=== PATIENT | male | born 1935 | race Caucasian/White ===

== ENCOUNTER 2020-12-05 19:19 | Observation (INO) | payer MEDICARE, SELFPAY ==
[2020-12-05] VITALS (7 sets, daily range): BP systolic 138–208; BP diastolic 83–103; PULSE 65–88; RESP 16–20; TEMP 36.4–36.7; O2SAT 99–100; BMI 27.6; BMI 30.2
--- NOTE | ~2020-12-05 | XR_ITS ---
EXAMINATION: XR chest 2V DATE: 12/05/2020 19:57 INDICATION: Left-sided chest TECHNIQUE: AP and lateral views of the chest are obtained. COMPARISON: 09/03/2018 FINDINGS: There are minimal opacities of the lower lung zones. No pleural effusion or pneumothorax is identified. The cardiomediastinal silhouette is normal. There is moderate thoracic spondylosis. IMPRESSION: 1. Minimal opacities of the lower lung zones, consistent with atelectasis versus pneumonia versus pul monary edema. Reviewed, dictated and finalized at location A. GRADER IMPRESSION: 1. Minimal opacities of the lower lung zones, consistent with atelectasis versu s pneumonia versus pulmonary edema.
--- NOTE | 2020-12-05 19:26 | ECG_ITS ---
Measurements Intervals [place] Rate: 71 P: 7 [place]: 231 QRS: -18 QRSD: 105 T: 78 QT: 395 QTc: 430 Interpretive Statements SINUS RHYTHM WITH FIRST DEGREE AV BLOCK INFERIOR INFARCT, AGE INDETERMINATE BORDERLINE ST-T WAVE ABNORMALITY- HIGH LATERAL LEADS ABNORMAL ECG Electronically Signed On 12-05-2020 21:45:02 PRODUCT BUILDER by Izaiah Bonilla D.O.
[2020-12-05 19:58] LABS: Basophils Percent Auto 0.4 % (0.2-1.2); Eosinophils Absolute Auto 0.1 K/mm3 (0-0.3); Eosinophils Percent Auto 1.6 % (0-4.4); Hematocrit 46.5 % (42.0-52.0); Hemoglobin 15.9 g/dL (14.0-18.0); Immature Granulocyte Absolute 0.03 K/mm3 (0.00-0.031); Immature Granulocyte Percent A 0.4 % (0-0.5); Lymphocytes Absolute Auto 2.23 K/mm3 (0.9-3.2); Lymphocytes Percent Auto 29.2 % (18.3-44.2); Mean Corpuscular HGB Conc 34.2 g/dl (32-36); Mean Corpuscular Hemoglobin 30.6 pg (26-34); Mean Corpuscular Volume 89.6 fl (80-100); Mean Platelet Volume 10.5 fl (7.4-10.4); Monocytes Absolute Auto 0.9 K/mm3 (0.1-0.6); Neutrophils Absolute Auto 4.3 K/mm3 (1.3-6.7); Neutrophils Percent Auto 56.4 % (45.5-73.1); Platelet Count Result 174 k/mm3 (150-375); Red Blood Count 5.19 M/mm3 (4.6-6.20); Red Cell Distribution Width 12.4 % (11.5-14.5); White Blood Count 7.7 K/mm3 (4.5-10.0)
[2020-12-05 20:08] LABS: INR 0.9; Partial Thromboplastin Time 25.8 SECONDS (22.3-36.8); Prothrombin Time 12.8 Seconds (11.1-14.7)
[2020-12-05 20:11] LABS: Anion Gap 7 mmol/L (8-16); Blood Urea Nitrogen 19 mg/dL (9-20); Calcium 8.7 mg/dL (8.4-10.2); Carbon Dioxide 31 mmol/L (22-30); Chloride 97 mmol/L (98-107); Estimated Glomerular Filt Rate > 60; Glucose 140 mg/dL (75-110); Potassium 4.3 mmol/L (3.4-5.0); Sodium 135 mmol/L (137-145)
[2020-12-05 20:21] LABS: Troponin I 0.017 ng/mL (0.000-0.034)
[2020-12-05 20:45] LABS: D Dimer 0.38 ug/mL (<0.48)
[2020-12-05 20:50] LABS: Alanine Aminotransferase 27 U/L (4-50); Albumin Level 4.3 g/dL (3.5-5.1); Alkaline Phosphatase 82 U/L (38-126); Aspartate Amino Transferase 27 U/L (17-59); Bilirubin,Total 1.1 mg/dL (0.2-1.3)
[2020-12-05 20:59] LABS: NT Pro B Type Natriuretic Pept 519 PG/ML (5-100)
--- NOTE | 2020-12-05 21:07 | ED.CHESTPAIN ---
HPI - Chest Pain General Chief Complaint: Chest Pain Stated Complaint: Intermittant chest pain x 1hour Time Seen by Provider: 12/05/20 20:03 Source: patient and family Mode of arrival: ambulatory Limitations: no limitations History of Present Illness HPI narrative: 85 years old white male presents with intermittent left chest pain with elevated blood pressure started while sitting on the computer. Patient reported that the pain is intermittent usually lasts for 1 to 2 seconds then go away. Patient denies any aggravating or relieving factors. Patient denies any fever, chills, nausea, vomiting, shortness of breath, sore throat, headache, back pain, exposure to anybody known having COVID-19. Currently patient is asymptomatic, DNR, history of coronary stents times 12/2000. Patient is telling me that he was scheduled for cardiac bypass which canceled for unknown reason. Currently patient on aspirin and Plavix Related Data Home Medications Medication Instructions Recorded Confirmed aspirin 81 mg tablet,delayed 81 mg PO DAILY 07/13/20 release clopidogrel 75 mg tablet 75 mg PO DAILY 07/13/20 Allergies Allergy/AdvReac Type Severity Reaction Status Date / Time No Known Allergies Allergy Verified 12/05/20 19:21 Review of Systems Review of Systems: Narrative: CONSTITUTIONAL: Denies fever, chills, or sweats. EYES: Denies visual changes, redness, or discharge. ENT: Denies rhinorrhea, congestion, sore throat, or otalgia. CARDIOVASCULAR: Denies chest pain, palpitations, or edema. RESPIRATORY: Denies cough or dyspnea. GASTROINTESTINAL: Denies abdominal pain, nausea, vomiting, or diarrhea. GENITOURINARY: Denies dysuria or hematuria. SKIN: Denies rash or itching. MUSCULOSKELETAL: Denies back pain, joint pain, or myalgia. NEUROLOGIC: Denies headache, numbness, or weakness. PSYCHIATRIC: Denies anxiety or depression. [facility] Past Medical History Medical History (Updated 12/05/20 @ 21:14 by Jayleen Rice MD) Coronary stent occlusion Hypertension Social History Social History Smoking status: Never smoker Alcohol intake: never Substance use: never Gender identity (if verbalized by the patient): Male Exam Narrative: Exam Narrative: General appearance: Well-developed, well-nourished Skin: Normal color Head: Normocephalic, nontraumatic Eyes: Clear conjunctiva ENT: Oropharynx normal, ears normal, nose normal Neck: Supple, nontender Chest and respiratory: Airway patent, no respiratory distress, no accessory muscle use Heart: Regular rate/rhythm Abdomen: Soft, nontender, no organomegaly, quiet bowel sounds Vascular: Normal peripheral pulses, normal capillary refill. 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 Labs, EKG, chest x-ray, aspirin, Lopressor ordered. Further plan to follow Differential Diagnosis Differential diagnosis: Likely pneumothorax, stable angina, atypical chest pain and chest pain Lab Data Result diagrams:
[2020-12-05] MEDS: METOPROLOL TARTRATE INJ 5 MG/5 ML VIAL IV PUSH (22:21)
[2020-12-05] MEDS: NITROGLYCERIN OINTMENT 1 INCH DOSE TRANSDERM ×2 (22:21→23:40)
--- NOTE | 2020-12-05 22:53 | ECG_ITS ---
Measurements Intervals [place] Rate: 64 P: -2 [place]: 225 QRS: -1 QRSD: 100 T: 85 QT: 403 QTc: 416 Interpretive Statements SINUS RHYTHM WITH FIRST DEGREE AV BLOCK BORDERLINE R WAVE PROGRESSION, ANTERIOR LEADS INFERIOR INFARCT, AGE INDETERMINATE BORDERLINE ST-T WAVE ABNORMALITY- HIGH LATERAL LEADS BASELINE ARTIFACT- I, II, AVR ABNORMAL ECG Electronically Signed On 12-06-2020 7:15:09 EMPLOYEE BENEFITS ATTORNEY by Izaiah Bonilla D.O.
--- NOTE | 2020-12-05 22:55 | PM.IMHP ---
H&P: HPI History of Present Illness Date/Time: 12/05/20 22:55 Chief Complaint: chest pain Narrative: This is an 85 year old male with known CAD+ s/p #5 stents placed who [facility] with a complaint of intermittent left sided chest pain while sitting at his computer. The patient states that his chest pain would last a few seconds and then go away. He believes that he had about [facility]. He denies any associated nausea, vomiting, shortness of breath, headache, fever, chills, cough, abdominal pain, dysuria, hematuria, diarrhea, LE swelling, or rectal bleeding. The patient's last cardiac angiogram was about 5 years ago when he had angioplasty done. He states that he has been told in the past that he had a complete occlusion of his LAD. First two troponins have been negative. ER provider has consulted Cardiology. On my encounter with the patient he has no complaints or symptoms. No other complaints. Review of Systems Review of Systems: All systems reviewed & are unremarkable except as noted in HPI and below PMFSH Past Medical History Medical History (Updated 12/06/20 @ 05:03 by Abdirahman Marrufo MD) Coronary stent occlusion Hypertension Surgical History Surgical History (Updated 12/05/20 @ 23:02 by Abdirahman Marrufo MD) History of coronary artery stent placement Family History Family History Father Acute myocardial infarction father of [place] in his early 50s Social History Social History Smoking status: Never smoker Alcohol intake: never Substance use: never Gender identity (if verbalized by the patient): Male Spiritual care concerns: No Meds Home Medications and Allergies Home Medications Medication Instructions Recorded Confirmed Type aspirin 81 mg tablet,delayed 81 mg PO DAILY 07/13/20 12/05/20 History release clopidogrel 75 mg tablet 75 mg PO DAILY 07/13/20 12/05/20 History levetiracetam 500 mg PO BID 12/05/20 12/05/20 History lisinopril 40 mg PO DAILY 12/05/20 12/05/20 History metoprolol succinate 50 mg PO DAILY 12/05/20 12/05/20 History simvastatin 20 mg PO DAILY 12/05/20 12/05/20 History Allergies Allergy/AdvReac Type Severity Reaction Status Date / Time No Known Allergies Allergy Verified 12/05/20 19:21 Vital Signs Vital Signs - 24 hr 12/05/20 19:33 12/05/20 19:42 12/05/20 21:15 Temperature 36.7 C Pulse Rate 73 88 Respiratory Rate 20 Blood Pressure 208/103 H 160/84 H Pulse Oximetry 99 12/05/20 22:21 12/05/20 22:41 Temperature Pulse Rate 65 65 Respiratory Rate 16 Blood Pressure 138/86 Pulse Oximetry 99 Exam Const: General: healthy appearing, no acute distress, alert and awake Nutritional Appearance: well nourished Orientation/consciousness: patient oriented x3 HENMT: Head: normal to inspection General nose exam: Normal external nose present Face and sinus: normal facial exam Mouth: Yes Normal oral and palatal mucosa present and Yes oropharynx normal Eyes: Pupils: Equal, round and reactive pupils present EOM: EOMs intact bilaterally Neck: Neck: supple and no JVD Thyroid: thyroid normal Lymphatic: lymphadenopathy not noted Resp: Effort & Inspection: normal respiratory effort Auscultation: clear to auscultation bilaterally Cardio: Rate: regular rate Rhythm: regular rhythm Heart sounds: no murmurs GI: Inspection: normal to inspection Auscultation: normal bowel sounds Skin: General skin exam: normal color and no rashes or lesions noted Neuro: General: patient oriented x3 Cranial nerves: Yes CN's II-XII intact bilaterally and Yes Equal, round and reactive pupils present Speech: normal speech Motor exam (neuro): 5/5 motor strength present throughout Sensory Exam: normal sensation Extrem: General: normal to inspection and no edema Psych: Mental Status: mental sta
--- NOTE | 2020-12-05 22:55 | PC.NURSE ---
This patient, Johnnie Mack, was admitted to IMU Room 202-. Patient/family oriented to hospital policies and general routines including ID bracelet, bed and alarms, visiting hours, pain management, procedures, bathroom and other care routines, personal items, smoking policy, room service/diet, and visiting hours. Information on how to activate the Rapid Response Team has been discussed. Patient/Family are encouraged to report perceived risks to care and to ask questions if they do not understand what they are told or what they should do.
[2020-12-05 22:57] LABS: Troponin I < 0.012 ng/mL (0.000-0.034)
[2020-12-05] MEDS: ENOXAPARIN 80 MG/0.8 ML SYRINGE SUB-Q (23:39)
[2020-12-06] VITALS (10 sets, daily range): BP systolic 128–143; BP diastolic 74–80; PULSE 61–74; RESP 19–20; TEMP 36.3–36.6; O2SAT 96–99
--- NOTE | 2020-12-06 | ECHO_ITS ---
Patient Info Name: Johnnie Mack Age: 85 years : 1935 Gender: Male Ht: 65 in Wt: 182 lbs BSA: 1.97 m2 HR: 64 bpm BP: 128 / 74 mmHg Heart Rhythm: Sinus Rhythm Technical Quality: Fair Exam Date: 12/06/2020 8:14 AM Exam Location: [facility] Patient Status: Inpatient Admit Date: 12/05/2020 Staff Ordering Physician: Jeremiah Morton MD Neon Pumper: Ne Alvarez RDCS Attending Provider: Abdirahman Marrufo MD Exam Type: CA echo doppler color flow Study Info Indications R07.89 - Other chest pain Complete two-dimensional, color flow and Doppler transthoracic echocardiogram is performed. Summary 1. Complete two-dimensional, color flow and Doppler transthoracic echocardiogram is performed. 2. Suboptimal image quality. Mild LV enlargement, sigmoid hypertrophy; borderline LV systolic function, EF calculated at 50%. Grade 1 diastolic dysfunction. Mild left atrial enlargement. Mitral valve not well visualized, no significant MR. Left coronary cusp of aortic valve mildly calcified, no significant stenosis by Doppler. Trace TR, normal RVSP. Left Ventricle Left ventricular systolic function is mildly reduced, estimated at 45-50%. The left ventricular diastolic function is grade I diastolic dysfunction. Right Ventricle Right ventricular chamber dimension is normal. Right ventricular systolic function is normal. Left Atria Left atrial chamber dimension is mildly enlarged. Right Atria Right atrial chamber dimension is normal. Aortic Valve There is no aortic valve stenosis. There is trace aortic valve regurgitation. There is mild aortic valve calcification. Pulmonic Valve The pulmonic valve is not well visualized. There is mild pulmonic regurgitation. Mitral Valve The mitral valve has normal leaflets. There is no mitral valve regurgitation. Tricuspid Valve The tricuspid valve leaflets are normal. There is trace tricuspid valve regurgitation. Pericardium/Pleural The pericardium appears epicardial fat pad. Aorta The aortic root size at the sinus of Valsalva is normal. Left Ventricular Outflow Tract Name Value Normal LVOT 2D LVOT Diameter 2.0 cm LVOT Doppler LVOT Peak Gradient 3 mmHg LVOT Mean Gradient 2 mmHg LVOT VTI 17 cm LVOT VTI/AV VTI Ratio 0.9 LVOT Stroke Volume 56 ml LVOT CO 3.6 l/min LVOT CI 1.8 l/min/m2 Pulmonic Valve Name Value Normal RVOT Doppler RVOT Peak Gradient 2 mmHg PV Doppler PV Peak Gradient 3 mmHg Mitral Valve
[2020-12-06 01:03] LABS: Basophils Percent Auto 0.4 % (0.2-1.2); Eosinophils Absolute Auto 0.1 K/mm3 (0-0.3); Eosinophils Percent Auto 1.1 % (0-4.4); Hematocrit 44.1 % (42.0-52.0); Hemoglobin 15.2 g/dL (14.0-18.0); Immature Granulocyte Absolute 0.03 K/mm3 (0.00-0.031); Immature Granulocyte Percent A 0.4 % (0-0.5); Lymphocytes Percent Auto 26.5 % (18.3-44.2); Mean Corpuscular HGB Conc 34.5 g/dl (32-36); Mean Corpuscular Hemoglobin 30.7 pg (26-34); Mean Corpuscular Volume 89.1 fl (80-100); Monocytes Absolute Auto 0.7 K/mm3 (0.1-0.6); Monocytes Percent Auto 9.2 % (2.6-8.5); Neutrophils Absolute Auto 4.7 K/mm3 (1.3-6.7); Neutrophils Percent Auto 62.4 % (45.5-73.1); Platelet Count Result 168 k/mm3 (150-375); Red Blood Count 4.95 M/mm3 (4.6-6.20); Red Cell Distribution Width 12.4 % (11.5-14.5); White Blood Count 7.5 K/mm3 (4.5-10.0)
[2020-12-06 01:15] LABS: Anion Gap 3 mmol/L (8-16); Blood Urea Nitrogen 16 mg/dL (9-20); Calcium 8.3 mg/dL (8.4-10.2); Carbon Dioxide 30 mmol/L (22-30); Chloride 101 mmol/L (98-107); Estimated CRCL calculation 60 ml/min; Estimated Glomerular Filt Rate > 60; Glucose 156 mg/dL (75-110); Magnesium 1.9 mg/dL (1.6-2.3); Potassium 4.7 mmol/L (3.4-5.0); Sodium 134 mmol/L (137-145)
[2020-12-06 01:27] LABS: Troponin I 0.028 ng/mL (0.000-0.034)
[2020-12-06] MEDS: NITROGLYCERIN OINTMENT 1 INCH DOSE TRANSDERM (05:28)
[2020-12-06 05:35] LABS: Cholesterol 113 mg/dL (0-200); HDL Direct 42 mg/dL; Triglycerides 126 mg/dL (<150)
[2020-12-06 05:38] LABS: Hemoglobin A1C 7.6 % (<5.7)
[2020-12-06 05:45] LABS: LDL Cholesterol Direct 55 mg/dL
--- NOTE | 2020-12-06 08:45 | PM.CNCAR ---
Assessment and Plan Assessment and plan (1) Atypical chest pain: Code(s): R07.89 - Other chest pain Status: Acute Assessment and Plan: 85-year-old male with CAD, history of multiple PCI/stenting placements; ischemic cardiomyopathy (EF 40-45% from previous catheterization), hypertension. Patient admitted to the hospital with chest pain with features atypical for ischemia. EKG shows old infarct. Serial troponins are negative. Blood pressure was severely elevated at presentation which has improved now. -continue dual antiplatelet therapy with aspirin and clopidogrel. -resume other home medications including metoprolol, lisinopril, simvastatin. -echocardiogram with Doppler is pending. If no significant changes, then patient may be discharged home with outpatient cardiology follow-up. (2) CAD (coronary artery disease): Code(s): I25.10 - Atherosclerotic heart disease of [place] coronary artery without angina pectoris Status: Acute Assessment and Plan: Continue current medical treatment for CAD. Patient has been ruled out for GA. (3) Severe hypertension: Code(s): I10 - Essential (primary) hypertension Status: Acute Assessment and Plan: Blood pressure was severely elevated at high presentation, which has normalized now. Continue current antihypertensives. History of Present Illness History of Present Illness Consult date/time: 12/06/20 08:45 Date of Service: 12/06/2020 Reason for consult: Chest pain Requesting physician: Chief complaint: Chest pain HPI: 85-year-old male with CAD, history of multiple PCI/stenting placements; ischemic cardiomyopathy (EF 40-45% from previous catheterization), hypertension. Patient admitted to [facility] on 12/05/2020 with complaints of chest pain. He describes the chest pain as pinprick like sensation on the left side of the chest, that last for 1-2 seconds, and and had about 8-10 episodes in 1 hour. He denied any associated symptoms of shortness of breath, palpitation, dizziness or syncope. At baseline, he denies any exertional chest discomfort. He has not had any recurrent chest discomfort since hospitalization. On presentation, patient's blood pressure was severely elevated at 208/103 mmHg. His blood pressure has significantly improved. At the time of evaluation, patient was eating breakfast. EKG which I personally evaluated showed sinus rhythm, first-degree AV block, inferior infarct, age undetermined, probably old; nonspecific ST-T abnormalities in the lateral leads. Serial troponins are negative. Chest x-ray shows minimal opacities in the lower lung zones. NTproBNP elevated at 519. Review of patient's previous medical records indicate that he had coronary angiogram done on 08/23/[address] Wheeler the setting of ST-elevation [place]. Coronary angiogram showed patent left main; chronic total occlusion LAD at its origin with 100% ISR proximal LAD; patent proximal LCX stent with minor irregularities; 100% thrombotic occlusion RCA at its origin within previously placed stent. LVEF was reportedly 40-45%. Patient underwent balloon angioplasty of the right coronary artery with congregation of flow. Reason For Visit: chest pain, uncontrolled htn Review of Systems Review of Systems: Narrative: General: Negative for fever, chills, fatigue Psychological: Negative for anxiety, depression Ophthalmic: negative for loss of vision ENT: Negative for epistaxis, headaches Allergy and immunology: Negative for hives, nasal congestion Hematologic and lymphatic: Negative for overt bleeding problems Endocrine: Negative for hot flashes, palpitations Respiratory: Negative for cough, hemoptysis Cardiovascular: Positive for transient chest pain which has resolved now; shortness of breath, leg swelling, palpitations, dizziness, syncope Gastrointestinal: Negative for abdominal pain, nausea, vomiting, hematochezia Musculoskeletal: Negative for myalgi
[2020-12-06] MEDS: CLOPIDOGREL BISULFATE 75 MG TABLET PO (09:05)
[2020-12-06] MEDS: SIMVASTATIN 20 MG TABLET PO (09:05)
[2020-12-06] MEDS: lisinopriL 20 MG TABLET 40 MG PO (09:06)
[2020-12-06] MEDS: METOPROLOL SUCCINATE EXT REL 50 MG TABCR PO (09:06)
[2020-12-06] MEDS: levETIRAcetam 500 MG TABLET PO (09:06)
[2020-12-06] MEDS: ASPIRIN 81 MG CHEWABLE TABLET PO (09:10)
--- NOTE | 2020-12-06 11:34 | PM.DS ---
DS: Admitting Diagnosis Admitting Diagnosis Admitting Diagnosis: Chief Complaint: chest pain DS: Discharge Diagnosis Discharge Diagnosis (1) Chest pain: Qualifiers: Chest pain type: unspecified Qualified Code(s): R07.9 - Chest pain, unspecified Code(s): R07.9 - Chest pain, unspecified Status: Acute Assessment and Plan: The patient has been admitted for observation, Trend troponin, telemetry, monitor for chest pain, nitroglycerin SL PRN for chest pain. Check lipid panel in am. Aspirin PO daily. Continue Plavix. The patient has been anticoagulated by ER provider. Cardiology, Dr. Dailey has been consulted and will evaluate the patient in the morning. (2) Hypertension: Qualifiers: Hypertension type: unspecified Qualified Code(s): I10 - Essential (primary) hypertension Code(s): I10 - Essential (primary) hypertension Status: Inactive Assessment and Plan: Monitor blood pressure. Continue beta tyler. (3) Abnormal glucose: Code(s): R73.09 - Other abnormal glucose Status: Acute Assessment and Plan: r/o undiagnosed diabetes mellitus. Check HgbA1c. DS: Summary Hospital Course Reason for hospitalization: Chief Complaint: chest pain Narrative: This is an 85 year old male with known CAD+ s/p #5 stents placed who presented to the hospital [facility] with a complaint of intermittent left sided chest pain while sitting at his computer. The patient states that his chest pain would last a few seconds and then go away. He believes that he had about 6 episodes all together [facility]. He denies any associated nausea, vomiting, shortness of breath, headache, fever, chills, cough, abdominal pain, dysuria, hematuria, diarrhea, LE swelling, or rectal bleeding. The patient's last cardiac angiogram was about 5 years ago when he had angioplasty done. He states that he has been told in the past that he had a complete occlusion of his LAD. First two troponins have been negative. ER provider has consulted Cardiology. On my encounter with the patient he has no complaints or symptoms. No other complaints. Hospital Course: Patient 85-year-old male a significant past medical history with multiple stents, ischemic cardiomyopathy with ejection fraction of 40-45%, patient is clinically stable, patient is a cardiac enzymes are negative, EKG there are no acute changes, supervisor special education recommended if cardiac echo without significant change he can be discharged, patient cardiac echo showed ejection fraction of 40-50% will going discharge the patient home today. Status at Discharge Functional status at discharge: uses cane/walker Overall status at discharge: patient is back to baseline Time Spent with Patient Time attestation: Total time spent providing and/or coordinating discharge services: Patient was seen and examined at the time of the discharge Condition at discharge is stable Code status: Full code. Time spent preparing discharge summary, discharge medications, discussing discharge planning with case specialist and patient is 35 minutes. Time spent: Greater than 30 minutes Exam Narrative: Exam Narrative: Patient is comfortable, NAD HEENT: eyes are clear and none icteric LUNGS:CTA HEART: RR S1S2 ABD: BS+, Soft and nontender Lower extremities: no edema SKIN: nonjaundiced Neuro: grossly intact. DS: Data Data Completed and Pending Labs on day of discharge: Labs from last 24 hours 12/06/20 12/06/20 12/06/20 00:57 00:57 00:57 WBC RBC Hgb Hct MCV MCH MCHC RDW Plt Count MPV Immature Gran % (Auto) Neut % (Auto) Lymph % (Auto) [place] % (Auto) Eos % (Auto) Baso % (Auto) Lymph # (Auto) [place] # (Auto) Eos # (Auto) Baso # (Auto) Abs Immat Gran (auto) Absolute Neuts (auto) Absolute Nucleated RBC Nucleated RBC % PT INR APTT D-Dimer Sodium Potassium Chloride Carbon Di
--- NOTE | 2020-12-06 13:12 | PC.NURSE ---
Patient had discharge orders before 1200 assessment. Flu shot given in Left Deltoid at discharge.
== END 2020-12-06 13:14 | disposition home or self-care (01) ==
LOC: ANHED 20:03 → ANHIMU 12-06 00:05
PROVIDERS: Admitting Provider Family Medicine; Emergency Provider Emergency Medicine; PCP Internal Medicine; Visit Provider Family Medicine
DX: R07.89 Other chest pain (principal); I25.5 Ischemic cardiomyopathy; I10 Essential (primary) hypertension; R73.09 Other abnormal glucose; I25.10 Atherosclerotic heart disease of native coronary artery without angina pectoris; Z95.5 Presence of coronary angioplasty implant and graft; Z66 Do not resuscitate; Z79.82 Long term (current) use of aspirin; Z79.02 Long term (current) use of antithrombotics/antiplatelets; Z23 Encounter for immunization
CPT/HCPCS: 36415; 71046; 80048; 80061; 80076; 83036; 83735; 83880; 84484; 85025; 85380; 85610; 85730; 90471; 90653; 93005; 93306; 96372; 96374; 99285; A9270; G0008; G0378; J1650

== ENCOUNTER → 2021-07-18 09:07 | Outpatient (CLI) | payer MEDICARE, SELFPAY ==
--- NOTE | ~2021-07-18 | XR_ITS ---
EXAMINATION: XR abdomen/kub 1V INDICATION: Flank pain TECHNIQUE: Supine views of the abdomen were obtained on 2 radiographs. COMPARISON: None FINDINGS: No urolithiasis is identified. Calcified atherosclerosis is noted. The visualized lung base s are clear. The bowel gas pattern is normal. There is mild osteoarthritis of the hips. IMPRESSION: 1. No urolithiasis identified. Reviewed, dictated and finalized at location A.
--- NOTE | ~2021-07-18 | CT_ITS ---
EXAMINATION: CT abdomen pelvis wo con DATE: 07/18/2021 09:33 INDICATION: Bilateral flank pain TECHNIQUE: Computed tomography (CT) of the abdomen and pelvis was performed without intravenous contr ast. The dose-length product (DLP) was 761.23 mGy-cm. Automated exposure control and iterative recons truction technique were employed. COMPARISON: 02/25/2019 FINDINGS: Minimal dependent atelectasis is present in the lung bases. The heart size is normal. The l iver is diffusely low in attenuation when compared with the spleen, consistent with hepatic steatosis . The spleen, pancreas, gallbladder, and adrenal glands are normal. There is a 2.9 cm cyst in the upp er pole of the left kidney. The right kidney is unremarkable. No stones are identified in the kidneys or ureters. There is a 2 mm stone in the right posterolateral bladder. A bladder stone was previousl y seen in this location. There is no hydronephrosis or hydroureter. There is calcified atherosclerosi s of the aorta and many of the other arteries. No pathologically enlarged abdominal or pelvic lymph n odes are identified. There is no free intraperitoneal gas or evidence of bowel obstruction. Colonic d iverticulosis is present without evidence of diverticulitis. The appendix is normal. There is severe lumbar spondylosis. IMPRESSION: 1. Bladder stone, versus chronic. 2. Diverticulosis. 3. Diffuse hepatic steatosis. Reviewed, dictated and finalized at location A.
== END ==
PROVIDERS: Visit Provider Nurse Practitioner Adult Health
DX: R10.9 Unspecified abdominal pain (principal); K76.0 Fatty (change of) liver, not elsewhere classified; K57.30 Diverticulosis of large intestine without perforation or abscess without bleeding; M47.816 Spondylosis without myelopathy or radiculopathy, lumbar region
CPT/HCPCS: 74018; 74176

== ENCOUNTER 2022-06-26 09:55 | Outpatient (CLI) | payer MEDICARE, SELFPAY ==
--- NOTE | ~2022-06-26 | XR_ITS ---
XR abdomen/kub 1V 06/26/2022 10:25 Indication: Flank pain. History of bladder stones. Procedure: KUB Comparison: 07/18/2021 Findings: There is a punctate left renal stone. There are pelvic vascular calcifications and phleboli ths. Moderate lumbar spondylosis. No definite stones identified in the expected course of ureters. Miriam ng bases unremarkable. Nonobstructive bowel gas pattern. Impression: 1: Left nephrolithiasis. Reviewed, dictated and finalized at location A. Impression: 1: Left nephrolithiasis.
== END 2022-06-26 09:56 | disposition home or self-care (01) ==
PROVIDERS: Visit Provider Urology
DX: R10.9 Unspecified abdominal pain (principal); N20.0 Calculus of kidney
CPT/HCPCS: 74018

== ENCOUNTER 2022-08-17 08:28 | Outpatient (CLI) | payer MEDICARE, SELFPAY ==
--- NOTE | ~2022-08-17 | XR_ITS ---
EXAMINATION: XR abdomen/kub 1V INDICATION: Gross hematuria TECHNIQUE: Supine views of the abdomen were obtained on 2 radiographs. COMPARISON: 06/26/[address] from today FINDINGS: A 1.5 cm calcification projecting over the right bladder is consistent with bladder stone s een on today's CT. No additional urolithiasis is identified. The bowel gas pattern is visualized lung bases are clear. IMPRESSION: 1. 1.5 cm bladder stone. Reviewed, dictated and finalized at location A. IMPRESSION: 1. 1.5 cm bladder stone.
--- NOTE | ~2022-08-17 | CT_ITS ---
EXAMINATION: CT abdomen pelvis wo/w con DATE: 08/17/2022 09:30 INDICATION: Gross hematuria TECHNIQUE: Computed tomography (CT) of the abdomen and pelvis was performed without and with 130 cc O mnipaque 350 intravenous contrast. The dose-length product was 986.37 mGy-cm. Automated exposure cont rol and iterative reconstruction technique were employed. COMPARISON: CT dated 07/18/2021. FINDINGS: Lung bases are unremarkable. Small pericardial effusion. Cardiomegaly. There is atheroscler osis of the coronary arteries and aorta. No evidence for aneurysm. There is ectasia of the iliac octavio sandra. There is a bladder stone measuring 1.5 cm. Fatty infiltration of the bladder. No renal stones. Colonic diverticulosis without evidence for diver ticulitis. No free air or free fluid. Prostate gland is enlarged. Moderate-severe lumbar spondylosis. No focal hepatic masses. The spleen, pancreas, adrenal glands and right kidney are unremarkable. Ther e is a 2.5 cm left renal cyst. Ureters are normal in course and caliber. IMPRESSION: 1. Bladder stone measuring 1.5 cm. Reviewed, dictated and finalized at location B.
[2022-08-17 09:12] LABS: Estimated Glomerular Filt Rate > 60
== END 2022-08-17 08:29 | disposition home or self-care (01) ==
PROVIDERS: PCP Internal Medicine; Visit Provider Nurse Practitioner Adult Health
DX: R31.0 Gross hematuria (principal); N21.0 Calculus in bladder
CPT/HCPCS: 74018; 74178; Q9967

== ENCOUNTER 2022-08-23 09:14 | Outpatient (CLI) | payer MEDICARE, SELFPAY ==
--- NOTE | 2022-08-23 09:27 | ECG_ITS ---
Measurements Intervals [place] Rate: 72 P: 63 LA: 228 QRS: 16 QRSD: 122 T: 80 QT: 385 QTc: 424 Interpretive Statements SINUS RHYTHM WITH FIRST DEGREE AV BLOCK WITH FREQUENT VENTRICULAR PREMATURE COMPLEXES INFERIOR MYOCARDIAL INFARCTION [40+ ms Q WAVE AND/OR ST/T ABNORMALITY IN II/aVF], OF INDETERMINATE AGE COMPARED TO ECG 12/05/2020 23:32:50 NO SIGNIFICANT CHANGES Electronically Signed On 08-23-2022 17:24:22 CDT by Shanta Anderson M.D.
== END 2022-08-23 09:15 | disposition home or self-care (01) ==
PROVIDERS: PCP Internal Medicine; Visit Provider Urology
DX: I10 Essential (primary) hypertension (principal); Z01.818 Encounter for other preprocedural examination; R94.31 Abnormal electrocardiogram [ECG] [EKG]
CPT/HCPCS: 93005

== ENCOUNTER 2022-08-24 01:08 | Day surgery (SDC) | payer MEDICARE, SELFPAY ==
--- NOTE | 2022-08-22 13:58 | PC.NURSE ---
Addendum entered by Petra Jain RN 08/22/22 15:03: 08/22/22 1445 PT AWARE DO NOT TAKE ANYMORE PLAVIX OR ASPIRIN UNTIL AFTER SURGERY PER DR MCNAIR Original Note: Report to the Outpatient Waiting Room, entrance under the green pavilion located off [facility], at time 0930 on date08/24/22 . OR Time: 1130 . Time changes happen often and if your time is changed the preop area will call you the afternoon before. - You and your visitor will be asked to self-screen and do not enter if you have any COVID symptoms. - Only one visitor and NO children visitors are allowed at this time. - The patient visitor is requested to leave or wait in car when not with patient due to restrictions. - A mask is required within the hospital. Patients may have clear liquids (water, carbonated beverages, clear teas, apple juice) until 3 hours prior to surgery with a maximum of 20 ounces. - No food from midnight until time of surgery - Infants may have breast milk until 4 hours before surgery, formula 6 hours prior to surgery. - Children will be allowed to drink immediately following surgery. If applicable, please bring a bottle or sippy cup to assist with drinking. Juice, water, soda, and popsicles are readily available. For infants on formula, please bring formula the day of surgery. Pacifiers are allowed. Take the following medications with a SIP of water the morning of surgery: ____LEVETIRACETAM,METOPROLOL Medications to discontinue per physician ____ASPIRIN AND PLAVIX PER DR MCNAIR Date to take last dose Please no make-up, nail japanese, hairspray, perfume, deodorant, or body powder the day of surgery. No jewelry (including any body piercings) or valuables the day of surgery, leave them at home. Please take a shower or bath the night before, or the morning of, surgery with an antibacterial soap. Wear comfortable, loose fitting clothing. Children are encouraged to wear pajamas. - Jewelry must be removed prior to entering the operating room. Rings and piercings that are not removed may be cut off. - The hospital will not accept responsibility for valuables. - Please leave all valuables, including medications, at home the day of surgery. If you are going home after surgery, a licensed driver lifter of sanitation truck must drive you home. - NO public transportation without another adult. - We recommend that an adult stay with you for 24 hours following discharge. - We also recommend that you do not drive, make important decision, drink alcoholic beverages, or take any drugs that were not prescribed by your health care provider for at least 24 hours after your discharge time. For Pediatric surgeries, we recommend two adults accompany the child home (only one inside the building at this time). Follow any additional instructions given to you from your surgeon. If you or anyone in your household have experienced Covid symptoms in the past week, please notify your surgeon or the nurse liaison at the phone number below for possible testing. Telephone instructions given to __PATIENT and asked if any additional questions and then verbalized understanding. Patient advised to call surgeon office or pre surgery nurse liaison [phone] if any additional questions.
[2022-08-22 14:57] VITALS: BMI 29.9
[2022-08-24] VITALS (12 sets, daily range): BP systolic 151–206; BP diastolic 91–114; PULSE 70–88; RESP 12–24; TEMP 36–36.2; O2SAT 95–100
--- NOTE | 2022-08-24 06:57 | WPDHPUPDATE1 ---
History and Physical Update Update Date/Time: 08/24/22 06:57 History and Physical has been reviewed, including an updated exam of the patient. There are NO changes in the patient's condition. Risks, benefits, and alternatives have been discussed and questions answered. Patient agrees to proceed with procedure.
[2022-08-24] MEDS: LACTATED RINGERS 1,000 ML 30 ML IV CONT (10:30)
--- NOTE | 2022-08-24 11:04 | WPDANESEPPF ---
Anes - Initial Pre Proc Eval Procedure: Operation Date: 08/24/22 11:30 Proposed Procedures p Cystoscopy with Cystolitholapaxy - Braxton Olivo MD Date/Time: 08/24/22 11:04 Surgeon: Braxton Olivo MD Pre Op Diagnosis: Bladder Stone Patient Data Age: 86 Gender: M Height: 1.65 m Weight: 81.5 kg Last Vital Signs Temp 36.0 C L 08/24/22 10:15 Pulse 80 08/24/22 10:15 Resp 16 08/24/22 10:15 BP 206/104 H 08/24/22 10:15 Pulse Ox 99 08/24/22 10:15 O2 Del Method Room Air 08/24/22 10:15 Allergies Allergy/AdvReac Type Severity Reaction Status Date / Time No Known Allergies Allergy Verified 08/24/22 10:55 Home Medications Medication Instructions Recorded Confirmed Type aspirin 81 mg tablet,delayed 81 mg PO DAILY 07/13/20 08/24/22 History release (Adult Low Dose Aspirin) clopidogrel 75 mg tablet (Plavix) 75 mg PO DAILY 07/13/20 08/24/22 History levetiracetam 500 mg tablet 500 mg PO BID 12/05/20 08/24/22 History lisinopril 40 mg tablet 40 mg PO DAILY 12/05/20 08/24/22 History metoprolol succinate 50 mg 50 mg PO DAILY 12/05/20 08/24/22 History tablet,extended release 24 hr simvastatin 20 mg tablet 20 mg PO DAILY 12/05/20 08/24/22 History Patient hx anesthesia problems: none Family hx anesthesia problems: none Results Review: All pre-operative results and documents have been reviewed as part of the pre-operative evaluation. [facility] Past Medical History Medical History CAD (coronary artery disease) Coronary stent occlusion Hyperlipidemia Hypertension Severe hypertension Surgical History Surgical History History of coronary artery stent placement Family History Family History Father Acute myocardial infarction father of [place] in his early 50s Social History Social History Smoking status: Never smoker Alcohol intake: never Substance use: never Living arrangements: with family Gender identity (if verbalized by the patient): Male Spiritual care concerns: No Anes - Eval Final PreProcedure Day of Procedure 08/24/22 11:04 Patient weight: overweight Heart: regular rate and rhythm Lungs: clear to auscultation Airway: Mallampati scale class II Neurological: alert and oriented Last oral intake: >/= 8 hours ASA classification: III Emergent: no Anesthetic plan: proceed Anesthesia type and monitoring: general LMA and standard monitoring Results Review: All pre-operative results and documents have been reviewed as part of the pre-operative evaluation. Informed Consent: The patient's anesthetic plan and its attendant risks and benefits were discussed with the patient/family/POA. Questions were solicited and answers provided to the satisfaction of the patient/family/POA.
[2022-08-24] MEDS: LABETALOL HCL INJ 100 MG/20 ML VIAL IV PUSH ×2 (11:10→14:04)
[2022-08-24] MEDS: LIDOCAINE HCL 2% GEL UROJET 10 ML PKG MUCOUS MEM (12:09)
[2022-08-24] MEDS: ceFAZolin 2 GM/D5W 50 ML 2 GM/50 ML BAG IVPB (12:10)
--- NOTE | 2022-08-24 12:42 | W.PM.PROC2 ---
Procedure Note - Detailed Date of Procedure 08/24/22 Pre-op Diagnosis Bladder Stone Post-op Diagnosis Same Procedure Performed Cystoscopy with laser lithotripsy and extraction of a bladder calculus Surgeon Braxton Olivo MD Description of Procedure The patient is brought to the operative suite where he was prepped and draped in a routine sterile fashion while in the dorsal lithotomy position after the uneventful induction of a general anesthetic. A 19F rigid cystoscope was placed in his bladder. He has no urethral strictures but moderate prostatic hyperplasia. He has a small median lobe enlargement with an estimated prostatic urethral length of approximately 2.5cm. He has single 1.5cm bladder . Using a 1000 micron holmium laser fiber laser these stones are fractured into smaller particles. The particles are evacuated through a 19F rigid cystoscope Mireille evacuator. There is minimal hematuria I opted against placing a long-term urethral catheter.. The patient was taken to the recovery room having tolerated the procedure well. Drains No Pathology Yes Complications No immediate complications Condition Stable
--- NOTE | 2022-08-24 15:30 | SUR.PHASEII ---
1500 - pt instrcted to take his BP medication when he gets home.
== END 2022-08-24 15:20 | disposition home or self-care (01) ==
PROVIDERS: PCP Internal Medicine; Visit Provider Urology
PROC: 0TCB8ZZ Extirpation of Matter from Bladder, Via Natural or Artificial Opening Endoscopic (ICD-10-PCS; CPT 52352; principal; 2022-08-24 11:30)
DX: N21.0 Calculus in bladder (principal); I10 Essential (primary) hypertension; E78.00 Pure hypercholesterolemia, unspecified
CPT/HCPCS: 52317; 82365; 88300; 93005; A9270; J0690; J2405; J2704; J3010; J7120

== ENCOUNTER 2022-10-01 07:16 | Observation (INO) | payer MEDICARE, SELFPAY ==
[2022-10-01] VITALS (20 sets, daily range): BP systolic 165–203; BP diastolic 67–114; PULSE 69–83; RESP 16–20; TEMP 36–37.1; O2SAT 96–99; BMI 26.4; BMI 29.1
--- NOTE | ~2022-10-01 | XR_ITS ---
EXAMINATION: XR chest 1V portable DATE: 10/01/2022 07:47 INDICATION: Chest pain. TECHNIQUE: A single frontal view of the chest was obtained. COMPARISON: Chest 2 views 12/05/2020, CT abdomen and pelvis 09/16/2022 FINDINGS: There is mild atelectasis in the lower lung zones. No pleural effusion or pneumothorax. Car diomegaly is noted. IMPRESSION: 1. Mild atelectasis in the lower lung zones. 2. Cardiomegaly. Reviewed, dictated and finalized at location [facility]. [facility]
--- NOTE | 2022-10-01 07:19 | ECG_ITS ---
Measurements Intervals [place] Rate: 77 P: 6 VT: 214 QRS: -25 QRSD: 97 T: 76 QT: 371 QTc: 422 Interpretive Statements SINUS RHYTHM WITH FIRST DEGREE AV BLOCK BORDERLINE R WAVE PROGRESSION, ANTERIOR LEADS INFERIOR INFARCT, AGE INDETERMINATE BORDERLINE ST-T WAVE ABNORMALITY- HIGH LATERAL LEADS BASELINE WANDER- V6 ABNORMAL ECG COMPARED TO ECG 08/23/2022 09:36:25 NO SIGNIFICANT CHANGES Electronically Signed On 10-01-2022 7:50:13 [employer]ESSOR [employer] by Izaiah Bonilla D.O.
--- NOTE | 2022-10-01 07:27 | ED.CHESTPAIN ---
HPI - Chest Pain General Chief Complaint: Chest Pain Stated Complaint: CP throughout the night Time Seen by Provider: 10/01/22 07:20 Source: RN notes reviewed History of Present Illness HPI narrative: Patient presents emergency room from home for chest pain. Patient states pain began approximately 4:30 AM. States he was sleeping and the pain woke him from sleep with a sharp stabbing pain over his left side of his chest radiated up into his left armpit. He states the pain lasted for approximately 3 to 4 seconds then resolved stated that he had an aching pain that would go from one side of his chest to the other depend on which side he was lying states the pain is now resolved and that aching the last approximately an hour he denies any fevers or chills he denies any shortness of breath abdominal pain nausea vomiting or any other symptoms states he does have a history of coronary artery disease patient states he is followed by Dr. Gann has a history of stents Related Data Home Medications Medication Instructions Recorded Confirmed aspirin 81 mg tablet,delayed 81 mg PO DAILY 07/13/20 08/24/22 release (Adult Low Dose Aspirin) clopidogrel 75 mg tablet (Plavix) 75 mg PO DAILY 07/13/20 08/24/22 levetiracetam 500 mg tablet 500 mg PO BID 12/05/20 08/24/22 lisinopril 40 mg tablet 40 mg PO DAILY 12/05/20 08/24/22 metoprolol succinate 50 mg 50 mg PO DAILY 12/05/20 08/24/22 tablet,extended release 24 hr simvastatin 20 mg tablet 20 mg PO DAILY 12/05/20 08/24/22 Allergies Allergy/AdvReac Type Severity Reaction Status Date / Time No Known Allergies Allergy Verified 10/01/22 07:34 Review of Systems Review of Systems: Gen.: Denies fevers or chills Eyes: Denies eye pain or visual wells ENT: Denies congestion Respiratory: Denies shortness of breath or cough CV: HPI GI: Denies abdominal pain nausea, emesis or diarrhea denies burning, urgency, frequency or hematuria Musculoskeletal: Denies back pain or muscle pain Neuro: Denies numbness, tingling, weakness or focal weakness Skin: Denies rash Except as documented, all other systems reviewed and negative PMFSH Past Medical History Medical History CAD (coronary artery disease) Coronary stent occlusion Hyperlipidemia Hypertension Severe hypertension Surgical History Surgical History History of coronary artery stent placement Family History Family History Father Acute myocardial infarction father of [place] in his early 50s Social History Social History Smoking status: Never smoker Alcohol intake: never Substance use: never Gender identity (if verbalized by the patient): Male Spiritual care concerns: No Exam Narrative: APPEARANCE: No acute distress, nontoxic, resting in bed EYES: EOMI HEENT: Normocephalic, atraumatic, OMM RESPIRATORY: No respiratory distress Clear to auscultation bilaterally with no rhonchi wheezing or rales. CARDIOVASCULAR: Regular rate and rhythm without murmurs rubs or gallops. ABDOMINAL: Soft, nontender, nondistended, no rebound or guarding MUSCULOSKELETAl: Moves all extremities. No clubbing, cyanosis or edema. NEURO: Awake and alert. Following commands, speech normal, no focal deficits SKIN:: Warm, dry. No rashes lesions or abrasions PSYCHIATRIC: Normal affect/mood, Course Course Emergency Course: Discussed with WORKSHOP MANAGER Mile Mike for Dr. Gann presentation and work-up agrees with consult Discussed Dr Ponce agrees with admission Discussed with patient and family results of workup and diagnosis. Discussed need for admission. Patient and family understand and agree to current treatment plan Patient states did not take his a.m. blood pressure medication will give lisinopril at this time Vital Signs V
[2022-10-01 07:48] LABS: Basophils Percent Auto 0.3 % (0.2-1.2); Eosinophils Absolute Auto 0.1 K/mm3 (0-0.3); Eosinophils Percent Auto 0.8 % (0-4.4); Hematocrit 45.5 % (42.0-52.0); Immature Granulocyte Absolute 0.03 K/mm3 (0.00-0.031); Immature Granulocyte Percent A 0.4 % (0-0.5); Lymphocytes Absolute Auto 1.31 K/mm3 (0.9-3.2); Lymphocytes Percent Auto 17.1 % (18.3-44.2); Mean Corpuscular HGB Conc 35.2 g/dl (32-36); Mean Corpuscular Hemoglobin 31.3 pg (26-34); Mean Corpuscular Volume 88.9 fl (80-100); Mean Platelet Volume 10.3 fl (7.4-10.4); Monocytes Absolute Auto 0.6 K/mm3 (0.1-0.6); Monocytes Percent Auto 7.3 % (2.6-8.5); Neutrophils Absolute Auto 5.7 K/mm3 (1.3-6.7); Neutrophils Percent Auto 74.1 % (45.5-73.1); Platelet Count Result 164 k/mm3 (150-375); Red Blood Count 5.12 M/mm3 (4.6-6.20); Red Cell Distribution Width 12.5 % (11.5-14.5); White Blood Count 7.7 K/mm3 (4.5-10.0)
[2022-10-01] MEDS: ASPIRIN 81 MG CHEWABLE TABLET 324 MG PO (08:00)
[2022-10-01 08:01] LABS: Alanine Aminotransferase 24 U/L (6-50); Albumin Level 4.3 g/dL (3.5-5.1); Alkaline Phosphatase 82 U/L (38-126); Anion Gap 13 mmol/L (8-16); Aspartate Amino Transferase 24 U/L (17-59); Bilirubin,Total 1.7 mg/dL (0.2-1.3); Blood Urea Nitrogen 14 mg/dL (9-20); Calcium 8.5 mg/dL (8.4-10.2); Carbon Dioxide 23 mmol/L (22-30); Chloride 97 mmol/L (98-107); Estimated CRCL calculation 61 ml/min; Estimated Glomerular Filt Rate > 60; Glucose 207 mg/dL (65-110); Lipase 85 U/L (23-300); Sodium 133 mmol/L (137-145)
[2022-10-01 08:13] LABS: Troponin I 0.032 ng/mL (0.000-0.034)
[2022-10-01 08:44] LABS: Prothrombin Time 13.2 Seconds (11.1-14.7)
[2022-10-01 08:45] LABS: Partial Thromboplastin Time 27.2 SECONDS (22.3-36.8)
[2022-10-01] MEDS: lisinopriL 20 MG TABLET 40 MG PO (09:18)
[2022-10-01 09:54] LABS: Influenza A QL RT-PCR Negative (Negative); Influenza B QL RT-PCR Negative (Negative); RSV RNA, RT-PCR Negative (Negative); SARS-CoV-2 RNA PCR Negative
[2022-10-01 10:59] LABS: Troponin I 0.026 ng/mL (0.000-0.034)
--- NOTE | 2022-10-01 14:15 | PM.IMHP ---
H&P: HPI History of Present Illness Date/Time: 10/01/22 14:15 Chief Complaint: Chest pain. Narrative: This is a very pleasant 86-year-old male with coronary artery disease and history of multiple stents over the years, ischemic cardiomyopathy, hypertension, and hyperlipidemia presented to the emergency department from home for evaluation of chest pain. He was wakened from sleep at about 04:30 with a sharp and shooting pain in his left side of his chest extending to the axilla down to the lower ribcage. The sharp pain lasted only few seconds and seemed to resolve with position change. He went on to develop a throbbing, aching discomfort in the same area thereafter and this ache was intermittent off and on for the next couple of hours before resolving. There was no associated lightheadedness, dizziness, sweats, shortness of breath, pleuritic pain, nausea, or vomiting. Given his cardiac history he decided it would be best to come in to the ER for evaluation. His initial troponin was detectable but well within normal limits and his EKG showed no acute changes when compared to previous tracings. He is being admitted in this setting for close monitoring and Cardiology consultation. Review of Systems Review of Systems: Twelve systems were reviewed and are negative except for as per HPI. [facility] Past Medical History Medical History (Updated 10/01/22 @ 20:41 by Selin Martinez PA-C) Benign brain tumor Status post resection in 2010. He is on prophylactic anti seizure medications. Coronary artery disease Coronary stent occlusion Hyperlipidemia Hypertension Ischemic cardiomyopathy Surgical History Surgical History (Updated 10/01/22 @ 20:36 by Selin Martinez PA-C) History of coronary artery stent placement History of craniotomy (2010) Benign tumor. Family History Family History Father Acute myocardial infarction father of [place] in his early 50s Social History Social History (Updated 10/01/22 @ 20:37 by Selin Martinez PA-C) Social History: Surrogate medical decision maker: Yenifer Mack, spouse. Code status: Full code Smoking packs per day: 1 Smoking cigarettes per day: 20.0 Years smoked: 60 Smoking pack-years: 60.00 Smoking status: Current every day smoker Alcohol intake: never Substance use: never Lack of Transportation: No Lack of Food: Never True Current Housing: I Have Housing Concerned About Future Housing: No Difficulty Paying Gas/Electric Bills: No Difficulty Paying for Meds: No Currently Unemployed: No Education: High School Diploma/GED Difficulty w/ Childcare or Family Care: No Spiritual care concerns: No Meds Home Medications and Allergies Home Medications Medication Instructions Recorded Confirmed Type metoprolol succinate 50 mg 50 mg PO DAILY 12/05/20 10/01/22 History tablet,extended release 24 hr aspirin 325 mg tablet 325 mg PO DAILY 10/01/22 10/01/22 History clopidogrel 75 mg tablet 75 mg PO DAILY 10/01/22 10/01/22 History finasteride 5 mg tablet 5 mg PO DAILY 10/01/22 10/01/22 History levetiracetam 500 mg 1,000 mg PO BID 10/01/22 10/01/22 History tablet,extended release 24 hr (Keppra XR) lisinopril 40 mg tablet 40 mg PO DAILY 10/01/22 10/01/22 History oxybutynin chloride 5 mg tablet 5 mg PO HS 10/01/22 10/01/22 History simvastatin 20 mg tablet 20 mg PO HS 10/01/22 10/01/22 History Allergies Allergy/AdvReac Type Severity Reaction Status Date / Time No Known Allergies Allergy Verified 10/01/22 17:23 Vital Signs Vital Signs - 24 hr 10/01/22 07:23 10/01/22 07:32 10/01/22 07:33 Temperature 98.8 F Pulse Rate 80 74 Respiratory Rate 20 Blood Pressure 187/109 H Pulse Oximetry 97 97 Oxygen Delivery Room Air Room Air 10/01/22 07:33 10/01/22 09:53 10/01/22 07:24 Temperature Pulse Rate 73 77 Respiratory Rate 18 17 Blood Pressure 172/98 H 203/
--- NOTE | 2022-10-01 14:44 | PM.CNCAR ---
Assessment and Plan Assessment and plan (1) Chest pain: Code(s): R07.9 - Chest pain, unspecified Status: Acute Assessment and Plan: Atypical, recurrent waking him from sleep, sharp in nature given extensive history of CAD with unremarkable troponins thus far. Chest pain likely musculoskeletal by description. Trend troponin severely. If significant elevation will discuss invasive angiography, however, keep NPO after midnight in anticipation for Lexiscan nuclear stress test in a.m.. We discussed options and given his extensive history in new otherwise unexplained chest pain will assess for myocardial ischemia this hospitalization. Discussed discharge from home or observation with further evaluation. He agrees to stay for further assessment. Continue telemetry. DVT prophylaxis. Patient is not decompensated heart failure. 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 No clinical exam findings consistent with aortic dissection given significant BP elevation admission. Check BP in both arms. I expect his stress test to be abnormal given his prior study, however, we need to assess for larger territory and/or higher risk reversible ischemia with management recommendation to follow. Anticipate optimization medical management unless further decline in EF and large area of higher risk reversible ischemia. All questions answered to his satisfaction. (2) CAD (coronary artery disease): Code(s): I25.10 - Atherosclerotic heart disease of [place] coronary artery without angina pectoris Status: Acute Assessment and Plan: As above. NPO after midnight for Lexiscan nuclear perfusion stress test to assess for myocardial ischemia. Recommendations to follow. Continue aggressive medical therapy aspirin, clopidogrel, lisinopril, simvastatin and Toprol XL 50 mg daily. Patient had previously been doing very well remain active walking without new limitations or concerns at his last visit 09/24/2022. Postop August 2016 patient developed inferior and anterior ST elevations for which he underwent POBA to proximal RCA. 08/23/2016 left heart catheterization: Left main patent, lad 100% occluded at its origin proximal stent LAD noted. Circumflex, moderate caliber vessel stent proximally mild InStent luminal irregularities no high-grade stenosis. RCA 100% occluded at its origin visible stent ostial portion down to the 3rd portion no antegrade flow with evidence of fresh thrombotic occlusion proximal RCA. After POBA 80-90% stenosis after a visible stent noted but unable to advance stent material with resulting reflex bradycardia requiring atropine. Patient was subsequently seen by Dr. Landers at [facility] we did not recommend CABG in for which stress test was obtained as documented above with recommendation for ongoing medical management. (3) Hypertension: Qualifiers: Hypertension type: unspecified Qualified Code(s): I10 - Essential (primary) hypertension Code(s): I10 - Essential (primary) hypertension Status: Acute Assessment and Plan: Uncontrolled presentation possibly contributing to chest pain. If BP remains elevated at additional a antihypertensive such as amlodipine. Would avoid hydrochlorothiazide at present given hyponatremia. Continue to monitor closely. (4) Ischemic cardiomyopathy: Code(s): I25.5 - Ischemic cardiomyopathy Status: Acute Assessment and Plan: Well-compensated, EF 50% by echo November 2020. Previous EF 44% by nuclear stress test 2016. Continue Toprol XL, lisinopril. (5) Hyperlipidemia: Code(s): E78.5 - Hyperlipidemia, unspecified Status: Acute Assessment and Plan: Continue simvastatin 20 mg at bedtime. Goal LDL less than 70. LDL 38 03/21/2022. History of Present Illness History of Present Illness Consult date/time: Date of service: 10/01/22 14:44 Requesting physician: Selin Martinez, [facility] Consult reason: margarita
--- NOTE | 2022-10-01 14:55 | ADMGEN ---
This patient, Johnnie Mack, was admitted to IMU Room 200-01 at 1450. Patient/family oriented to hospital policies and general routines including ID bracelet, bed and alarms, visiting hours, pain management, procedures, bathroom and other care routines, personal items, smoking policy, room service/diet, and visiting hours. Information on how to activate the Rapid Response Team has been discussed. Patient/Family are encouraged to report perceived risks to care and to ask questions if they do not understand what they are told or what they should do.
[2022-10-01 17:08] LABS: Troponin I 0.035 ng/mL (0.000-0.034)
--- NOTE | 2022-10-01 17:22 | ADMGEN ---
This patient, Johnnie Mack, was admitted to IMU Room 200-01 at 1722. Patient/family oriented to hospital policies and general routines including ID bracelet, bed and alarms, visiting hours, pain management, procedures, bathroom and other care routines, personal items, smoking policy, room service/diet, and visiting hours. Information on how to activate the Rapid Response Team has been discussed. Patient/Family are encouraged to report perceived risks to care and to ask questions if they do not understand what they are told or what they should do.
[2022-10-01] MEDS: METOPROLOL TARTRATE 50 MG TAB PO (21:55)
[2022-10-01] MEDS: OXYBUTYNIN CHLORIDE 5 MG TABLET PO (21:55)
[2022-10-01] MEDS: SIMVASTATIN 20 MG TABLET PO (21:55)
[2022-10-02] VITALS (9 sets, daily range): BP systolic 160–185; BP diastolic 88–95; PULSE 64–77; RESP 12–18; TEMP 36.2–36.7; O2SAT 94–97
[2022-10-02 04:42] LABS: Hematocrit 43.9 % (42.0-52.0); Hemoglobin 15.3 g/dL (14.0-18.0); Mean Corpuscular HGB Conc 34.9 g/dl (32-36); Mean Corpuscular Hemoglobin 31.2 pg (26-34); Mean Corpuscular Volume 89.6 fl (80-100); Mean Platelet Volume 10.2 fl (7.4-10.4); Platelet Count Result 164 k/mm3 (150-375); Red Cell Distribution Width 12.6 % (11.5-14.5)
[2022-10-02 04:53] LABS: Anion Gap 11 mmol/L (8-16); Blood Urea Nitrogen 14 mg/dL (9-20); Calcium 8.3 mg/dL (8.4-10.2); Carbon Dioxide 25 mmol/L (22-30); Chloride 98 mmol/L (98-107); Estimated CRCL calculation 52 ml/min; Estimated Glomerular Filt Rate > 60; Glucose 176 mg/dL (65-110); Magnesium 1.9 mg/dL (1.6-2.3); Potassium 4.1 mmol/L (3.4-5.0); Sodium 134 mmol/L (137-145)
[2022-10-02] MEDS: ASPIRIN 325 MG TABLET PO (09:02)
[2022-10-02] MEDS: METOPROLOL SUCCINATE EXT REL 50 MG TABCR PO (09:02)
[2022-10-02] MEDS: lisinopriL 20 MG TABLET 40 MG PO (09:02)
[2022-10-02] MEDS: FINASTERIDE 5 MG TABLET PO (09:03)
[2022-10-02] MEDS: CLOPIDOGREL BISULFATE 75 MG TABLET PO (09:03)
--- NOTE | 2022-10-02 10:16 | PM.PNCARD ---
Progress Note: A&P Assessment and Plan (1) Chest pain: Code(s): R07.9 - Chest pain, unspecified Status: Acute Assessment and Plan: Atypical, recurrent waking him from sleep, sharp in nature given extensive history of CAD with unremarkable troponins thus far. Chest pain likely musculoskeletal by description. Troponin trend 0.032, 0.026, 0.035. No recurrence of chest pain. Plan for lexiscan stress test this morning but patient refused stating I've had 10 of them done and they've all been fine. Patient requesting to be discharged. Will arrange for short interval follow up in our office. (2) CAD (coronary artery disease): Code(s): I25.10 - Atherosclerotic heart disease of [place] coronary artery without angina pectoris Status: Acute Assessment and Plan: Continue aggressive medical therapy aspirin, clopidogrel, lisinopril, simvastatin and Toprol XL 50 mg daily. Patient had previously been doing very well remain active walking without new limitations or concerns at his last visit 09/24/2022. (3) Hypertension: Qualifiers: Hypertension type: unspecified Qualified Code(s): I10 - Essential (primary) hypertension Code(s): I10 - Essential (primary) hypertension Status: Acute Assessment and Plan: Remains elevated. Will add amlodipine (4) Ischemic cardiomyopathy: Code(s): I25.5 - Ischemic cardiomyopathy Status: Acute Assessment and Plan: Well-compensated, EF 50% by echo November 2020. Previous EF 44% by nuclear stress test 2017. Continue Toprol XL, lisinopril. (5) Hyperlipidemia: Code(s): E78.5 - Hyperlipidemia, unspecified Status: Acute Assessment and Plan: Continue simvastatin 20 mg at bedtime. Goal LDL less than 70. LDL 38 03/21/2022. Subjective Date/time seen: 10/02/22 10:16 Cardiology follow up for chest pain Feeling well today. States he has not had any further chest pain since admission. Refused lexiscan this morning and is asking to be discharged. Review of Systems Review of Systems: All systems reviewed & are unremarkable except as noted in HPI and below Constitutional: Constitutional: Reports as per HPI and Reports no additional constitutional complaints Eyes: Eyes: Reports as per HPI and Reports no additional eye complaints ENT: Reports system reviewed and no additional complaints, except as documented and Reports as per HPI Cardiovascular: Cardiovascular: Reports as per HPI and Reports no additional cardiovascular complaints Respiratory: Respiratory: Reports as per HPI and Reports no additional respiratory complaints Gastrointestinal: Gastrointestinal: Reports as per HPI and Reports no additional gastrointestinal complaints Genitourinary: Genitourinary: Reports no additional male genitourinary complaints and Reports as per HPI Musculoskeletal: Musculoskeletal: Reports no additional musculoskeletal complaints and Reports as per HPI Integumentary/Breasts: Skin/Breast: Reports system reviewed and no additional complaints, except as docu and Reports as per HPI Neurologic: Reports system reviewed and no additional complaints, except as documented and Reports as per HPI Psychiatric: Psychiatric: Reports no additional psychiatric complaints and Reports as per HPI Endocrine: Endocrine: Reports no additional endocrine complaints and Reports as per HPI Hematologic/Lymphatic: Hematologic/Lymphatic: Reports no additional hematologic/lymphatic complaints and Reports as per HPI Allergic/Immunologic: Allergic/Immunologic: Reports no additional allergic/immunologic complaints and Reports as per HPI Exam Narrative: General: Very pleasant elderly male no apparent distress sitting upright in bed Well developed, alert and oriented x3. No apparent distress, comfortable and cooperative. Head: atraumatic, normocephalic Eyes: EOM intact, sclerae anicteric, conjunctivae unremarkable Ears/Nose: ext
--- NOTE | 2022-10-02 12:21 | PM.DS ---
DS: Admitting Diagnosis Discharge Date 10/02/22 Admitting Diagnosis Chest pain DS: Discharge Diagnosis Discharge Diagnosis (1) Atypical chest pain: Code(s): R07.89 - Other chest pain Status: Acute (2) Coronary artery disease: Code(s): I25.10 - Atherosclerotic heart disease of [place] coronary artery without angina pectoris Status: Acute (3) Ischemic cardiomyopathy: Code(s): I25.5 - Ischemic cardiomyopathy Status: Acute (4) Hypertension: Qualifiers: Hypertension type: unspecified Qualified Code(s): I10 - Essential (primary) hypertension Code(s): I10 - Essential (primary) hypertension Status: Acute (5) Hyperlipidemia: Code(s): E78.5 - Hyperlipidemia, unspecified Status: Acute DS: Summary Hospital Course Reason for hospitalization: 86yo male with CAD here for chest pain. Please see H&P for details Hospital Course: The patient presented to the emergency department for evaluation of left-sided chest discomfort that started about 04:30 at rest. Initially it was sharp and shooting and resolved with position change however not long thereafter he developed a throbbing and aching discomfort in the left side of his chest.? That lasted for couple of hours and resolved without intervention. Troponins negative initially but last one climbed to 0.035. EKG did not demonstrate any acute ST segment changes and no change from prior. We continued aspirin, clopidogrel, metoprolol, lisinopril, and simvastatin. BP elevated so Norvasc added. Seen by Cardiology and Lexiscan stress test ordered but patient refused. Long discussion with patient and family and explained that we can not exclude ischemia as the etiology of his chest pain. Patient and family voiced understanding of the risks of not having further evaluation including [place] and sudden cardiac . He is ready for discharge and will follow up with Cardiology after discharge. He was advised to return to the ED if he has recurrent chest pain. Status at Discharge Cognitive/behavioral status at discharge: Stable Time Spent with Patient Time attestation: Total time spent providing and/or coordinating discharge services: 35 minutes Time spent: Greater than 30 minutes Specific discharge activities: patient education. Exam Narrative: AF 97.2 168/88 74 12 96% ra Gen - NARD Chest - CTA bilaterally, nml RR CV - RRR S1/S2 Abd - Soft, NT/ND, Positive BS Ext - No pedal edema Psych - Nml mood and affect Skin - Warm and dry DS: Data Data Completed and Pending Labs on day of discharge: Labs from last 24 hours 10/02/22 10/02/22 10/01/22 04:36 04:36 16:16 WBC 7.0 RBC 4.90 Hgb 15.3 Hct 43.9 MCV 89.6 MCH 31.2 MCHC 34.9 RDW 12.6 Plt Count 164 MPV 10.2 Sodium 134 L Potassium 4.1 Chloride 98 Carbon Dioxide 25 Anion Gap 11 BUN 14 Creatinine 0.80 Estim Creat Clear Calc 52 Estimated GFR > 60 Glucose 176 H Calcium 8.3 L Magnesium 1.9 Troponin I 0.035 H D Discharge Plan Discharge Attending physician on discharge: Shayan Ponce Consulting providers: Rui Gann Discharging Clinician: Shayan Ponce Anticipated Discharge Date/Time: 10/02/22 12:32 Patient Disposition: Home, Self-Care Activity: no straining Diet: heart healthy Discharge Instructions: Check blood pressure 1 to 2 times a day. Record and bring into your doctor for review. Call your doctor if your blood pressure is greater than 180/110. Take precautions to avoid falls. Rise slowly from a lying or sitting position. Pause before standing or walking. Check daily morning weights after voiding. Call your doctor if you gain more than 3 lb in 2 days or 5 lb in 1 week. Contact your doctor or call 911 and come to the Emergency Room if you have any chest pain or other worrisome symptoms. Avoid NSAIDs (ibuprofen, naproxen, Aleve).
[2022-10-02] MEDS: amLODIPine BESYLATE 5 MG TABLET PO (12:25)
== END 2022-10-02 13:15 | disposition home or self-care (01) ==
LOC: ANHED 08:58 → ANHIMU 11:53
PROVIDERS: Physician Assistant; Admitting Provider Internal Medicine; Emergency Provider Emergency Medicine; PCP Internal Medicine; Visit Provider Internal Medicine
DX: R07.89 Other chest pain (principal); I25.10 Atherosclerotic heart disease of native coronary artery without angina pectoris; Z95.5 Presence of coronary angioplasty implant and graft; I11.9 Hypertensive heart disease without heart failure; E78.5 Hyperlipidemia, unspecified; J98.11 Atelectasis; I25.2 Old myocardial infarction; I77.810 Thoracic aortic ectasia; R94.31 Abnormal electrocardiogram [ECG] [EKG]; Z79.82 Long term (current) use of aspirin; Z79.02 Long term (current) use of antithrombotics/antiplatelets; Z79.899 Other long term (current) drug therapy; Z82.49 Family history of ischemic heart disease and other diseases of the circulatory system; Z20.822 Contact with and (suspected) exposure to COVID-19
CPT/HCPCS: 36415; 71045; 80048; 80053; 83690; 83735; 84484; 85025; 85027; 85610; 85730; 87637; 93005; 99285; A9270; G0378

== ENCOUNTER 2023-02-27 02:19 | Observation (INO) | payer MEDICARE, SELFPAY ==
[2023-02-27] VITALS (42 sets, daily range): BP systolic 133–203; BP diastolic 76–128; PULSE 73–93; RESP 14–24; TEMP 36.2–36.6; O2SAT 92–98; BMI 29.5
--- NOTE | ~2023-02-27 | XR_ITS ---
XR elbow LT min 3V 02/27/2023 15:17 INDICATION: Left arm numbness PROCEDURE: 4 views left elbow COMPARISON: No prior studies for comparison. FINDINGS: Fracture, dislocation or subluxation is not identified. 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 No significant joint effusion. No fracture or traumatic malalignment. The soft tissues appear within normal limits. No foreign bodies are identified. IMPRESSION: 1: NO ACUTE BONE OR JOINT ABNORMALITY IDENTIFIED. Reviewed, dictated and finalized at location B.
--- NOTE | ~2023-02-27 | CT_ITS ---
Clinical Indication: Shortness of breath CT Scan of the Chest with Contrast: Technique: Contiguous sections were acquired throughout the chest after intravenous administration of 100 cc of Omnipaque 350. Dose reduction technique was used on this scan by utilizing automated expos ure control and iterative reconstruction technique. The dose-length product (DLP) was 644.55 mGy-cm. Findings: There is no evidence of any significant mediastinal, hilar or axillary lymphadenopathy. There is no f illing defect in the pulmonary arterial tree to suggest pulmonary embolus. There is no evidence of ao rtic aneurysm. There are atherosclerotic calcifications of the aorta. Coronary artery calcifications and possible stents present. No pericardial effusion. Small bilateral pleural effusions are present. There is mild patchy groundglass opacity and interstitial thickening in the aerated lungs. Images through the upper abdomen reveal no abnormalities. Impression: No evidence of pulmonary embolus or aortic aneurysm. Small bilateral pleural effusions with mild pulmonary edema pattern. Reviewed, dictated and finalized at [facility]. Impression: No evidence of pulmonary embolus or aortic aneurysm. Small bilateral pleural effusions with mild pulmonary edema pattern.
--- NOTE | ~2023-02-27 | CT_ITS ---
EXAMINATION: CTA brain carotid DATE: 02/28/2023 13:01 INDICATION: Acute infarct of the bilateral parietal lobes. TECHNIQUE: Computed tomographic angiography (CTA) of the head was performed without and with 100 mL O mnipaque-350 intravenous contrast. CTA of the neck was performed with intravenous contrast. Automated exposure control and iterative reconstruction technique were employed. The dose-length product was 1 734.42 mGy-cm. Maximum intensity projection and volume rendered 3D-reconstructions were created by mega kidd technologist on a separate workstation. COMPARISON: Head CT 02/27/2023, 06/14/11, brain MRI 02/27/2023 FINDINGS: HEAD CTA: There is an acute infarct in right parietal lobe. There is chronic encephalomalacia involvi ng the left frontal and parietal lobes and left insula. There is an acute infarct in left parietal lo be. There is no intracranial hemorrhage. There is focal dural thickening overlying left frontotempora l region. There is a left-sided craniotomy. There is mild mucosal thickening in the paranasal sinuses . The mastoid air cells are normal. The vertebral arteries are codominant. There is no significant st enosis of basilar artery or the posterior cerebral arteries. There is no significant stenosis of intr acranial internal carotid arteries or anterior or middle cerebral arteries. Anterior communicating ar donny is normal. Left posterior communicating artery is normal. Right posterior communicator is not id entified. There is no aneurysm. NECK CTA: There is mild scarring at the lung apices. Calcified right hilar and mediastinal lymph node s are consistent with old granulomatous disease. There are no pathologically enlarged lymph nodes. Th ere is no significant stenosis of the vertebral arteries. There is plaque in the proximal internal ca rotid arteries. There is 29% stenosis of the proximal right internal carotid artery relative to steff l distal artery lumen diameter (NASCET criteria). There is 36% stenosis of the proximal left internal carotid artery relative to normal distal artery lumen diameter. There is severe cervical spondylosis . IMPRESSION: 1. Acute infarcts in the bilateral parietal lobes. 2. Chronic encephalomalacia involving the left frontal and parietal lobes and left insula. 3. No aneurysm or significant intracranial arterial stenosis. 4. 29% stenosis of the proximal right internal carotid artery relative to normal distal artery lumen diameter (NASCET criteria). 5. 36% stenosis of the proximal left internal carotid artery relative to normal distal artery lumen d iameter. Reviewed, dictated and finalized at location A. IMPRESSION: 1. Acute infarcts in the bilateral parietal lobes. 2. Chronic encephalomalacia involving the left frontal and parietal lobes and l eft insula. 3. No aneurysm or significant intracranial arterial stenosis. 4. 29% stenosis of the proximal right internal carotid artery relative to steff l distal artery lumen diameter (NASCET criteria). 5. 36% stenosis of the proximal left internal carotid artery relative to normal distal artery lumen diameter.
--- NOTE | ~2023-02-27 | XR_ITS ---
Portable chest x-ray Comparison: 10/01/2022 Clinical History: Chest pain Findings: There is hazy bibasilar airspace disease and mild interstitial prominence. No pleural effu florentin or pneumothorax. Cardiomediastinal silhouette is stable. Bones and soft tissues are unremarkabl e. Impression: Probable mild bibasilar pulmonary edema. Reviewed, dictated and finalized at location . Impression: Probable mild bibasilar pulmonary edema.
--- NOTE | ~2023-02-27 | MR_ITS ---
EXAMINATION: MR brain/brain stem wo/w con DATE: 02/27/2023 18:35 INDICATION: numbness in left hand TECHNIQUE: Magnetic resonance imaging (MRI) of the brain and brainstem was performed without intraven ous contrast. Sequences included sagittal and axial T1-weighted SE, axial diffusion-weighted FS EPI A SSET, axial T2*-weighted GRE, axial T2-weighted FLAIR Propeller, and axial T2-weighted Propeller. Pos tcontrast axial and coronal T1-weighted SE was obtained. Apparent diffusion coefficient (ADC) maps we re created. COMPARISON: CT brain, same date FINDINGS: Focal areas of gyral diffusion restriction in the left parietal occipital and right parietal lobes. L eft frontotemporal and parietal encephalomalacia. Laminar necrosis versus focal areas of microhemorrh age in the left parietal lobe. Prior left craniotomy. No MRI evidence of hemorrhage or extra-axial co llection. No suspicious foci of susceptibility to suggest prior intraparenchymal hemorrhage. Moderate patchy white matter hyperintensity, likely representing moderate small vessel ischemic disease. Mild generalized parenchymal volume loss. The basilar cisterns are patent. Flow voids are preserved. Para nasal sinuses are within normal limits. Bilateral lens replacements. 9 x 14 mm dural based homogenous ly enhancing hemispherical mass in the left temporal region. IMPRESSION: Focal areas of acute infarct involving the right superior parietal and left posterior parietal lobes. 14 mm dural based left temporal mass, concerning for recurrent meningioma. Results reported telephonically to Sigrid, the patient's nurse by Dr. Stephens at 6:52 PM on 02/27/2023. Reviewed, dictated and finalized at location K. IMPRESSION: Focal areas of acute infarct involving the right superior parietal and left pos terior parietal lobes. 14 mm dural based left temporal mass, concerning for rec urrent meningioma. Results reported telephonically to Sigrid, the patient's nurse by Dr. Stephens at 6:52 PM on 02/27/2023.
--- NOTE | ~2023-02-27 | CT_ITS ---
EXAMINATION: CT brain wo con DATE: 02/27/2023 15:02 INDICATION: numbness in left hand . TECHNIQUE: Computed tomography (CT) of the head was performed without intravenous contrast. The mA wa s adjusted according to patient size. Iterative reconstruction technique was employed. The dose-lengt h product was 983.67 mGy-cm. COMPARISON: 06/06/2011. FINDINGS: No acute intracranial hemorrhage or extra-axial fluid collection. No hydrocephalus, mass, or herniation. No acute ischemic infarct. Unremarkable dural venous sinus attenuation. No acute osseous abnormality. The aerated spaces are clear. Left frontotemporal parietal craniotomy. Encephalomalacia in the left frontal and temporal lobes. Lef t parietal encephalomalacia. Moderate atrophy and chronic white matter change. Atherosclerotic intrac ranial calcification. Bilateral lens replacements. IMPRESSION: No acute intracranial process. Reviewed, dictated and finalized at location K.
--- NOTE | 2023-02-27 02:25 | ECG_ITS ---
Measurements Intervals Twining Rate: 89 P: 34 VA: 207 QRS: 31 QRSD: 108 T: 57 QT: 388 QTc: 473 Interpretive Statements SINUS RHYTHM WITH FREQUENT VENTRICULAR PREMATURE COMPLEXES WITH OCCASIONAL SUPRAVENTRICULAR PREMATURE COMPLEXES MODERATE INTRAVENTRICULAR CONDUCTION DELAY [105+ ms QRS DURATION, 80+ ms Q/S IN V1/V2, NO Q AND 60+ ms R IN I/aVL/V5/V6] MINIMAL ST DEPRESSION [0.025+ mV ST DEPRESSION] COMPARED TO ECG 10/01/2022 07:24:53 PVCS/PACS NOW PRESENT Electronically Signed On 02-27-2023 18:02:27 CDT by Shanta Anderson M.D.
--- NOTE | 2023-02-27 02:31 | ED.GENADULT ---
HPI - General Adult General Chief complaint: Shortness of Breath/Dyspnea Stated complaint: sob Time Seen by Provider: 02/27/23 02:23 History of Present Illness HPI narrative: Patient 87-year-old gentleman who presents the emergency department with chief complaint of shortness of breath. Patient reports that he was feeling fine today went to sleep and woke up feeling as though he could not get a good deep breath. The patient reports he got diaphoretic and reports that he walked outside and his breathing started to slowly improve. The patient reports he had no discomfort at this time and reports that it was all just a feeling as though he could not get a good deep breath. The patient states he had no fevers no chills no cough patient reports that he does have prior history of stents placed in his heart and had a balloon angioplasty. The patient states that at this time he is completely asymptomatic and back to his baseline. Related Data Home Medications Medication Instructions Recorded Confirmed metoprolol succinate 50 mg 50 mg PO DAILY 12/05/20 10/01/22 tablet,extended release 24 hr aspirin 325 mg tablet 325 mg PO DAILY 10/01/22 10/01/22 clopidogrel 75 mg tablet 75 mg PO DAILY 10/01/22 10/01/22 finasteride 5 mg tablet 5 mg PO DAILY 10/01/22 10/01/22 lisinopril 40 mg tablet 40 mg PO DAILY 10/01/22 10/01/22 oxybutynin chloride 5 mg tablet 5 mg PO HS 10/01/22 10/01/22 simvastatin 20 mg tablet 20 mg PO HS 10/01/22 10/01/22 levetiracetam 500 mg tablet 500 mg PO BID 10/02/22 10/02/22 Allergies Allergy/AdvReac Type Severity Reaction Status Date / Time No Known Allergies Allergy Verified 02/27/23 02:36 Review of Systems Review of Systems: A 10 system review of systems was completed on the patient and is negative except for what is stated in the HPI. Nursing and ancillary documentation was reviewed. [facility] Past Medical History Medical History Benign brain tumor Status post resection in 2010. He is on prophylactic anti seizure medications. Coronary artery disease Coronary stent occlusion Hyperlipidemia Hypertension Ischemic cardiomyopathy Surgical History Surgical History History of coronary artery stent placement History of craniotomy (2010) Benign tumor. Family History Family History Father Acute myocardial infarction father of [place] in his early 50s Social History Social History Social History: Surrogate medical decision maker: Yenifer Mack, spouse. Code status: Full code Smoking packs per day: 1 Smoking cigarettes per day: 20.0 Years smoked: 60 Smoking pack-years: 60.00 Smoking status: Current every day smoker Alcohol intake: never Substance use: never Lack of Transportation: No Lack of Food: Never True Current Housing: I Have Housing Concerned About Future Housing: No Difficulty Paying Gas/Electric Bills: No Difficulty Paying for Meds: No Currently Unemployed: No Education: High School Diploma/GED Difficulty w/ Childcare or Family Care: No Living arrangements: with family Spiritual care concerns: No Exam Narrative: GENERAL: Well-appearing, well-nourished, and in no acute distress. HEAD: Normocephalic, atraumatic. EYES: PERRLA and EOMI. ENT: Nares clear, no rhinorrhea or epistaxis. Mucous membranes moist. NECK: Supple. CHEST: Clear to auscultation. No respiratory distress. HEART: Regular rate and rhythm. No murmur heard. Normal peripheral pulses. ABDOMEN: Soft, nontender, nondistended, normal active bowel sounds. EXTREMITIES: Normal range of motion. No edema. SKIN: Warm, dry, no rash. NEURO: No focal deficits. Alert and oriented x3. PSYCH: Normal mood and affect. Course Vital Signs Vital signs:
[2023-02-27] MEDS: ASPIRIN 81 MG CHEWABLE TABLET 324 MG PO (02:45)
[2023-02-27 03:18] LABS: Basophils Percent Auto 0.4 % (0.2-1.2); Eosinophils Absolute Auto 0.1 K/mm3 (0-0.3); Eosinophils Percent Auto 0.9 % (0-4.4); Hematocrit 47.2 % (42.0-52.0); Hemoglobin 15.9 g/dL (14.0-18.0); Immature Granulocyte Absolute 0.06 K/mm3 (0.00-0.031); Immature Granulocyte Percent A 0.6 % (0-0.5); Lymphocytes Absolute Auto 1.68 K/mm3 (0.9-3.2); Lymphocytes Percent Auto 16.5 % (18.3-44.2); Mean Corpuscular HGB Conc 33.7 g/dl (32-36); Mean Corpuscular Hemoglobin 30.8 pg (26-34); Mean Corpuscular Volume 91.5 fl (80-100); Mean Platelet Volume 10.9 fl (7.4-10.4); Monocytes Absolute Auto 0.7 K/mm3 (0.1-0.6); Monocytes Percent Auto 6.8 % (2.6-8.5); Neutrophils Absolute Auto 7.6 K/mm3 (1.3-6.7); Neutrophils Percent Auto 74.8 % (45.5-73.1); Platelet Count Result 187 k/mm3 (150-375); Red Blood Count 5.16 M/mm3 (4.6-6.20); Red Cell Distribution Width 12.6 % (11.5-14.5); White Blood Count 10.2 K/mm3 (4.5-10.0)
[2023-02-27 03:32] LABS: Partial Thromboplastin Time 25.7 SECONDS (22.3-36.8)
[2023-02-27 03:34] LABS: Alanine Aminotransferase 28 U/L (6-50); Alkaline Phosphatase 96 U/L (38-126); Anion Gap 8 mmol/L (8-16); Aspartate Amino Transferase 25 U/L (17-59); Bilirubin,Total 1.4 mg/dL (0.2-1.3); Blood Urea Nitrogen 19 mg/dL (9-20); Calcium 9.2 mg/dL (8.4-10.2); Carbon Dioxide 30 mmol/L (22-30); Chloride 97 mmol/L (98-107); Estimated CRCL calculation 52 ml/min; Estimated Glomerular Filt Rate > 60; Glucose 213 mg/dL (65-110); Lipase 92 U/L (23-300); Sodium 135 mmol/L (137-145)
[2023-02-27 03:51] LABS: NT Pro B Type Natriuretic Pept 1350 pg/mL (19.9-100); Troponin I 0.037 ng/mL (0.000-0.034)
--- NOTE | 2023-02-27 05:28 | ECHO_ITS ---
Patient Info Name: Johnnie Mack Age: 87 years : 1935 Gender: Male Ht: 65 in Wt: 178 lbs BSA: 1.95 m2 HR: 78 bpm BP: 170 / 110 mmHg Heart Rhythm: Sinus Rhythm Technical Quality: Poor Exam Date: 02/27/2023 10:36 AM Exam Location: [facility] Exam Room: 201 Patient Status: Inpatient Admit Date: 02/27/2023 Staff Ordering Physician: Samira Butler M.A., MD Bookbinder Apprentice: Brigitte Mtz RDCS Attending Provider: Samira Butler M.A., MD Referring Physician: Trell DEE; Exam Type: CA echo doppler color flow Study Info Indications - elevated troponins Complete two-dimensional, color flow and Doppler transthoracic echocardiogram is performed with contrast to opacify the left ventricle and to improve the deliniation of the left ventricle endocardial borders. Contrast/Agitated Saline Contrast/Ag. Saline: Definity Amount: 2.00 ml Administered By: Brigitte Mtz [facility] Existing IV Access: Yes IV Access Condition: patent with no signs of infiltration Reason for Poor Study: patient body habitus Summary 1. Technically difficult study. Definity echo contrast enhancement administered.\E\. 2. Left ventricular chamber dimension is normal. 3. Left ventricular systolic function is moderately reduced, estimated at 35-40% with hypokinesis of the mid inferolateral wall, apical inferior and mid inferoseptal nobles. 4. There is mildly increased left ventricular wall thickness. 5. The left ventricular diastolic function is grade I diastolic dysfunction. 6. There is no aortic valve stenosis. 7. There is trace mitral valve regurgitation. 8. There is mild tricuspid valve regurgitation. 9. Moderate pulmonary hypertension, estimated pulmonary arterial systolic pressure is 46 mmHg. Left Ventricle Left ventricular chamber dimension is normal. Left ventricular systolic function is moderately reduced, estimated at 35-40% with hypokinesis of the mid inferolateral wall, apical inferior and mid inferoseptal nobles. There is mildly increased left ventricular wall thickness. The left ventricular diastolic function is grade I diastolic dysfunction. Technically difficult study. Definity echo contrast enhancement administered.\E\. Right Ventricle Right ventricular chamber dimension is normal. Right ventricular systolic function is normal. Left Atria Left atrial chamber dimension is normal. Right Atria Right atrial chamber dimension is mildly enlarged. Aortic Valve The aortic valve is not well visualized. There is no aortic valve stenosis. There is trace aortic valve regurgitation. Pulmonic Valve The pulmonic valve is not well visualized. There is trace pulmonic regurgitation. Mitral Valve The mitral valve has thickened leaflets. There is trace mitral valve regurgitation. The mitral valve annulus is mildly calcified. Tricuspid Valve The tricuspid valve leaflets are normal. There is mild tricuspid valve regurgitation. Moderate pulmonary hypertension, estimated pulmonary arterial systolic pressure is 46 mmHg. Pericardium/Pleural The pericardium appears normal. There is small pericardial effusion. Aorta The aortic root size at the sinus of Valsalva is normal. There is mild aortic atherosclerosis. Left Ventricular Outflow Tract Name Value Normal
--- NOTE | 2023-02-27 05:33 | PM.IMHP ---
H&P: HPI History of Present Illness Date/Time: 02/27/23 05:33 Chief Complaint: 87 years old male with past medical history of coronary artery disease on aspirin Plavix hyperlipidemia on statin hypertension on metoprolol lisinopril presented to the hospital with sudden onset episode of shortness of breath worsening with activity denies fever chills abdominal pain denies chest pain patient was admitted to the hospital last October for chest pain the patient declined inpatient stress test patient had a stress test as outpatient a week later and according to the patient no significant finding. At the field patient has blood pressure systolic in 200 in the ER blood pressure was 170/110 CT scan of the chest was done to rule out PE pending report showed bilateral pleural effusion according to the ER physician PE was ruled out pending final report, BNP was significantly elevated patient had mildly elevated troponin patient was admitted to the hospital for evaluation and treatment of shortness of breath probable CHF exacerbation secondary to hypertensive urgency. Review of Systems Review of Systems: 12 system review was negative except above PMFSH Past Medical History Medical History Benign brain tumor Status post resection in 2010. He is on prophylactic anti seizure medications. Coronary artery disease Coronary stent occlusion Hyperlipidemia Hypertension Ischemic cardiomyopathy Surgical History Surgical History History of coronary artery stent placement History of craniotomy (2010) Benign tumor. Family History Family History Father Acute myocardial infarction father of [place] in his early 50s Social History Social History Social History: Surrogate medical decision maker: Yenifer Mack, spouse. Code status: Full code Smoking packs per day: 1 Smoking cigarettes per day: 20.0 Years smoked: 60 Smoking pack-years: 60.00 Smoking status: Current every day smoker Alcohol intake: never Substance use: never Lack of Transportation: No Lack of Food: Never True Current Housing: I Have Housing Concerned About Future Housing: No Difficulty Paying Gas/Electric Bills: No Difficulty Paying for Meds: No Currently Unemployed: No Education: High School Diploma/GED Difficulty w/ Childcare or Family Care: No Living arrangements: with family Spiritual care concerns: No Meds Home Medications and Allergies Home Medications Medication Instructions Recorded Confirmed Type metoprolol succinate 50 mg 50 mg PO DAILY 12/05/20 10/01/22 History tablet,extended release 24 hr aspirin 325 mg tablet 325 mg PO DAILY 10/01/22 10/01/22 History clopidogrel 75 mg tablet 75 mg PO DAILY 10/01/22 10/01/22 History finasteride 5 mg tablet 5 mg PO DAILY 10/01/22 10/01/22 History lisinopril 40 mg tablet 40 mg PO DAILY 10/01/22 10/01/22 History oxybutynin chloride 5 mg tablet 5 mg PO HS 10/01/22 10/01/22 History simvastatin 20 mg tablet 20 mg PO HS 10/01/22 10/01/22 History amlodipine 5 mg tablet (Norvasc) 5 mg PO QAM #30 tabs 10/02/22 Rx levetiracetam 500 mg tablet 500 mg PO BID 10/02/22 10/02/22 History Allergies Allergy/AdvReac Type Severity Reaction Status Date / Time No Known Allergies Allergy Verified 02/27/23 02:36 Vital Signs Vital Signs - 24 hr 02/27/23 02:28 02/27/23 02:28 02/27/23 02:36 Pulse Rate 81 85 83 Respiratory Rate 16 18 Blood Pressure 184/86 H Pulse Oximetry 95 96 Oxygen Delivery 02/27/23 03:14 02/27/23 02:35 02/27/23 02:34 Pulse Rate 82 Respiratory Rate 18 Blood Pressure Pulse Oximetry 95 Oxygen Delivery Room Air Room Air 02/27/23 02:43 02/27/23 02:45 02/27/23 02:47 Pulse Rate 81 80 85 Respiratory Rate
[2023-02-27] MEDS: METOPROLOL SUCCINATE EXT REL 50 MG TABCR PO (05:43)
--- NOTE | 2023-02-27 06:27 | ADMGEN ---
This patient, Johnnie Mack, was admitted to IMU Room 201-01. Patient/family oriented to hospital policies and general routines including ID bracelet, bed and alarms, visiting hours, pain management, procedures, bathroom and other care routines, personal items, smoking policy, room service/diet, and visiting hours. Information on how to activate the Rapid Response Team has been discussed. Patient/Family are encouraged to report perceived risks to care and to ask questions if they do not understand what they are told or what they should do.
[2023-02-27 06:51] LABS: Troponin I 0.054 ng/mL (0.000-0.034)
[2023-02-27] MEDS: PANTOPRAZOLE SODIUM IV 40 MG VIAL IV PUSH ×2 (08:02→16:28)
[2023-02-27] MEDS: FUROSEMIDE INJ 40 MG/4 ML VIAL 20 MG IV PUSH ×2 (08:03→16:28)
[2023-02-27 08:31] LABS: Basophils Percent Auto 0.2 % (0.2-1.2); Eosinophils Percent Auto 0.1 % (0-4.4); Hematocrit 46.6 % (42.0-52.0); Hemoglobin 15.7 g/dL (14.0-18.0); Immature Granulocyte Absolute 0.06 K/mm3 (0.00-0.031); Immature Granulocyte Percent A 0.6 % (0-0.5); Lymphocytes Absolute Auto 1.26 K/mm3 (0.9-3.2); Lymphocytes Percent Auto 12.9 % (18.3-44.2); Mean Corpuscular HGB Conc 33.7 g/dl (32-36); Mean Corpuscular Hemoglobin 30.8 pg (26-34); Mean Corpuscular Volume 91.4 fl (80-100); Mean Platelet Volume 10.5 fl (7.4-10.4); Monocytes Absolute Auto 0.5 K/mm3 (0.1-0.6); Monocytes Percent Auto 5.4 % (2.6-8.5); Neutrophils Absolute Auto 7.9 K/mm3 (1.3-6.7); Neutrophils Percent Auto 80.8 % (45.5-73.1); Platelet Count Result 189 k/mm3 (150-375); Red Cell Distribution Width 12.5 % (11.5-14.5); White Blood Count 9.8 K/mm3 (4.5-10.0)
[2023-02-27 08:56] LABS: Alanine Aminotransferase 27 U/L (6-50); Albumin Level 4.6 g/dL (3.5-5.1); Alkaline Phosphatase 97 U/L (38-126); Anion Gap 9 mmol/L (8-16); Aspartate Amino Transferase 22 U/L (17-59); Bilirubin,Total 1.9 mg/dL (0.2-1.3); Blood Urea Nitrogen 15 mg/dL (9-20); Calcium 8.7 mg/dL (8.4-10.2); Carbon Dioxide 28 mmol/L (22-30); Chloride 96 mmol/L (98-107); Estimated CRCL calculation 57 ml/min; Estimated Glomerular Filt Rate > 60; Glucose 215 mg/dL (65-110); Potassium 4.3 mmol/L (3.4-5.0); Sodium 133 mmol/L (137-145)
[2023-02-27 09:10] LABS: Troponin I 0.058 ng/mL (0.000-0.034)
[2023-02-27] MEDS: PERFLUTREN LIPID MICROSPHERES 1.5 ML VIAL DILUTED TO 10 ML TOTAL VOLUME IV PUSH (11:00)
[2023-02-27] MEDS: lisinopriL 20 MG TABLET 40 MG PO (11:15)
[2023-02-27] MEDS: ENOXAPARIN 40 MG/0.4 ML SYRINGE SUB-Q (11:16)
--- NOTE | 2023-02-27 14:33 | PM.IMPN ---
Progress Note: A&P Assessment and Plan (1) Acute dyspnea: Code(s): R06.00 - Dyspnea, unspecified Status: Acute Assessment and Plan: Multifactorial most likely related to acute and of chronic diastolic CHF exacerbation secondary to hypertensive urgency P.r.n. IV hydralazine Resume metoprolol Pending home medication reconciliation at home patient on amlodipine lisinopril and metoprolol 02/27/2023 interval history: 87-year-old male presented with complaint of shortness of breath CTA of the chest is negative for pulmonary emboli concerning pulmonary edema and patient is being diuresed and symptoms are improving, patient also had a significantly elevated blood pressure upon arrival his home medications are is and patient is being diuresed his blood pressure is trending down, states feeling much better compared to when he arrived, also patient has elevated tropes patient be seen by Cardiology and further recommendation to follow cardiac echo is pending. (2) Elevated troponin: Code(s): R77.8 - Other specified abnormalities of plasma proteins Status: Acute Assessment and Plan: Most likely NSTEMI type 2 secondary to demand ischemia Serial troponin Echo Cardiology eval Continue aspirin resume home medication of aspirin Plavix statin beta-tyler once home medication reconciled (3) Coronary artery disease: Code(s): I25.10 - Atherosclerotic heart disease of [place] coronary artery without angina pectoris Status: Acute Assessment and Plan: Occurred for the patient had stress test after last admission 5 months ago and according to the patient no significant finding Resume aspirin Plavix beta-tyler statin once home medication confirmed (4) Hyperlipidemia: Code(s): E78.5 - Hyperlipidemia, unspecified Status: Acute Assessment and Plan: Resume home statin once home medication confirm (5) Hypertension: Qualifiers: Hypertension type: unspecified Qualified Code(s): I10 - Essential (primary) hypertension Code(s): I10 - Essential (primary) hypertension Status: Acute Assessment and Plan: Patient was found to have hypertensive urgency IV hydralazine as needed Resume home medication once confirmed (6) CHF exacerbation: Code(s): I50.9 - Heart failure, unspecified Status: Acute Assessment and Plan: Acute and of chronic most likely mild diastolic CHF exacerbation CT scan of the chest shows bilateral pleural effusion follow final report Will give 2 doses of IV Lasix monitor renal function Follow echo results (7) Hyperglycemia: Code(s): R73.9 - Hyperglycemia, unspecified Status: Acute Assessment and Plan: Check hemoglobin A1c Subjective Date/time seen: 02/27/23 14:33 Chief Complaint: Shortness of breath dyspnea HPI-87 years old male with past medical history of coronary artery disease on aspirin Plavix hyperlipidemia on statin hypertension on metoprolol lisinopril presented to the hospital with sudden onset episode of shortness of breath worsening with activity denies fever chills abdominal pain denies chest pain patient was admitted to the hospital last October for chest pain the patient declined inpatient stress test patient had a stress test as outpatient a week later and according to the patient no significant finding.? At the field patient has blood pressure systolic in 200 in the ER blood pressure was 170/110 CT scan of the chest was done to rule out PE pending report showed bilateral pleural effusion according to the ER physician PE was ruled out pending final report, BNP was significantly elevated patient had mildly elevated troponin patient was admitted to the hospital for evaluation and treatment of shortness of breath probable CHF exacerbation secondary to hypertensive urgency. 02/27/2023 interval history: 87-year-old male presented with complaint of shortness of breath CTA of the chest is negative fo
[2023-02-27 16:14] LABS: Folic Acid 15.8 ng/mL (2.76->20)
[2023-02-27] MEDS: ACETAMINOPHEN 325 MG TABLET 650 MG PO (16:32)
--- NOTE | 2023-02-27 16:35 | PM.CNCAR ---
Assessment and Plan Assessment and plan (1) Hypertensive urgency: Code(s): I16.0 - Hypertensive urgency Status: Acute Assessment and Plan: Patient presents with mild flash pulmonary edema in setting of hypertensive urgency with systolic blood pressure greater than 200 mm Hg currently improved. Minimally elevated proBNP, very mild fairly flat troponin elevation without chest pain or exertional anginal symptoms. Patient is now clinically euvolemic and otherwise asymptomatic. Continue lisinopril 40 mg daily. Add amlodipine 2.5 mg daily. Monitor BP closely avoid symptomatic hypotension. Continue Toprol XL 50 mg daily. Monitor BP closely. Clinically, patient presentation appears to be secondary to hypertensive urgency. While I cannot entirely exclude acute coronary event given his known coronary anatomy I feel this is less likely particularly as he had had no other issues leading up and did not present with chest pain as he reports. (2) CHF exacerbation: Code(s): I50.9 - Heart failure, unspecified Status: Acute Assessment and Plan: currently euvolemic after receiving IV Lasix. Evidence of CHF by chest x-ray / patient presentation with shortness of breath in setting of hypertensive urgency. patient has a history of mild to moderate LV systolic dysfunction EF 40-45% and on echocardiogram this hospitalization EF 35-40% with wall motion abnormalities. Patient has not required diuretic therapy as an outpatient and is feeling well at this time. CHF counseling. Continue to monitor input and output, daily weight. (3) Elevated troponin: Code(s): R77.8 - Other specified abnormalities of plasma proteins Status: Acute Assessment and Plan: Very mild elevation, fairly flat curve most likely type 2 infarction secondary to hypertensive urgency as opposed to acute coronary syndrome and/or plaque rupture as above. Continue aspirin and clopidogrel. DVT prophylaxis advised. Echocardiogram reviewed. Discussed at length with the patient with regards to plan of care. 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 He has stent in the LAD, circumflex and RCA distributions. His last angiogram was in 2016 and his abnormal stress test could simply be a reflection of collateral filling and is formally known anatomy. We discussed risk versus benefit of repeating coronary angiography to ensure that there have been no further changes, however, would like to observe him overnight and any recurrent symptom or concern will proceed with coronary angiography. Will keep in NPO in the off chance we may proceed with angiography however if BP controlled he is feeling well may continue with medical management given his age and follow-up as an outpatient. (4) Ischemic cardiomyopathy: Code(s): I25.5 - Ischemic cardiomyopathy Status: Acute Assessment and Plan: EF 35-40% as noted above by echocardiogram this hospitalization. Continue Toprol XL 50 mg daily, lisinopril 40 mg daily. well-compensated NYHA class II sxs at present. (5) Coronary artery disease: Code(s): I25.10 - Atherosclerotic heart disease of [place] coronary artery without angina pectoris Status: Acute Assessment and Plan: as above. Aggressive medical management. Continue medical therapy as above. Recommendation to follow. History of Present Illness History of Present Illness Consult date/time: Date of service: 02/27/23 16:35 Requesting physician: Samira Butler M.A., MD Consult reason: shortness of breath and Other (elevated troponin) Reason For Visit: Dyspnea,Elevated Troponin Narrative: Patient is a very pleasant 87-year-old male with a past medical history significant for Ischemic cardiomyopathy, hype
[2023-02-27 17:46] LABS: Troponin I 0.053 ng/mL (0.000-0.034)
--- NOTE | 2023-02-27 19:41 | PC.NURSE ---
When patient was assessed at 1200, patient stated that he had numbness and tingling from mid-bicep to his pinky and ring finger on his left hand. Thought maybe he had slept wrong. I came back to reassess around 1400 and he said that his whole hand was now numb. Dr. Morton was called and notified. Stat head CT ordered. Results came back negative. At 1645, during assessment, patient said his hand was still numb and that he was having trouble buttoning his pants. I called Dr. Morton again and notified him that he was still complaining of the numbness. He ordered a head MRI. MRI was called and agreed to fit the patient in before leaving today. Patient left for MRI around 1800. 1852, Radiologist called and notified me of results. Selene was called, and he requested that Doctor Goran be consulted and called right away. Dr. Zimmer was called and the case was reviewed over the phone. States she will come see the patient. Patient was assessed with Akil (nightshift nurse). Patient's only symptom is still numbness from mid-bicept to hand.
[2023-02-28] VITALS (9 sets, daily range): BP systolic 151–177; BP diastolic 51–105; PULSE 74–87; RESP 16–18; TEMP 36.5–36.6; O2SAT 94–98
--- NOTE | 2023-02-28 | ECHO_ITS ---
Patient Info Name: Johnnie Mack Age: 87 years : 1935 Gender: Male Ht: 65 in Wt: 177 lbs BSA: 1.94 m2 HR: 79 bpm BP: 177 / 105 mmHg Exam Date: 02/28/2023 2:44 PM Exam Location: [facility] Pulmonary Patient Status: Outpatient Admit Date: 02/27/2023 Staff Ordering Physician: Jeremiah Morton MD Radio Interference Supervisor: Tyrone Enrique RDCS, RT Attending Provider: Samira Butler M.A., MD Exam Type: CA echo limited w bubble study Study Info Indications - CVA Complete two-dimensional, color flow and Doppler transthoracic echocardiogram is performed with agitated saline. Summary 1. This was a limited study for bubble study. 2. Small amount of bubbles seen in the left heart after >5 cardiac beats concerning for possible intrapulmonary shunt. Atrial Septum Small amount of bubbles seen in the left heart after >5 cardiac beats concerning for possible intrapulmonary shunt. Report Signatures
[2023-02-28 05:07] LABS: Basophils Percent Auto 0.5 % (0.2-1.2); Eosinophils Absolute Auto 0.1 K/mm3 (0-0.3); Eosinophils Percent Auto 0.8 % (0-4.4); Hemoglobin 15.5 g/dL (14.0-18.0); Immature Granulocyte Absolute 0.02 K/mm3 (0.00-0.031); Immature Granulocyte Percent A 0.3 % (0-0.5); Lymphocytes Percent Auto 22.8 % (18.3-44.2); Mean Corpuscular HGB Conc 34.4 g/dl (32-36); Mean Corpuscular Hemoglobin 30.8 pg (26-34); Mean Corpuscular Volume 89.5 fl (80-100); Mean Platelet Volume 10.7 fl (7.4-10.4); Monocytes Absolute Auto 0.7 K/mm3 (0.1-0.6); Neutrophils Absolute Auto 5.3 K/mm3 (1.3-6.7); Neutrophils Percent Auto 66.6 % (45.5-73.1); Platelet Count Result 181 k/mm3 (150-375); Red Blood Count 5.03 M/mm3 (4.6-6.20); Red Cell Distribution Width 12.5 % (11.5-14.5); White Blood Count 7.9 K/mm3 (4.5-10.0)
[2023-02-28 05:19] LABS: Alanine Aminotransferase 24 U/L (6-50); Albumin Level 4.3 g/dL (3.5-5.1); Alkaline Phosphatase 84 U/L (38-126); Anion Gap 6 mmol/L (8-16); Aspartate Amino Transferase 22 U/L (17-59); Bilirubin,Total 2.2 mg/dL (0.2-1.3); Blood Urea Nitrogen 15 mg/dL (9-20); Calcium 8.8 mg/dL (8.4-10.2); Carbon Dioxide 31 mmol/L (22-30); Chloride 97 mmol/L (98-107); Estimated CRCL calculation 47 ml/min; Estimated Glomerular Filt Rate > 60; Glucose 180 mg/dL (65-110); Potassium 3.9 mmol/L (3.4-5.0); Sodium 134 mmol/L (137-145)
[2023-02-28] MEDS: GABAPENTIN 100 MG CAPSULE PO ×2 (06:47→12:40)
--- NOTE | 2023-02-28 08:00 | ECG_ITS ---
Measurements Intervals [place] Rate: 78 P: 55 PA: 212 QRS: -5 QRSD: 116 T: 85 QT: 417 QTc: 475 Interpretive Statements SINUS RHYTHM WITH FIRST DEGREE AV BLOCK INFERIOR MYOCARDIAL INFARCTION , OF INDETERMINATE AGE ABNORMAL ECG COMPARED TO ECG 02/27/2023 02:26:54 PVCS NO LONGER APPRECIATED Electronically Signed On 03-01-2023 16:19:10 CDT by Rui Gann M.D.
[2023-02-28] MEDS: ASPIRIN 81 MG CHEWABLE TABLET PO (08:09)
[2023-02-28] MEDS: ENOXAPARIN 40 MG/0.4 ML SYRINGE SUB-Q (08:09)
[2023-02-28] MEDS: METOPROLOL SUCCINATE EXT REL 50 MG TABCR PO (08:09)
[2023-02-28] MEDS: lisinopriL 20 MG TABLET 40 MG PO (08:09)
[2023-02-28] MEDS: PANTOPRAZOLE SODIUM IV 40 MG VIAL IV PUSH (08:09)
[2023-02-28 10:00] LABS: Cholesterol 132 mg/dL (0-200); HDL Direct 40 mg/dL; Triglycerides 147 mg/dL (<150)
[2023-02-28 10:11] LABS: LDL Cholesterol Direct 62 mg/dL
--- NOTE | 2023-02-28 10:13 | WPDNEURCNPN ---
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: Code(s): I63.9 - Cerebral infarction, unspecified Status: Acute (2) Hypertensive urgency: Code(s): I16.0 - Hypertensive urgency Status: Acute (3) CHF exacerbation: Code(s): I50.9 - Heart failure, unspecified Status: Acute (4) Ischemic cardiomyopathy: Code(s): I25.5 - Ischemic cardiomyopathy Status: Acute (5) Coronary artery disease: Code(s): I25.10 - Atherosclerotic heart disease of [place] coronary artery without angina pectoris Status: Acute (6) Hyperlipidemia: Code(s): E78.5 - Hyperlipidemia, unspecified Status: Acute (7) Hypertension: Qualifiers: Hypertension type: unspecified Qualified Code(s): I10 - Essential (primary) hypertension Code(s): I10 - Essential (primary) hypertension Status: Acute Plan Johnnie Mack is a 87 year old male with a history of ischemic cardiomyopathy, hypertension, hyperlipidemia, coronary artery disease s/p stenting. Patient presented initially to [place] due to shortness of breath. Found to be in acute CHF exacerbation secondary to hypertensive urgency. MRI brain obtained which showed biparietal infarcts. Patient does have significant cardiac history, but no significant valvular disease, atrial fibrillation/flutter, thrombus, or LVEF <30%. LDL has been within appropriate range. Vessel imaging has not been done. Given distribution of stroke, suspect embolic stroke or undetermined source. Could very well still be cardioembolic. - Continue Aspirin and Plavix - Continue Simvastatin 20mg daily - CTA brain/carotid - If no significant intracranial/extracranial stenosis is seen, consider TRENT + loop as outpatient Consult date: 02/28/23 Reason for consult: Acute stroke HPI: Johnnie Mack is a 87 year old male with a history of ischemic cardiomyopathy, hypertension, hyperlipidemia, coronary artery disease s/p stenting. Patient presented initially to [place] due to shortness of breath. On presentation his blood pressure was elevated to 203/110. EKG showed sinus rhythm with frequent PVCs, Labs were significant for elevated BNP and mild elevation in troponin. Patient was treated for acute CHF exacerbation and hypertensive urgency. Elevated troponin attributed to demand ischemia. His echocardiogram showed EF 35-40%. Due to complaints of left hand numbness, an MRI brain was obtained which revealed biparietal infarcts. He is already on Aspirin and Plavix, as well as Simvastatin 20mg daily. Blood pressure during admission has been running in the 150-170s systolic. LDL from this admission is 62. Patient continues to complain of left hand numbness, but no other focal deficits. Review of Systems Constitutional: Constitutional: Reports no additional constitutional complaints Eyes: Eyes: Reports no additional eye complaints ENT: Reports system reviewed and no additional complaints, except as documented Cardiovascular: Cardiovascular: Reports no additional cardiovascular complaints Respiratory: Respiratory: Reports no additional respiratory complaints Gastrointestinal: Gastrointestinal: Reports no additional gastrointestinal complaints Genitourinary: Genitourinary: Reports no additional male genitourinary complaints Musculoskeletal: Musculoskeletal: Reports no additional musculoskeletal complaints Integumentary/Breasts: Skin/Breast: Reports system reviewed and no additional complaints, except as docu Neurologic: Reports as per HPI Psychiatric: Psychiatric: Reports no additional psychiatric complaints [facility] Past Medical History Medical History Benign brain tumor Status post resection in 2010. He is on prophylactic anti seizure medications. Coronary artery disease Coronary stent occlusion Hyperlipidemia Hypertension Ischemic cardiomyopathy Surgical History Surgical History (
[2023-02-28] MEDS: amLODIPine BESYLATE 2.5 MG TABLET PO (12:40)
--- NOTE | 2023-02-28 12:57 | PCPTNOTE ---
Attempted PT evaluation this date however per RN pt is at CT scan. Will continue to attempt.
--- NOTE | 2023-02-28 13:12 | PCCCNOTE ---
On 02/28/23, the student, [Mónica Judge], provided care and completed [facility] documentation on this patient. I have reviewed the student's documentation and agree with the findings.
--- NOTE | 2023-02-28 14:06 | PM.PNCARD ---
Progress Note: A&P Assessment and Plan (1) Hypertensive urgency: Code(s): I16.0 - Hypertensive urgency Status: Acute Assessment and Plan: Patient presented with mild flash pulmonary edema in setting of hypertensive urgency with systolic blood pressure greater than 200 mm Hg currently improved.? Minimally elevated proBNP, very mild fairly flat troponin elevation without chest pain or exertional anginal symptoms.? Patient is now clinically euvolemic and otherwise asymptomatic. ? Continue lisinopril 40 mg daily.? Added amlodipine 2.5 mg daily.? Monitor BP closely avoid symptomatic hypotension.? Continue Toprol XL 50 mg daily.? Monitor BP closely. Clinically, patient presentation appears to be secondary to hypertensive urgency.? ? While I cannot entirely exclude acute coronary event given his known coronary anatomy I feel this is less likely particularly as he had had no other issues leading up and did not present with chest pain and has remained chest pain free. (2) Ischemic cardiomyopathy: Code(s): I25.5 - Ischemic cardiomyopathy Status: Acute Assessment and Plan: EF 35-40% as noted by echocardiogram this hospitalization.? Continue Toprol XL 50 mg daily, lisinopril 40 mg daily.?Well-compensated NYHA class II sxs at present. (3) Elevated troponin: Code(s): R77.8 - Other specified abnormalities of plasma proteins Status: Acute Assessment and Plan: Aggressive medical management.? Continue medical therapy as above. (4) Acute CVA (cerebrovascular accident): Code(s): I63.9 - Cerebral infarction, unspecified Status: Acute Assessment and Plan: Neurology has been consulted. If TRENT is recommended, then can consider obtaining TRENT as outpatient if patient has no other needs to remain in the hospital as we would not be able to do TRENT tomorrow 03/01 as schedule is already booked out, and would not want to keep patient unnecessarily over the weekend. Subjective Date/time seen: 02/28/23 14:06 Interval history: HPI: Patient is a very pleasant 87-year-old male with a past medical history significant for? Ischemic cardiomyopathy,? 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 patient states he was in his usual state of health walking 130 laps at his zoroastrianism without angina or limiting dyspnea, hunting without problem and otherwise feeling quite well but he states he woke in the middle of the night feeling short of breath, and sweating so he got up and went outside to get fresh air.? He states after 10 minutes he felt much better, he came back inside his insisted he called EMS who arrived.? Patient states he was told all was checking out well except as blood pressure is elevated to the presented him to the ER.? He was severely hypertensive with systolic blood pressures greater than 200 mm Hg.? He denies chest pain at any time.? Pulmonary embolism was ruled out by CT PE protocol, bilateral pleural effusions are noted, BNP was mildly elevated at? 1350.? Initial troponin was mildly elevated peaking at 0.058.? he was given IV Lasix in the ER with improvement in his symptoms.? His blood pressure eventually improved but remained elevated overnight.? He denies recent illnesses, dietary changes or noncompliance with medications.? He states his blood pressure at home generally is around 140s or less but had recently been noted 160s at his PCPs office improved after rest.? He denied exertional dyspnea, chest pain, near-syncope, syncope or palpitations at any time.? he denies bleeding falls lower extremity edema, orthopnea or PND.? He states he feels quite well now and has no other complaints.? ECG revealed frequent PVCs with underlying sinus rhythm no acute i
--- NOTE | 2023-02-28 14:18 | PM.IMPN ---
Subjective Date/time seen: 02/28/23 14:18 Objective Data Vital Signs Vital Signs: Vital Signs - 24 hr 02/27/23 14:31 02/27/23 16:00 02/27/23 16:00 Temperature 97.1 F L Pulse Rate 76 81 Respiratory Rate 16 Blood Pressure 166/84 H 133/87 Pulse Oximetry 98 Oxygen Delivery 02/27/23 16:00 02/27/23 20:00 02/27/23 20:00 Temperature 97.6 F Pulse Rate 74 Respiratory Rate 18 Blood Pressure 138/81 Pulse Oximetry 95 Oxygen Delivery Room Air Room Air 02/27/23 20:00 02/27/23 22:50 02/27/23 22:00 Temperature 97.7 F Pulse Rate 75 73 75 Respiratory Rate 18 Blood Pressure 150/76 H Pulse Oximetry 96 Oxygen Delivery 02/28/23 00:00 02/28/23 00:00 02/28/23 02:00 Temperature Pulse Rate 78 81 Respiratory Rate Blood Pressure Pulse Oximetry Oxygen Delivery Room Air 02/28/23 04:00 02/28/23 04:00 02/28/23 04:00 Temperature 97.7 F Pulse Rate 78 75 Respiratory Rate 18 Blood Pressure 151/51 H Pulse Oximetry 94 98 Oxygen Delivery Room Air 02/28/23 06:00 02/28/23 08:09 02/28/23 08:00 Temperature 97.7 F Pulse Rate 87 81 80 Respiratory Rate 16 Blood Pressure 177/105 H Pulse Oximetry 97 Oxygen Delivery 02/28/23 08:00 02/28/23 08:00 02/28/23 10:00 Temperature Pulse Rate 80 80 Respiratory Rate Blood Pressure Pulse Oximetry Oxygen Delivery Room Air 02/28/23 10:12 02/28/23 12:00 02/28/23 12:00 Temperature 97.8 F Pulse Rate 77 74 Respiratory Rate 16 Blood Pressure 153/90 H Pulse Oximetry 96 Oxygen Delivery Room Air 02/28/23 12:00 02/28/23 13:57 Temperature Pulse Rate 79 Respiratory Rate Blood Pressure Pulse Oximetry Oxygen Delivery Room Air Intake/Output Intake/Output: Intake & Output 02/25/23 02/26/23 02/27/23 02/28/23 23:59 23:59 23:59 23:59 Intake Total 990 1000 Balance 990 1000 Meds/Results Medications: Active Medications Generic Name Dose Route Start Last Admin Trade Name Freq PRN Reason Stop Dose Admin Acetaminophen 650 mg 02/27/23 05:28 02/27/23 16:32 Acetaminophen 325 Mg Tablet PO 650 mg Q6H PRN Administration Mild Pain (1-3) Hydrocodone Bitart/Acetaminophen 1 tab 02/27/23 05:28 Hydrocodone/Acetaminophen (*Crx) 5-325 Mg Tablet PO Q6H PRN Pain Rated 4-6 Amlodipine Besylate 2.5 mg 02/28/23 09:00 02/28/23 12:40 Amlodipine Besylate 2.5 Mg Tablet PO 2.5 mg QAM RUBI Administration Aspirin 81 mg 02/28/23 08:00 02/28/23 08:09 Aspirin 81 Mg Chewable Tablet PO 81 mg DAILY@0800 [facility] Administration Enoxaparin Sodium 40 mg 02/27/23 09:00 02/28/23 08:09 Enoxaparin 40 Mg/0.4 Ml Syringe SUB-Q 40 mg DAILY RUBI Administration Gabapentin 100 mg 02/27/23 17:40 02/28/23 12:40 Gabapentin 100 Mg Capsule PO 100 mg Q8HR RUBI Administration Hydralazine HCl 10 mg 02/27/23 05:28 Hydralazine Hcl 20 Mg/Ml Vial IV PUSH Q6H PRN Hypertension Lisinopril 40 mg 02/27/23 09:46 02/28/23 08:09 Lisinopril 20 Mg Tablet PO 40 mg QAM [facility] Administration Melatonin 3 mg 02/27/23 05:28 Melatonin 3 Mg Tablet PO HS PRN INSOMINA Metoprolol Succinate 50 mg 02/28/23 09:00 02/28/23 08:09 Metoprolol Succinate Ext Rel 50 Mg Tabcr PO 50 mg QAM [facility] Administration Morphine Sulfate 2 mg 02/27/23 05:28 Morphine Sulfate (*Crx) 2 Mg/Ml Inj IV PUSH Q4H PRN For pain 7-10 Nitroglycerin 0.4 mg 02/27/23 05:28 Nitroglycerin Sl 0.4 Mg Tablet SUBLINGUAL Q5MIN PRN Chest Pain Ondansetron HCl 4 mg 02/27/23 05:28 Ondansetron Inj 4 Mg/2 Ml Vial IV PUSH Q6H PRN Nausea And Vomiting Pantoprazole Sodium 40 mg 02/27/23 09:00 02/28/23 08:09 Pantoprazole Sodium Iv 40 Mg Vial IV PUSH 40 mg BID RUBI Administration Perflutren Lipid Microsphere 0 ml 02/28/23 10:43 Perflutren Lipid Microspheres 1.5 Ml Vial Diluted To 10 Ml Total Volume
--- NOTE | 2023-02-28 14:18 | PCPTNOTE ---
Attempted PT evaluation, pt refused stating he is independent in the room. Hospitalist made aware and agreed to DC of PT orders. RN aware
--- NOTE | 2023-02-28 14:35 | PM.DS ---
DS: Admitting Diagnosis Discharge Date 02/27/2023 Admitting Diagnosis Sudden onset of shortness of breath DS: Summary Hospital Course Reason for hospitalization: Chief Complaint: 87 years old male with past medical history of coronary artery disease on aspirin Plavix hyperlipidemia on statin hypertension on metoprolol lisinopril presented to the hospital with sudden onset episode of shortness of breath worsening with activity denies fever chills abdominal pain denies chest pain patient was admitted to the hospital last October for chest pain the patient declined inpatient stress test patient had a stress test as outpatient a week later and according to the patient no significant finding.? At the field patient has blood pressure systolic in 200 in the ER blood pressure was 170/110 CT scan of the chest was done to rule out PE pending report showed bilateral pleural effusion according to the ER physician PE was ruled out pending final report, BNP was significantly elevated patient had mildly elevated troponin patient was admitted to the hospital for evaluation and treatment of shortness of breath probable CHF exacerbation secondary to hypertensive urgency. Hospital Course: Multifactorial most likely related to acute and of chronic diastolic CHF exacerbation secondary to hypertensive urgency P.r.n. IV hydralazine Resume metoprolol Pending home medication reconciliation at home patient on amlodipine lisinopril and metoprolol 87-year-old male presented with complaint of shortness of breath CTA of the chest is negative for pulmonary emboli concerning pulmonary edema and patient is being diuresed and symptoms are improving, patient also had a significantly elevated blood pressure upon arrival his home medications are is and patient is being diuresed his blood pressure is trending down, states feeling much better compared to when he arrived, also patient has elevated tropes patient be seen by Cardiology and further recommendation to follow cardiac echo is pending. Patient clinically improving and stable will discharge patient today Time Spent with Patient Time attestation: Total time spent providing and/or coordinating discharge services: Exam Narrative: Patient is comfortable, NAD HEENT: eyes are clear and none icteric LUNGS:CTA HEART: RR S1S2 ABD: BS+, Soft and nontender Lower extremities: no edema SKIN: nonjaundiced Neuro: grossly intact. DS: Data Data Completed and Pending Labs on day of discharge: Labs from last 24 hours 02/28/23 02/28/23 02/28/23 04:31 04:31 04:31 WBC 7.9 RBC 5.03 Hgb 15.5 Hct 45.0 MCV 89.5 MCH 30.8 MCHC 34.4 RDW 12.5 Plt Count 181 MPV 10.7 H Immature Gran % (Auto) 0.3 Neut % (Auto) 66.6 Lymph % (Auto) 22.8 [place] % (Auto) 9.0 H Eos % (Auto) 0.8 Baso % (Auto) 0.5 Lymph # (Auto) 1.80 [place] # (Auto) 0.7 H Eos # (Auto) 0.1 Baso # (Auto) 0.0 Abs Immat Gran (auto) 0.02 Absolute Neuts (auto) 5.3 Absolute Nucleated RBC 0.0 Nucleated RBC % 0.0 Sodium 134 L Potassium 3.9 Chloride 97 L Carbon Dioxide 31 H Anion Gap 6 L BUN 15 Creatinine 1.00 Estim Creat Clear Calc 47 Estimated GFR > 60 Glucose 180 H Calcium 8.8 Magnesium 2.0 Total Bilirubin 2.2 H AST 22 ALT 24 Alkaline Phosphatase 84 Troponin I Total Protein 7.0 Albumin 4.3 Triglycerides 147 Cholesterol 132 LDL Cholesterol Direct 62 HDL Direct 40 Vitamin B12 Folate 02/28/23 02/27/23 02/27/23 04:13 17:11 14:41 WBC RBC Hgb Hct MCV MCH MCHC RDW Plt Count MPV Immature Gran % (Auto) Neut % (Auto) Lymph % (Auto) [place] % (Auto) Eos % (Auto) Baso % (Auto) Lymph # (Auto) [place] # (Auto) Eos # (Auto) Baso # (Auto) Abs Immat Gran (auto) Absolute Neuts (auto) Absolute Nucleated RBC Nucleated RBC % Sodium P
== END 2023-02-28 15:35 | disposition home or self-care (01) ==
LOC: ANHED 05:22 → ANHIMU 06:37
PROVIDERS: Internal Medicine Cardiovascular Disease; Admitting Provider Internal Medicine; Emergency Provider Emergency Medicine; PCP Internal Medicine; Visit Provider Family Medicine
DX: I63.9 Cerebral infarction, unspecified (principal); I16.0 Hypertensive urgency; I11.0 Hypertensive heart disease with heart failure; I50.20 Unspecified systolic (congestive) heart failure; R77.8 Other specified abnormalities of plasma proteins; I25.5 Ischemic cardiomyopathy; I25.10 Atherosclerotic heart disease of native coronary artery without angina pectoris; Z95.5 Presence of coronary angioplasty implant and graft; R61 Generalized hyperhidrosis; E78.5 Hyperlipidemia, unspecified; I25.2 Old myocardial infarction; R20.0 Anesthesia of skin; G93.89 Other specified disorders of brain; R94.31 Abnormal electrocardiogram [ECG] [EKG]; J90 Pleural effusion, not elsewhere classified; I27.20 Pulmonary hypertension, unspecified; R79.89 Other specified abnormal findings of blood chemistry; I49.3 Ventricular premature depolarization; M19.022 Primary osteoarthritis, left elbow; I45.4 Nonspecific intraventricular block; F17.210 Nicotine dependence, cigarettes, uncomplicated; Z79.82 Long term (current) use of aspirin; Z79.02 Long term (current) use of antithrombotics/antiplatelets; Z79.899 Other long term (current) drug therapy; Z82.49 Family history of ischemic heart disease and other diseases of the circulatory system
CPT/HCPCS: 36415; 70450; 70496; 70498; 70553; 71045; 71275; 73080; 80053; 80061; 82607; 82746; 83036; 83690; 83735; 83880; 84484; 85025; 85610; 85730; 93005; 93306; 93308; 96372; 96374; 96375; 96376; 97165; 99285; A9270; A9577; C8929; C9113; G0378; J1650; J1940; Q9957; Q9967

== ENCOUNTER 2023-04-17 02:29 | Inpatient (IN) | payer MEDICARE, SELFPAY ==
[2023-04-17] VITALS (22 sets, daily range): BP systolic 111–184; BP diastolic 80–122; PULSE 80–138; RESP 15–23; TEMP 36.2–36.8; O2SAT 96–98; BMI 29.3; BMI 28.9
--- NOTE | ~2023-04-17 | XR_ITS ---
EXAMINATION: XR chest 2V DATE: 04/17/2023 03:05 INDICATION: Tachycardia. TECHNIQUE: Frontal and lateral views of the chest were obtained. COMPARISON: Chest single view 02/27/2023 FINDINGS: Moisés B-lines are noted, consistent mild pulmonary edema. No pleural effusion or pneumotho rax. Cardiomegaly is noted. IMPRESSION: 1. Mild pulmonary edema. 2. Cardiomegaly. Reviewed, dictated and finalized at location A.
--- NOTE | 2023-04-17 02:38 | ECG_ITS ---
Measurements Intervals [place] Rate: 136 P: 132 ME: 186 QRS: 129 QRSD: 154 T: -44 QT: 338 QTc: 508 Interpretive Statements ATRIAL FLUTTER/TACHYCARDIA WITH RAPID VENTRICULAR RESPONSE RIGHT BUNDLE BRANCH BLOCK LEFT POSTERIOR FASCICULAR BLOCK ST-T WAVE ABNORMALITY IN INFERIOR LEADS- CONSIDER ISCHEMIA ABNORMAL ECG COMPARED TO ECG 02/28/2023 10:05:20 ATRIAL FLUTTER/TACHYCARDIA NOW PRESENT RIGHT BUNDLE-BRANCH BLOCK NOW PRESENT LEFT POSTERIOR FASCICULAR BLOCK NOW PRESENT Electronically Signed On 04-17-2023 8:15:31 CDT by Izaiah Bonilla D.O.
[2023-04-17] MEDS: METOPROLOL TARTRATE INJ 5 MG/5 ML VIAL IV PUSH (02:52)
[2023-04-17 02:59] LABS: Basophils Percent Auto 0.4 % (0.2-1.2); Eosinophils Absolute Auto 0.1 K/mm3 (0-0.3); Hematocrit 45.3 % (42.0-52.0); Hemoglobin 15.3 g/dL (14.0-18.0); Immature Granulocyte Absolute 0.06 K/mm3 (0.00-0.031); Immature Granulocyte Percent A 0.7 % (0-0.5); Lymphocytes Absolute Auto 1.99 K/mm3 (0.9-3.2); Lymphocytes Percent Auto 24.1 % (18.3-44.2); Mean Corpuscular HGB Conc 33.8 g/dl (32-36); Mean Corpuscular Volume 88.8 fl (80-100); Mean Platelet Volume 10.4 fl (7.4-10.4); Monocytes Absolute Auto 0.8 K/mm3 (0.1-0.6); Monocytes Percent Auto 9.3 % (2.6-8.5); Neutrophils Absolute Auto 5.3 K/mm3 (1.3-6.7); Neutrophils Percent Auto 64.5 % (45.5-73.1); Platelet Count Result 199 k/mm3 (150-375); Red Cell Distribution Width 12.6 % (11.5-14.5); White Blood Count 8.3 K/mm3 (4.5-10.0)
[2023-04-17 03:09] LABS: Alanine Aminotransferase 26 U/L (6-50); Albumin Level 4.2 g/dL (3.5-5.1); Alkaline Phosphatase 81 U/L (38-126); Anion Gap 8 mmol/L (8-16); Aspartate Amino Transferase 37 U/L (17-59); Bilirubin,Total 1.1 mg/dL (0.2-1.3); Blood Urea Nitrogen 22 mg/dL (9-20); Calcium 8.6 mg/dL (8.4-10.2); Carbon Dioxide 25 mmol/L (22-30); Chloride 101 mmol/L (98-107); Estimated CRCL calculation 46 ml/min; Estimated Glomerular Filt Rate > 60; Glucose 218 mg/dL (65-110); Sodium 134 mmol/L (137-145)
[2023-04-17 03:10] LABS: Prothrombin Time 13.3 Seconds (11.1-14.7)
[2023-04-17 03:11] LABS: Partial Thromboplastin Time 26.8 SECONDS (22.3-36.8)
[2023-04-17 03:24] LABS: NT Pro B Type Natriuretic Pept 2540 pg/mL (19.9-100)
--- NOTE | 2023-04-17 03:55 | ECG_ITS ---
Measurements Intervals [place] Rate: 97 P: 257 AK: 179 QRS: -1 QRSD: 104 T: 115 QT: 318 QTc: 405 Interpretive Statements ATRIAL FLUTTER/TACHYCARDIA INFERIOR INFARCT, AGE INDETERMINATE BORDERLINE ST-T WAVE ABNORMALITY- LAT/HIGH LAT LEADS BASELINE ARTIFACT- II, III, AVL, AVF, V4 ABNORMAL ECG COMPARED TO ECG 04/17/2023 02:35:09 HEART RATE HAS DECREASED Electronically Signed On 04-17-2023 8:24:55 CDT by Izaiah Bonilla D.O.
--- NOTE | 2023-04-17 04:05 | ED.GENADULT ---
HPI - General Adult General Chief complaint: Recheck/Abnormal Lab/Rx Stated complaint: HIGH B/P Time Seen by Provider: 04/17/23 02:34 History of Present Illness HPI narrative: Patient is an 87-year-old male who presents ER with elevated blood pressures. Reports he woke up tonight and felt warm and flushed. He took his blood pressure and found his systolic blood pressure was in the 190s. He reports he then contacted EMS. Patient recently hospitalized for malignant hypertension and found to have a CVA as well. Denies any focal weakness or numbness. No slurred speech. He denies any chest pain or chest pressure. No exertional chest discomfort. No heart palpitations. Heart rate in the 130s upon arrival here. Previous hospitalization patient's echocardiogram showed an EF of 35 to 40% related to ischemic cardiomyopathy. Patient sees Dr. Gann. Related Data Home Medications Medication Instructions Recorded Confirmed metoprolol succinate 50 mg 50 mg PO DAILY 12/05/20 02/27/23 tablet,extended release 24 hr clopidogrel 75 mg tablet 75 mg PO DAILY 10/01/22 02/27/23 finasteride 5 mg tablet 5 mg PO DAILY 10/01/22 02/27/23 lisinopril 40 mg tablet 40 mg PO DAILY 10/01/22 02/27/23 oxybutynin chloride 5 mg tablet 5 mg PO HS 10/01/22 02/27/23 simvastatin 20 mg tablet 20 mg PO HS 10/01/22 02/27/23 levetiracetam 500 mg tablet 1,000 mg PO BID 10/02/22 02/27/23 Allergies Allergy/AdvReac Type Severity Reaction Status Date / Time No Known Allergies Allergy Verified 04/17/23 02:38 Review of Systems Review of Systems: All systems reviewed & are unremarkable except as noted in HPI and below Constitutional: Constitutional: Denies chills, Denies fatigue and Denies fever(s) Comments: Feeling flushed ENT: Denies nasal congestion and Denies sore throat Cardiovascular: Cardiovascular: Denies chest pain, Denies rapid heart rate and Denies radiating jaw, neck or arm pain Respiratory: Respiratory: Denies cough and Denies dyspnea Gastrointestinal: Gastrointestinal: Denies abdominal pain, Denies nausea and Denies vomiting Musculoskeletal: Musculoskeletal: Denies back pain and Denies myalgias Neurologic: Denies syncope, Denies headache(s), Denies focal weakness and Denies numbness PMFSH Past Medical History Medical History Benign brain tumor Status post resection in 2010. He is on prophylactic anti seizure medications. Coronary artery disease Coronary stent occlusion Hyperlipidemia Hypertension Ischemic cardiomyopathy Surgical History Surgical History History of coronary artery stent placement History of craniotomy (2010) Benign tumor. Family History Family History Father Acute myocardial infarction father of OR in his early 50s Social History Social History Social History: Surrogate medical decision maker: Yenifer Mack, spouse. Code status: Full code Smoking packs per day: 1 Smoking cigarettes per day: 20.0 Years smoked: 60 Smoking pack-years: 60.00 Smoking status: Never smoker Second hand tobacco smoke exposure: No Alcohol intake: never Substance use: never Lack of Transportation: No Lack of Food: Never True Current Housing: I Have Housing Concerned About Future Housing: No Difficulty Paying Gas/Electric Bills: No Difficulty Paying for Meds: No Currently Unemployed: No Education: High School Diploma/GED Difficulty w/ Childcare or Family Care: No Living arrangements: with family Spiritual care concerns: No Exam Narrative: GENERAL: Well-appearing, well-nourished, and in no acute distress. HEAD: Normocephalic, atraumatic. EYES: PERRL and EOMI. ENT: Mucous membranes moist. CHEST: Clear to auscultation. No respiratory distress. HEART: Tachyca
[2023-04-17] MEDS: FUROSEMIDE INJ 40 MG/4 ML VIAL IV PUSH (04:11)
[2023-04-17] MEDS: HEPARIN SOD/D5W 100 UNITS/ML 25,000 UNITS/250 ML BAG 8 UNITS IV CONT (04:42)
[2023-04-17] MEDS: HEPARIN SODIUM 5,000 UNITS/ML VIAL 4000 UNITS IV PUSH ×2 (04:48→12:01)
[2023-04-17] MEDS: METOPROLOL SUCCINATE EXT REL 100 MG TABCR PO (04:51)
[2023-04-17] MEDS: dilTIAZem 100 MG/100 ML 100 MG/100 ML BAG IV CONT (05:11)
--- NOTE | 2023-04-17 05:58 | ADMGEN ---
This patient, Johnnie Mack, was admitted to IMU Room 209-01. Patient/family oriented to hospital policies and general routines including ID bracelet, bed and alarms, visiting hours, pain management, procedures, bathroom and other care routines, personal items, smoking policy, room service/diet, and visiting hours. Information on how to activate the Rapid Response Team has been discussed. Patient/Family are encouraged to report perceived risks to care and to ask questions if they do not understand what they are told or what they should do.
[2023-04-17 06:46] LABS: Magnesium 1.8 mg/dL (1.6-2.3)
--- NOTE | 2023-04-17 09:37 | PM.CNCAR ---
Assessment and Plan Assessment and plan (1) Atrial flutter with rapid ventricular response: Code(s): I48.92 - Unspecified atrial flutter Status: Acute Assessment and Plan: Currently in atrial flutter with RVR. Was started on Dilitazem drip. Given his reduced LVEF, cannot use Diltiazem. Stop Diltiazem drip. Will start Amiodarone drip. Continue Heparin drip, will eventually transition to NOAC prior to discharge (Patient on ASA and Plavix at home; to avoid bleeding risks with triple therapy, will have patient take Plavix + NOAC at the time of discharge. (2) Non-ST elevation [place] (NSTEMI): Code(s): I21.4 - Non-ST elevation (NSTEMI) myocardial infarction Status: Acute Assessment and Plan: Initial troponin of 1.6 with repeat at 1.72. His troponin levels are higher than his last admission in February, when he was admitted with hypertensive urgency and acute CVA. He has not had any chest pain at all. 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 Extensive discussion with the patient regarding elevated troponins. Discussed with the patient that the elevated troponins could be from acute plaque rupture, malignant hypertension, demand ischemia from atrial flutter with RVR in the setting of known CAD. As patient hasn't had any chest pain or other anginal symptoms at all, I think acute plaque rupture is less likely. However, given the degree of elevation of his troponins, recommended ischemic evaluation with cardiac catheterization once his atrial flutter with RVR has improved. Discussed the indications for cardiac cath, procedure details, risks vs benefits, alternative management options. As patient has not had any chest pain, he states he would prefer to defer inpatient cardiac cath for now and would like to follow up with Dr. Gann in clinic and pursue as an outpatient instead. Will continue to trend troponins until peak. Continue ASA and Plavix (3) Malignant hypertension: Code(s): I10 - Essential (primary) hypertension Status: Acute Assessment and Plan: SBP in the 190s at home, at 184/110mmHg upon presentation here. Improving. Currently at 136/92mmHg this morning. Continue home meds of Amlodipine, Lisinopril, Toprol. If additional blood pressure control is needed, can increase dose of Amlodipine. (4) Coronary artery disease: Code(s): I25.10 - Atherosclerotic heart disease of [place] coronary artery without angina pectoris Status: Acute Assessment and Plan: As noted above. Continue ASA, Plavix, statin. (5) Cardiomyopathy: Code(s): I42.9 - Cardiomyopathy, unspecified Status: Acute Assessment and Plan: LVEF 35-40% per TTE 02/27/2023. CXR on admission with mild pulmonary edema. Given IV Lasix x 1. Currently laying flat without any orthopnea. Pulmonary edema likely precipitated by atrial flutter with RVR. Hold on further Lasix doses as patient appears clinically euvolemic at this time. Continue Lisinopril, Toprol. History of Present Illness History of Present Illness Consult date/time: 04/17/23 09:37 Requesting physician: Jordan Meyer MD Consult reason: Other (Malignant hypertension, NSTEMI) Reason For Visit: NSTEMI,Malignant Hypertension Narrative: We are consulted for NSTEMI, malignant hypertension. This is an 87-year-old male who follows with Dr. Gann in the clinic. Patient has a history of ischemic cardiomyopathy, CAD with prior PCI, hypertension, and hyperlipidemia. Patient presented to [place] this morning. He woke up from sleep around 1AM feeling very hot. He took his blood pressure and it was in the 190s systolics. Given his elevated blood pressure, he called EMS. No chest pain whatsoever. Heart rate noted to be in the 130s on arrival to the ED. EKG showed atrial flutter with RVR. In the ER, patient was resting comfortably. He received 5mg of IV Lopressor with improvement in his heart rate, and then started going back up to the 130s.
[2023-04-17] MEDS: AMIODARONE 150 MG/D5W 100 ML 150 MG/100 ML BAG 600 MG IV CONT (10:36)
[2023-04-17] MEDS: AMIODARONE 360 MG/D5W 200 ML 360 MG/200 ML BAG 33.33 MG IV CONT (10:42)
[2023-04-17 11:35] LABS: Partial Thromboplastin Time 43.2 SECONDS (22.3-36.8)
--- NOTE | 2023-04-17 14:47 | PCCCNOTE ---
On 04/17/23, the student, [Michelle Reyes], provided care and [facility] on this patient. I have reviewed the student's documentation and agree with the findings.
--- NOTE | 2023-04-17 17:24 | PM.IMHP ---
H&P: HPI History of Present Illness Date/Time: 04/17/23 17:24 Chief Complaint: Elevated blood pressure Narrative: ED-HPI narrative: Patient is an 87-year-old male who presents ER with elevated blood pressures.? Reports he woke up tonight and felt warm and flushed.? He took his blood pressure and found his systolic blood pressure was in the 190s.? He reports he then contacted EMS.? Patient recently hospitalized for malignant hypertension and found to have a CVA as well.? Denies any focal weakness or numbness.? No slurred speech.? He denies any chest pain or chest pressure.? No exertional chest discomfort.? No heart palpitations.? Heart rate in the 130s upon arrival here.? Previous hospitalization patient's echocardiogram showed an EF of 35 to 40% related to ischemic cardiomyopathy.? Patient sees Dr. Gann. Patient 87-year-old male with history of ischemic cardiomyopathy with ejection fraction 35-40% presented with significantly elevated blood pressure upon arrival patient's systolic blood pressure was 190s, and he was and atrial flutter diltiazem drip was started however patient with a ischemic cardiomyopathy biometric screener switch him over amiodarone drip and his rate is trending down, still in flutter, patient's tropes also elevated and continue to rise patient started on heparin drip, and patient is being treated with heparin drip, patient was seen by Cardiology does not wish to have a cardiac catheterization while in the hospital, however his clinical symptoms are improved will continue to monitor patient be seen by biometric screener and further recommendation to follow. Patient is admitted as inpatient with atrial fibrillation with RVR, elevated tropes, in acute on chronic systolic congestive Heart failure patient will stay in the hospital for 2 midnights. Review of Systems Review of Systems: All systems reviewed & are unremarkable except as noted in HPI and below (HPI) PMFSH Past Medical History Medical History Benign brain tumor Status post resection in 2010. He is on prophylactic anti seizure medications. Coronary artery disease Coronary stent occlusion Hyperlipidemia Hypertension Ischemic cardiomyopathy Surgical History Surgical History History of coronary artery stent placement History of craniotomy (2010) Benign tumor. Family History Family History Father Acute myocardial infarction father of [place] in his early 50s Social History Social History Social History: Surrogate medical decision maker: Yenifer Mack, spouse. Code status: Full code Smoking packs per day: 1 Smoking cigarettes per day: 20.0 Years smoked: 60 Smoking pack-years: 60.00 Smoking status: Never smoker Second hand tobacco smoke exposure: No Alcohol intake: never Substance use: never Lack of Transportation: No Lack of Food: Never True Current Housing: I Have Housing Concerned About Future Housing: Decline to Answer Difficulty Paying Gas/Electric Bills: Decline to Answer Difficulty Paying for Meds: Decline to Answer Currently Unemployed: Decline to Answer Education: Decline to Answer Difficulty w/ Childcare or Family Care: Decline to Answer Living arrangements: with family Spiritual care concerns: Yes Meds Home Medications and Allergies Home Medications Medication Instructions Recorded Confirmed Type metoprolol succinate 50 mg 50 mg PO DAILY 12/05/20 04/17/23 History tablet,extended release 24 hr clopidogrel 75 mg tablet 75 mg PO DAILY 10/01/22 04/17/23 History finasteride 5 mg tablet 5 mg PO DAILY 10/01/22 04/17/23 History lisinopril 40 mg tablet 40 mg PO DAILY 10/01/22 04/17/23 History simvastatin 20 mg tablet 20 mg PO HS 10/01/22 04/17/23 History levetiracetam 500 mg tablet 1,000 mg PO BI
[2023-04-17] MEDS: AMIODARONE 360 MG/D5W 200 ML 360 MG/200 ML BAG 16.67 MG IV CONT (17:37)
[2023-04-17 19:09] LABS: Partial Thromboplastin Time 68.6 SECONDS (22.3-36.8)
[2023-04-17] MEDS: HEPARIN SODIUM 5,000 UNITS/ML VIAL 3000 UNITS IV PUSH (19:28)
[2023-04-18] VITALS (9 sets, daily range): BP systolic 131–151; BP diastolic 69–95; PULSE 77–131; RESP 16–20; TEMP 36.4–36.6; O2SAT 96–100
[2023-04-18 01:28] LABS: Partial Thromboplastin Time 148.6 SECONDS (22.3-36.8)
[2023-04-18] MEDS: HEPARIN SOD/D5W 100 UNITS/ML 25,000 UNITS/250 ML BAG 10 UNITS IV CONT (02:01)
[2023-04-18] MEDS: AMIODARONE 360 MG/D5W 200 ML 360 MG/200 ML BAG 16.67 MG IV CONT (04:53)
[2023-04-18 06:39] LABS: Basophils Percent Auto 0.4 % (0.2-1.2); Eosinophils Absolute Auto 0.1 K/mm3 (0-0.3); Eosinophils Percent Auto 0.8 % (0-4.4); Hematocrit 43.9 % (42.0-52.0); Hemoglobin 14.9 g/dL (14.0-18.0); Immature Granulocyte Absolute 0.03 K/mm3 (0.00-0.031); Immature Granulocyte Percent A 0.4 % (0-0.5); Lymphocytes Absolute Auto 1.52 K/mm3 (0.9-3.2); Lymphocytes Percent Auto 20.3 % (18.3-44.2); Mean Corpuscular HGB Conc 33.9 g/dl (32-36); Mean Corpuscular Hemoglobin 29.7 pg (26-34); Mean Corpuscular Volume 87.6 fl (80-100); Mean Platelet Volume 10.6 fl (7.4-10.4); Monocytes Absolute Auto 0.7 K/mm3 (0.1-0.6); Monocytes Percent Auto 8.9 % (2.6-8.5); Neutrophils Absolute Auto 5.2 K/mm3 (1.3-6.7); Neutrophils Percent Auto 69.2 % (45.5-73.1); Platelet Count Result 174 k/mm3 (150-375); Red Blood Count 5.01 M/mm3 (4.6-6.20); Red Cell Distribution Width 12.6 % (11.5-14.5); White Blood Count 7.5 K/mm3 (4.5-10.0)
[2023-04-18 06:49] LABS: Partial Thromboplastin Time 72.4 SECONDS (22.3-36.8)
[2023-04-18 06:57] LABS: Anion Gap 10 mmol/L (8-16); Blood Urea Nitrogen 19 mg/dL (9-20); Carbon Dioxide 26 mmol/L (22-30); Chloride 93 mmol/L (98-107); Estimated CRCL calculation 57 ml/min; Estimated Glomerular Filt Rate > 60; Glucose 336 mg/dL (65-110); Magnesium 1.8 mg/dL (1.6-2.3); Potassium 3.5 mmol/L (3.4-5.0); Sodium 129 mmol/L (137-145)
--- NOTE | 2023-04-18 09:27 | PM.PNCARD ---
Progress Note: A&P Assessment and Plan (1) Atrial flutter with rapid ventricular response: Code(s): I48.92 - Unspecified atrial flutter Status: Acute Assessment and Plan: 04/17: Currently in atrial flutter with RVR. Was started on Dilitazem drip. Given his reduced LVEF, cannot use Diltiazem. Stop Diltiazem drip. Will start Amiodarone drip. Continue Heparin drip, will eventually transition to NOAC prior to discharge (Patient on ASA and Plavix at home; to avoid bleeding risks with triple therapy, will have patient take Plavix + NOAC at the time of discharge. 04/18: Patient remains in atrial flutter but is rate controlled. Switch Heparin drip to Eliquis. Switch IV Amiodarone drip to PO Amiodarone. Will have patient take 400mg PO BID for 1 week and then 400mg daily. Patient to be on Plavix + Eliquis at discharge (stop ASA to avoid triple therapy). (2) Non-ST elevation [place] (NSTEMI): Code(s): I21.4 - Non-ST elevation (NSTEMI) myocardial infarction Status: Acute Assessment and Plan: Initial troponin of 1.6 with repeat at 1.72, peak of 2.8. His troponin levels are higher than his last admission in February, when he was admitted with hypertensive urgency and acute CVA. He has not had any chest pain at all. 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 Extensive discussion with the patient regarding elevated troponins. Discussed with the patient that the elevated troponins could be from acute plaque rupture, malignant hypertension, demand ischemia from atrial flutter with RVR in the setting of known CAD. As patient hasn't had any chest pain or other anginal symptoms at all, I think acute plaque rupture is less likely. However, given the degree of elevation of his troponins, recommended ischemic evaluation with cardiac catheterization once his atrial flutter with RVR has improved. Discussed the indications for cardiac cath, procedure details, risks vs benefits, alternative management options. As patient has not had any chest pain, he states he would prefer to defer inpatient cardiac cath for now and would like to follow up with Dr. Gann in clinic and pursue as an outpatient instead. (3) Malignant hypertension: Code(s): I10 - Essential (primary) hypertension Status: Acute Assessment and Plan: Improved. Continue home meds. (4) CAD (coronary artery disease): Code(s): I25.10 - Atherosclerotic heart disease of [place] coronary artery without angina pectoris Status: Acute Assessment and Plan: Patient to be on Plavix + Eliquis at discharge (stop ASA to avoid triple therapy). Continue statin. (5) Cardiomyopathy: Code(s): I42.9 - Cardiomyopathy, unspecified Status: Acute Assessment and Plan: LVEF 35-40% per TTE 02/27/2023. CXR on admission with mild pulmonary edema. Given IV Lasix x 1. Currently laying flat without any orthopnea. Pulmonary edema likely precipitated by atrial flutter with RVR. Hold on further Lasix doses as patient appears clinically euvolemic at this time. Continue Lisinopril, Toprol. Plan Recommendations/plan discussed with Hospitalist, Dr. Lopez. Will arrange close follow up with our office. Subjective Date/time seen: 04/18/23 09:27 Interval history: Reason for visit: Atrial flutter with RVR, elevated troponin, malignant hypertension HPI: We are consulted for NSTEMI, malignant hypertension. This is an 87-year-old male who follows with Dr. Gann in the clinic. Patient has a history of ischemic cardiomyopathy, CAD with prior PCI, hypertension, and hyperlipidemia. Patient presented to [place] ER this morning. He woke up from sleep around 1AM feeling very hot. He took his blood pressure and it was in the 190s systolics. Given his elevated blood pressure, he called EMS. No chest pain whatsoever. Heart rate noted to be in the 130s on arrival to the ED. EKG showed atrial flutter with RVR. In the ER, patient was resting comfortably. He received 5mg of IV Lopr
[2023-04-18] MEDS: AMIODARONE HCL 200 MG TABLET 400 MG PO (11:35)
[2023-04-18] MEDS: APIXABAN 5 MG TABLET PO (11:35)
--- NOTE | 2023-04-18 12:26 | PM.DS ---
DS: Admitting Diagnosis Discharge Date 04/18/2023 Admitting Diagnosis chest pain DS: Discharge Diagnosis Discharge Diagnosis (1) Atrial flutter with rapid ventricular response: Code(s): I48.92 - Unspecified atrial flutter Status: Acute (2) Cardiomyopathy: Code(s): I42.9 - Cardiomyopathy, unspecified Status: Acute (3) Hypertensive urgency: Code(s): I16.0 - Hypertensive urgency Status: Acute (4) CHF exacerbation: Code(s): I50.9 - Heart failure, unspecified Status: Acute DS: Summary Hospital Course Hospital Course: Patient is an 87-year-old male who presents ER with elevated blood pressures.? Reports he woke up tonight and felt warm and flushed.? He took his blood pressure and found his systolic blood pressure was in the 190s.? He reports he then contacted EMS.? Patient recently hospitalized for malignant hypertension and found to have a CVA as well.? Denies any focal weakness or numbness.? No slurred speech.? He denies any chest pain or chest pressure.? No exertional chest discomfort.? No heart palpitations.? Heart rate in the 130s upon arrival here.? Previous hospitalization patient's echocardiogram showed an EF of 35 to 40% related to ischemic cardiomyopathy.? Patient sees Dr. Gann. cardiology was consulted. Patient was started on diltiazem drip initially however due to ischemic cardiomyopathy this was switched over to amiodarone drip. His rate is better controlled but remains in AFib/ a flutter. Is also started on heparin drip. Fall on 04/18/2023 patient was switched to Eliquis and amiodarone drip switched over to oral amiodarone and was okay per Cardiology to be discharged. Patient did not wish to have cardiac catheterization while in the hospital the his troponin did elevate the hospital stay initial troponin 1.6 with peak at 2.8. scratch not chest pain and back flutter was arranged for elevated troponin along with magnet hypertension. this will be pursued after discussion as an outpatient basis. Time Spent with Patient Time attestation: Total time spent providing and/or coordinating discharge services: 35 minutes Exam Narrative: Patient is comfortable, NAD HEENT: eyes are clear and none icteric LUNGS: Normal respiratory effort ABD: Distended Lower extremities: no edema SKIN: nonjaundiced Neuro: grossly intact. DS: Data Data Completed and Pending Labs on day of discharge: Labs from last 24 hours 04/18/23 04/18/23 04/17/23 06:28 00:17 18:08 WBC 7.5 RBC 5.01 Hgb 14.9 Hct 43.9 MCV 87.6 MCH 29.7 MCHC 33.9 RDW 12.6 Plt Count 174 MPV 10.6 H Immature Gran % (Auto) 0.4 Neut % (Auto) 69.2 Lymph % (Auto) 20.3 [place] % (Auto) 8.9 H Eos % (Auto) 0.8 Baso % (Auto) 0.4 Lymph # (Auto) 1.52 [place] # (Auto) 0.7 H Eos # (Auto) 0.1 Baso # (Auto) 0.0 Abs Immat Gran (auto) 0.03 Absolute Neuts (auto) 5.2 Absolute Nucleated RBC 0.0 Nucleated RBC % 0.0 APTT 72.4 H 148.6 H 68.6 H Sodium 129 L Potassium 3.5 Chloride 93 L Carbon Dioxide 26 Anion Gap 10 BUN 19 Creatinine 0.90 Estim Creat Clear Calc 57 Estimated GFR > 60 Glucose 336 H Calcium 8.0 L Magnesium 1.8 Troponin I 04/17/23 14:39 WBC RBC Hgb Hct MCV MCH MCHC RDW Plt Count MPV Immature Gran % (Auto) Neut % (Auto) Lymph % (Auto) [place] % (Auto) Eos % (Auto) Baso % (Auto) Lymph # (Auto) [place] # (Auto) Eos # (Auto) Baso # (Auto) Abs Immat Gran (auto) Absolute Neuts (auto) Absolute Nucleated RBC Nucleated RBC % APTT Sodium Potassium Chloride Carbon Dioxide Anion Gap BUN Creatinine Estim Creat Clear Calc Estimated GFR Glucose Calcium Magnesium Troponin I 2.600 H* Imaging Radiologist's impression: ITS Impressions Chest X-Ray 04/17/23 07:48 IMPRESSION: 1. Mild pulmonary edema. 2. Cardiomegaly. Disc
== END 2023-04-18 14:00 | disposition home or self-care (01) | DRG 281 ==
LOC: ANHED 02:57 → ANHIMU 04:34
PROVIDERS: Family Medicine; Internal Medicine; Admitting Provider Internal Medicine; Emergency Provider Emergency Medicine; PCP Internal Medicine; Visit Provider Internal Medicine
DX: I21.4 Non-ST elevation (NSTEMI) myocardial infarction (principal); I48.92 Unspecified atrial flutter; I25.10 Atherosclerotic heart disease of native coronary artery without angina pectoris; I10 Essential (primary) hypertension; I25.5 Ischemic cardiomyopathy; E78.5 Hyperlipidemia, unspecified; Z86.011 Personal history of benign neoplasm of the brain; Z95.5 Presence of coronary angioplasty implant and graft; Z86.73 Personal history of transient ischemic attack (TIA), and cerebral infarction without residual deficits
CPT/HCPCS: 36415; 71046; 80048; 80053; 83735; 83880; 84443; 84484; 85025; 85610; 85730; 93005; 96365; 96375; 99285; A9270; J0282; J1644; J1940

== ENCOUNTER 2023-04-21 01:18 | Observation (INO) | payer MEDICARE, SELFPAY ==
[2023-04-21] VITALS (33 sets, daily range): BP systolic 108–170; BP diastolic 56–106; PULSE 62–97; RESP 16–24; TEMP 35.8–36.6; O2SAT 93–99; BMI 29.0
--- NOTE | ~2023-04-21 | XR_ITS ---
Portable chest x-ray Comparison: 04/21/2023 Clinical History: CHF Findings: Lungs are clear, without focal consolidation or pleural effusion. Cardiomediastinal silho uette is stable. Bones and soft tissues are unremarkable. Impression: Clear lungs. Reviewed, dictated and finalized at location . Impression: Clear lungs.
--- NOTE | ~2023-04-21 | XR_ITS ---
XR chest 2V DATE: 04/21/2023 02:16 INDICATION: Shortness of breath TECHNIQUE: PA and lateral views COMPARISON: 04/17/2023 chest FINDINGS: Borderline heart size. Aortic calcification and tortuosity. There is pulmonary vascular congestion and redistribution. Prominent bilateral Moisés B lines consist ent with pulmonary interstitial edema. Mild cysts bilateral central and lower lung infiltrates likely due to pulmonary alveolar edema. There are slight pleural effusions. IMPRESSION: Congestive heart failure and pulmonary edema, increased since 04/17/2023 Reviewed, dictated and finalized at location A. IMPRESSION: Congestive heart failure and pulmonary edema, increased since 2022
--- NOTE | 2023-04-21 01:38 | ECG_ITS ---
Measurements Intervals [place] Rate: 84 P: 42 NM: 251 QRS: 44 QRSD: 114 T: 32 QT: 384 QTc: 455 Interpretive Statements SINUS RHYTHM WITH FIRST DEGREE AV BLOCK WITH FREQUENT VENTRICULAR PREMATURE COMPLEXES SEPTAL MYOCARDIAL INFARCTION , PROBABLY OLD [40+ ms Q WAVE IN V1/V2] COMPARED TO ECG 04/17/2023 03:57:49 SINUS RHYTHM NOW PRESENT FIRST DEGREE AV BLOCK NOW PRESENT Electronically Signed On 04-21-2023 12:16:44 CDT by Shanta Anderson M.D.
--- NOTE | 2023-04-21 01:55 | PC.NURSE ---
patient o2 level 88% on room air, placed on 2L oxygen
[2023-04-21 02:07] LABS: Basophils Percent Auto 0.3 % (0.2-1.2); Eosinophils Absolute Auto 0.2 K/mm3 (0-0.3); Eosinophils Percent Auto 1.6 % (0-4.4); Hematocrit 45.5 % (42.0-52.0); Hemoglobin 15.3 g/dL (14.0-18.0); Immature Granulocyte Absolute 0.06 K/mm3 (0.00-0.031); Immature Granulocyte Percent A 0.6 % (0-0.5); Lymphocytes Absolute Auto 2.56 K/mm3 (0.9-3.2); Lymphocytes Percent Auto 26.9 % (18.3-44.2); Mean Corpuscular HGB Conc 33.6 g/dl (32-36); Mean Corpuscular Hemoglobin 30.6 pg (26-34); Mean Platelet Volume 10.5 fl (7.4-10.4); Monocytes Absolute Auto 0.7 K/mm3 (0.1-0.6); Monocytes Percent Auto 7.1 % (2.6-8.5); Neutrophils Percent Auto 63.5 % (45.5-73.1); Platelet Count Result 190 k/mm3 (150-375); Red Cell Distribution Width 12.8 % (11.5-14.5); White Blood Count 9.5 K/mm3 (4.5-10.0)
[2023-04-21 02:19] LABS: Alanine Aminotransferase 27 U/L (6-50); Albumin Level 4.2 g/dL (3.5-5.1); Alkaline Phosphatase 79 U/L (38-126); Anion Gap 8 mmol/L (8-16); Aspartate Amino Transferase 27 U/L (17-59); Bilirubin,Total 1.7 mg/dL (0.2-1.3); Blood Urea Nitrogen 27 mg/dL (9-20); Calcium 8.7 mg/dL (8.4-10.2); Carbon Dioxide 26 mmol/L (22-30); Chloride 100 mmol/L (98-107); Estimated CRCL calculation 38 ml/min; Estimated Glomerular Filt Rate > 60; Glucose 224 mg/dL (65-110); Potassium 4.1 mmol/L (3.4-5.0); Sodium 134 mmol/L (137-145)
[2023-04-21 03:44] LABS: NT Pro B Type Natriuretic Pept 757 pg/mL (19.9-100); Troponin I 0.392 ng/mL (0.000-0.034)
--- NOTE | 2023-04-21 05:09 | ED.GENADULT ---
HPI - General Adult General Chief complaint: Shortness of Breath/Dyspnea Stated complaint: SOB Time Seen by Provider: 04/21/23 02:51 History of Present Illness HPI narrative: Patient is a 87-year-old gentleman who presents emerged department with chief complaint of shortness of breath. Patient reports that he had sudden onset of shortness of breath yesterday around noon patient states that he has been having increasing work of breathing and noticed that his oxygen levels were running on the low side. Patient reports that has had no real chest pain with this and reports no significant peripheral edema. Related Data Home Medications Medication Instructions Recorded Confirmed metoprolol succinate 50 mg 50 mg PO DAILY 12/05/20 04/17/23 tablet,extended release 24 hr clopidogrel 75 mg tablet 75 mg PO DAILY 10/01/22 04/17/23 finasteride 5 mg tablet 5 mg PO DAILY 10/01/22 04/17/23 lisinopril 40 mg tablet 40 mg PO DAILY 10/01/22 04/17/23 simvastatin 20 mg tablet 20 mg PO HS 10/01/22 04/17/23 levetiracetam 500 mg tablet 1,000 mg PO BID 10/02/22 04/17/23 Allergies Allergy/AdvReac Type Severity Reaction Status Date / Time No Known Allergies Allergy Verified 04/17/23 02:38 Review of Systems Review of Systems: A 10 system review of systems was completed on the patient and is negative except for what is stated in the HPI. Nursing and ancillary documentation was reviewed. [facility] Past Medical History Medical History Benign brain tumor Status post resection in 2010. He is on prophylactic anti seizure medications. Coronary artery disease Coronary stent occlusion Hyperlipidemia Hypertension Ischemic cardiomyopathy Surgical History Surgical History History of coronary artery stent placement History of craniotomy (2010) Benign tumor. Family History Family History Father Acute myocardial infarction father of [place] in his early 50s Social History Social History Social History: Surrogate medical decision maker: Yenifer Mack, spouse. Code status: Full code Smoking packs per day: 1 Smoking cigarettes per day: 20.0 Years smoked: 60 Smoking pack-years: 60.00 Smoking status: Never smoker Second hand tobacco smoke exposure: No Alcohol intake: never Substance use: never Lack of Transportation: No Lack of Food: Never True Current Housing: I Have Housing Concerned About Future Housing: Decline to Answer Difficulty Paying Gas/Electric Bills: Decline to Answer Difficulty Paying for Meds: Decline to Answer Currently Unemployed: Decline to Answer Education: Decline to Answer Difficulty w/ Childcare or Family Care: Decline to Answer Living arrangements: with family Spiritual care concerns: Yes Exam Narrative: GENERAL: Well-appearing, well-nourished, and in no acute distress. HEAD: Normocephalic, atraumatic. EYES: PERRLA and EOMI. ENT: Nares clear, no rhinorrhea or epistaxis. Mucous membranes moist. NECK: Supple. CHEST: Clear to auscultation. No respiratory distress. HEART: Regular rate and rhythm. No murmur heard. Normal peripheral pulses. ABDOMEN: Soft, nontender, nondistended, normal active bowel sounds. EXTREMITIES: Normal range of motion. +1 edema. SKIN: Warm, dry, no rash. NEURO: No focal deficits. Alert and oriented x3. PSYCH: Normal mood and affect. Course Vital Signs Vital signs: Vital Signs Temperature 36.5 C 04/21/23 01:27 Pulse Rate 87 04/21/23 01:27 Respiratory Rate 24 H 04/21/23 01:27 Blood Pressure 160/106 H 04/21/23 01:27 Pulse Oximetry 93 04/21/23 01:27 Oxygen Delivery Room Air 04/21/23 01:27 Temperature 36.5 C 04/21/23 01:27 Pulse Rate 75 04/21/23 03:01 Respirator
[2023-04-21 05:52] LABS: Troponin I 0.409 ng/mL (0.000-0.034)
--- NOTE | 2023-04-21 06:18 | ADMGEN ---
This patient, Johnnie Mack, was admitted to IMU Room 205-01 on 04/21/23 at 0602. Patient/family oriented to hospital policies and general routines including ID bracelet, bed and alarms, visiting hours, pain management, procedures, bathroom and other care routines, personal items, smoking policy, room service/diet, and visiting hours. Information on how to activate the Rapid Response Team has been discussed. Patient/Family are encouraged to report perceived risks to care and to ask questions if they do not understand what they are told or what they should do.
--- NOTE | 2023-04-21 08:21 | PM.IMHP ---
H&P: HPI History of Present Illness Date/Time: 04/21/23 08:21 Chief Complaint: Shortness of breath Narrative: Patient is recently discharged with AFib with RVR and CHF. Was doing well next day however cut short of breath in the evening which started all of sudden without any chest pain and came to the ER for evaluation. Chest x-ray showed pulmonary edema he was in sinus rhythm this time. He is currently already feeling better. His troponin was mildly elevated and much improved from previous admission. BNP was also much improved down to 757. Denies any cough denies any leg swelling. Review of Systems Review of Systems: - CONSTITUTIONAL: Denies weight loss, fever and chills. - HEENT: Denies changes in vision and hearing - RESPIRATORY: reports SOB and denies cough. - CV: Denies palpitations and CP. - GI: Denies abdominal pain, nausea, vomiting and diarrhea. - : Denies dysuria and urinary frequency. - MSK: Denies myalgia and joint pain. - SKIN: Denies rash and pruritus. - NEUROLOGICAL: Denies headache and syncope. - PSYCHIATRIC: Denies recent changes in mood. Denies anxiety and depression. [facility] Past Medical History Medical History Benign brain tumor Status post resection in 2010. He is on prophylactic anti seizure medications. Coronary artery disease Coronary stent occlusion Hyperlipidemia Hypertension Ischemic cardiomyopathy Surgical History Surgical History History of coronary artery stent placement History of craniotomy (2010) Benign tumor. Family History Family History Father Acute myocardial infarction father of [place] in his early 50s Social History Social History Social History: Surrogate medical decision maker: Yenifer Mack, spouse. Code status: Full code Smoking packs per day: 1 Smoking cigarettes per day: 20.0 Years smoked: 60 Smoking pack-years: 60.00 Smoking status: Never smoker Second hand tobacco smoke exposure: No Alcohol intake: never Substance use: never Substance use type: does not use Lack of Transportation: No Lack of Food: Never True Current Housing: I Have Housing Concerned About Future Housing: No Difficulty Paying Gas/Electric Bills: No Difficulty Paying for Meds: No Currently Unemployed: No Education: High School Diploma/GED Difficulty w/ Childcare or Family Care: No Living arrangements: with family Spiritual care concerns: No Meds Home Medications and Allergies Home Medications Medication Instructions Recorded Confirmed Type metoprolol succinate 50 mg 50 mg PO DAILY 12/05/20 04/21/23 History tablet,extended release 24 hr clopidogrel 75 mg tablet 75 mg PO DAILY 10/01/22 04/21/23 History finasteride 5 mg tablet 5 mg PO HS 10/01/22 04/21/23 History lisinopril 40 mg tablet 40 mg PO DAILY 10/01/22 04/21/23 History simvastatin 20 mg tablet 20 mg PO HS 10/01/22 04/21/23 History levetiracetam 500 mg tablet 1,000 mg PO BID 10/02/22 04/21/23 History amlodipine 2.5 mg tablet 2.5 mg PO QAM #30 tabs 02/28/23 04/21/23 Rx melatonin 3 mg tablet 3 mg PO HS PRN INSOMINA #30 tabs 02/28/23 04/21/23 Rx nitroglycerin 0.4 mg sublingual 0.4 mg sublingual Q5MIN PRN Chest 02/28/23 04/21/23 Rx tablet (Nitrostat) Pain #25 tabs apixaban 5 mg tablet (Eliquis) 5 mg PO Q12HR #60 tabs 04/18/23 04/21/23 Rx amiodarone 200 mg tablet 400 mg PO BID 04/21/23 04/21/23 History Allergies Allergy/AdvReac Type Severity Reaction Status Date / Time No Known Allergies Allergy Verified 04/21/23 06:39 Vital Signs Vital Signs - 24 hr 04/21/23 01:27 04/21/23 01:54 04/21/23 01:52 Temperature 97.7 F Pulse Rate 87 81 Respiratory Rate 24 H Blood Pressure 160/106 H Pulse Oximetry 93 95 95 Oxygen Delivery Room Air N
[2023-04-21 08:44] LABS: Hemoglobin A1C 8.9 % (<5.7)
[2023-04-21] MEDS: AMIODARONE HCL 200 MG TABLET 400 MG PO ×2 (10:23→16:28)
[2023-04-21] MEDS: amLODIPine BESYLATE 2.5 MG TABLET PO (10:24)
[2023-04-21] MEDS: CLOPIDOGREL BISULFATE 75 MG TABLET PO (10:24)
[2023-04-21] MEDS: APIXABAN 5 MG TABLET PO ×2 (10:25→20:37)
[2023-04-21] MEDS: levETIRAcetam 500 MG TABLET 1000 MG PO ×2 (10:26→16:28)
[2023-04-21] MEDS: METOPROLOL SUCCINATE EXT REL 50 MG TABCR PO (10:27)
[2023-04-21] MEDS: lisinopriL 20 MG TABLET 40 MG PO (10:27)
[2023-04-21] MEDS: FUROSEMIDE INJ 40 MG/4 ML VIAL IV PUSH ×2 (10:30→16:27)
--- NOTE | 2023-04-21 10:46 | PM.CNCAR ---
Assessment and Plan Assessment and plan (1) Acute decompensated heart failure: Code(s): I50.9 - Heart failure, unspecified Status: Acute Assessment and Plan: LVEF 35-40% per TTE 02/27/2023. Will start IV Lasix 40mg IV BID. Please monitor strict I/Os. Repeat CXR tomorrow morning. Will need oral Lasix at time of discharge. (2) Atrial flutter: Code(s): I48.92 - Unspecified atrial flutter Status: Acute Assessment and Plan: Admitted last week for atrial flutter with RVR. Started on Amiodarone with good rate control. He is now in sinus rhythm. Continue with Amiodarone -- Patient currently finishing 7 day course of 400mg BID and then will be on 400mg daily. Continue Eliquis. [Patient is on Eliquis + Plavix; ASA was stopped last admission to avoid triple therapy] (3) Cardiomyopathy: Code(s): I42.9 - Cardiomyopathy, unspecified Status: Acute Assessment and Plan: LVEF 35-40% per TTE 02/27/2023. Continue Lisionpril, Toprol. IV diuresis as noted above. (4) Coronary artery disease: Code(s): I25.10 - Atherosclerotic heart disease of [place] coronary artery without angina pectoris Status: Acute Assessment and Plan: Last hospitalization: Initial troponin of 1.6 with repeat at 1.72, peak of 2.8. His troponin levels are higher than his last admission in February, when he was admitted with hypertensive urgency and acute CVA. He has not had any chest pain at all. 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 Extensive discussion with the patient regarding elevated troponins. Discussed with the patient that the elevated troponins could be from acute plaque rupture, malignant hypertension, demand ischemia from atrial flutter with RVR in the setting of known CAD. As patient hasn't had any chest pain or other anginal symptoms at all, I think acute plaque rupture is less likely. However, given the degree of elevation of his troponins, recommended ischemic evaluation with cardiac catheterization once his atrial flutter with RVR has improved. Discussed the indications for cardiac cath, procedure details, risks vs benefits, alternative management options. As patient has not had any chest pain, he states he would prefer to defer inpatient cardiac cath for now and would like to follow up with Dr. Gann in clinic and pursue as an outpatient instead. 04/21: Today, I discussed with the patient whether he would like to pursue cath as an inpatient since he is already here. Patient has been compliant with his Eliquis, therefore, would not be able to do inpatient cath until Saturday the earliest to allow washout of Eliquis. Patient states he does not want to stay in the hospital until then, and would like to go home tomorrow as he has to go home to take care of his sick . Patient states he would like it to be done as outpatient. Will arrange for it to be done as outpatient. Plan Recommendations/plan discussed with Hospitalist, Dr. Lopez. History of Present Illness History of Present Illness Consult date/time: 04/21/23 10:46 Requesting physician: Albert Lopez MD Consult reason: congestive heart failure Reason For Visit: Dyspnea/Elevated Troponin/CHF Narrative: We are consulted for congestive heart failure. This is an 87-year-old male who follows with Dr. Gann in the clinic. Patient has history of ischemic cardiomyopathy, CAD with prior PCI, hypertension, and hyperlipidemia. Patient was recently admitted to [facility] last week for atrial flutter with RVR. Patient states he was doing well after hospital discharge, however, this morning, he had sudden onset of shortness of breath. No chest pain, palpitations. ER workup shows EKG with sinus rhythm. Troponin of 0.392, 0.409 (lower than his levels from last week). BNP of 757. CXR shows congestive heart failure and pulmonary edema, increased since 04/17. Patient given dose of IV Lasix this morning. Feeling better. Review of Systems Review
[2023-04-21 11:03] LABS: Troponin I 0.276 ng/mL (0.000-0.034)
[2023-04-21] MEDS: SIMVASTATIN 20 MG TABLET PO (20:37)
[2023-04-21] MEDS: FINASTERIDE 5 MG TABLET PO (20:37)
[2023-04-21] MEDS: MELATONIN 3 MG TABLET PO (20:38)
[2023-04-22] VITALS (12 sets, daily range): BP systolic 110–155; BP diastolic 62–70; PULSE 57–66; RESP 16–20; TEMP 36.3–36.6; O2SAT 92–100; BMI 29.0
[2023-04-22 04:51] LABS: Basophils Percent Auto 0.5 % (0.2-1.2); Eosinophils Absolute Auto 0.1 K/mm3 (0-0.3); Hematocrit 42.4 % (42.0-52.0); Hemoglobin 14.4 g/dL (14.0-18.0); Immature Granulocyte Absolute 0.06 K/mm3 (0.00-0.031); Immature Granulocyte Percent A 0.8 % (0-0.5); Lymphocytes Absolute Auto 1.81 K/mm3 (0.9-3.2); Lymphocytes Percent Auto 22.7 % (18.3-44.2); Mean Corpuscular Hemoglobin 30.1 pg (26-34); Mean Corpuscular Volume 88.7 fl (80-100); Mean Platelet Volume 10.3 fl (7.4-10.4); Monocytes Absolute Auto 0.8 K/mm3 (0.1-0.6); Monocytes Percent Auto 10.4 % (2.6-8.5); Neutrophils Absolute Auto 5.2 K/mm3 (1.3-6.7); Neutrophils Percent Auto 64.6 % (45.5-73.1); Platelet Count Result 175 k/mm3 (150-375); Red Blood Count 4.78 M/mm3 (4.6-6.20); Red Cell Distribution Width 12.5 % (11.5-14.5)
[2023-04-22 05:06] LABS: Alanine Aminotransferase 22 U/L (6-50); Alkaline Phosphatase 78 U/L (38-126); Anion Gap 8 mmol/L (8-16); Aspartate Amino Transferase 20 U/L (17-59); Bilirubin,Total 2.5 mg/dL (0.2-1.3); Blood Urea Nitrogen 25 mg/dL (9-20); Calcium 8.5 mg/dL (8.4-10.2); Carbon Dioxide 33 mmol/L (22-30); Chloride 93 mmol/L (98-107); Estimated CRCL calculation 35 ml/min; Estimated Glomerular Filt Rate 58; Glucose 179 mg/dL (65-110); Magnesium 2.1 mg/dL (1.6-2.3); Sodium 134 mmol/L (137-145)
[2023-04-22] MEDS: AMIODARONE HCL 200 MG TABLET 400 MG PO (09:09)
[2023-04-22] MEDS: levETIRAcetam 500 MG TABLET 1000 MG PO (09:10)
[2023-04-22] MEDS: CLOPIDOGREL BISULFATE 75 MG TABLET PO (09:10)
[2023-04-22] MEDS: amLODIPine BESYLATE 2.5 MG TABLET PO (09:10)
[2023-04-22] MEDS: lisinopriL 20 MG TABLET 40 MG PO (09:10)
[2023-04-22] MEDS: APIXABAN 5 MG TABLET PO (09:10)
[2023-04-22] MEDS: FUROSEMIDE INJ 40 MG/4 ML VIAL IV PUSH (09:11)
[2023-04-22] MEDS: METOPROLOL SUCCINATE EXT REL 50 MG TABCR PO (09:11)
[2023-04-22] MEDS: EMPAGLIFLOZIN 10 MG TABLET PO (09:11)
--- NOTE | 2023-04-22 10:06 | PM.PNCARD ---
Progress Note: A&P Assessment and Plan (1) Acute decompensated heart failure: Code(s): I50.9 - Heart failure, unspecified Status: Acute Assessment and Plan: LVEF 35-40% per TTE 02/27/2023. Improved with IV furosemide. Will shift to p.o. furosemide today, looks euvolemic on exam and CXR this morning showed improvement of pulmonary edema. Will need oral Lasix at time of discharge. (2) Atrial flutter: Code(s): I48.92 - Unspecified atrial flutter Status: Acute Assessment and Plan: Admitted last week for atrial flutter with RVR. Started on Amiodarone with good rate control. He is now in sinus rhythm. Continue with Amiodarone -- Patient currently finishing 7 day course of 400mg BID and then will be on 400mg daily. Continue Eliquis. [Patient is on Eliquis + Plavix; ASA was stopped last admission to avoid triple therapy] (3) Cardiomyopathy: Code(s): I42.9 - Cardiomyopathy, unspecified Status: Acute Assessment and Plan: LVEF 35-40% per TTE 02/27/2023. Continue Lisinopril, Toprol. (4) Coronary artery disease: Code(s): I25.10 - Atherosclerotic heart disease of [place] coronary artery without angina pectoris Status: Acute Assessment and Plan: Last hospitalization: Initial troponin of 1.6 with repeat at 1.72, peak of 2.8. His troponin levels are higher than his last admission in February, when he was admitted with hypertensive urgency and acute CVA. He has not had any chest pain at all. 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 Extensive discussion with the patient regarding elevated troponins. Discussed with the patient that the elevated troponins could be from acute plaque rupture, malignant hypertension, demand ischemia from atrial flutter with RVR in the setting of known CAD. As patient hasn't had any chest pain or other anginal symptoms at all, I think acute plaque rupture is less likely. However, given the degree of elevation of his troponins, recommended ischemic evaluation with cardiac catheterization once his atrial flutter with RVR has improved. Discussed the indications for cardiac cath, procedure details, risks vs benefits, alternative management options. As patient has not had any chest pain, he states he would prefer to defer inpatient cardiac cath for now and would like to follow up with Dr. Gann in clinic and pursue as an outpatient instead. 04/21: Today, I discussed with the patient whether he would like to pursue cath as an inpatient since he is already here. Patient has been compliant with his Eliquis, therefore, would not be able to do inpatient cath until Saturday the earliest to allow washout of Eliquis. Patient states he does not want to stay in the hospital until then, and would like to go home tomorrow as he has to go home to take care of his sick . Patient states he would like it to be done as outpatient. Will arrange for it to be done as outpatient. 04/22: Reviewed plan of outpatient cath with the patient. He continues to be free from chest pain and would prefer for cath to be done as outpatient. Will follow up on arranging this. Subjective Date/time seen: 04/22/23 10:06 Cardiology follow up for CHF, atrial flutter, CMY, CAD Interval history: Feeling well this morning, no complaints. He denies chest pain, shortness of breath, palpitations. Remains in sinus rhythm. Wondering if he can go home today. Review of Systems Review of Systems: All systems reviewed & are unremarkable except as noted in HPI and below (HPI) Exam Const: General: comfortable and no acute distress HENMT: Mouth: Yes moist mucous membranes Eyes: General: appearance normal, both eyes and all related structures Sclera: sclerae normal Neck: Neck: supple Resp: Effort & Inspection: normal respiratory effort Auscultation: no rales and diminished lung sounds Cardio: Rate: regular rate Rhythm: regular rhythm Heart sounds: no murmurs Skin: General skin exam: norm
--- NOTE | 2023-04-22 14:31 | PM.DS ---
DS: Admitting Diagnosis Discharge Date 04/22/2023 Admitting Diagnosis Shortness of breath DS: Discharge Diagnosis Discharge Diagnosis (1) CHF (congestive heart failure): Code(s): I50.9 - Heart failure, unspecified Status: Acute (2) Cardiomyopathy: Code(s): I42.9 - Cardiomyopathy, unspecified Status: Acute (3) Hypoxia: Code(s): R09.02 - Hypoxemia Status: Acute (4) Elevated troponin: Code(s): R77.8 - Other specified abnormalities of plasma proteins Status: Acute (5) Malignant hypertension: Code(s): I10 - Essential (primary) hypertension Status: Acute (6) CAD (coronary artery disease): Code(s): I25.10 - Atherosclerotic heart disease of [place] coronary artery without angina pectoris Status: Acute (7) Hypertension: Qualifiers: Hypertension type: unspecified Qualified Code(s): I10 - Essential (primary) hypertension Code(s): I10 - Essential (primary) hypertension Status: Acute (8) Hyperlipidemia: Code(s): E78.5 - Hyperlipidemia, unspecified Status: Acute (9) Ischemic cardiomyopathy: Code(s): I25.5 - Ischemic cardiomyopathy Status: Acute (10) Hyperglycemia: Code(s): R73.9 - Hyperglycemia, unspecified Status: Acute DS: Summary Hospital Course Hospital Course: # Acute onset dyspnea # Acute on chronic systolic/ diastolic congestive heart failure treated with IV Lasix. Cardiology consulted. Chest x-ray was clear lungs. Will switch to Lasix oral daily with potassium supplement. BMP in 1 week. Okay per Cardiology to discharge. # accelerated hypertension blood pressure come diuresis # Atrial fibrillation with recent admission rapid ventricular rate.? Was started on amiodarone currently on sinus rhythm.? On chronic anticoagulation with Eliquis continue metoprolol and amiodarone as ordered # Elevated troponin improved from previous admission # Ischemic cardiomyopathy with ejection fraction of 35-40%. Ischemic evaluation with cardiac catheterization discussed with the patient by Cardiology and deferred to being done as an outpatient basis. # Hyperglycemia: a1c 8.9 so also has diabetes. Added Jardiance which will also help with his heart failure. Diabetes testing supplies ordered. He will follow up with PCP for continued evaluation and management. # DVT prophylaxis on Eliquis # Code status full code Time Spent with Patient Time attestation: Total time spent providing and/or coordinating discharge services: Exam Narrative: GENERAL: Well-appearing, well-nourished, and in no acute distress. HEAD: Normocephalic, atraumatic. EYES: PERRLA and EOMI. ENT: Nares clear, no rhinorrhea or epistaxis.? Mucous membranes moist. NECK: Supple. nontender CHEST: Coarse breath sounds.? no respiratory distress. HEART: Regular rate and rhythm.? No murmur heard.? Normal peripheral pulses. ABDOMEN: Soft, nontender, nondistended, normal active bowel sounds. EXTREMITIES: Normal range of motion.?no edema SKIN: Warm, dry, no rash. NEURO: No focal deficits.? Alert and oriented x3. PSYCH: Normal mood and affect. DS: Data Data Completed and Pending Labs on day of discharge: Labs from last 24 hours 04/22/23 04:29 WBC 8.0 RBC 4.78 Hgb 14.4 Hct 42.4 MCV 88.7 MCH 30.1 MCHC 34.0 RDW 12.5 Plt Count 175 MPV 10.3 Immature Gran % (Auto) 0.8 H Neut % (Auto) 64.6 Lymph % (Auto) 22.7 Bates % (Auto) 10.4 H Eos % (Auto) 1.0 Baso % (Auto) 0.5 Lymph # (Auto) 1.81 Bates # (Auto) 0.8 H Eos # (Auto) 0.1 Baso # (Auto) 0.0 Abs Immat Gran (auto) 0.06 H Absolute Neuts (auto) 5.2 Absolute Nucleated RBC 0.0 Nucleated RBC % 0.0 Sodium 134 L Potassium 4.0 Chloride 93 L Carbon Dioxide 33 H Anion Gap 8 BUN 25 H Creatinine 1.20 Estim Creat Clear Calc 35 Estimated GFR 58 L Glucose 179 H Calcium 8.5 Magnesium 2.1 Total Bilirubin 2.5 H AST 20 ALT 22 Alkaline Phosphatase 78
--- NOTE | 2023-04-22 15:24 | PC.NURSE ---
Contacted it business analyst to spend time with patient for new onset diabetes without insulin. will be managed with monitoring and Jardiance. Educator at bedside. Patient to discharge home with .
== END 2023-04-22 15:50 | disposition home or self-care (01) ==
LOC: ANHED 05:13 → ANHIMU 06:06
PROVIDERS: Admitting Provider Internal Medicine; Emergency Provider Emergency Medicine; PCP Internal Medicine; Visit Provider Internal Medicine
DX: I11.0 Hypertensive heart disease with heart failure (principal); I50.9 Heart failure, unspecified; I25.5 Ischemic cardiomyopathy; R09.02 Hypoxemia; R77.8 Other specified abnormalities of plasma proteins; I25.10 Atherosclerotic heart disease of native coronary artery without angina pectoris; Z95.5 Presence of coronary angioplasty implant and graft; I48.92 Unspecified atrial flutter; E78.5 Hyperlipidemia, unspecified; R73.9 Hyperglycemia, unspecified; J81.1 Chronic pulmonary edema; I44.0 Atrioventricular block, first degree; Z86.73 Personal history of transient ischemic attack (TIA), and cerebral infarction without residual deficits; Z79.02 Long term (current) use of antithrombotics/antiplatelets; Z79.01 Long term (current) use of anticoagulants; Z79.899 Other long term (current) drug therapy; Z82.49 Family history of ischemic heart disease and other diseases of the circulatory system
CPT/HCPCS: 36415; 71045; 71046; 80053; 83036; 83735; 83880; 84484; 85025; 93005; 96374; 96376; 99285; A9270; G0378; J1940

== ENCOUNTER 2023-05-13 09:06 | Outpatient (CLI) | payer MEDICARE, SELFPAY ==
[2023-05-13 09:49] LABS: Anion Gap 6 mmol/L (8-16); Blood Urea Nitrogen 23 mg/dL (9-20); Calcium 8.7 mg/dL (8.4-10.2); Carbon Dioxide 29 mmol/L (22-30); Chloride 98 mmol/L (98-107); Estimated Glomerular Filt Rate 52; Glucose 211 mg/dL (65-110); Potassium 4.3 mmol/L (3.4-5.0); Sodium 133 mmol/L (137-145)
== END 2023-05-13 09:07 | disposition home or self-care (01) ==
LOC: ANHLAB 09:09
PROVIDERS: PCP Internal Medicine; Visit Provider Internal Medicine
DX: I50.9 Heart failure, unspecified (principal)
CPT/HCPCS: 36415; 80048

== ENCOUNTER 2023-07-18 10:13 | Outpatient (CLI) | payer MEDICARE, SELFPAY ==
[2023-07-18 11:11] LABS: Hematocrit 41.6 % (42.0-52.0); Hemoglobin 13.3 g/dL (14.0-18.0); Mean Corpuscular Hemoglobin 29.7 pg (26-34); Mean Corpuscular Volume 92.9 fl (80-100); Mean Platelet Volume 10.3 fl (7.4-10.4); Platelet Count Result 232 k/mm3 (150-375); Red Blood Count 4.48 M/mm3 (4.6-6.20); Red Cell Distribution Width 14.4 % (11.5-14.5); White Blood Count 9.1 K/mm3 (4.5-10.0)
[2023-07-18 11:46] LABS: Anion Gap 6 mmol/L (8-16); Blood Urea Nitrogen 25 mg/dL (9-20); Calcium 8.7 mg/dL (8.4-10.2); Carbon Dioxide 30 mmol/L (22-30); Chloride 96 mmol/L (98-107); Estimated Glomerular Filt Rate > 60; Glucose 124 mg/dL (65-110); Potassium 4.6 mmol/L (3.4-5.0); Sodium 132 mmol/L (137-145)
== END 2023-07-18 10:14 | disposition home or self-care (01) ==
PROVIDERS: PCP Internal Medicine; Visit Provider Nurse Practitioner Adult Health
DX: N28.9 Disorder of kidney and ureter, unspecified (principal); D64.9 Anemia, unspecified
CPT/HCPCS: 36415; 80048; 85027

== ENCOUNTER 2023-09-03 08:55 | Outpatient (CLI) | payer MEDICARE, SELFPAY ==
[2023-09-03 10:32] LABS: Basophils Percent Auto 0.6 % (0.2-1.2); Eosinophils Absolute Auto 0.2 K/mm3 (0-0.3); Eosinophils Percent Auto 2.8 % (0-4.4); Hematocrit 45.5 % (42.0-52.0); Hemoglobin 14.4 g/dL (14.0-18.0); Immature Granulocyte Absolute 0.02 K/mm3 (0.00-0.031); Immature Granulocyte Percent A 0.3 % (0-0.5); Lymphocytes Absolute Auto 1.58 K/mm3 (0.9-3.2); Mean Corpuscular HGB Conc 31.6 g/dl (32-36); Mean Corpuscular Hemoglobin 28.6 pg (26-34); Mean Corpuscular Volume 90.3 fl (80-100); Mean Platelet Volume 11.2 fl (7.4-10.4); Monocytes Absolute Auto 0.5 K/mm3 (0.1-0.6); Neutrophils Absolute Auto 4.6 K/mm3 (1.3-6.7); Neutrophils Percent Auto 66.3 % (45.5-73.1); Platelet Count Result 185 k/mm3 (150-375); Red Blood Count 5.04 M/mm3 (4.6-6.20); Red Cell Distribution Width 14.3 % (11.5-14.5); White Blood Count 6.9 K/mm3 (4.5-10.0)
[2023-09-03 10:48] LABS: Potassium 4.3 mmol/L (3.4-5.0)
[2023-09-03 10:50] LABS: Anion Gap 5 mmol/L (8-16); Blood Urea Nitrogen 23 mg/dL (9-20); Calcium 8.6 mg/dL (8.4-10.2); Carbon Dioxide 30 mmol/L (22-30); Chloride 100 mmol/L (98-107); Estimated Glomerular Filt Rate > 60; Glucose 212 mg/dL (65-110); Sodium 135 mmol/L (137-145)
== END 2023-09-03 08:56 | disposition home or self-care (01) ==
PROVIDERS: PCP Internal Medicine; Visit Provider Nurse Practitioner Adult Health
DX: E11.59 Type 2 diabetes mellitus with other circulatory complications (principal); I15.2 Hypertension secondary to endocrine disorders; D64.9 Anemia, unspecified
CPT/HCPCS: 36415; 80048; 85025

== ENCOUNTER 2023-09-16 08:30 | Outpatient (RCR) | payer MEDICARE, SELFPAY | END 2023-09-16 10:28 | disposition home or self-care (01) | LOC: ANHCPREHAB 08:30 | PROVIDERS: PCP Internal Medicine; Visit Provider Internal Medicine Cardiovascular Disease | DX: Z95.1 Presence of aortocoronary bypass graft (principal) | CPT/HCPCS: 93798 ==

== ENCOUNTER 2024-05-08 11:12 | Emergency (ER) | payer MEDICARE, SELFPAY ==
[2024-05-08 11:28] VITALS: BP 142/70; PULSE 98; RESP 16; TEMP 36.5; O2SAT 98
--- NOTE | 2024-05-08 11:52 | ED.URI ---
HPI - URI/Sore Throat General Chief Complaint: Upper Respiratory Infection Stated Complaint: No Taste Time Seen by Provider: 05/08/24 12:06 Source: patient and RN notes reviewed Mode of arrival: ambulatory Limitations: no limitations History of Present Illness HPI Narrative: 88 year old male presents with concern for decreased taste and dry mouth. He reports for 2 weeks he has had dry mouth and decreased taste. He reports he can still taste food just not as much as usual. He denies any recent illness, fever, difficulty speaking, difficulty swallowing. He denies any sores in his mouth 3rd sore throat. He denies history of COVID. He reports a few weeks ago he did start taking an antihistamine every night MD elicited complaint: other (dry mouth) Related Data Home Medications Medication Instructions Recorded Confirmed metoprolol succinate 50 mg 50 mg PO DAILY 12/05/20 05/08/24 tablet,extended release 24 hr clopidogrel 75 mg tablet 75 mg PO DAILY 10/01/22 05/08/24 finasteride 5 mg tablet 5 mg PO HS 10/01/22 05/08/24 lisinopril 40 mg tablet 40 mg PO DAILY 10/01/22 05/08/24 simvastatin 20 mg tablet 20 mg PO HS 10/01/22 05/08/24 levetiracetam 500 mg tablet 1,000 mg PO BID 10/02/22 05/08/24 amiodarone 200 mg tablet 400 mg PO BID 04/21/23 05/08/24 Allergies Allergy/AdvReac Type Severity Reaction Status Date / Time No Known Allergies Allergy Verified 05/08/24 11:31 Review of Systems Review of Systems: CONSTITUTIONAL: Denies malaise, chills, sweats, or fever. EYES: Denies visual changes, redness, or discharge. ENT: Denies rhinorrhea, congestion, sinus pain, otalgia and sore throat. Reports dry mouth and decreased taste CARDIOVASCULAR: Denies chest pain, palpitations, or edema. RESPIRATORY: Denies cough. Denies dyspnea. GASTROINTESTINAL: Denies abdominal pain, nausea, vomiting, diarrhea SKIN: Denies rash or itching. MUSCULOSKELETAL: Denies myalgia. NEUROLOGIC: Denies headache. Denies difficulty speaking, difficulty swallowing, weakness in any extremity All systems reviewed & are unremarkable except as noted in HPI and below PMFSH Past Medical History Medical History Benign brain tumor Status post resection in 2010. He is on prophylactic anti seizure medications. Coronary artery disease Coronary stent occlusion Hyperlipidemia Hypertension Ischemic cardiomyopathy Surgical History Surgical History History of coronary artery stent placement History of craniotomy (2010) Benign tumor. Family History Family History Father Acute myocardial infarction father of [place] in his early 50s Social History Social History Social History: Surrogate medical decision maker: Yenifer Mack, spouse. Code status: Full code Smoking packs per day: 1 Smoking cigarettes per day: 20.0 Years smoked: 60 Smoking pack-years: 60.00 Smoking status: Never smoker Second hand tobacco smoke exposure: No Alcohol intake: never Substance use: never Substance use type: does not use Lack of Transportation: No Lack of Food: Never True Current Housing: I Have Housing Concerned About Future Housing: No Difficulty Paying Gas/Electric Bills: No Difficulty Paying for Meds: No Currently Unemployed: No Education: High School Diploma/GED Difficulty w/ Childcare or Family Care: No Living arrangements: with family Spiritual care concerns: No Comments At time of signature, agree with nursing past medical, surgical, social and family history. There is no relevant family history pertinent to the presenting complaint Exam Narrative: GENERAL: Well-appearing, well-nourished, and in no acute distress. HEAD: Normocephalic EYES: PERRLA, conjunctivae clear ENT: Nares clear. Mucous membranes moist. TM
== END 2024-05-08 12:20 | disposition home or self-care (01) ==
PROVIDERS: Emergency Provider Nurse Practitioner; PCP Registered Nurse
DX: R68.2 Dry mouth, unspecified (principal); I25.10 Atherosclerotic heart disease of native coronary artery without angina pectoris; E78.5 Hyperlipidemia, unspecified; I10 Essential (primary) hypertension; Z95.5 Presence of coronary angioplasty implant and graft; F17.210 Nicotine dependence, cigarettes, uncomplicated; Z86.011 Personal history of benign neoplasm of the brain
CPT/HCPCS: 99211; G0463

== ENCOUNTER 2024-07-29 22:26 | Observation (INO) | payer MEDICARE, SELFPAY ==
--- NOTE | ~2024-07-29 | XR_ITS ---
XR chest 2V Ordering provider: Shayan Rogel MD History: 88 years Male with . chest pain . Comparison: April 22, 2023 FINDINGS: MEDIASTINUM: The cardiac silhouette is slightly enlarged. Congestive megan. Postoperative changes in t he mediastinum. LUNGS: No effusions or pneumothorax. Opacification the left lung base. Bilateral interstitial changes which may indicate edema versus pneumonitis. OTHER: No free air under the diaphragm. IMPRESSION: Highly suggestive pulmonary edema versus pneumonitis. Left basilar pneumonia. Reviewed, dictated and finalized at location A.
[2024-07-29 22:29] VITALS: BP 184/110; PULSE 120; RESP 20; TEMP 36.1; O2SAT 99
--- NOTE | 2024-07-29 22:35 | ECG_ITS ---
Test Date: 2024-07-29 22:39:03 Measurements Intervals [place] Rate: 119 P: 0 DC: 0 QRS: 38 QRSD: 114 T: 90 QT: 320 QTc: 452 Interpretive Statements ATRIAL FLUTTER/TACHYCARDIA WITH RAPID VENTRICULAR RESPONSE FREQUENT VENTRICULAR PREMATURE COMPLEXES ANTERIOR MYOCARDIAL INFARCTION , OF INDETERMINATE AGE INFERIOR MYOCARDIAL INFARCTION , OF INDETERMINATE AGE BORDERLINE T WAVE ABNORMALITY- HIGH LATERAL LEADS ABNORMAL ECG No previous ECG available for comparison Electronically Signed On 07-30-2024 05:35:48 CDT by Izaiah Bonilla D.O.
[2024-07-29 22:54] LABS: Basophils Percent Auto 0.4 % (0.2-1.2); Eosinophils Absolute Auto 0.3 K/mm3 (0-0.3); Eosinophils Percent Auto 3.4 % (0-4.4); Hematocrit 40.6 % (42.0-52.0); Hemoglobin 13.5 g/dL (14.0-18.0); Immature Granulocyte Absolute 0.03 K/mm3 (0.00-0.031); Immature Granulocyte Percent A 0.4 % (0-0.5); Lymphocytes Absolute Auto 1.32 K/mm3 (0.9-3.2); Lymphocytes Percent Auto 17.7 % (18.3-44.2); Mean Corpuscular HGB Conc 33.3 g/dl (32-36); Mean Corpuscular Hemoglobin 29.2 pg (26-34); Mean Corpuscular Volume 87.7 fl (80-100); Mean Platelet Volume 10.9 fl (7.4-10.4); Monocytes Absolute Auto 0.6 K/mm3 (0.1-0.6); Monocytes Percent Auto 8.2 % (2.6-8.5); Neutrophils Absolute Auto 5.2 K/mm3 (1.3-6.7); Neutrophils Percent Auto 69.9 % (45.5-73.1); Platelet Count Result 182 k/mm3 (150-375); Red Blood Count 4.63 M/mm3 (4.6-6.20); Red Cell Distribution Width 14.7 % (11.5-14.5); White Blood Count 7.4 K/mm3 (4.5-10.0)
[2024-07-29 23:04] LABS: Alanine Aminotransferase 30 U/L (6-50); Alkaline Phosphatase 101 U/L (38-126); Anion Gap 12 mmol/L (4-12); Aspartate Amino Transferase 42 U/L (17-59); Bilirubin,Total 2.2 mg/dL (0.2-1.3); Blood Urea Nitrogen 19 mg/dL (9-20); Carbon Dioxide 19 mmol/L (22-30); Chloride 102 mmol/L (98-107); Estimated CRCL calculation 45 ml/min; Estimated Glomerular Filt Rate > 60; Glucose 214 mg/dL (65-110); Lipase 103 U/L (23-300); Potassium 3.9 mmol/L (3.4-5.0); Sodium 133 mmol/L (137-145)
[2024-07-29 23:05] LABS: INR 1.1
[2024-07-29 23:06] LABS: Partial Thromboplastin Time 31.6 Seconds (22.3-36.8)
[2024-07-29 23:16] LABS: Troponin I 0.022 ng/mL (0.000-0.034)
[2024-07-30] VITALS (11 sets, daily range): BP systolic 128–167; BP diastolic 84–110; PULSE 107–121; RESP 18–97; TEMP 36.1–36.4; O2SAT 22–98; BMI 27.8
--- NOTE | 2024-07-30 | ECHO_ITS ---
Patient Info Name: Johnnie Mack Age: 88 years : 1935 Gender: Male Ht: 65 in Wt: 167 lbs BSA: 1.88 m2 HR: 120 bpm Heart Rhythm: Atrial Flutter Technical Quality: Fair Exam Date: 07/30/2024 3:12 PM Exam Location: Echo Lab Patient Status: Outpatient Admit Date: 07/30/2024 Staff Ordering Physician: Shayan Ponce MD Ultrasound Supervisor: Fabiana Kidd RDCS Attending Provider: Akil Jacobson MD Exam Type: CA echo doppler color flow Study Info Indications - a flutter Complete two-dimensional, color flow and Doppler transthoracic echocardiogram is performed. Summary 1. Complete two-dimensional, color flow and Doppler transthoracic echocardiogram is performed. 2. Left ventricular enlargement with hypokinesia ejection fraction 30-35%. 3. Akinesia of the inferior segment. 4. Moderate biatrial dilation+. 5. Mild red valvular regurgitation. 6. Atrial flutter. Left Ventricle Left ventricular chamber dimension is moderately enlarged. Left ventricular systolic function is severely reduced, estimated at 30-35%. The left ventricular diastolic function is indeterminate. Right Ventricle Right ventricular chamber dimension is normal. Left Atria Left atrial chamber dimension is moderately enlarged. Right Atria Right atrial chamber dimension is moderately enlarged. Aortic Valve The aortic valve is trileaflet. There is mild aortic valve sclerosis. There is mild aortic valve regurgitation. Pulmonic Valve The pulmonic valve is normal. There is mild pulmonic regurgitation. Mitral Valve The mitral valve has normal leaflets. There is mild to moderate mitral valve regurgitation. Tricuspid Valve The tricuspid valve leaflets are normal. There is mild tricuspid valve regurgitation. Pericardium/Pleural The pericardium appears normal. Aorta The aortic root size at the sinus of Valsalva is normal. Left Ventricular Outflow Tract Name Value Normal LVOT 2D LVOT Diameter 2.0 cm LVOT Doppler LVOT Peak Velocity 68 cm/s LVOT Peak Gradient 2 mmHg LVOT Mean Gradient 1 mmHg LVOT VTI 8 cm LVOT VTI/AV VTI Ratio 0.7 LVOT Stroke Volume 25 ml LVOT CO 2.8 l/min LVOT CI 1.5 l/min/m2 Pulmonic Valve Name Value Normal PV Doppler PV Peak Velocity 66 cm/s PV Peak Gradient 2 mmHg PV Regurgitation Doppler VT Peak End Diastolic Velocity 181 cm/s Mitral Valve Name Value Normal MV Doppler
[2024-07-30 03:05] LABS: Troponin I 0.021 ng/mL (0.000-0.034)
[2024-07-30] MEDS: METOPROLOL TARTRATE INJ 5 MG/5 ML VIAL 2.5 MG IV PUSH (03:30)
[2024-07-30 04:16] LABS: Influenza A QL RT-PCR Negative (Negative); Influenza B QL RT-PCR Negative (Negative); RSV RNA, RT-PCR Negative (Negative); SARS-CoV-2 RNA PCR Negative (Negative)
--- NOTE | 2024-07-30 04:28 | ED.GENADULT ---
HPI - General Adult General Chief complaint: Unspecified Stated complaint: insomonia Time Seen by Provider: 07/30/24 02:48 History of Present Illness HPI narrative: Patient is a 88-year-old gentleman who presents emergency department with chief complaint of elevated heart rate and insomnia. The patient states that he takes metoprolol and reports that he has been diagnosed with atrial flutter and atrial fibrillation in the past the patient states that he does not feel very well high denies cough denies fever patient decided to come the emergency department tonight because he has not been able to sleep for several days. Related Data Home Medications Medication Instructions Recorded Confirmed finasteride 5 mg tablet 5 mg PO HS 10/01/22 05/14/24 aspirin 81 mg tablet,delayed 81 mg PO DAILY 05/14/24 05/14/24 release lisinopril 20 mg tablet 20 mg PO DAILY 05/14/24 05/14/24 metoprolol succinate 25 mg 25 mg PO DAILY 05/14/24 05/14/24 tablet,extended release 24 hr rivaroxaban 10 mg tablet (Xarelto) 10 mg PO DAILY 05/14/24 05/14/24 Allergies Allergy/AdvReac Type Severity Reaction Status Date / Time No Known Allergies Allergy Verified 07/29/24 22:29 Review of Systems Review of Systems: A 10 system review of systems was completed on the patient and is negative except for what is stated in the HPI. Nursing and ancillary documentation was reviewed. FOR[facility]LY [facility], [facility] Past Medical History Medical History Acute stroke due to ischemia Benign brain tumor Status post resection in 2010. He is on prophylactic anti seizure medications. Coronary artery disease Coronary stent occlusion Hyperlipidemia Hypertension Ischemic cardiomyopathy Non-ST elevation [place] (NSTEMI) Surgical History Surgical History History of coronary artery stent placement History of craniotomy (2010) Benign tumor. Family History Family History Father Acute myocardial infarction father of [place] in his early 50s Social History Social History Social History: Surrogate medical decision maker: Yenifer Mack, spouse. Code status: Full code Smoking status: Never smoker Second hand tobacco smoke exposure: No Alcohol intake: never Substance use: never Substance use type: does not use Do You Feel Safe in your Home?: Yes Lack of Transportation: No Lack of Food: Never True Current Housing: I Have Housing Concerned About Future Housing: No Difficulty Paying Gas/Electric Bills: No Difficulty Paying for Meds: No Currently Unemployed: No Education: High School Diploma/GED Difficulty w/ Childcare or Family Care: No Living arrangements: with family Occupation/Education: retired Gender identity (if verbalized by the patient): Male Sexual Orientation (if Verbalized by the Patient): Straight or Heterosexual Spiritual care concerns: No Exam Narrative: GENERAL: Well-appearing, well-nourished, and in no acute distress. HEAD: Normocephalic, atraumatic. EYES: PERRLA and EOMI. ENT: Nares clear, no rhinorrhea or epistaxis. Mucous membranes moist. NECK: Supple. CHEST: Clear to auscultation. No respiratory distress. HEART: Regular rate and rhythm. No murmur heard. Normal peripheral pulses. ABDOMEN: Soft, nontender, nondistended, normal active bowel sounds. EXTREMITIES: Normal range of motion. No edema. SKIN: Warm, dry, no rash. NEURO: No focal deficits. Alert and oriented x3. PSYCH: Normal mood and affect. Course Vital Signs Vital signs: Vital Signs Temperature 36.1 C L 07/29/24 22:29 Pulse Rate 120 H 07/29/24 22:29 Respiratory Rate 20 07/29/24 22:29 Blood Pressure 184/110 H 07/29/24 22:29 Pulse Oximetry 99 07/29/24 22:29 Oxygen Delivery Room Air
--- NOTE | 2024-07-30 04:49 | ECG_ITS ---
Test Date: 2024-07-30 04:22:21 Measurements Intervals [place] Rate: 105 P: -89 DE: 260 QRS: 57 QRSD: 101 T: 136 QT: 347 QTc: 459 Interpretive Statements ATRIAL FLUTTER/TACHYCARDIA WITH RAPID VENTRICULAR RESPONSE MINIMAL Q WAVES- INFERIOR LEADS CONSIDER ANTERIOR INFARCT, AGE INDETERMINATE BORDERLINE ST-T WAVE ABNORMALITY- HIGH LATERAL LEADS BASELINE ARTIFACT- I, II, III, AVF, V4-V6 ABNORMAL ECG Compared to ECG 07/29/2024 22:39:03 NO SIGNIFICANT CHANGE Electronically Signed On 07-30-2024 05:39:02 CDT by Izaiah Bonilla D.O.
--- NOTE | 2024-07-30 05:38 | ECG_ITS ---
Test Date: 2024-07-30 05:38:05 Measurements Intervals [place] Rate: 115 P: 99 LA: 162 QRS: 84 QRSD: 99 T: 240 QT: 325 QTc: 451 Interpretive Statements ATRIAL FLUTTER/TACHYCARDIA WITH RAPID VENTRICULAR RESPONSE WITH OCCASIONAL VENTRICULAR PREMATURE COMPLEXES CONSIDER ANTERIOR INFARCT, AGE INDETERMINATE BORDERLINE T WAVE ABNORMALITY- INF/LAT LEADS BASELINE ARTIFACT- I, II, III, AVF, V4-V6 ABNORMAL ECG Compared to ECG 07/30/2024 04:22:21 NO SIGNIFICANT CHANGE Electronically Signed On 07-30-2024 05:41:48 CDT by Izaiah Bonilla D.O.
--- NOTE | 2024-07-30 06:20 | ADMGEN ---
This patient, Johnnie Mack, was admitted to IMU Room 205-02. Patient/family oriented to hospital policies and general routines including ID bracelet, bed and alarms, visiting hours, pain management, procedures, bathroom and other care routines, personal items, smoking policy, room service/diet, and visiting hours. Information on how to activate the Rapid Response Team has been discussed. Patient/Family are encouraged to report perceived risks to care and to ask questions if they do not understand what they are told or what they should do.
[2024-07-30] MEDS: FUROSEMIDE INJ 40 MG/4 ML VIAL IV PUSH (07:00)
[2024-07-30] MEDS: METOPROLOL TARTRATE INJ 5 MG/5 ML VIAL IV PUSH (07:00)
--- NOTE | 2024-07-30 08:49 | PM.IMHP ---
H&P: HPI History of Present Illness Date/Time: 07/30/24 08:49 Chief Complaint: Elevated heart rate Narrative: 88yo male with hx of AFib, CAD, CVA, HTN and HLD here for elevated heart rate. Patietn is awake, alert and oriented but has trouble providing a coherent history. Patient has a hx of atrial fibrillation and was on Xarelto for about 2 months before taken off about 1 year ago. No bleeding problems. He remains on ASA 81mg daily. He initially denies palpitations, elevated heart rate rate or chest pain over the past few months but later states he has been having elevated heart rate for the past 2-3 weeks. He saw his primary care provider 2 days ago for shortness of breath and CXR and EKG were okay. His SOB has persisted but he denies fever, chills, CP, cough, n/v, diarrhea, constipation, abd pain, dysuria, hematuria, back pain. He denies orthopnea but has been feeling 'anxious' the last 2 nights when trying to sleep. He has nocturia 2-3x/night but no change. No pedal edeam, calf pain, pleuritic chest pain or hx of VTE. No hx of bleeding. No falls. Because he had elevated heart rate and difficulty sleeping, he presented to the ED in the site auditor hours of admission. In the ED, heart rate was 120 with BP of 184/110. EKG showing atrial flutter with RVR (119), PVCs and age indeterminate anterior and inferior MA with borderline T wave changes in the high lateral leads. CXR was highly suggestive of pulmonary edema vs pneumonitis and left basilar airspace disease, possibly PNA. BCx collected. WBC normal. Troponin negative x3. Influenza, RSV and COVID PCR were negative. Metoprolol 2.5mg IV once given in ED and Rocephin once. Since admission, his heart rate was still poorly controlled so Lasix 40mg IV and metoprolol 5mg IV were given once. Review of Systems Review of Systems: All systems reviewed & are unremarkable except as noted in HPI and below REPLACED BY [facility] Past Medical History Medical History (Updated 07/30/24 @ 10:00 by Shayan Ponce MD) Acute stroke due to ischemia Benign brain tumor Status post resection in 2010. He is on prophylactic anti seizure medications. Coronary artery disease Coronary stent occlusion Diabetes mellitus Hyperlipidemia Hypertension Ischemic cardiomyopathy Non-ST elevation [place] (NSTEMI) Surgical History Surgical History (Updated 07/30/24 @ 09:59 by Shayan Ponce MD) History of coronary artery stent placement History of craniotomy (2010) Benign tumor. S/P CABG x 5 2022 Family History Family History Father Acute myocardial infarction father of [place] in his early 50s Social History Social History (Updated 07/30/24 @ 10:00 by Shayan Ponce MD) Social History: . No tobacco, drug or alcohol use. Lives alone. Surrogate medical decision maker: Katharina Renteria dtr Code status: Full code Smoking status: Never smoker Second hand tobacco smoke exposure: No Alcohol intake: former Substance use: never Substance use type: does not use Do You Feel Safe in your Home?: Yes Lack of Transportation: No Lack of Food: Never True Current Housing: I Have Housing Concerned About Future Housing: No Difficulty Paying Gas/Electric Bills: No Difficulty Paying for Meds: No Currently Unemployed: No Education: High School Diploma/GED Difficulty w/ Childcare or Family Care: No Living arrangements: with family Occupation/Education: retired Gender identity (if verbalized by the patient): Male Sexual Orientation (if Verbalized by the Patient): Straight or Heterosexual Spiritual care concerns: No Meds Home Medications and Allergies Home Medications Medication Instructions Recorded Confirmed Type finasteride 5 mg tablet 5 mg PO HS 10/01/22 05/14/24 History blood sugar diagnostic (iodineTouch #1 pkg 04/22/23 05/08/24 Rx Verio test strips) blood-glucose meter (OneTouch #1 pkg 04/22/2304/19
[2024-07-30 11:04] LABS: Anion Gap 12 mmol/L (4-12); Blood Urea Nitrogen 18 mg/dL (9-20); Calcium 8.9 mg/dL (8.4-10.2); Carbon Dioxide 26 mmol/L (22-30); Chloride 98 mmol/L (98-107); Estimated CRCL calculation 50 ml/min; Estimated Glomerular Filt Rate > 60; Glucose 174 mg/dL (65-110); Magnesium 1.8 mg/dL (1.6-2.3); Potassium 3.9 mmol/L (3.4-5.0); Sodium 136 mmol/L (137-145)
[2024-07-30 11:06] LABS: Hemoglobin A1C 7.8 % (<5.7)
[2024-07-30 11:12] LABS: NT Pro B Type Natriuretic Pept 7460 pg/mL (19.9-100)
--- NOTE | 2024-07-30 11:17 | PM.CNCAR ---
Assessment and Plan Assessment and plan (1) Atrial flutter with rapid ventricular response: Code(s): I48.92 - Unspecified atrial flutter Status: Resolved Assessment and Plan: Found to be in atrial flutter with RVR on admission. Improved with IV Metoprolol. He is currently in rate controlled AFIB on tele. He was on Amiodarone in the past as he had post-operative AFIB post CABG, however, that was subsequently discontinued as he was maintaining sinus rhythm. Family at bedside who brought all his medications with him. Patient has been alternative between Xarelto and Eliquis whenever he gets samples of one. He currently has been taking Eliquis 5mg BID for the past week, but was taking Xarelto beforehand. However, the dose of Xarelto that he was taking was 10mg daily. His Toprol was recently increased to 50mg once daily, which he started taking right before admission. Will continue as is, and increase dose as needed for additional rate control. Discussed with patient and family that he should not be alternating between the two anticoagulants this frequently. He was not even on the correct dosage of Xarelto for his atrial fibrillation/atrial flutter. Will stick with Eliquis 5mg BID moving forward and stop Xarelto completely. Discussed with family that if cost is an issue, then our office can work on assistance. (2) Coronary artery disease: Code(s): I25.10 - Atherosclerotic heart disease of [place] coronary artery without angina pectoris Status: Acute Assessment and Plan: S/p 4V CABG with SLOAN to LAD, SVG to PDA, SVG sequential to OM1 and OM2 on 05/24/2023. Stable. Continue ASA and statin. (3) Ischemic cardiomyopathy: Code(s): I25.5 - Ischemic cardiomyopathy Status: Acute Assessment and Plan: Previously, LVEF was 35-40%, however, subsequently recovered to 50% 05/17/2023. Repeat echocardiogram pending. Continue Toprol and Lisinopril. Appears euvolemic. Okay to hold off on further doses of Lasix. Not on Lasix at home. (4) Hypertension: Qualifiers: Hypertension type: unspecified Qualified Code(s): I10 - Essential (primary) hypertension Code(s): I10 - Essential (primary) hypertension Status: Acute Assessment and Plan: Stable. Continue home Toprol, Lisinopril. (5) Hyperlipidemia: Code(s): E78.5 - Hyperlipidemia, unspecified Status: Acute Assessment and Plan: Continue statin. Plan Recommendations and plan discussed with Hospitalist. History of Present Illness History of Present Illness Consult date/time: 07/30/24 11:17 Requesting physician: Shayan Ponce MD Consult reason: atrial fibrillation Reason For Visit: Atrial firbillation, Pneumonia Narrative: This is an 88 year old male with CAD s/p PCI and CABG, ischemic cardiomyopathy, atrial fibrillation / atrial flutter, hypertension, hyperlipidemia who followed with Dr. Gann. He presented to [facility] with elevated heart rate, shortness of breath. It is difficult to obtain a coherent history from the patient. Had COVID at the end of June. Has been noticing an elevated heart rate and shortness of breath for the past few weeks. Found to be in atrial flutter with RVR on admission. Improved with IV Metoprolol. He is currently in rate controlled AFIB on tele. CXR on admission with some pulmonary edema, was given a dose of IV Lasix. Family at bedside who brought all his medications with him. Patient has been alternative between Xarelto and Eliquis whenever he gets samples of one. He currently has been taking Eliquis 5mg BID for the past week, but was taking Xarelto beforehand. However, the dose of Xarelto that he was taking was 10mg daily. Review of Systems Review of Systems: All systems reviewed & are unremarkable except as noted in HPI and below (HPI) [facility] Past Medical History Medical History (Updated 07/30/24 @ 10:00 by Shayan Ponce MD) Acute stroke due to i
[2024-07-30 12:06] LABS: Glucose Point of Care 169 mg/dl (65-105)
--- NOTE | 2024-07-30 12:25 | PC.NURSE ---
Upon administration of ordered medications Eliquis and Metoprolol, patient stated that he had already taken his home supply of his afternoon medications. Educated patient on importance of medication compliance while in the hospital and that for his safety we will use our supply of medications to keep record of administrations. Reinforced education that medications and their dosage/frequencies may change during hospitalization and that home prescription may not be applicable any longer. All home medications secured in med room with appropriate patient label and Home medication reminder label on patient chart.
[2024-07-30 13:33] LABS: Free T4 Free Thyroxine Reflex 1.68 ng/dL (0.78-2.19)
[2024-07-30 16:04] LABS: Glucose Point of Care 193 mg/dl (65-105)
[2024-07-30 16:11] LABS: Total Triiodothyronine (T3) 1.37 NG/ML (0.97-1.69)
[2024-07-30 19:52] LABS: Glucose Point of Care 160 mg/dl (65-105)
[2024-07-30] MEDS: APIXABAN 5 MG TABLET PO (20:15)
[2024-07-31] VITALS (17 sets, daily range): BP systolic 124–149; BP diastolic 53–99; PULSE 65–119; RESP 14–16; TEMP 36.2–37.2; O2SAT 97–98
[2024-07-31 05:40] LABS: Anion Gap 11 mmol/L (4-12); Blood Urea Nitrogen 19 mg/dL (9-20); Carbon Dioxide 28 mmol/L (22-30); Chloride 97 mmol/L (98-107); Estimated CRCL calculation 45 ml/min; Estimated Glomerular Filt Rate > 60; Glucose 154 mg/dL (65-110); Potassium 3.8 mmol/L (3.4-5.0); Sodium 136 mmol/L (137-145)
[2024-07-31] MEDS: AZITHROMYCIN 500 MG/NS 250 ML 500 MG/250 ML BAG 250 MG IVPB (06:29)
[2024-07-31 07:44] LABS: Glucose Point of Care 170 mg/dl (65-105)
[2024-07-31] MEDS: APIXABAN 5 MG TABLET PO ×2 (08:49→20:02)
[2024-07-31] MEDS: levETIRAcetam 500 MG TABLET PO ×2 (08:50→17:12)
[2024-07-31] MEDS: ASPIRIN 81 MG ENTERIC TABLET PO (08:50)
[2024-07-31] MEDS: lisinopriL 20 MG TABLET PO (08:50)
[2024-07-31] MEDS: METOPROLOL SUCCINATE EXT REL 50 MG TABCR PO (08:51)
[2024-07-31] MEDS: ATORVASTATIN 40 MG TABLET PO (08:51)
[2024-07-31] MEDS: ACARBOSE 25 MG TABLET PO ×3 (09:53→17:12)
--- NOTE | 2024-07-31 10:47 | PM.PNCARD ---
Progress Note: A&P Assessment and Plan (1) Atrial flutter with rapid ventricular response: Code(s): I48.92 - Unspecified atrial flutter Status: Resolved Assessment and Plan: Found to be in atrial flutter with RVR on admission. Improved with IV Metoprolol. He is currently in rate controlled AFIB on tele. He was on Amiodarone in the past as he had post-operative AFIB post CABG, however, that was subsequently discontinued as he was maintaining sinus rhythm. His Toprol was recently increased to 50mg once daily, which he started taking right before admission. His rate is generally controlled - he does have intermittent tachycardia but it is not sustained. Will continue as is, and increase dose as needed for additional rate control. Continue eliquis 5mg b.i.d. (2) Coronary artery disease: Code(s): I25.10 - Atherosclerotic heart disease of [place] coronary artery without angina pectoris Status: Acute Assessment and Plan: S/p 4V CABG with SLOAN to LAD, SVG to PDA, SVG sequential to OM1 and OM2 on 05/24/2023. Stable. Continue ASA and statin. (3) Ischemic cardiomyopathy: Code(s): I25.5 - Ischemic cardiomyopathy Status: Acute Assessment and Plan: Previously, LVEF was 35-40%, however, subsequently recovered to 50% 05/17/2023. Repeat echocardiogram once again shows reduced LV function with EF 30-35%. Continue Toprol and Lisinopril. Appears euvolemic. Okay to hold off on further doses of Lasix. Not on Lasix at home. (4) Hypertension: Qualifiers: Hypertension type: unspecified Qualified Code(s): I10 - Essential (primary) hypertension Code(s): I10 - Essential (primary) hypertension Status: Acute Assessment and Plan: Stable. Continue home Toprol, Lisinopril. If BP not well controlled would recommend adding spironolactone. (5) Hyperlipidemia: Code(s): E78.5 - Hyperlipidemia, unspecified Status: Acute Assessment and Plan: Continue statin. Subjective Date/time seen: 07/31/24 10:47 Interval history: Cardiology follow up for atrial fibrillation Date of service 07/31/2024: He is feeling well today and does not have any specific complaints. He denies any palpitations or shortness of breath. Review of Systems Review of Systems: All systems reviewed & are unremarkable except as noted in HPI and below (HPI) Exam Const: General: comfortable and no acute distress HENMT: Mouth: Yes moist mucous membranes Eyes: General: appearance normal, both eyes and all related structures Sclera: sclerae normal Resp: Effort & Inspection: normal respiratory effort Skin: General skin exam: normal color Psych: Mental Status: mental status grossly normal Affect: normal affect Objective Data Vital Signs Vital Signs: Vital Signs - 24 hr 07/30/24 12:24 07/30/24 12:00 07/30/24 16:00 Temperature 36.2 C L 36.3 C L Pulse Rate 114 H 121 H 110 H Respiratory Rate 22 H 20 Blood Pressure 138/101 H 137/92 H Pulse Oximetry 93 96 Oxygen Delivery 07/30/24 12:00 07/30/24 16:00 07/30/24 19:55 Temperature 36.3 C L Pulse Rate 107 H Respiratory Rate 18 Blood Pressure 128/84 Pulse Oximetry 96 Oxygen Delivery Room Air Room Air 07/30/24 20:00 07/31/24 00:00 07/31/24 00:00 Temperature 36.4 C Pulse Rate 114 H Respiratory Rate 16 Blood Pressure 134/73 Pulse Oximetry 98 Oxygen Delivery Room Air Room Air 07/31/24 04:00 07/31/24 04:00 07/31/24 00:00 Temperature 36.4 C Pulse Rate 107 H 97 Respiratory Rate 16 Blood Pressure 124/76 Pulse Oximetry 98 Oxygen Delivery Room Air 07/31/24 02:00 07/31/24 05:38 07/31/24 06:00 Temperature Pulse Rate 99 102 H 111 H Respiratory Rate Blood Pressure Pulse Oximetry Oxygen Delivery 07/31/24 07:41 07/31/24 08:51 Temperature 36.4 C L Pulse Rate 118 H 116 H Respiratory Rate 16 Blood Pressure 133/99 H Pulse Oximetry 98 Oxygen D
[2024-07-31 11:48] LABS: Glucose Point of Care 131 mg/dl (65-105)
--- NOTE | 2024-07-31 15:59 | PM.IMPN ---
Progress Note: A&P Assessment and Plan (1) Atrial flutter: Code(s): I48.92 - Unspecified atrial flutter Status: Acute Assessment and Plan: Patient presents with shortness of breath, tachycardia and insomnia. EKG shows atrial flutter. he was noted to have atrial flutter back in March 2023 and probably the time he was started on Xarelto and has been alternating between Eliquis and Xarelto. [id number]. Responded well to IV metoprolol. We resumed oral metoprolol. TSH normal. Eliquis started. Cardiology consulted and appreciate thier input. Changed to Toprol XL. Echo showing LV enlargement with hypokinesiss and EF 30-35%, akinesis of inferior segment and moderate biatrial enlargement. Will advance Metropolol XL and continue to monitor. (2) Pneumonia: Code(s): J18.9 - Pneumonia, unspecified organism Status: Acute Assessment and Plan: Patient with CXR findings of LLL airspace disease but no cough, fever or elevated WBC to suggest PNA. He was given lasix for possible pulmonary edema which is more likely related to the AFib/RVR. Stop abx. Follow up on BCx Follow clinically (3) CHF (congestive heart failure): Code(s): I50.9 - Heart failure, unspecified Status: Acute Assessment and Plan: CXR showing pulmonary edema and he did receive Lasix with good UOP consistent with acute on chronic systolic CHF. Clinically appears euvolemic. He did not appear to have symptoms of CHF at home except he was feeling 'anxious' at night which could be related to fluid overload. BNP 7460. Echo as above. Hold on repeating lasix. Continue Toprol XL and Lisinopril. Add Spironolactone (4) Type 2 diabetes mellitus: Code(s): E11.9 - Type 2 diabetes mellitus without complications Status: Acute Assessment and Plan: A1c 7.8. Patient is 'diet controlled' but only checks his glucose 1x/week. The patient's blood glucose was reviewed on 07/31 Glucose remains well controlled. Continue AccuCheks covering with sliding scale. Hypoglycemia protocol available as needed. Add metformin (5) Coronary artery disease: Code(s): I25.10 - Atherosclerotic heart disease of [place] coronary artery without angina pectoris Status: Acute Assessment and Plan: Patient with hx of coronary stenting and subsequent CABG x4 in 2022. Stable. No CP. Troponin negative x3. Continue medical management with ASA, metoprolol and statin (6) Hypertension: Qualifiers: Hypertension type: unspecified Qualified Code(s): I10 - Essential (primary) hypertension Code(s): I10 - Essential (primary) hypertension Status: Acute Assessment and Plan: BP elevated on admission. Suspect related to stress since normally well controlled. Elevated BP could be causing some of his symptoms as well. BP better controlled. Continue medications and advance to control BP Plan DVT prophylaxis - Eliquis Code status - full Subjective Date/time seen: 07/31/24 15:59 Interval history: 88yo male with hx of AFib, CAD, CVA, HTN and HLD here for elevated heart rate. Feels well. This AM noted increasing HR. Also with SOB. No CP. Up walking in the room Exam Narrative: AF 98.9 149/78 94 16 98% ra Gen - NARD Chest - CTA bilaterally, nml RR CV - irregularly irregular. Tele showing Afib with HR 90-120 range. Abd - Soft, NT/ND, Positive BS Ext - No pedal edema Psych - Nml mood and affect Skin - Warm and dry Objective Data Vital Signs Vital Signs: Vital Signs - 24 hr 07/30/24 16:00 07/30/24 16:00 07/30/24 19:55 Temperature 97.4 F L 97.4 F L Pulse Rate 110 H 107 H Respiratory Rate 20 18 Blood Pressure 137/92 H 128/84 Pulse Oximetry 96 96 Oxygen Delivery Room Air 07/30/24 20:00 07/31/24 00:00 07/31/24 00:00 Temperature 97.6 F Pulse Rate 114 H Respiratory Rate 16 Blood Pressure 134/73 Pulse Oximetry 98 Oxygen Delivery
[2024-07-31 16:48] LABS: Glucose Point of Care 180 mg/dl (65-105)
[2024-07-31] MEDS: METOPROLOL SUCCINATE EXT REL 25 MG TABCR PO (17:13)
[2024-07-31] MEDS: metFORMIN HCL 250 MG TABLET PO (17:14)
[2024-07-31 19:56] LABS: Glucose Point of Care 225 mg/dl (65-105)
[2024-07-31] MEDS: FINASTERIDE 5 MG TABLET PO (20:02)
[2024-08-01] VITALS (10 sets, daily range): BP systolic 131–142; BP diastolic 90–93; PULSE 103–117; RESP 16–20; TEMP 36.3–37.7; O2SAT 94–99
[2024-08-01 05:08] LABS: Anion Gap 13 mmol/L (4-12); Blood Urea Nitrogen 24 mg/dL (9-20); Carbon Dioxide 23 mmol/L (22-30); Chloride 99 mmol/L (98-107); Estimated CRCL calculation 50 ml/min; Estimated Glomerular Filt Rate > 60; Glucose 160 mg/dL (65-110); Potassium 3.9 mmol/L (3.4-5.0); Sodium 135 mmol/L (137-145)
[2024-08-01 07:48] LABS: Glucose Point of Care 147 mg/dl (65-105)
[2024-08-01] MEDS: ACARBOSE 25 MG TABLET PO ×2 (08:47→12:17)
[2024-08-01] MEDS: metFORMIN HCL 250 MG TABLET PO (08:47)
[2024-08-01] MEDS: SPIRONOLACTONE 12.5 MG TABLET PO (08:47)
[2024-08-01] MEDS: ASPIRIN 81 MG ENTERIC TABLET PO (08:48)
[2024-08-01] MEDS: ATORVASTATIN 40 MG TABLET PO (08:48)
[2024-08-01] MEDS: APIXABAN 5 MG TABLET PO (08:48)
[2024-08-01] MEDS: lisinopriL 20 MG TABLET PO (08:48)
[2024-08-01] MEDS: levETIRAcetam 500 MG TABLET PO (08:48)
[2024-08-01] MEDS: METOPROLOL SUCCINATE EXT REL 100 MG TABCR PO (08:51)
--- NOTE | 2024-08-01 10:56 | PM.PNCARD ---
Progress Note: A&P Assessment and Plan (1) Atrial flutter with rapid ventricular response: Code(s): I48.92 - Unspecified atrial flutter Status: Resolved Assessment and Plan: Found to be in atrial flutter with RVR on admission. Improved with IV Metoprolol. He was on Amiodarone in the past as he had post-operative AFIB post CABG, however, that was subsequently discontinued as he was maintaining sinus rhythm. Agree with increasing his Toprol to 100mg today. If he remains in RVR despite maximally tolerated beta tyler dose, then may consider starting Amiodarone. Avoid Diltiazem given reduced LVEF. Continue Eliquis 5mg BID. (2) Coronary artery disease: Code(s): I25.10 - Atherosclerotic heart disease of [place] coronary artery without angina pectoris Status: Acute Assessment and Plan: S/p 4V CABG with SLOAN to LAD, SVG to PDA, SVG sequential to OM1 and OM2 on 05/24/2023. Stable. Continue ASA and statin. (3) Ischemic cardiomyopathy: Code(s): I25.5 - Ischemic cardiomyopathy Status: Acute Assessment and Plan: Previously, LVEF was 35-40%, however, subsequently recovered to 50% 05/17/2023. Repeat echocardiogram once again shows reduced LV function with EF 30-35%. Continue Toprol and Lisinopril. Appears euvolemic. Okay to hold off on further doses of Lasix. Not on Lasix at home. Agree with starting Spironolactone 12.5mg once daily. I am also going to start Jardiance 10mg once daily. Increase heart failure GDMT as tolerated. (4) Hypertension: Qualifiers: Hypertension type: unspecified Qualified Code(s): I10 - Essential (primary) hypertension Code(s): I10 - Essential (primary) hypertension Status: Acute Assessment and Plan: Stable. Continue home Toprol, Lisinopril. Continue Spironolactone. (5) Hyperlipidemia: Code(s): E78.5 - Hyperlipidemia, unspecified Status: Acute Assessment and Plan: Continue statin. Plan Recommendations and plan discussed with Hospitalist. Subjective Date/time seen: 08/01/24 10:56 Interval history: Reason for visit: Atrial fibrillation with RVR HPI: This is an 88 year old male with CAD s/p PCI and CABG, ischemic cardiomyopathy, atrial fibrillation / atrial flutter, hypertension, hyperlipidemia who followed with Dr. Gann. He presented to [facility] with elevated heart rate, shortness of breath. It is difficult to obtain a coherent history from the patient. Had COVID at the end of June. Has been noticing an elevated heart rate and shortness of breath for the past few weeks. Found to be in atrial flutter with RVR on admission. Improved with IV Metoprolol. He is currently in rate controlled AFIB on tele. CXR on admission with some pulmonary edema, was given a dose of IV Lasix. Family at bedside who brought all his medications with him. Patient has been alternative between Xarelto and Eliquis whenever he gets samples of one. He currently has been taking Eliquis 5mg BID for the past week, but was taking Xarelto beforehand. However, the dose of Xarelto that he was taking was 10mg daily. Date of service 07/31: He is feeling well today and does not have any specific complaints. He denies any palpitations or shortness of breath. Date of service 08/01: Feeling well today. Heart rates are elevated. Review of Systems Review of Systems: All systems reviewed & are unremarkable except as noted in HPI and below (HPI) Exam Const: General: comfortable and no acute distress HENMT: Mouth: Yes moist mucous membranes Eyes: General: appearance normal, both eyes and all related structures Sclera: sclerae normal Resp: Effort & Inspection: normal respiratory effort Cardio: Rate: tachycardic Rhythm: abnormal rhythm irregularly irregular Skin: General skin exam: normal color Neuro: Speech: normal speech Psych: Mental Status: mental status grossly normal Affect: normal affect Objective Data Vital
[2024-08-01 11:52] LABS: Glucose Point of Care 199 mg/dl (65-105)
[2024-08-01] MEDS: EMPAGLIFLOZIN 10 MG TABLET PO (12:17)
--- NOTE | 2024-08-01 13:06 | PM.DS ---
DS: Admitting Diagnosis Discharge Date 08/01/24 Admitting Diagnosis Elevated heart rate DS: Discharge Diagnosis Discharge Diagnosis (1) Atrial flutter: Code(s): I48.92 - Unspecified atrial flutter Status: Acute (2) Pneumonia: Code(s): J18.9 - Pneumonia, unspecified organism Status: Acute (3) CHF (congestive heart failure): Code(s): I50.9 - Heart failure, unspecified Status: Acute (4) Type 2 diabetes mellitus: Code(s): E11.9 - Type 2 diabetes mellitus without complications Status: Acute (5) Coronary artery disease: Code(s): I25.10 - Atherosclerotic heart disease of [place] coronary artery without angina pectoris Status: Acute (6) Hypertension: Qualifiers: Hypertension type: unspecified Qualified Code(s): I10 - Essential (primary) hypertension Code(s): I10 - Essential (primary) hypertension Status: Acute DS: Summary Hospital Course Reason for hospitalization: 88yo male with hx of AFib, CAD, CVA, HTN and HLD here for elevated heart rate. Please see H&P for for details. Hospital Course: In the ED, heart rate was 120 with BP of 184/110. EKG showing atrial flutter with RVR (119), PVCs and age indeterminate anterior and inferior NH with borderline T wave changes in the high lateral leads. CXR was highly suggestive of pulmonary edema vs pneumonitis and left basilar airspace disease, possibly PNA. BCx collected. WBC normal. Troponin negative x3. Influenza, RSV and COVID PCR were negative. Metoprolol 2.5mg IV once given in ED and Rocephin once. Since admission, his heart rate was still poorly controlled so Lasix 40mg IV and metoprolol 5mg IV were given once. He was started on oral metoprolol and dose advanced. Echo showing LV enlargement with hypokinesis adn EF 30-35%, akinesia of inferior segment, moderate biatrial dilation and mild red-valvular regurgitation. Cardiology consulted. [id number]. He has been on anticoagulation but alternating between Eliquis and Xarelto at home (with samples for the doctor's offices). He was started on Eliquis here. Patient with CXR findings of LLL airspace disease but no cough, fever or elevated WBC to suggest PNA. He was given lasix for possible pulmonary edema which is more likely and related to the AFib/RVR. BCx remained negative. He remained on room air. No fevers. CXR showing pulmonary edema and he did receive Lasix with good UOP consistent with acute on chronic systolic CHF. Clinically appears euvolemic. He did not appear to have symptoms of CHF at home except he was feeling 'anxious' at night which could be related to fluid overload. BNP 7460. Spironolactone and Empagliflozin added. A1c 7.8. Patient is 'diet controlled' but only checks his glucose 1x/week. The patient's blood glucose was monitored with AccuCheks covering with sliding scale. Hypoglycemia protocol was available as needed. Added metformin and empagliflozin. Patient with hx of coronary stenting and subsequent CABG x4 in 2022. No CP. Troponin negative x3. Treated with medical management. BP elevated on admission. Suspect related to stress since normally well controlled. Medications advanced to control his symptoms. Discussed with Cardiology. He overall did well and was able to be discharged home on 08/01/24 Status at Discharge Cognitive/behavioral status at discharge: stable Time Spent with Patient Time attestation: Total time spent providing and/or coordinating discharge services: 34 minutes Time spent: Greater than 30 minutes Exam Narrative: AF 99.8 131/91 104 20 99% ra Gen - NARD Chest - CTA bilaterally, nml RR CV - irregularly irregular. Tele showing Afib with HR <110 range. Abd - Soft, NT/ND, Positive BS Ext - No pedal edema Psych - Nml mood and affect Skin - Warm and dry DS: Data Data Completed and Pending Labs on day of discharge: Labs from last 24 hours 08/01/24 08/01/24 08/01/24 11:48 07:45 04:17
== END 2024-08-01 14:25 | disposition home or self-care (01) ==
LOC: ANHED 07-30 04:49 → ANHIMU 07-30 09:43
PROVIDERS: Admitting Provider Internal Medicine; Emergency Provider Emergency Medicine; PCP Nurse Practitioner Family; Visit Provider Internal Medicine
DX: I48.92 Unspecified atrial flutter (principal); J18.9 Pneumonia, unspecified organism; I11.0 Hypertensive heart disease with heart failure; I50.9 Heart failure, unspecified; I25.10 Atherosclerotic heart disease of native coronary artery without angina pectoris; E78.5 Hyperlipidemia, unspecified; I25.5 Ischemic cardiomyopathy; I25.2 Old myocardial infarction; Z95.5 Presence of coronary angioplasty implant and graft; Z86.73 Personal history of transient ischemic attack (TIA), and cerebral infarction without residual deficits; Z95.1 Presence of aortocoronary bypass graft; Z79.82 Long term (current) use of aspirin; Z79.01 Long term (current) use of anticoagulants; Z20.822 Contact with and (suspected) exposure to COVID-19; Z79.899 Other long term (current) drug therapy
CPT/HCPCS: 36415; 71046; 80048; 80053; 82948; 83036; 83690; 83735; 83880; 84439; 84443; 84480; 84484; 85025; 85610; 85730; 87040; 87637; 93005; 93306; 96365; 96366; 96367; 96375; 96376; 99285; A9270; G0378; J0456; J0696; J1940

== ENCOUNTER 2025-01-13 12:06 | Outpatient (CLI) | payer MEDICARE, SELFPAY ==
--- NOTE | ~2025-01-13 | CT_ITS ---
EXAMINATION: CT diagnostic chest wo con DATE: 01/13/2025 12:36 INDICATION: Aortic root dilation TECHNIQUE: Computed tomography (CT) of the chest was performed without intravenous contrast. Addition al 3D reconstructions utilizing coronal maximum intensity projection (MIP) were performed. Automated exposure control and iterative reconstruction technique were employed. The dose-length product was 20 0.42 mGy-cm. COMPARISON: 02/27/2023 FINDINGS: There are some scattered groundglass opacity throughout both lungs along with some peripheral and low er lung predominant supply thickening consistent with likely combination of atelectasis and minimal p ulmonary edema. A few bilateral small scattered calcified pulmonary nodules along with calcified bila teral hilar and mediastinal lymph nodes consistent with old granulomatous disease. No pleural effusio n. Cardiomegaly with extensive scattered atherosclerotic coronary artery calcification is unchanged p rior medial sternotomy and coronary artery bypass grafting. There is also a left atrial appendage occ lusion clip. No pericardial effusion. Thoracic aorta is normal in caliber at the aortic root and asce nding thoracic aorta measuring up to maximal 3.5 cm in diameter. Enlargement of the central pulmonary arteries consistent with pulmonary arterial hypertension. No pathologically enlarged thoracic lympha denopathy. Small sliding-type hiatal hernia. High attenuation sludge versus gallstones in the depende nt aspect of the normal decompressed gallbladder. 2.5 cm cyst at the upper pole the left kidney. Mode rate thoracic spondylosis. IMPRESSION: 1. Normal caliber thoracic aorta with aortic root and ascending aorta measuring up to 3.5 cm maximal diameter. 2. Likely congestive heart failure with cardiomegaly and minimal pulmonary edema. 3. High attenuation sludge versus tiny gallstones within the decompressed gallbladder. 4. Small sliding-type hiatal hernia. Reviewed, dictated and finalized at location B. [facility] MERCHANDIS[facility] IMPRESSION: 1. Normal caliber thoracic aorta with aortic root and ascending aorta measuring up to 3.5 cm maximal diameter. 2. Likely congestive heart failure with cardiomegaly and minimal pulmonary rafa a. 3. High attenuation sludge versus tiny gallstones within the decompressed gallb ladder. 4. Small sliding-type hiatal hernia.
--- OUTSIDE RECORDS SUMMARY | 2025-01-13 13:46 | XMS_ITS | Clinical Summary ---
Author Organization [facility] [address] Address [address] [place] [address] Care Team Providers Care Airport Shuttle Driver Name Role Phone Mariangel Man MD Primary Care Provider [phone] Allergies No known active allergies Medications finasteride (PROSCAR) 5 mg tablet take 1 tablet (5MG) by oral route every day 0 03/05/20 12 Active levETIRAcetam (KEPPRA) 500 mg tablet TAKE 1 TABLET(500 MG) BY MOUTH TWICE DAILY 180 tablet 2 02/11/20 20 Active Additional Information Patient taking differently: 500 mg oral 2 times daily, Reported on 08/23/2023 OneTouch Verio test strips strip as directed 04/22/20 Active aspirin 81 mg enteric coated tablet Take 1 tablet (81 mg total) by mouth daily Active acarbose (PRECOSE) 25 mg tabletIndication s:type 2 diabetes mellitus Take 1 tablet (25 mg total) by mouth 3 (three) times a day with meals 90 tablet 11 06/02/20 23 Active apixaban (ELIQUIS) 5 mg tabletIndication s:atrial fibrillation Take 1 tablet (5 mg total) by mouth every 12 (twelve) hours 60 tablet 3 07/23/20 23 Active lisinopriL (PRINIVIL,ZESTRI L) 20 mg tabletIndication s:Hypertension associated with diabetes (HCC) Take 1 tablet (20 mg total) by mouth daily 90 tablet 3 08/23/20 23 Active metFORMIN (GLUCOPHAGE) 500 mg tablet Take 1 tablet (500 mg total) by mouth 2 (two) times a day with meals 08/01/20 24 Active spironolactone (ALDACTONE) 25 mg tablet Take 0.5 tablets (12.5 mg total) by mouth daily 08/01/20 24 Active amiodarone (PACERONE) 200 mg tabletIndication s:Paroxysmal atrial flutter (CMS/HCC) (HCC) Take 1 tablet (200 mg total) by mouth 2 (two) times a day for 7 days, THEN 1 tablet (200 mg total) daily. 44 tablet 3 08/07/20 24 Active atorvastatin (LIPITOR) 40 mg tabletIndication s:Coronary artery disease involving [place] coronary artery of [place] heart without angina pectoris Take 1 tablet (40 mg total) by mouth nightly 90 tablet 3 08/07/20 24 025 Active metoprolol XL (TOPROL-XL) 50 mg extended release tablet Take 1 tablet by mouth once daily 90 tablet 12/09/19 25 Active Jardiance 10 mg tablet Take 1 tablet (10 mg total) by mouth daily 30 tablet 11 12/31/19 25 Active Jardiance 10 mg tablet Take 1 tablet (10 mg total) by mouth daily 08/01/20 24 025 Discontin ued(Reord er) metoprolol XL (TOPROL-XL) 100 mg 24 hr tablet Take 1 tablet (100 mg total) by mouth every morning 08/01/20 24 Discontin ued(Thera py completed ) Active Problems Problem Noted Date Diagnosed Date Acute bronchitis 07/09/2024 Kidney stone 07/09/2024 Seizure 07/09/2024 Benign prostatic hyperplasia without lower urinary tract symptoms 04/02/2024 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) 04/02/2024 Familial hypercholesterolemia 04/02/2024 OAB (overactive bladder) 04/02/2024 Type 2 diabetes mellitus wit h stage 3b chronic kidney disease, without long-term current use of insulin 04/02/2024 Mixed diabetic hyperlipidemi a associated with type 2 diabetes mellitus 07/17/2023 Paroxysmal atrial fibrillation (CMS/HCC) 023 Postoperative anemia 05/31/2023 Acute heart failure with pre served ejection fraction (CMS/HCC) 05/31/2023 S/P CABG (coronary artery bypass graft) 05/31/20 23 Atrial flutter ([facility]) 04/25/2023 Chronic anticoagulation 04/25/2023 History of CVA (cerebrovascular accident) 2022 Hyperlipidemia 09/13/2021 Ischemic cardiomyopathy 01/04/2021 H/O ST elevation myocardial infarction 8 S/P coronary artery stent placement 04/22/2018 Pulmonary hypertension 10/01/2016 Overview (02/23/2017): Pulmonary HTN Coronary artery disease invo lving coronary bypass graft of [place] heart without angina pectoris 01/31/2016 Overview (02/23/2017): Coronary artery disease involving [place] coronary artery of [place] heart without angina pectoris Primary hypertension 01/31/2016 Overview (02/23/2017): HTN (hypertension), benign Aortic root dilatation ([facility]) 01/31/2016 Overview (02/23/2017): Aortic root dilatation Meningioma 08/22/2011 Resolved Problems Problem Noted Date Diagnosed Date Resolved Date HFrEF (heart failure with re duced ejection fraction) ([facility]) 04/25/2023 10/01/2024 Presence of stent in coronary artery 01/31/2016 03/21/2022 Overview (02/23/2017): S/P coronary artery stent placement Dyslipidemia 01/31/2016 09/13/2021 Overview (02/23/2017): Mixed dyslipidemia Encounters Date Type Department Care Team Description 11/25/2024 Telephone [facility] Cardiology [address] [place] [address] Shanta Anderson MD from Last 3 Months Surgical History Surgery Date Site/Laterality Comments OTHER SURGICAL HISTORY Coronary Artery Disease chronic LAD occlusion with: OTHER SURGICAL HISTORY dural based brain tumor s/p resection Medical History Medical History Date Comments Hx Other Medical 2006 Coronary Artery Disease chronic LAD occlusion with Hypertension Hypertension Hx Other Medical 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 Type 2 diabetes mellitus (HCC) Family History Medical History Relation Name Comments Esophageal cancer Brother 2 Esophageal Cancer; Cause of : Esophageal Cancer Heart failure Father Congestive Hea rt Failure; Cause of : Congestive Heart Failure Heart failure Mother Congestive Hea rt Failure; Cause of : Congestive Heart Failure Heart failure Sister 3 Congestive Hea rt Failure; Cause of : Congestive Heart Failure Car Accident Sister 4 MVA; Cause of D eath: MVA Relation Name Status Comments Brother 1 (Age 76) Brother 2 Father (Age 52) Mother (Age 75) Sister 1 (Age 74) Sister 2 (Age 55) Sister 3 Sister 4 Social History Tobacco Use Types Packs/Day Years Used Date Smoking Tobacco: Never Smokeless Tobacco: Never Tobacco Cessation:Counseling Given: Not Answered Alcohol Use Standard Drinks/Week Comments No 0 (1 standard drink = 0.6 oz pur e alcohol) OASIS D0700: Social Isolation Answer Da te Recorded Frequency of experiencing loneliness or isolatio n Never 06/28/2023 OASIS A1250: Transportation Answer Date Recorded Lack of Transportation (Medical) No 06/28/2023 Lack of Transportation (Non-Medical) No 06/28/2023 Patient Unable or Declines to Respond No 06/28/2023 OASIS B1300: Health Literacy Answer Jim e Recorded Frequency of needing help to read materials from doctor or pharmacy Never 06/28/2023 Social Connection and Isolat ion Panel [NHANES] Answer Date Recorded In a typical week, how many times do you talk on the phone with family, friends, or neighbors? More than three times a week 05/27/2023 How often do you get togethe r with friends or relatives? More than three times a week 05/27/2023 Attends Judaism Services Not on file 05/27 Active Member of Clubs or Organizations Not on f ile 05/27/2023 Attends Club or Organization Meetings Not on cande e 05/27/2023 Are you , , di vorced, , never , or living with a partner? 05/27/2023 AUDIT-C Answer Date Recorded Q1: How often do you have a drink containing alcohol? Never 05/24/2023 Q2: How many drinks containi ng alcohol do you have on a typical day when you are drinking? Patient does not drink Q3: How often do you have si x or more drinks on one occasion? Never 05/24/2023 Overall Financial Resource Strain (CARDIA) Answe r Date Recorded How hard is it for you to pa y for the very basics like food, housing, medical care, and heating? Not hard at all 05/27/2023 Hunger Vital Sign Answer Date Recorded Within the past 12 months, y ou worried that your food would run out before you got the money to buy more. Never true 05/27/20 23 Within the past 12 months, t he food you bought just didn't last and you didn't have money to get more. Never true 05/27/2023 PRAPARE - Transportation Answer Date Re corded In the past 12 months, has l ack of transportation kept you from medical appointments or from getting medications? No 05/18 In the past 12 months, has l ack of transportation kept you from meetings, work, or from getting things needed for daily living? No 05/27/2023 Housing Stability Vital Sign Answer Jim e Recorded In the last 12 months, was t here a time when you were not able to pay the mortgage or rent on time? No 05/27/2023 Number of Places Lived in the Last Year Not on f ile 05/27/2023 In the last 12 months, was t here a time when you did not have a steady place to sleep or slept in a fdc (including now)? No 05/27/2023 Personal Safety Answer Date Recorded Have you ever been in or are you currently in a harmful physical or emotional relationship or is someone making you feel afraid or unsafe? Denies 05/24/2023 Sex and Gender Information Value Date Recorded Sex Assigned at Not on file Legal Sex Male 1:58 AM CHEMISTRY PHYSICS TEACHER Gender Identity Not on file Sexual Orientation Not on file Obstetrics History Last Filed Vital Signs Vital Sign Reading Time Taken Comments Blood Pressure 120/64 10/01/2024 10:18 AM CHEMISTRY PHYSICS TEACHER Pulse 55 10/01/2024 10:18 AM CHEMISTRY PHYSICS TEACHER Temperature 36.8 C (98.2 F) 07/24/2024 2:28 PM CDT Respiratory Rate 17 07/24/2024 2:41 PM CDT Oxygen Saturation 97% 10/01/2024 10:18 AM CHEMISTRY PHYSICS TEACHER Inhaled Oxygen Concentration - - Weight 75.3 kg (166 lb) 10/01/2024 10:18 AM CHEMISTRY PHYSICS TEACHER Height 165.1 cm (5' 5 ) 10/01/2024 10:18 AM CHEMISTRY PHYSICS TEACHER Body Mass Index 27.62 10/01/2024 10:18 AM CHEMISTRY PHYSICS TEACHER Plan of Treatment Health Maintenance Due Date Last Done Comments Albumin Creatinine Ratio, Urine 1937 Depression Screening 1937 Dilated Eye Exam 1937 Foot Exam 1937 DTaP/Tdap/Td Vaccine (1 - Tdap) 1948 Hepatitis B Screening 1955 Pneumococcal vaccine 65+ (1 of 2 - PCV) 1956 Zoster Vaccine (1 of 2) 1987 Well Visit 65+ 2002 Hemoglobin A1C 11/28/2023 05/28/2023 Fall Risk Assessment 06/02/2024 06/02/2023 Covid-19 Vaccine (2 - 2023-2 5 season) 2024 08/04/2021 eGFR 09/03/2024 09/03/2023, 05/19, 06/02/2023, Additional history exists Lipid Panel 08/14/2025 08/14/2024, 01/17, 04/02/2023, Additional history exists Influenza Vaccine Completed 09/30/2024, , 09/27/2022, Additional history exists Medical Devices Implanted Type Area Manager Mail Device Identifier Shelf Expiration Date Model / Serial / Lot Atricure Device Closure Atriclip Nitinol Titanium Polyester 45 D L45mm L6cm Flexible Shaft Plunger [place] Library Director Left Atrial Appendage Exclusion System [id number] - [id number] Implanted:Qty: 1 on 05/24/2023 by Vaughn Li MD at [facility] Clip N/A: Heart Atricure 01/16/2026 [id number] / [id number] / [id number] [employer] Medical [facility] Device Vascular Closure Femoral Artery Bioabsorbable Dual Method Vascade 6-7fr Collagen [id number] - [id number] Implanted:Qty: 1 on 05/17/2023 by Martínez Larsen MD at [facility] Medical [facility] 01/16/2025 [id number] / / [id number] Procedures Procedure Name Priority Date/Time Associated Diagnosis Comments POCT LIPID PANEL Routine 02/14/2024 11:3 1 AM CDT Mixed diabetic hyperlipidemia associated with type 2 diabetes mellitus (HCC) BASIC METABOLIC PANEL Routine 09/03/2023 Hypertension associated with diabetes (HCC) HEMOGLOBIN A1C Routine 05/28/2023 3:31 AM CDT from Last 3 Months or Most Recently Relevant to Health Maintenance Results * POCT lipid panel (02/14/2024 11:31 AM CDT) Cholesterol, POC 103 mg/dL Comment:GLU = 174 HDL, POC 32 mg/dL Triglycerides, POC 89 mg/dL LDL Cholesterol POC 53 mg/dL Chol/HDL Ratio, POC 1.6 Non-HDL Cholesterol, POC 71 mg/dL Cholesterol Total, POC 103 mg/dL Capillary blood 02/14/2024 1 1:31 AM CDT Rui Gann MD POINT OF CARE TEST ORDER MIGUE Final Result * (ABNORMAL) Basic metabolic panel (09/03/2023) SCRIBED Sodium 135(A) 137 - 145 mmol/L EXTERNAL LAB SCRIBED Potassium 4.3 3.4 - 5.0 mmol/L EXTERNAL LAB SCRIBED Chloride 100 98 - 107 mmol/L EXTERNAL LAB SCRIBED Carbon Dioxide 30 22 - 30 mmol/L EXTERNAL LAB SCRIBED Anion Gap 5(A) 8 - 16 mmol/L EXTERNAL LAB SCRIBED Urea Nitrogen (BUN) 23(A) 9 - 20 mg/dl EXTERNAL LAB SCRIBED Creatinine 1.00 0.7 - 1.3 mg/dl EXTERNAL LAB SCRIBED Glucose 212(A) 65 - 110 mg/dl EXTERNAL LAB SCRIBED Calcium 8.6 8.4 - 10.2 mg/dl EXTERNAL LAB SCRIBED eGFR in N/A N/A EXTERNAL LAB SCRIBED eGFR in NonAfrican [place] >60 > or = 60 EXTERNAL LAB Blood 09/03/2023 Joann Uriarte SAMPLE TESTER LAB BLOOD ORDERABLES Alison l Result EXTERNAL LAB * (ABNORMAL) Hemoglobin A1c (05/28/2023 3:31 AM CDT) Hgb A1C 7.4(H) 4.0 - 5.6 % ANTONY GUILLORY Estimated Average Glucose 166 mg/dL ANTONY GUILLORY Comment: The ADA recommends reporting an estimated Average Glucose (eAG) with all Hemoglobin A1c results using the equation derived from a study of 507 normal and diabetic adults. Minority populations were underrepresented and children were not included. (Diabetes Care 31:4190-2661, 2008). The eAG is not equivalent to a fasting glucose. Blood 05/28/2023 3:31 AM CDT 05/28/2023 3:46 AM CDT Larissa Velazquez NP LAB BLOOD ORDERABL ES Final Result [facility] [address] Department of Laboratories [place], [place] [id number] from Last 3 Months or Most Recently Relevant to Health Maintenance Insurance MEDICARE SOLUTIONS [employer] MEDICARE GOLD MEDICARE SOLUTIONS MEDICARE SOLUTIONS Advance Directives For more information, please contact: [phone] * Full Code (Latest Code Status on File) Date Activated Date Inactivated Comments 05/24/2023 2:18 PM 06/02/2023 8:07 PM Care Teams Airport Shuttle Driver Relationship Specialty Start Date End Date Mariangel Man MD [address] [place] [id number] PCP - General 02/15/17
--- OUTSIDE RECORDS SUMMARY | 2025-01-13 13:46 | XMS_ITS | Referral Summary ---
Author Organization [facility] [address] Address [address] [place] [address] Care Team Providers Care Cardiology Manager Name Role Phone Mariangel Man MD Primary Care Provider [phone] Encounters Date Type Department Care Team Description 11/25/2024 Telephone [facility] Cardiology [address] [place] [address] Shanta Anderson MD from Last 3 Months Allergies No known active allergies Medications finasteride [...] Verio test strips strip as directed 04/22/20 23 Active aspirin 81 mg enteric coated tablet [...] 40 mg tabletIndication s:Coronary artery disease involving hoonah coronary artery of hoonah heart without angina pectoris Take 1 tablet [...] 2 diabetes mellitus 07/17/2023 Paroxysmal atrial fibrillation ([facility]) 023 Postoperative anemia 05/31/2023 Acute heart failure with pre served ejection fraction ([facility]) 05/31/2023 S/P CABG (coronary artery bypass graft) 05/31/20 23 Atrial flutter ([facility]) 04/25/2023 Chronic anticoagulation 04/25/2023 History of CVA (cerebrovascular accident) 2022 Hyperlipidemia 09/13/2021 Ischemic cardiomyopathy 01/04/2021 H/O ST elevation myocardial infarction 8 S/P coronary artery stent placement 04/22/2018 Pulmonary hypertension 10/01/2016 Overview (02/23/2017): Pulmonary HTN Coronary artery disease invo lving coronary bypass graft of hoonah heart without angina pectoris 01/31/2016 Overview (02/23/2017): Coronary artery disease involving hoonah coronary artery of hoon[place] heart without angina pectoris Primary hypertension 01/31/2016 Overview (02/23/2017): HTN (hypertension), benign Aortic root dilatation ([facility]) 01/31/2016 Overview (02/23/2017): Aortic root dilatation Meningioma 08/22/2011 Resolved Problems Problem Noted Date Diagnosed Date Resolved Date HFrEF (heart failure with re duced ejection fraction) ([facility]) 04/25/2023 10/01/2024 Presence of stent in coronary artery 01/31/2016 03/21/2022 Overview (02/23/2017): S/P coronary artery stent placement Dyslipidemia 01/31/2016 09/13/2021 Overview (02/23/2017): Mixed dyslipidemia Social History Tobacco Use Types Packs/Day Years [...] than three times a week 05/27/2023 Attends Scientology Services Not on file 05/27 Active Member [...] place to sleep or slept in a snf (including now)? No 05/27/2023 Personal Safety Answer Date Recorded Have you ever been in or are you currently in a harmful physical or emotional relationship or is someone making you feel afraid or unsafe? Denies 05/24/2023 Sex and Gender Information Value Date Recorded Sex Assigned at Not on file Legal Sex Male 1:58 AM LAW TUTOR Gender Identity Not on file Sexual Orientation Not on file Last Filed Vital Signs Vital Sign Reading Time Taken Comments Blood Pressure 120/64 10/01/2024 10:18 AM LAW TUTOR Pulse 55 10/01/2024 10:18 AM LAW TUTOR Temperature 36.8 C (98.2 F) 07/24/2024 2:28 PM CDT Respiratory Rate 17 07/24/2024 2:41 PM CDT Oxygen Saturation 97% 10/01/2024 10:18 AM LAW TUTOR Inhaled Oxygen Concentration - - Weight 75.3 kg (166 lb) 10/01/2024 10:18 AM LAW TUTOR Height 165.1 cm (5' 5 ) 10/01/2024 10:18 AM LAW TUTOR Body Mass Index 27.62 10/01/2024 10:18 AM LAW TUTOR Plan of Treatment Not on file Medical Devices Implanted Type Area Orthopedic Nurse Device Identifier Shelf Expiration Date Model / Serial / Lot Atricure Device Closure Atriclip Nitinol Titanium Polyester 45 D L45mm L6cm Flexible Shaft Plunger [employer] Grazier Left Atrial Appendage Exclusion System [id number] - [id number] - [id number] Implanted:Qty: 1 on 05/24/2023 by Vaughn Li MD at [facility] N/A: Heart Atricure 01/16/2026 [id number] / [id number] / [id number] [employer] Device Vascular Closure Femoral Artery Bioabsorbable Dual Method Vascade 6-7fr Collagen [id number] - [id number] Implanted:Qty: 1 on 05/17/2023 by Martínez Larsen MD at [facility] 01/16/2025 [id number] / / [id number] Procedures Procedure Name Priority Date/Time Associated [...] POCT lipid panel (02/14/2024 11:31 AM CDT) Pathologist [facility] Cholesterol, POC 103 mg/dL Comment:GLU = 174 [...] N/A EXTERNAL LAB SCRIBED eGFR in NonAfrican [place] >60 > or = 60 EXTERNAL LAB Blood 09/03/2023 Joann Uriarte SPOON MAKER LAB BLOOD ORDERABLES Alison l Result EXTERNAL [...] and children were not included. (Diabetes Care 31:5689-9454, 2008). The eAG is not equivalent to a fasting glucose. Blood 05/28/2023 3:31 AM CDT 05/28/2023 3:46 AM CDT Larissa Velazquez SPOON MAKER LAB BLOOD ORDERABL ES Final Result Performing Organization Address City/State/[facility] Co de Phone Number [facility] [address] Department [place] [address] from Last 3 Months or Most Recently Relevant to Health Maintenance Insurance [facility] MEDIC[facility] Address: [address] [address] [place] [address] [facility] MEDICARE [facility] MED[facility] Address: [address] [place] [address] [address] [facility] MEDICARE Address: [address] [address] [place] [address] [address] [facility] MED[facility] Address: [address] [address] [place] [address] Advance Directives For more information, please contact: [phone] * Full Code (Latest Code Status on File) Date Activated Date Inactivated Comments 05/24/2023 2:18 PM 06/02/2023 8:07 PM Care Teams Cardiology Manager Relationship Specialty Start Date End Date Mariangel Man MD [address] [address] PCP - General 02/15/17
--- OUTSIDE RECORDS SUMMARY | 2025-01-13 13:46 | XMS_ITS | Encounter Summary ---
Author Organization [facility] Address [address] [facility] [address] [place] [address] Care Team Providers Care Weather Forecaster Name Role Phone Mariangel Man MD Primary Care Provider [phone] Mariangel Man MD Primary Care Provider [phone] Encounter Details Date Type Department Care Team (Late st Contact Info) Description 01/15/2017 Orders Only [facility] ProviderNaya MD [address] [place] [address] Social History Tobacco Use Types Packs/Day Years Used Date Smoking Tobacco: Former Alcohol Use Standard Drinks/Week Comments No 0 (1 standard drink = 0.6 oz pur e alcohol) Sex and Gender Information Value Date Recorded Sex Assigned at Not on file Legal Sex Male 1:58 AM MILL TENDER SECOND OPERATOR Gender Identity Not on file Sexual Orientation Not on file documented as of this encounter Plan of Treatment Not on file documented as of this encounter Procedures Procedure Name Priority Date/Time Associated Diagnosis Comments CARDIOLOGY REPORT 01/15/2017 documented in this encounter Results * CARDIOLOGY REPORT (01/15/2017) Anatomical Region Laterality Modality Other Narrative 01/15/2017 Ordered by an unspecified provider. Historical Provider [facility] JOSE GROSS Final Result documented in this encounter Visit Diagnoses Not on filedocumented in this encounter Additional Health Concerns Infection Onset Date Last Indicated Resolved Time COVID: Suspected 07/09/2024 07/09/2024 07/09/2024 9:32 AM CDT COVID19 07/09/2024 07/09/2024 07/19/2024 3:07 AM CDT COVID: Recovered Comment:Added based on recent COVID infection. 07/19/2024 07/24/2024 10/17/2024 3:[address] documented as of this encounter Care Teams Weather Forecaster Relationship Specialty [place] [address] [place] [address] [address] [place] [address] PCP - General 02/15/17 [place] [address] [place] [address] [address] [place] [address] PCP - General 12/06/14 02/14/17 documented as of this encounter
--- OUTSIDE RECORDS SUMMARY | 2025-01-13 13:46 | XMS_ITS | Encounter Summary ---
Author Organization [facility] Address [address] [place] [address] Care Team Providers Care Sales And Marketing Executive Name Role Phone Zahida Black Primary Care Provider [phone] Reason for Visit * Reason Onset Date Comments Medication Problem 01/08/2025 Encounter Details Date Type Department Care Team (Late st Contact Info) Description 01/08/2025 Telephone [facility] Family & Internal Medicine [facility] [address] [place] [address] Zahida Black APNP [address] [place] [address] Medication Problem Social History Tobacco Use Types Packs/Day Years Used Date Smoking Tobacco: Never Smokeless Tobacco: Never Alcohol Use Standard Drinks/Week Comments Not Currently 0 (1 standard drink = 0.6 oz pur e alcohol) PHQ-2 Answer Date Recorded Patient Health Questionnaire-2 Score 0 01/05/2025 Sex and Gender Information Value Date Recorded Sex Assigned at Male 01/05/2025 10:28 AM MUCK HAULER Legal Sex Male 1:00 PM CDT Gender Identity Not on file Sexual Orientation Not on file documented as of this encounter Progress Notes * REY Jamisno - 01/13/2025 12:32 PM CST Hemoglobin A1c is 6.2. I would say just leave off the Farxiga/Jardiance and we will recheck his hemoglobin A1c in 3 months when he comes to see me again HAULER * Ruby Meier RN - 01/08/2025 12:28 PM CST Patient called in reporting that he tried to pick up operator his new medication farxiga and it is over $100and he can not afford that. Both the Jardiance and farxiga are considered tier 3 medication. Patient is wondering what PCP would like him to try now? Okay to leave detailed message. Opportunity givenfor all questions to be answered, no further needs voiced at this time. LL-01/08/25 HAULER documented in this encounter Plan of Treatment Upcoming Encounters Date Type Department Care Team (Late st Contact Info) Description 04/07/2025 10:00 AM CDT Office Visit [facility] Family & Internal Medicine - [address] [address] Zahida Black APNP [address] [place] [address] documented as of this encounter Visit Diagnoses Not on filedocumented in this encounter Care Teams Sales And Marketing Executive Relationship Specialty Start Date End Date Zahida Black APNP [address] [place] [address] PCP - General NURSE PRACTITIONER 02/11/24 documented as of this encounter
--- OUTSIDE RECORDS SUMMARY | 2025-01-13 13:46 | XMS_ITS | Clinical Summary ---
Author Organization 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 Name Role Phone Unavailable Primary Care Provider Unavailabl e Immunizations Immunization Administration Dates Next Due Covid-19 Vaccine, Vector-nr, Rs-ad26, Pf, 0.5 Ml ([employer]) 08/04/2021 Social History Tobacco Use Types Packs/Day Years Used Date Smoking Tobacco: Never Assessed Sex and Gender Information Value Date Recorded Sex Assigned at Not on file Legal Sex Male 3:18 PM CDT Gender Identity Not on file Sexual Orientation Not on file Plan of Treatment Health Maintenance Due Date Last Done Comments Hepatitis C Virus (HCV) Screening 1935 TdaP Immunization 1935 Pneumococcal Immunization (5 0+ years) (1 of 1 - PCV) 1987 Zoster Immunization (1 of 2) 1987 Respiratory Syncytial Virus (RSV) Immunization (Adult) (1 - 1-dose 75+ series) 2012 Influenza Immunization (#1) 07/19/202411/18, 08/28/2016 SARS-COV-2 Immunization ( season) 2024 08/04/2021 Hepatitis B Immunization Aged Out No longer eligible based on patient's age to complete this topic Meningococcal Immunization (ACWY) Aged Out No longer eligible b ased on patient's age to complete this topic Rotavirus Immunization Aged Out No lo nger eligible based on patient's age to complete this topic
--- OUTSIDE RECORDS SUMMARY | 2025-01-13 13:46 | XMS_ITS | Encounter Summary ---
Author Organization [facility] Address [address] [facility] [address] [place] [address] Care Team Providers Care Commissioned Security Officer Name Role Phone Mariangel Man MD Primary Care Provider [phone] Mariangel Man MD Primary Care Provider [phone] Encounter Details Date Type Department Care Team (Late st Contact Info) Description 08/25/2016 Orders Only [facility] ProviderNaya MD [address] [phone] Social History Tobacco Use Types Packs/Day Years Used Date Smoking Tobacco: Former Alcohol Use Standard Drinks/Week Comments No 0 (1 standard drink = 0.6 oz pur e alcohol) Sex and Gender Information Value Date Recorded Sex Assigned at Not on file 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 Historical Provider [facility] PROCE DURES Final Result * CARDIOLOGY REPORT (08/25/2016) Anatomical Region Laterality Modality Other Narrative 08/25/2016 Ordered by an unspecified provider. us Historical Provider [facility] PROCE DURES Final Result * CARDIOLOGY REPORT (08/25/2016) Anatomical Region Laterality Modality Other Narrative 08/25/2016 Ordered by an unspecified provider. us Historical Provider [facility] PROCE DURES Final Result documented in this encounter Visit Diagnoses Not on filedocumented in this encounter Additional Health Concerns Infection Onset Date Last Indicated Resolved Time COVID: Suspected 07/09/2024 07/09/2024 07/09/2024 9:32 AM CDT COVID19 07/09/2024 07/09/2024 07/19/2024 3:07 AM CDT COVID: Recovered Comment:Added based on recent COVID infection. 07/19/2024 07/24/2024 10/17/2024 3:[address] documented as of this encounter Care Teams Commissioned Security Officer Relationship Specialty Start Date End Date Mariangel Man MD [address] [place] [address] 1 [place] [address] PCP - General 02/15/17 [place] [address] [place] [address] 1 [place] [address] PCP - General 12/06/14 02/14/17 documented as of this encounter
--- OUTSIDE RECORDS SUMMARY | 2025-01-13 13:46 | XMS_ITS | Data Portability ---
Author Organization [facility] Address [address] [place] [address] Care Team Providers Care Sub Acute Care Nurse Name Role Phone SIVA GANN Senior Technical Business Analyst HERMILO MCNAIR Urologist Assessment No assessment recorded. Plan of Treatment Reminders Order Date Submit Date Provider Last Modified By Organization Details Last Modified Time Details Appointments None recorded. Lab HbA1c (hemoglobin A1c), blood 2022 023 [facility] In-Office Order, Internal Use Only DO Not Attach Compendium DO Not Attach Compendium, Do Not Delete/merge, [id number] 14:49:43 HbA1c (hemoglobin A1c), blood 2022 023 [facility] In-Office Order, Internal Use Only DO Not Attach Compendium DO Not Attach Compendium, Do Not Delete/merge, [id number] 12:00:52 Referral None recorded. Procedures None recorded. Surgeries None recorded. Imaging None recorded. Medication Orders Invokana 100 mg tablet 2023 024 [facility], [address] [place] [address], [id number], 4 10:26:48 Xarelto 10 mg tablet 2022 023 [facility], [address] [place] [address], [id number], 4 16:28:58 Invokana 100 mg tablet 2022 023 [facility] [address] [place], [address], 3 12:25:15 Invokana 100 mg tablet 2022 023 [facility], [address] [place] [address], [id number], 4 11:52:50 Eliquis 5 mg tablet 2022 023 [facility], [address] [place] [address], [id number], 3 19:09:40 hydroxyzine HCl 10 mg tablet 2022 023 [facility] [address] [place], [address], 3 17:59:06 Patient TargetsNo targets recorded. Patient Instructions Encounter Date Encounter Id Patient Instructions Last Modified By Organization Details Last Modified Time 05/22/2023 [id number] learning about high blood pressure [facility] Not available 05/22/2023 17:58:59 08/20/2023 [id number] influenza (flu) vaccine: care instructions [facility] Not available 08/20/2023 14:49:43 epilepsy: care instructions [facility] Not available 08/20/2023 14:49:43 learning about type 2 diabetes [facility] Not available 08/20/2023 13:05:52 type 2 diabetes: care instructions [facility] Not available 08/20/2023 13:05:52 10/08/2023 [id number] learning about type 2 diabetes [facility] Not available 10/08/2023 11:11:06 type 2 diabetes: care instructions [facility] Not available 10/08/2023 11:11:06 12/31/2023 [id number] learning about type 2 diabetes [facility] Not available 12/31/2023 18:53:24 type 2 diabetes: care instructions [facility] Not available 12/31/2023 18:53:24 high cholesterol : care instructions [facility] Not available 12/31/2023 18:53:24 benign prostatic hyperplasia: care instructions [facility] Not available 12/31/2023 18:53:24 Reason for Referral None Reported. Results Created Date Observation Date Name Description Value Unit Range Abnormal Flag Note LastModifiedBy Organization Detail LastModifiedTime 06/19/2006/19/2023 HbA1c (hemo globi n A1c), blood HbA1c 6.0% Not Available In-Office Order Internal Use Only DO Not Attach Compendium DO Not Attach Compendium, Do Not Delete/merge, [id number] 06/19/2023 17:06:34 08/20/2008/20/2023 HbA1c (hemo globi n A1c), blood HbA1c 6.0% Not Available In-Office Order Internal Use Only DO Not Attach Compendium DO Not Attach Compendium, Do Not Delete/merge, [id number] 08/20/2023 14:47:14 04/22/2004/22/2023 XR, chest No observ ation record ed. [email or web address], [place], [address], 05/07/2023 15:12:15 Result Notes None recorded. Problems Name Problem SNOMED Code Status Onset Date Resolution Date Notes Provider Name and Address Organization Details Recorded Time Hypertensive disorder 79947247 Active Mariangel Man MD Attn: Makayla brooks,[address] [facility], [place], [address], [facility] 6 12:19:55 Benign prostatic hyperplasia 548167390 Active Mariangel Man MD Attn: Makayla brooks,[address] [facility], [place], [address], [facility] 6 12:19:55 Seizure [id number] Kai Man MD Attn: Makayla brooks,[address] [facility], [place], [address], [facility] 6 12:19:55 Hyperlipidemia [id number] Kai Man MD Attn: Makayla brooks,[address] [facility], [place], [address], [facility] 6 12:19:55 Acid reflux 193312789 Active Mariangel Man MD Attn: Makayla brooks,[address], [place], [address], [facility] 6 12:19:55 Acute bronchitis 02039146 Active Mariangel Man MD Attn: Makayla brooks,[address], [place], [address], [facility] 6 12:19:55 Kidney stone 40195213 Active Mariangel Man MD Attn: Makayla brooks,[address], [place], [address], [facility] 6 12:19:55 Problem Notes None recorded. Procedures Surgical History None recorded. Imaging Results Imaging Date Name Status LastModified by Organiz ation Details LastModified Time 04/22/2023 XR, chest completed [email or web address] [facility] [address] [facility] [address], [place], [address], 05/07/2023 15:12:15 Procedure Notes None recorded. Medical Equipment None Reported. Allergies No known drug allergies Medications Name Sig Start Date Stop Date Status Note LastModified by Organization Details LastModified Time clopidogrel 75 mg tabs 05/03 completed Not Available Not Available Not Available Prescriptio n - Prior Authorizati on Request active Not Available Not Available N ot Available finasteride 5 mg tabs 03/15 completed Not Available Not Available Not Available levetiracet am 500 mg tabs 05/03 completed Not Available Not Available Not Available lisinopril 40 mg tabs 03/15 completed Not Available Not Available Not Available metoprolol succinate er 50 mg tb24 03/15 completed Not Available Not Available Not Available simvastatin 20 mg tabs 03/15 completed Not Available Not Available Not Available losartan 50 mg tablet Take 1 tablet every day by oral route as directed for 30 days. 04/27 completed Not Available Not Available Not Available furosemide 40 mg tablet TAKE 1 TABLET BY MOUTH ONCE DAILY NEEDED active Not Available Not Available No t Available atorvastati n 40 mg tablet TAKE 1 TABLET BY MOUTH NIGHTLY active Not Available Not Available No t Available azithromyci n 250 mg tablet TAKE 2 TABLETS (500 MG) BY ORAL ROUTE ONCE DAILY FOR 1 DAY THEN 1 TABLET (250 MG) BY ORAL ROUTE ONCE DAILY FOR 4 DAYS after meal. 10/09 completed Not Available Not Available Not Available amiodarone 200 mg tablet TAKE 2 TABLETS BY MOUTH TWICE DAILY FOR 1 WEEK, THEN 2 TABS ONCE DAILY FOR MAINTENAN CE DOSE. active Not Available Not Available No t Available metoprolol succinate ER 50 mg tablet,exte nded release 24 hr TAKE 1 TABLET BY MOUTH ONCE DAILY active Not Available Not Available No t Available levetiracet am 500 mg tablet TAKE 1 TABLET BY MOUTH TWICE DAILY DIRECTED active Not Available Not Available No t Available hydrocodone 5 mg-acetamin ophen 325 mg tablet TAKE 1 TO 2 TABLETS BY MOUTH EVERY 6 HOURS NEEDED 10/08 completed Not Available Not Available Not Available diltiazem CD 240 mg capsule,ext ended release 24 hr 09/04 completed Not Available Not Available Not Available lisinopril 20 mg tablet TAKE 1 TABLET BY MOUTH ONCE DAILY active Not Available Not Available No t Available isosorbide mononitrate ER 30 mg tablet,exte nded release 24 hr 09/04 completed Not Available Not Available Not Available clonazepam 1 mg tablet Take 1 tablet every day by oral route as needed for 30 days. 09/04 completed Not Available Not Available Not Available amlodipine 2.5 mg tablet TAKE 1 TABLET BY MOUTH ONCE DAILY active Not Available Not Available No t Available potassium chloride ER 10 mEq tablet,exte nded release TAKE 1 TABLET BY MOUTH A ONE TIME DOSE active Not Available Not Available No t Available Klor-Con 20 mEq oral packet DISSOLVE 1 PACKET IN WATER & DRINK ONCE DAILY active Not Available Not Available No t Available clopidogrel 75 mg tablet TAKE 1 TABLET BY MOUTH ONCE DAILY active Not Available Not Available No t Available amlodipine 5 mg tablet TAKE 1 TABLET BY MOUTH IN THE MORNING active Not Available Not Available No t Available sulfamethox azole 800 mg-trimetho prim 160 mg tablet 01/04 completed Not Available Not Available Not Available tramadol 50 mg tablet 09/04 completed Not Available Not Available Not Available potassium chloride ER 20 mEq tablet,exte nded release(par t/cryst) TAKE 1 TABLET BY MOUTH ONCE DAILY active Not Available Not Available No t Available meclizine 25 mg tablet Take 1 tablet 3 times a day by oral route as needed for 30 days. 05/03 completed Not Available Not Available Not Available cephalexin 500 mg capsule TAKE 1 CAPSULE BY MOUTH EVERY 8 HOURS 10/09 completed Not Available Not Available Not Available pantoprazol e 40 mg tablet,shira yed release TAKE ONE TABLET BY MOUTH ONCE DAILY BEFORE A MEAL active Not Available Not Available No t Available simvastatin 20 mg tablet TAKE 1 TABLET BY MOUTH NIGHTLY active Not Available Not Available No t Available tobramycin 0.3 % eye drops INSTILL 1 DROP INTO THE AFFECTED EYE(S) EVERY 4 HOURS 01/04 completed Not Available Not Available Not Available lisinopril 10 mg tablet 09/04 completed Not Available Not Available Not Available nitroglycer in 0.[address] 1 tablet as needed by sublingua l route as directed for 30 days. active Not Available Not Available No t Available oxybutynin chloride ER 5 mg tablet,exte nded release 24 hr TAKE 1 TABLET BY MOUTH AT BEDTIME active Not Available Not Available No t Available omeprazole 20 mg capsule,del ayed release TAKE 1 CAPSULE BY MOUTH ONCE DAILY BEFORE MEAL(S) FOR 90 DAYS active Not Available Not Available No t Available aspirin 81 mg chewable tablet Chew 1 tablet every day by oral route. active Not Available Not Available No t Available lisinopril 5 mg tablet 09/04 completed Not Available Not Available Not Available furosemide 20 mg tablet active Not Available Not Available Not Available gabapentin 100 mg capsule active Not Available Not Available Not Available metoprolol succinate ER 25 mg tablet,exte nded release 24 hr TAKE 1 TABLET BY MOUTH ONCE DAILY active Not Available Not Available No t Available levofloxaci n 500 mg tablet 09/04 completed Not Available Not Available Not Available hydroxyzine HCl 10 mg tablet Take 1 tablet every day by oral route as needed for 30 days. 2022 active Not Available Not Available Not Avai lable lisinopril 40 mg tablet TAKE 1 TABLET BY MOUTH ONCE DAILY active Not Available Not Available No t Available finasteride 5 mg tablet active Not Available Not Available Not Available amoxicillin 500 mg-potassiu m clavulanate 125 mg tablet TAKE 1 TABLET BY MOUTH EVERY 12 HOURS AFTER A MEAL FOR 7 DAYS 03/30 completed Not Available Not Available Not Available acarbose 25 mg tablet TAKE 1 TABLET BY MOUTH THREE TIMES DAILY WITH MEALS active Not Available Not Available No t Available oxycodone 5 mg tablet TAKE 1 TABLET BY MOUTH EVERY 4 HOURS NEEDED FOR PAIN active Not Available Not Available No t Available metoprolol tartrate 25 mg tablet TAKE 1/2 (ONE-HALF ) TABLET BY MOUTH TWICE DAILY active Not Available Not Available No t Available nitrofurant oin monohydrate /macrocryst als 100 mg capsule 09/04 completed Not Available Not Available Not Available Vesicare 5 mg tablet 09/04 completed Not Available Not Available Not Available Xarelto 10 mg tablet TAKE 1 TABLET BY MOUTH ONCE DAILY active Not Available Not Available No t Available Brilinta 90 mg tablet 01/05 completed Not Available Not Available Not Available OneTouch Verio test strips Use to check blood sugars once daily 2023 active Not Available Not Available Not Avai lable Eliquis 5 mg tablet TAKE ONE TABLET BY MOUTH TWICE DAILY 10/08 completed Not Available Not Available Not Available Invokana 100 mg tablet TAKE ONE TABLET BY MOUTH EVERY DAY AFTER A MEAL (REPLACES JARDIANCE ) active Not Available Not Available No t Available Jardiance 10 mg tablet TAKE 1 TABLET BY MOUTH ONCE DAILY 07/03 completed Not Available Not Available Not Available Jardiance 25 mg tablet TAKE 1 TABLET BY MOUTH ONCE DAILY active Not Available Not Available No t Available Brilinta 60 mg tablet 06/16 completed Not Available Not Available Not Available OneTouch Delica Plus Lancet 33 gauge USE DIRECTED active Not Available Not Available No t Available Vitals Date Recorded Body height Body mass index (BMI) Body weight Heart rate Oxygen saturation Oxygen saturation in Arterial blood by Pulse oximetry Systolic blood pressure Diastolic blood pressure Provider Name and Address Organization Details Last Updated DateTime 3 163.83 cm 28.6 kg/m2 86944.5 5 g 57 /min 95 % 95 % 142 mm[Hg] 72 mm[Hg] Cherri Jolley [place] [facility] 3 17:30:29 Date Recorded Body height Body mass index (BMI) Body weight Heart rate Oxygen saturation Oxygen saturation in Arterial blood by Pulse oximetry Systolic blood pressure Diastolic blood pressure Provider Name and Address Organization Details Last Updated DateTime 3 163.83 cm 27.4 kg/m2 58616.4 g 76 /min 99 % 99 % 123 mm[Hg] 72 mm[Hg] Cherri Jolley MA [facility] 3 11:36:08 Date Recorded Body height Body mass index (BMI) Body weight Heart rate Oxygen saturation Oxygen saturation in Arterial blood by Pulse oximetry Systolic blood pressure Diastolic blood pressure Provider Name and Address Organization Details Last Updated DateTime 3 163.83 cm 27.9 kg/m2 76413.7 4 g 67 /min 99 % 99 % 128 mm[Hg] 60 mm[Hg] Liv Escobar MA [facility] 3 12:22:07 Date Recorded Body height Body mass index (BMI) Body weight Heart rate Oxygen saturation Oxygen saturation in Arterial blood by Pulse oximetry Systolic blood pressure Diastolic blood pressure Provider Name and Address Organization Details Last Updated DateTime 3 163.83 cm 28.7 kg/m2 06555.7 g 63 /min 96 % 96 % 148 mm[Hg] 80 mm[Hg] Liv Escobar MA [facility] 3 10:28:11 Date Recorded Body height Body mass index (BMI) Body weight Heart rate Oxygen saturation Oxygen saturation in Arterial blood by Pulse oximetry Systolic blood pressure Diastolic blood pressure Provider Name and Address Organization Details Last Updated DateTime 4 163.83 cm 29.1 kg/m2 02184.8 9 g 68 /min 98 % 98 % 128 mm[Hg] 68 mm[Hg] Liv Escobar MA [facility] 4 11:48:14 Social History Question Answer Notes LastModified by Organizat ion Details LastModified Time Tobacco Smoking Status Never Smoker RIVER Hilario, [facility] 05/23/2018 13:21:27 Do You Have An Advance Directive? Yes Information not available 03/15/2021 What Is Your Level Of Alcohol Consumption? None [email or web address] Information not available 01/30/2016 What Is Your Level Of Caffeine Consumption? Occasional Information not available 03/15/2021 What Was The Date Of Your Most Recent Tobacco Screening? 12/31/2023 Information not available 12/31/2023 What Is Your Relationship Status? Information not available 03/15/2021 Do You Use Your Seat Belt Or Car Seat Routinely? Yes Information not available 03/15/2021 Do You Have Smoke And Carbon Monoxide Detectors In Your Home? Yes Information not available 03/15/2021 Do You Feel Stressed (tense, Restless, Nervous, Or Anxious, Or Unable To Sleep At Night)? [id number] Information not available 08/20/2023 Sex: Unknown Functional Status None recorded. Mental Status None recorded. Family History Nothing Reported. Medical History No medical history recorded. Immunizations Vaccine Type Date Status Note Provider Nam e and Address Organization Details Recorded Time COVID-19 vaccine, vector-nr, rS-Ad26, PF, 0.5 mL 1 completed [place] Strong, [place] - [facility] 05/22/2023 17:24:51 Influenza, split virus, quadrivalent, PF 1 completed [place], [place] - [facility] 05/22/2023 17:24:51 Influenza, split virus, quadrivalent, PF 6 completed Cherri Jolley [place], [place] - [facility] 05/22/2023 17:24:51 Influenza, split virus, quadrivalent, preservative 1 completed [place] Blake, [place] - [facility] 11/06/2021 11:35:16 Influenza, split virus, quadrivalent, preservative 2 completed R[place], [place] [facility] 09/27/2022 10:30:13 Influenza, high-dose, quadrivalent, PF 3 completed Liv Escobar [place], [place] - [facility] 08/22/2023 09:24:53 Past Encounters Encounter ID Performer Location Encounter Start Date Encounter Closed Date Diagnosis/Indication Diagnosis SNOMED-CT Code Diagnosis ICD10 Code Diagnosis Note [id number] Unique Kelley (Adult Med) [facility] [place] [address] 01/30/2016 11:51:52 01/30/2016 15:29:57 Hypertensive disorder 94339272 I10 Benign pro static hyperplasia 505040299 D29.1 Seizure 84483563 R56.9 Hyperlipidemia 87420774 E78.5 Acid reflux 696737584 K2 1.9 [id number] Shruthi naylor [facility] (Adult Med) [address] [place] [address] 07/20/2016 11:54:40 07/20/2016 17:47:25 Acute bronchitis 35049989 J20.9 Kidney stone 26722003 N2 0.0 Benign pro static hyperplasia 524891857 D29.1 Acid reflux 129559551 K2 1.9 Hyperlipidemia 28342413 E78.5 Hypertensive disorder 38 721788 I10 Seizure 43192803 R56.9 [id number] Mariangel Man MD [facility] (Adult Med) [address] [place] [address] 09/07/2016 12:17:45 09/07/2016 14:26:[address] [facility] artery 1231404453 107 I25.10 Anxiety 95946894 F41.9 [id number] Mariangel Man MD [facility] (Adult Med) [address] [place] [phone] 01/04/2017 11:45:19 01/04/2017 12:57:20 Benign prostatic hyperplasia 040327676 D29.1 Hypertensive disorder 38 222533 I10 Hyperlipidemia 21979175 E78.5 Acid reflux 611338579 K2 1.9 Seizure 11048109 R56.9 Coronary atherosclerosis 053682235 I25.83 [id number] Mariangel Man MD [facility] (Adult Med) [address] [place] [phone] 05/23/2018 12:11:28 05/23/2018 14:25:35 Skin lesion 40642923 L98.9 Benign pro static hyperplasia 223360018 D29.1 [id number] Mariangel Man MD [facility] (Adult Med) [address] [place] [address] 09/04/2018 16:54:33 09/05/2018 11:36:30 Non-cardiac chest pain 213204895 R07.89 Resolved. Coronary atherosclerosis 134145268 I25.83 With stens, stable, under the care of his cardiologi st. History of calculus of kidney 474093453 Z87.442 resolved. [id number] MD [facility] (Adult Med) [address] [place] [address] 01/05/2019 16:49:10 01/06/2019 09:10:08 Acid reflux 667359589 K21.9 Essential hypertension 96988118 I10 Coronary atherosclerosis 251196728 I25.83 With stens, stable, under the care of his cardiologi st. Dr. Alok Gann as he requested. [id number] MD [facility] (Adult Med) [address] [place] [address] 06/16/2019 15:14:20 06/17/2019 08:50:32 Osteoarthritis of knee 881373463 M17.11 Discussed with patient, will refer to orthopedic to be evaluated. 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 Benign par oxysmal positional vertigo nystagmus 310018953 H81.10 Discussed with patient , willing to try meclizine. Coronary atherosclerosis 464452591 I25.83 With stens, stable, under the care of his cardiologi st. Dr. Alok Gann as he requested. Benign pro static hyperplasia 743039606 D29.1 Wanting urology referral. [id number] MD [facility]agon (Adult Med) [address] [place] [phone] 01/01/2020 12:11:49 01/04/2020 09:49:49 Skin lesion 82396910 L98.9 He prefers to go to DR. Cielo coleman . Benign pro static hyperplasia 081641234 D29.1 Wanting urology referral. [id number] MD [facility] (Adult Med) [address] [place] [phone] 01/20/2020 11:58:11 01/20/2020 15:28:57 Benign paroxysmal positional vertigo nystagmus 079537949 H81.10 Discussed with patient , willing to try meclizine. Impacted c erumen in right ear 0910198911 476496 H61.21 [id number] MD [facility]ie Aragon (Adult Med) [address] [place] [phone] 0 04/27/2020 08:16:20 04/28/2020 08:41:27 Benign prostatic hyperplasia 778604848 D29.1 Wanting urology referral. [id number] Mariangel Man MD [facility] (Adult Med) [address] [place] [phone] 11/24/2020 11:38:24 11/25/2020 11:57:51 Essential hypertension 64818707 I10 Episodic hypertensi on recently, due to OTC nasal spray, it returned to normal reading after D/C nasal spray. Acid reflux 204009328 K2 1.9 Stable. Benign pro static hyperplasia 439074128 D29.1 Wanting urology referral. Hyperlipidemia 56716314 E78.5 Low saturated and low animal fat diet. Seizure 63369414 R56.9 Stable, controlled , on levetirace arroyo. [id number] MD [facility]ie Aragon (Adult Med) [address] [place] [phone] 03/15/2021 07:58:42 03/16/2021 09:37:54 Acid reflux 606958181 K21.9 Stable. Benign pro static hyperplasia 099859833 D29.1 Wanting urology referral. Under the care of his urologist. Hyperlipidemia 34571402 E78.5 Low saturated and low animal fat diet. Hypertensive disorder 38 349038 I10 Low salt diet, avoid NSAID, or OTC decongesta nt. Coronary arteriosclerosis 13531998 I25.118 insurance referral , under the care of his cardiologi st. Seizure disorder 2726517 02 G40.909 Stable, controlled . [id number] MD [facility] (Adult Med) [address] [place] [id number] 0 05/03/2021 11:51:37 05/05/2021 21:59:46 Cellulitis of eyelid 374348157 H00.039 Pupil reactive right, cornea is clean, no visual disturbanc e. but selling nd redness of right eye lower lid with tiny pin ple at corner , nasal side. Acid reflux 698314503 K2 1.9 Stable. [id number] Mariangel Man MD [facility] (Adult Med) [address] [place] [address] 07/06/2021 15:52:08 07/13/2021 09:31:01 Low back pain 515256299 M54.5 Discussed with patient, he agreed to take x ray. Ambulating without assistance , some stiffness in turning , steady tip-toe and heel gaits, in supine SLRT is negative on both side. able to squatting down and bend over. Benign pro static hyperplasia 288086231 D29.1 Wanting urology referral. Under the care of his urologist. Hyperlipidemia 98102361 E78.5 Low saturated and low animal fat diet. Hypertensive disorder 38 903433 I10 Low salt diet, avoid NSAID, or OTC decongesta nt. Well controlled , BP reading today in this office is 130/80 mm Hg. [id number] [facility] [address] [place] [phone] 0 11/06/2021 10:03:05 11/07/2021 08:19:30 Respiratory tract infection 683655691 J98.8 Exposure t o SARS-CoV-2 683261452 Z20.822 Had exposed to some one with positive covid in the social garing Administra tion of influenza vaccine 72046200 Z23 [id number] MD [facility]ie Aragon (Adult Med) [address] [place] [address] [phone] 0 11/27/2021 16:42:43 11/28/2021 11:29:27 Cellulitis 024454135 L03.90 Getting better, right face. [id number] MD [facility]ie [facility] (Adult Med) [address] [place] [address] [phone] 0 03/30/2022 15:41:32 04/03/2022 07:40:21 Acute respiratory infections 239965865 J22 [id number] Mariangel Man MD [facility] (Adult Med) [address] [place] [phone] 0 06/27/2022 14:23:30 06/28/2022 11:20:27 Benign prostatic hyperplasia 227481994 D29.1 Wanting urology referral. Under the care of his urologist. On finasterid e. Hyperlipidemia 90449613 E78.5 Low saturated and low animal fat diet. Kidney stone 86874482 N2 0.0 No abdomen pain, recently just being checked by his urologist . Hypertensive disorder 38 509294 I10 Low salt diet, avoid NSAID, or OTC decongesta nt. Well controlled , BP reading today in this office is 130/80 mm Hg.As 06-27-2022 , blood pressure is 148/80 . On lisinopril and metoprolol succinate. Seizure disorder [id number] G40.909 Stable, controlled . on levetirace arroyo. [id number] Cherri Jolley MA [facility] (Adult Med) [address] [place] [address] [phone] 09/27/2022 10:16:56 09/28/2022 13:11:20 Administration of influenza vaccine [id number] Z23 [id number] Mariangel Man MD [facility] (Adult Med) [address] [place] [address] [phone] 11/07/2022 10:28:18 11/13/2022 12:39:32 Overweight 477351027 E66.3 BMI is 30.4 , he has been advised to watch his diet, exercise and keep the weight down. Benign pro static hyperplasia 516242052 D29.1 Wanting urology referral. Under the care of his urologist. On finasterid e. Hyperlipidemia 77053533 E78.5 Low saturated and low animal fat diet. Hypertensive disorder 38 780275 I10 Low salt diet, avoid NSAID, or OTC decongesta nt. Well controlled , BP reading today in this office is 130/80 mm Hg.As 06-27-2022 , blood pressure is 148/80 . On lisinopril and metoprolol succinate. , As 11-07-2022 . his BP is 146/80. will continue med. Seizure 05197582 R56.9 Stable, controlled , on levetirace arroyo. Coronary atherosclerosis 699769760 I25.83 With stents, stable, under the care of his cardiologi st. Dr. Alok Gann as he requested. [id number] MD [facility] (Adult Med) [address] [place] [address] [phone] 01/04/2023 11:28:42 01/07/2023 16:56:32 Acid reflux 867384445 K21.9 Stable.n omeprazole Hyperlipidemia 82927126 E78.5 Low saturated and low animal fat diet. On simvastati n. Seizure 24539893 R56.9 Stable, controlled , on levetirace arroyo. Hypertensive disorder 38 473978 I10 Low salt diet, avoid NSAID, or OTC decongesta nt. Well controlled , BP reading today in this office is 130/80 mm Hg.As 06-27-2022 , blood pressure is 148/80 . On lisinopril and metoprolol succinate. , As 11-07-2022 . his BP is 146/80. will continue med. As 01/04/23. BP is 142/88. On amlodipine and lisinopril and metoprolol . Benign pro static hyperplasia 962718122 D29.1 Wanting urology referral. Under the care of his urologist. On finasterid e. and oxybutynin . Coronary atherosclerosis 467297231 I25.83 With stents, stable, under the care of his cardiologi st. Dr. Alok Gann as he requested. On aspirin. clopidogre l and nitrostat and metoprolol . [id number] MD [facility] (Adult Med) [address] [place] [address] [phone] 05/22/2023 17:22:54 05/23/2023 12:37:59 Coronary arteriosclerosis 50514548 I25.118 insurance referral , under the care of his cardiologi st. Anxiety 92937707 F41.9 Wants some nerves pill to calm him down. Essential hypertension 50118237 I10 Episodic hypertensi on recently, due to OTC nasal spray, it returned to normal reading after D/C nasal spray. As 05-22-23, BP is 142/72. [id number] MD [facility] (Adult Med) [address] [place] [address] [phone] 06/18/2023 11:16:28 06/24/2023 14:56:18 Hypertensive disorder 83945492 I10 Low salt diet, avoid NSAID, or OTC decongesta nt. Well controlled , BP reading today in this office is 130/80 mm Hg.As 06-27-2022 , blood pressure is 148/80 . On lisinopril and metoprolol succinate. , As 11-07-2022 . his BP is 146/80. will continue med. As 01/04/23. BP is 142/88. On amlodipine and lisinopril and metoprolol . History of coronary artery bypass grafting 320236101 Z95.1 Under the care of his cardiologi st and cardiac surgeion. Prediabetes 857878263 R7 3.03 A1c is elevated, but not high enough for sugar diabetic yet. advised to watch his diet, exercise and keep the weight down. [id number] Mariangel Man MD [facility] (Adult Med) [address] [place] [address] [phone] 08/20/2023 12:08:59 08/23/2023 11:33:44 Type 2 diabetes mellitus 71688557 E11.65 He has to pay $105 , once/day for 25 mg jardiance, Will change to invokana 100 mg /day and 340-B. under $ 10/month. History of coronary artery bypass grafting 557179315 Z95.1 Under the care of his cardiologi st and cardiac surgeon. Administra tion of influenza vaccine 89668208 Z23 He tolerated shot on the left arm well. Benign pro static hyperplasia with outflow obstruction 187572122 N40.1 Under the care of his urologist, on finasterid e, Seizure disorder 6361563 02 G40.909 Stable, controlled . on levetirace arroyo. [id number] [facility] [address] [place] [address] [phone] 10/08/2023 10:18:13 10/09/2023 13:55:45 Type 2 diabetes mellitus 87143479 E11.65 He has to pay $105 , once/day for 25 mg jardiance, Will change to invokana 100 mg /day and 340-B. under $ 10/month. Coronary atherosclerosis 963991895 I25.83 With stents, stable, under the care of his cardiologi st. Dr. Alok Gann as he requested. On aspirin. clopidogre l and nitrostat and metoprolol . [id number] Mariangel Man MD [facility] (Adult Med) [address] [place] [address] [phone] 12/31/2023 11:09:34 01/02/2024 14:16:54 Type 2 diabetes mellitus 74747875 E11.65 He has to pay $105 , once/day for 25 mg jardiance, Will change to invokana 100 mg /day and 340-B. under $ 10/month. He walks a mile/day. Coronary arteriosclerosis 00213465 I25.118 insurance referral , under the care of his cardiologi st. Benign pro static hyperplasia 747438051 D29.1 Wanting urology referral. Under the care of his urologist. On finasterid e. and oxybutynin . Hyperlipidemia 04359468 E78.5 Low saturated and low animal fat diet. On simvastati n. Seizure 65603623 R56.9 Stable, controlled , on levetirace arroyo. Health Concerns Section Related Observation LastModified by Organization Detai ls LastModified Time None Recorded Concern Status LastModified by Organization Details LastModified Time None Recorded Advance Directives Directive Y: Payers Encounter Date Sequence Insurance Name Policy Number Policy Perez Covered Member ID Perez Member ID Guarantor Name 05/22/[address] [facility] (MEDICARE REPLACEMENT/A DVANTAGE - HMO) [id number] Johnnie Mack [id number] Johnnie Mack 06/18/[address] [facility] (MEDICARE REPLACEMENT/A DVANTAGE - HMO) [id number] Johnnie Mack [id number] Johnnie Mack 08/20/[address] [facility] (MEDICARE REPLACEMENT/A DVANTAGE - HMO) [id number] Johnnie Mack [id number] Johnnie Mack 10/08/[address] [facility] (MEDICARE REPLACEMENT/A DVANTAGE - HMO) [id number] Johnnie Mack [id number] Johnnie Mack 12/31/2023 1 [employer] - [facility] (MEDICARE REPLACEMENT/A DVANTAGE - HMO) [id number] Johnnie Mack [id number] Johnnie Mack Notes Date Note Type Note Provider Name and Address Organization Details Recorded Time 05/22/2023 text/html Office visit.,TANVI MARTÍNEZ. history of coronary atherosclerosis. will have bypass at [facility] this week, has to put his demented at institution for the time being. His oil boiler has ok for his operation, his anxious about all theses. Wants some med to relax his nerves . Otherwise has enough med refills. Mariangel Man MD Attn: Accounting, [address] [place], [address], [facility] 05/22/2023 17:59:54 06/18/2023 text/html Office vist, GARFIELD Henley. had coronary bypass at [facility]. Came with his progressive care unit registered nurse, daughter. Mariangel Man MD Attn: Accounting, [address] [place], [address], [place] 06/24/2023 12:03:25 08/20/2023 text/html Office visit,. N KDA. 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 type 2 DM, coronary bypass, financial burden for refill of medications such as eliquis and jardiance, will find 340-B replacement if we can. Mariangel Man MD Attn: Accounting, [address] [facility], [place], [address], [place] 08/20/2023 14:50:22 10/08/2023 text/html Office visit,GARFIELD Henley. his=tory of type 2 DM. coronary atherosclerosis . med refill, Tolerated daily walking in GYM. no chest pain, NO SOB, but invokana and eliquis messer are too high in [facility]. and wants to take blood thinner once/day. ROS is notes in HPI. Mariangel Man MD Attn: Accounting, [address] [place], [address], [facility] [place] 10/08/2023 19:11:56 12/31/2023 text/html Office visit. TANVI MARTÍNEZ. Check up . and med refills. Reviewed the lists of current med. No chest pain, no shortness of breath. no fever. ROS as noted in HPI. Has been checked by his oil boiler. Mariangel Man MD Attn: Accounting,[address] [facility], [place], [address], [facility] [place] 12/31/2023 18:53:46
--- OUTSIDE RECORDS SUMMARY | 2025-01-13 13:47 | XMS_ITS | Clinical Summary ---
Author Organization [facility] Address [address] [place] [address] Care Team Providers Care Director Of Respiratory Therapy Name Role Phone Mariangel Man MD Primary Care Provider [phone] Source Comments [facility],non-owned Affiliates and Associated Physician Practices is amultiple site organization consisting of ambulatory clinics and hospital sitesin [place], [place], [place] and [place]. This disclosure is being madepursuant to the Care Everywhere program and may not contain all information available regarding this patient. Last updated 18.[facility] Social History Tobacco Use Types Packs/Day Years Used Date Smoking Tobacco: Never Assessed Sex and Gender Information Value Date Recorded Sex Assigned at Not on file Gender Identity Not on file Sexual Orientation Not on file Plan of Treatment Health Maintenance Due Date Last Done Comments DTAP/TDAP/TD VACCINES (1 - Tdap) 1956 PNEUMOCOCCAL VACCINE 50+ (1 of 1 - PCV) 1987 ZOSTER VACCINE (1 of 2) 1987 Respiratory Syncytial Virus (RSV) Vaccine Pt: or over 60 yrs (1 - 1-dose 75+ series) 2012 COVID-19 VACCINE (2023-2 5 season) 2024 INFLUENZA VACCINE (#1) 2024 DEPRESSION SCREENING 11/18/2024 MEDICARE AWV CALENDAR YEAR 2024 HEPATITIS B VACCINE Aged Out No longe r eligible based on patient's age to complete this topic HIB VACCINE Aged Out No longer eligi ble based on patient's age to complete this topic HPV VACCINE Aged Out No longer eligi ble based on patient's age to complete this topic MENINGOCOCCAL (Group B) VACCINE Aged Out No longer eligible based on patient's age to complete this topic MENINGOCOCCAL VACCINE Aged Out No riri lynette eligible based on patient's age to complete this topic Care Teams Director Of Respiratory Therapy Relationship Specialty Start Date End Date Mariangel Man MD [address] [place] [phone] PCP - General 01/18/20
--- OUTSIDE RECORDS SUMMARY | 2025-01-13 13:47 | XMS_ITS | Encounter Summary ---
Author Organization [facility] Address [address] [place] [address] Care Team Providers Care Container Finisher Name Role Phone Mariangel Man MD Primary Care Provider [phone] Encounter Details Date Type Department Care Team (Late st Contact Info) Description 03/29/2023 Lab Requisition [facility] DermPath Lab [address] [place] [phone] Marquis Buck MD [address] [place] [address] Social History Tobacco Use Types Packs/Day Years Used Date Smoking Tobacco: Never Assessed Sex and Gender Information Value Date Recorded Sex Assigned at Not on file Gender Identity Not on file Sexual Orientation Not on file documented as of this encounter Plan of Treatment Not on file documented as of this encounter Procedures Procedure Name Priority Date/Time Associated Diagnosis Comments DERMATOPATHOLOGY Routine 03/28/2023 12:0 0 AM CDT documented in this encounter Results * DERMATOPATHOLOGY (03/28/2023 12:00 AM CDT) Case Report Dermatopathology Report Case: [id number] Authorizing Provider: Marquis Buck MD Collected: 03/28/2023 12:00 AM Ordering Location: [facility] DermPath Lab Received: 03/29/2023 06:53 AM Pathologist: Amy Smith MD Specimen: Skin, left cheek 3 4:12 PM CDT DERMATOPATHOLOGY LABORATORY Final Diagnosis Specimen A. SKIN, left cheek: ACTINIC KERATOSIS (L57.0) 3 4:12 PM CDT DERMATOPATHOLOGY LABORATORY Clinical History AK vs. SCC. Path# [id number] 3 4:12 PM CDT DERMATOPATHOLOGY LABORATORY Gross Description Specimen A: Received is one formalin filled container labeled with the patient's name and designated left cheek. The specimen consists of a shave biopsy measuring [id number]. Jar 0. 3 4:12 PM CDT DERMATOPATHOLOGY LABORATORY Microscopic Description Specimen A. SKIN, left cheek: There is focal parakeratosis. The lower half of the epidermis shows disorderly maturation of keratinocytes with nuclear pleomorphism. 3 4:12 PM CDT DERMATOPATHOLOGY LABORATORY Disclaimer An external and internal positive and negative controls are appropriate for the histochemical, immunohistochemical and immunofluorescence stain(s) in this case (if any), except where stated explicitly. The performance characteristics of the stain(s) cited in this report were developed and its performance characteristic determined by the Dermatopathology Laboratory at [facility], directed by Dr. Omer Mercedes. These tests need not be, and therefore are not, approved by the [place] Food and Drug Administration. The tests are used for clinical purposes. Billing Codes Specimen Charges Stain Charges 78995 1 3 4:12 PM CDT DERMATOPATHOLOGY LABORATORY Embedded Images 3 4:12 PM CDT DERMATOPATHOLOGY LABORATORY Pathology/Cytolog y TISSUE SPECIMEN FROM SKIN / Unknown 03/28/2023 03/29/2023 6:53 AM CDT Marquis Buck MD LAB - PATHOLOGY/CYTO LOGY ORDERABLES DERMATOPATHOLOGY LABORATORY [facility] - Department of Dermatology [facility] [address] [place] [address], [address] [phone] documented in this encounter Visit Diagnoses Not on filedocumented in this encounter Care Teams Container Finisher Relationship Specialty Start Date End Date Mariangel Man MD [address] [place] [address] PCP - General 01/18/20 documented as of this encounter
--- OUTSIDE RECORDS SUMMARY | 2025-01-13 13:47 | XMS_ITS | Patient Health Summary ---
Author Organization [facility] Address [address] [place] [address] Care Team Providers Care Industrial Garage Servicer Name Role Phone Mariangel Man MD Primary Care Provider [phone] Note from [facility],non-owned Affiliates and Associated Physician Practices is amultiple site organization consisting of ambulatory clinics and hospital sitesin [place], [place], [place] and [place]. This disclosure is being madepursuant to the Care Everywhere program and may not contain all information available regarding this patient. Last updated 18.[facility] Social History Tobacco Use Types Packs/Day Years Used Date Smoking Tobacco: Never Assessed Sex and Gender Information Value Date Recorded Sex Assigned at Not on file Gender Identity Not on file Sexual Orientation Not on file Procedures * DERMATOPATHOLOGY(Performed 10/02/2023) * DERMATOPATHOLOGY(Performed 03/28/2023) * DERMATOPATHOLOGY(Performed 09/19/2021) * DERMATOPATHOLOGY(Performed 01/15/2020) Results * DERMATOPATHOLOGY (10/02/2023 12:00 AM DIRECTOR TELEVISION) Only the most recent of4 resultswithin the time period is included. Case Report Dermatopathology Report Case: [id number] Authorizing Provider: Marquis Buck MD Collected: 10/02/2023 12:00 AM Ordering Location: [facility] DermPath Lab Received: 10/04/2023 10:23 AM Pathologist: Amy Smith MD Specimen: Skin, left helix 3 2:51 PM DIRECTOR TELEVISION DERMATOPATHOLOGY LABORATORY Final Diagnosis Specimen A. 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 The specimen consists of a shave biopsy measuring 5x5x2 mm. Jar 0. 2:51 PM [facility] DERMATOPATHOLOGY LABORATORY Microscopic Description Specimen A. SKIN, left helix: Within the dermis there are aggregates of basaloid cells with a high nuclear to cytoplasmic ratio and peripheral palisading. 3 2:51 PM DIRECTOR TELEVISION DERMATOPATHOLOGY LABORATORY Disclaimer An external and internal positive and negative controls are appropriate for the histochemical, immunohistochemical and immunofluorescence stain(s) in this case (if any), except where stated explicitly. The performance characteristics of the stain(s) cited in this report were developed and its performance characteristic determined by the Dermatopathology Laboratory at [facility], directed by Dr. Omer Mercedes. These tests need not be, and therefore are not, approved by the [place] Food and Drug Administration. The tests are used for clinical purposes. Billing Codes Specimen Charges Stain Charges 51253 1 3 2:51 PM DIRECTOR TELEVISION DERMATOPATHOLOGY LABORATORY Embedded Images 3 2:51 PM DIRECTOR TELEVISION DERMATOPATHOLOGY LABORATORY Pathology/Cytolog y TISSUE SPECIMEN FROM SKIN / Unknown 10/02/2023 10/04/2023 10:23 AM DIRECTOR TELEVISION Marquis Buck MD LAB - PATHOLOGY/CYTO LOGY ORDERABLES DERMATOPATHOLOGY LABORATORY [facility] - Department of Dermatology [facility] Specialized Medicine [address] [place] [address], [address] [phone] Care Teams Industrial Garage Servicer Relationship Specialty Start Date End Date Mariangel Man MD [address] [place] [address] PCP - General 01/18/20
--- OUTSIDE RECORDS SUMMARY | 2025-01-13 13:47 | XMS_ITS | Encounter Summary ---
Author Organization [facility] Health Address [address] [place] [address] Care Team Providers Care High School English Teacher Name Role Phone Mariangel Man MD Primary Care Provider [phone] Encounter Details Date Type Department Care Team (Late st Contact Info) Description 09/20/2021 Lab Requisition [facility] DermPath Lab [address] [place] [phone] Marquis Buck MD [address] [place] [address] Social History Tobacco Use Types Packs/Day Years Used Date Smoking Tobacco: Never Assessed Sex and Gender Information Value Date Recorded Sex Assigned at Not on file Gender Identity Not on file Sexual Orientation Not on file documented as of this encounter Plan of Treatment Not on file documented as of this encounter Procedures Procedure Name Priority Date/Time Associated Diagnosis Comments DERMATOPATHOLOGY Routine 09/19/2021 3:33 AM CDT documented in this encounter Results * DERMATOPATHOLOGY (09/19/2021 3:33 AM CDT) Case Report Dermatopathology Report Case: [id number] Authorizing Provider: Marquis Buck MD Collected: 09/19/2021 03:33 AM Ordering Location: [facility] DermPath Lab Received: 09/20/2021 06:05 AM Pathologist: Devora Mercedes MD Specimen: Skin, scalp 1:53 PM CDT DERMATOPATHOLOGY LABORATORY Final Diagnosis Specimen A. SKIN, scalp: BASAL CELL CARCINOMA, PIGMENTED (C44.41) 1:53 PM CDT DERMATOPATHOLOGY LABORATORY Clinical History SK vs BCC vs MM. Path# [id number] 1:53 PM CDT DERMATOPATHOLOGY LABORATORY Gross Description Specimen A: Received is one formalin filled container labeled with the patient's name and designated scalp. The specimen consists of a shave biopsy measuring [id number]. Jar 0. 1:53 PM CDT DERMATOPATHOLOGY LABORATORY Microscopic Description Specimen A. SKIN, scalp: There are aggregates of basaloid cells with a high nuclear to cytoplasmic ratio and peripheral palisading. There is abundant melanin. 1:53 PM CDT DERMATOPATHOLOGY LABORATORY Disclaimer An external and internal positive and negative controls are appropriate for the histochemical, immunohistochemical and immunofluorescence stain(s) in this case (if any), except where stated explicitly. The performance characteristics of the stain(s) cited in this report were developed and its performance characteristic determined by the Dermatopathology Laboratory at [facility], directed by Dr. Omer Mercedes. These tests need not be, and therefore are not, approved by the [place] Food and Drug Administration. The tests are used for clinical purposes. Billing Codes Specimen Charges Stain Charges 12429 1 1:53 PM CDT DERMATOPATHOLOGY LABORATORY Embedded Images 1:53 PM CDT DERMATOPATHOLOGY LABORATORY Pathology/Cytolo gy TISSUE SPECIMEN FROM SKIN / Unknown 09/19/2021 3:33 AM CDT 09/20/2021 6:05 AM CDT Marquis Buck MD LAB - PATHOLOGY/CYTO LOGY ORDERABLES DERMATOPATHOLOGY LABORATORY [facility] - Department of Dermatology [facility] Medicine [address] [place] [address], [address] [phone] documented in this encounter Visit Diagnoses Not on filedocumented in this encounter Care Teams [employer] English Teacher Relationship Specialty Start Date End Date Mariangel Man MD [address] [place] [address] PCP - General 01/18/20 documented as of this encounter
--- OUTSIDE RECORDS SUMMARY | 2025-01-13 13:47 | XMS_ITS | Encounter Summary ---
Author Organization [facility] Health Address [address] [place] [address] Care Team Providers Care Salesperson Terrazzo Tiles Name Role Phone Mariangel Man MD Primary Care Provider [phone] Encounter Details Date Type Department Care Team (Late st Contact Info) Description 10/04/2023 Lab Requisition [facility] - DermPath Lab [address] [place] [id number] Marquis Buck MD [address] [place] [address] Social History Tobacco Use Types Packs/Day Years Used Date Smoking Tobacco: Never Assessed Sex and Gender Information Value Date Recorded Sex Assigned at Not on file Gender Identity Not on file Sexual Orientation Not on file documented as of this encounter Plan of Treatment Not on file documented as of this encounter Procedures Procedure Name Priority Date/Time Associated Diagnosis Comments DERMATOPATHOLOGY Routine 10/02/2023 12:0 0 AM SEMI DRIVER documented in this encounter Results * DERMATOPATHOLOGY (10/02/2023 12:00 AM SEMI DRIVER) Case Report Dermatopathology Report Case: [id number] Authorizing Provider: Marquis Buck MD Collected: 10/02/2023 12:00 AM Ordering Location: [facility] DermPath Lab Received: 10/04/2023 10:23 AM Pathologist: Amy Smith MD Specimen: Skin, left helix 2:51 PM SEMI DRIVER DERMATOPATHOLOGY LABORATORY Final Diagnosis Specimen A. 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 The specimen consists of a shave biopsy measuring 5x5x2 mm. Jar 0. 2:51 PM SEMI DRIVER DERMATOPATHOLOGY LABORATORY Microscopic Description Specimen A. SKIN, left helix: Within the dermis there are aggregates of basaloid cells with a high nuclear to cytoplasmic ratio and peripheral palisading. 3 2:51 PM SEMI DRIVER DERMATOPATHOLOGY LABORATORY Disclaimer An external and internal positive and negative controls are appropriate for the histochemical, immunohistochemical and immunofluorescence stain(s) in this case (if any), except where stated explicitly. The performance characteristics of the stain(s) cited in this report were developed and its performance characteristic determined by the Dermatopathology Laboratory at [facility], directed by Dr. Omer Mercedes. These tests need not be, and therefore are not, approved by the [place] Food and Drug Administration. The tests are used for clinical purposes. Billing Codes Specimen Charges Stain Charges 60476 1 3 2:51 PM SEMI DRIVER DERMATOPATHOLOGY LABORATORY Embedded Images 2:51 PM SEMI DRIVER DERMATOPATHOLOGY LABORATORY Pathology/Cytolog y TISSUE SPECIMEN FROM SKIN / Unknown 10/02/2023 10/04/2023 10:23 AM SEMI DRIVER Marquis Buck MD LAB - PATHOLOGY/CYTO LOGY ORDERABLES DERMATOPATHOLOGY LABORATORY [facility] - Department of Dermatology [facility] Medicine [address] [place] [address], [address] [phone] documented in this encounter Visit Diagnoses Not on filedocumented in this encounter Care Teams Salesperson Terrazzo Tiles Relationship Specialty Start Date End Date Mariangel Man MD [address] [place] [address] PCP - General 01/18/20 documented as of this encounter
--- OUTSIDE RECORDS SUMMARY | 2025-01-13 13:47 | XMS_ITS | Clinical Summary ---
Author Organization [facility] Address [address] [place] [address] Care Team Providers Care Jewel Gauger Name Role Phone Zahida Black Primary Care Provider [phone] Allergies No known active allergies Medications aspirin EC (ECOTRIN) 81 MG tablet Take 1 tablet (81 mg total) by mouth daily. Active finasteride (PROSCAR) 5 MG tablet Take 1 tablet (5 mg total) by mouth nightly at bedtime. at bedtime. 03/23/20 24 Active Lancets (ONETOUCH DELICA PLUS [id number]) [facility] administration instructions. 04/22/20 23 Active levETIRAcetam (KEPPRA) 500 MG tablet Take 1 tablet (500 mg total) by mouth 2 (two) times daily. 01/16/20 24 Active oxybutynin XL (DITROPAN-XL) 5 MG 24 hr tablet Take 1 tablet (5 mg total) by mouth nightly at bedtime. at bedtime. 03/23/20 24 Active lisinopril (PRINIVIL) 20 MG tabletIndication s:Primary hypertension Take 1 tablet (20 mg total) by mouth daily. 90 tablet 3 04/02/20 24 025 Active atorvastatin (LIPITOR) 40 MG tablet Take 1 tablet (40 mg total) by mouth daily. 08/07/20 24 025 Active spironolactone (ALDACTONE) 25 MG tabletIndication s:Primary hypertension Take 0.5 tablets (12.5 mg total) by mouth daily. 45 tablet 3 09/30/20 24 Active amiodarone (PACERONE) 200 MG tablet Take 1 tablet (200 mg total) by mouth daily. 09/19/20 24 Active metoprolol succinate ER (TOPROL-XL) 50 MG 24 hr tablet Take 1 tablet (50 mg total) by mouth daily. 09/03/20 24 025 Active apixaban (ELIQUIS) 5 MG tabletIndication s:Paroxysmal atrial fibrillation ([facility]) Take 1 tablet (5 mg total) by mouth 2 (two) times daily. 180 tablet 3 09/30/20 24 Active metFORMIN (GLUCOPHAGE) 500 MG tabletIndication s:Type 2 diabetes mellitus with stage 3b chronic kidney disease, without long-term current use of insulin ([facility]) Take 1 tablet (500 mg total) by mouth 2 (two) times daily. 180 tablet 3 09/30/20 24 Active acarbose (PRECOSE) 25 MG TabIndications:T ype 2 diabetes mellitus with stage 3b chronic kidney disease, without long-term current use of insulin ([facility]) Take 1 tablet (25 mg total) by mouth 2 (two) times a day. 180 tablet 3 12/11/19 25 Active Dapagliflozin Propanediol (FARXIGA) 5 MG TabIndications:T ype 2 diabetes mellitus with stage 3b chronic kidney disease, without long-term current use of insulin ([facility]) Take 5 mg by mouth daily. 30 tablet 1 01/05/20 25 Active JARDIANCE 10 MG tablet Take 1 tablet (10 mg total) by mouth daily. 08/01/20 24 025 Discontin ued(Formu russel change) Active Problems Problem Noted Date Diagnosed Date Aortic root dilatation 09/30/2024 Seizure ([facility]) 09/30/2024 Meningioma ([facility]) 09/30/2024 Primary hypertension 04/02/2024 Familial hypercholesterolemia 04/02/2024 Type 2 diabetes mellitus wit h stage 3b chronic kidney disease, without long-term current use of insulin ([facility]) 04/02/2024 OAB (overactive bladder) 04/02/2024 Benign prostatic hyperplasia without lower urinary tract symptoms 04/02/2024 Coronary artery disease invo lving coronary bypass graft of pokagon heart without angina pectoris 04/02/2024 Chronic combined systolic an d diastolic congestive heart failure ([facility]) 04/02/2024 A-fib ([facility]) Encounters Date Type Department Care Team Description 01/12/2025 Telephone [facility] Internal [address] [address] Zahida Black APNP Information 01/08/2025 Telephone [facility] Internal [address] [address] Zahida Black APNP Prior Authorization 01/08/[address] [address] Zahida Black APNP Medication Problem 01/05/2025 10:20 AM DESIGN ARCHITECT Office Visit [address] [address] Zahida Black APNP Diabetes 01/05/2025 Travel 12/11/2024 Telephone [facility] [address] [address] Zahida Black APNP Medication Question from Last 3 Months Immunizations Name Administration Dates Next Due Fluzone High Dose (IIV, triv alent, 0.5mL) 09/30/2024 Influenza Adult (Generic) 08/20/2023,08/2022,11/06/2021, 021,08/28/2016 Family History Medical History Relation Comments Throat cancer Brother Heart Disease Father congenital heart defect Mother Heart Disease Paternal Uncle 1 Heart Disease Paternal Uncle 2 Heart Disease Paternal Uncle 3 Heart Disease Sister 1 Cancer Sister 2 Relation Status Comments Brother Father Mother Paternal Uncle 1 Paternal Uncle 2 Paternal Uncle 3 Sister 1 Sister 2 Social History Tobacco Use Types Packs/Day Years Used Date Smoking Tobacco: Never Smokeless Tobacco: Never Tobacco Cessation:Counseling Given: No Alcohol Use Standard Drinks/Week Comments Not Currently 0 (1 standard drink = 0.6 oz pur e alcohol) PHQ-2 Answer Date Recorded Patient Health Questionnaire-2 Score 0 01/05/2025 Sex and Gender Information Value Date Recorded Sex Assigned at Male 01/05/2025 10:28 AM DESIGN ARCHITECT Legal Sex Male 1:00 PM CDT Gender Identity Not on file Sexual Orientation Not on file Last Filed Vital Signs Vital Sign Reading Time Taken Comments Blood Pressure 124/78 01/05/2025 10:28 AM DESIGN ARCHITECT Pulse 64 01/05/2025 10:28 AM DESIGN ARCHITECT Temperature 35.8 C (96.4 F) 01/05/2025 10:28 AM DESIGN ARCHITECT Respiratory Rate 16 01/05/2025 10:28 AM DESIGN ARCHITECT Oxygen Saturation 97% 01/05/2025 10:28 AM DESIGN ARCHITECT Inhaled Oxygen Concentration - - Weight 75.1 kg (165 lb 8 oz) 01/05/2025 10:28 AM DESIGN ARCHITECT Height 165.1 cm (5' 5 ) 01/05/2025 10:28 AM DESIGN ARCHITECT Body Mass Index 27.54 01/05/2025 10:28 AM DESIGN ARCHITECT Plan of Treatment Upcoming Encounters Date Type Department Care Team (Late st Contact Info) Description 04/07/2025 10:00 AM CDT Office Visit [facility] Family & Internal Medicine [address] [address] Zahida Black, REY [address] [place] [address] Health Maintenance Due Date Last Done Comments Pneumococcal Vaccine: 65+ Years (1 of 2 - PCV) 1943 Diabetes: Retinopathy Eye Exam 1955 DTaP, Tdap and Td Vaccines (1 - Tdap) 1956 Zoster Vaccines (1 of 2) 1987 Annual Medicare Wellness Visit 2002 RSV Immunization or 60+ Years (1 - 1-dose 75+ series) 2012 COVID-19 Vaccine (2 - season) 2024 08/04/2021 Hemoglobin A1C 07/05/2025 01/05/2025, 09/18, 06/30/2024, Additional history exists Lipid Panel 08/14/2025 08/14/2024, 02/14/2024 Influenza Adult Completed 09/30/2024, 01/2023, 09/27/2022, Additional history exists PHQ-2 (Physician [place]) Completed 01/05/2025 Meningococcal B Vaccine Aged Out No l onger eligible based on patient's age to complete this topic Meningococcal Vaccine Aged Out No riri lynette eligible based on patient's age to complete this topic RSV Immunizations Under 20 Months Aged Out No longer eligible based on patient's age to complete this topic Procedures Procedure Name Priority Date/Time Associated Diagnosis Comments COLLECT.CAPILLARY (FNGR,HEEL,EAR) Routine 01/05/2025 10:17 AM DESIGN ARCHITECT Type 2 diabetes mellitus with stage 3b chronic kidney disease, without long-term current use of insulin ([facility]) HEMOGLOBIN, GLYCOSYLATED Routine 01/05/2025 Type 2 diabetes mellitus with stage 3b chronic kidney disease, without long-term current use of insulin ([facility]) LIPID PANEL Routine 08/14/2024 9:12 AM CDT Chronic combined systolic and diastolic congestive heart failure ([facility]) Coronary artery disease involving coronary bypass graft of pokagon heart without angina pectoris from Last 3 Months or Most Recently Relevant to Health Maintenance Results * HEMOGLOBIN, GLYCOSYLATED (01/05/2025) Pathologist [facility] HGB A1C 6.2 % [facility] 01/05/2025 us Zahida LE LABORATORY Final Resul t [facility] [address] [place] [address], * (ABNORMAL) LIPID PANEL (08/14/2024 9:12 AM CDT) CHOLESTEROL 82 <200 MG/DL 08/14/2024 2:11 PM CDT [facility] [place] TRIGLYCERIDES 68 <150 MG/DL 08/14/2024 2:11 PM CDT [facility] [place] HDL 40(L) >40 MG/DL 08/14/2024 2:11 PM CDT [facility] LDL-C 28 <100 MG/DL 08/14/2024 2:11 PM CDT [facility] VLDL CALCULATION 14 5 - 28 MG/DL 08/14/2024 2:11 PM CDT [facility] CHOL/HDL RATIO 2.1 0.0 - 4.0 08/14/2024 2:11 PM CDT [facility] LDL/HDL 0.7 0.41 - 2.13 08/14/2024 2:11 PM CDT [facility] NON HDL CHOLESTEROL 42 <140 MG/DL 08/14/2024 2:11 PM CDT [facility] 08/14/2024 9:12 AM CDT Zahida LE LABORATORY Final Resul t [facility] [place] [address] [place] [address], from Last 3 Months or Most Recently Relevant to Health Maintenance Insurance [employer] Care Teams Jewel Gauger Relationship Specialty Start Date End Date Zahida Black APNP [address] [place] [phone] PCP - General NURSE PRACTITIONER 02/11/24
--- OUTSIDE RECORDS SUMMARY | 2025-01-13 13:47 | XMS_ITS | Referral Summary ---
Author Organization [facility] Address [address] [place] [address] Care Team Providers Care Consulting Services Manager Name Role Phone Mariangel Man MD Primary Care Provider [phone] Source Comments [facility],non-owned Affiliates and Associated Physician Practices is amultiple site organization consisting of ambulatory clinics and hospital sitesin [place], [place], [place] and [place]. This disclosure is being madepursuant to the Care Everywhere program and may not contain all information available regarding this patient. Last updated 18.[facility] Social History Tobacco Use Types Packs/Day Years Used Date Smoking Tobacco: Never Assessed Sex and Gender Information Value Date Recorded Sex Assigned at Not on file Gender Identity Not on file Sexual Orientation Not on file Plan of Treatment Not on file Care Teams Consulting Services Manager Relationship Specialty Start Date End Date Mariangel Man MD [address] [place] [phone] PCP - General 01/18/20
--- OUTSIDE RECORDS SUMMARY | 2025-01-13 13:47 | XMS_ITS | Encounter Summary ---
Author Organization [facility] Address [address] [place] [address] Care Team Providers Care Submarine Element Coordinator Name Role Phone Zahida Black Primary Care Provider [phone] Reason for Visit * Reason Onset Date Comments Information 01/12/2025 Encounter Details Date Type Department Care Team (Late st Contact Info) Description 01/12/2025 Telephone [facility] Family & Internal Medicine [facility] [address] [place] [address] Zahida Black APNP [address] [place], [place] [phone] Information Social History Tobacco Use Types Packs/Day Years Used Date Smoking Tobacco: Never Smokeless Tobacco: Never Alcohol Use Standard Drinks/Week Comments Not Currently 0 (1 standard drink = 0.6 oz pur e alcohol) PHQ-2 Answer Date Recorded Patient Health Questionnaire-2 Score 0 01/05/2025 Sex and Gender Information Value Date Recorded Sex Assigned at Male 01/05/2025 10:28 AM INSPECTOR DIALS Legal Sex Male 1:00 PM CDT Gender Identity Not on file Sexual Orientation Not on file documented as of this encounter Progress Notes * REY Jamison - 01/12/2025 11:18 AM CST We can try to transition to xarelto to see if covered but we discussed in office visit that the only other option is warfarin---but will need weekly to monthly---INR checks [employer]CTOR D[employer]S * Teresa Sheppard - 01/12/2025 10:07 AM CST Patient takes Eliquis and Jardience and both have become too expensive to continue. Patient is wanting a cheaper alternative to these medications. Please call to discuss. [employer]CTOR [employer] documented in this encounter Plan of Treatment Upcoming Encounters Date Type Department Care Team (Late st Contact Info) Description 04/07/2025 10:00 AM CDT Office Visit [facility] Family & Internal Medicine - [place] [id number] [place] [address] Zahida Black APNP [address] [place] [address] documented as of this encounter Visit Diagnoses Not on filedocumented in this encounter Care Teams Submarine Element Coordinator Relationship Specialty Start Date End Date Zahida Black APNP [address] [place] [address] PCP - General NURSE PRACTITIONER 02/11/24 documented as of this encounter
--- OUTSIDE RECORDS SUMMARY | 2025-01-13 13:47 | XMS_ITS | Encounter Summary ---
Author Organization [facility] Address [address] [place] [address] Care Team Providers Care Facilities Administrator Name Role Phone Mariangel Man MD Primary Care Provider [phone] Encounter Details Date Type Department Care Team (Late st Contact Info) Description 01/18/2020 Lab Requisition [facility] DermPath Lab [address] [place] [phone] Marquis Buck MD [address] [place] [address] Social History Tobacco Use Types Packs/Day Years Used Date Smoking Tobacco: Never Assessed Sex and Gender Information Value Date Recorded Sex Assigned at Not on file Gender Identity Not on file Sexual Orientation Not on file documented as of this encounter Plan of Treatment Not on file documented as of this encounter Procedures Procedure Name Priority Date/Time Associated Diagnosis Comments DERMATOPATHOLOGY Routine 01/15/2020 12:0 0 AM STEAM CONDITIONER OPERATOR documented in this encounter Results * DERMATOPATHOLOGY (01/15/2020 12:00 AM STEAM CONDITIONER OPERATOR) Case Report Dermatopathology Report Case: [id number] Authorizing Provider: Marquis Buck MD Collected: 01/15/2020 12:00 AM Ordering Location: [facility] DermPath Lab Received: 01/18/2020 02:30 PM Pathologist: Devora Mercedes MD Specimen: Skin, right shoulder 0 11:21 AM STEAM CONDITIONER OPERATOR DERMATOPATHOLOGY LABORATORY Final Diagnosis Specimen A. SKIN, right shoulder: BASAL CELL CARCINOMA, PIGMENTED (C44.612) 0 11:21 AM STEAM CONDITIONER OPERATOR DERMATOPATHOLOGY LABORATORY Clinical History [facility] vs MM. Path # [id number] 11:21 AM [facility] DERMATOPATHOLOGY LABORATORY Gross Description Specimen A: Received is one formalin filled container labeled with the patient's name and designated right shoulder. The specimen consists of a shave biopsy measuring 2m7h0ei. Jar 0. 0 11:21 AM [facility] DERMATOPATHOLOGY LABORATORY Microscopic Description Specimen A. SKIN, right shoulder: There are aggregates of basaloid cells with a high nuclear to cytoplasmic ratio and peripheral palisading. There is abundant melanin. 0 11:21 AM [facility] DERMATOPATHOLOGY LABORATORY Disclaimer An external and internal positive and negative controls are appropriate for the histochemical, immunohistochemical and immunofluorescence stain(s) in this case (if any), except where stated explicitly. The performance characteristics of the stain(s) cited in this report were developed and its performance characteristic determined by the Dermatopathology Laboratory at [facility], directed by Dr. Omer Mercedes. These tests need not be, and therefore are not, approved by the [place] Food and Drug Administration. The tests are used for clinical purposes. Billing Codes Specimen Charges Stain Charges 68761 1 0 11:21 AM [facility] DERMATOPATHOLOGY LABORATORY Embedded Images 0 11:21 AM [facility] DERMATOPATHOLOGY LABORATORY Pathology/Cytolog y TISSUE SPECIMEN FROM SKIN / Unknown 01/15/2020 01/18/2020 2:30 PM STEAM CONDITIONER OPERATOR Marquis Buck MD LAB - PATHOLOGY/CYTO LOGY ORDERABLES DERMATOPATHOLOGY LABORATORY [facility] - Department of Dermatology [address] [facility] 5th [address] [place], [place] [phone] [place] [address] documented in this encounter Visit Diagnoses Not on filedocumented in this encounter Care Teams Facilities Administrator Relationship Specialty Start Date End Date Mariangel Man MD [address] [place] [address] PCP - General 01/18/20 documented as of this encounter
== END 2025-01-13 12:07 | disposition home or self-care (01) ==
PROVIDERS: PCP Registered Nurse; Visit Provider Registered Nurse
DX: I77.810 Thoracic aortic ectasia (principal); R91.1 Solitary pulmonary nodule; K44.9 Diaphragmatic hernia without obstruction or gangrene
CPT/HCPCS: 71250

== ENCOUNTER 2025-01-29 16:16 | Emergency (ER) | payer MEDICARE, SELFPAY ==
--- NOTE | 2025-01-29 16:18 | ED.URI ---
HPI - URI/Sore Throat General Chief Complaint: Upper Respiratory Infection Stated Complaint: URI Time Seen by Provider: 01/29/25 16:17 Source: patient Mode of arrival: ambulatory Limitations: no limitations History of Present Illness HPI Narrative: Johnnie is an 89 year old male patient presenting to the clinic today with c/o sore throat, runny nose, hoarseness, and non productive cough x 2 days. He denies any fever, chills, shortness of breath, or chest pain. MD elicited complaint: cough, sore throat, rhinorrhea, nasal congestion and other (runny nose) Related Data Home Medications ?Medication ?Instructions ?Recorded ?Confirmed ?Last Taken ?Type finasteride 5 mg tablet 5 mg PO HS 10/01/22 07/30/24 04/20/23 19:30 History aspirin 81 mg tablet,delayed 81 mg PO HS 05/14/24 07/30/24 Unknown History release lisinopril 20 mg tablet 20 mg PO HS 05/14/24 07/30/24 Unknown History acarbose 25 mg tablet 25 mg PO TID 07/30/24 07/30/24 Unknown History atorvastatin 40 mg tablet 40 mg PO HS 07/30/24 07/30/24 Unknown History Allergies Allergy/AdvReac Type Severity Reaction Status Date / Time No Known Allergies Allergy Verified 01/29/25 16:30 Review of Systems Review of Systems: Pertinent positives per HPI. Patient denies any fever, chills, rash, headache, visual changes, dizziness, shortness of breath, chest pain, palpitations, nausea, vomiting, diarrhea, constipation, abdominal pain, or any urinary issues. [facility] Past Medical History Medical History (Updated 01/29/25 @ 17:02 by Beni Treadwell APRN) Diabetes mellitus Non-ST elevation DE (NSTEMI) Acute stroke due to ischemia Benign brain tumor Status post resection in 2010. He is on prophylactic anti seizure medications. Coronary artery disease Ischemic cardiomyopathy Hyperlipidemia Hypertension Coronary stent occlusion Surgical History Surgical History (Updated 07/30/24 @ 09:59 by Shayan Ponce MD) S/P CABG x 5 2022 History of craniotomy (2010) Benign tumor. History of coronary artery stent placement Family History Family History Father Acute myocardial infarction father of DE in his early 50s Social History Social History (Updated 07/30/24 @ 10:00 by Shayan Ponce MD) Social History: . No tobacco, drug or alcohol use. Lives alone. Surrogate medical decision maker: Katharina Renteria dtr Code status: Full code Smoking status: Never smoker Second hand tobacco smoke exposure: No Alcohol intake: former Substance use: never Substance use type: does not use Do You Feel Safe in your Home?: Yes Lack of Transportation: No Lack of Food: Never True Current Housing: I Have Housing Concerned About Future Housing: No Difficulty Paying Gas/Electric Bills: No Difficulty Paying for Meds: No Currently Unemployed: No Education: High School Diploma/GED Difficulty w/ Childcare or Family Care: No Living arrangements: with family Occupation/Education: retired Gender identity (if verbalized by the patient): Male Sexual Orientation (if Verbalized by the Patient): Straight or Heterosexual Spiritual care concerns: No Comments At the time of my signature, I reviewed and agree with the nursing past medical, surgical, social, and family history. There is no relevant family history pertinent to the patient complaint. Exam Narrative: General: Well-developed, well nourished, in no apparent distress Head: Normocephalic, atraumatic Eyes: Pupils equally round and reactive to light bilaterally, EOM intact, sclera and conjunctive clear, no discharge, lids normal Ears: TMs intact and clear, ear canals clear, no drainage, grossly hearing normal. Nose: Nares patent, no discharge, no inflammation, no sinus tenderness. Mouth: Oral pharynx without lesions or masses, good dentition, MMM. Neck: Supple, trachea midline, no enlargement of anterior or posterior cervical nodes, no thyroid masses or goiter palpable. Cardio: Regular rate and rhythm, s1 and s2 normal, no murmur appreciated. Resp: Clear to auscultation bilaterally, no rhonchi, rales, wheezing or rubs Course Course Emergency Course: Portions of this record may have been created with voice recognition software. Level of Care: Express Care Visit Vital Signs Vital signs: Vital Signs Temperature 36.8 C 01/29/25 16:26 Pulse Rate 63 01/29/25 16:26 Respiratory Rate 20 01/29/25 16:26 Blood Pressure 154/68 H 01/29/25 16:26 Pulse Oximetry 99 01/29/25 16:26 Oxygen Delivery Room Air 01/29/25 16:26 Temperature 36.8 C 01/29/25 16:26 Pulse Rate 63 01/29/25 16:26 Respiratory Rate 20 01/29/25 16:26 Blood Pressure 154/68 H 01/29/25 16:26 Pulse Oximetry 99 01/29/25 16:26 Oxygen Delivery Room Air 01/29/25 16:26 Vital signs reviewed MDM - URI/Sore Throat MDM Narrative Medical decision making narrative: At the time of visit patient is resting comfortably on the exam table. Patient appears to be nontoxic. Labs: COVID and influenza testing was performed and negative in the clinic today. Plan: I suspect patient has URI. Supportive measures were discussed with the patient and they voiced understanding discharge instructions and agrees to treatment plan. Return precautions reviewed Differential Diagnosis Differential diagnosis: Likely upper respiratory infection, otitis media, sinusitis, viral infection, bronchitis, influenza, pharyngitis and other (COVID) Lab Data Labs: Lab Results 01/29/25 Range/Units 16:50 POC Influenza A Ag Negative (Negative) POC Influenza B Ag Negative (Negative) POC SARS CoV-2 Ag Negative (Negative) Discharge Plan Discharge Clinical Impression: PND (post-nasal drip) URI (upper respiratory infection) Qualifiers: URI type: unspecified URI Qualified Code(s): J06.9 - Acute upper respiratory infection, unspecified Patient Disposition: Home, Self-Care Condition: Stable Instructions: Antibiotic Form, Cold Symptoms (ED), Postnasal Drip (DC) Additional Instructions: COVID, strep, and influenza testing was negative in the clinic today. We will send strep for culture. May take Coricidin HBP for cold/flu symptoms Increase fluids and stay well hydrated Tylenol/motrin for pain/fever Flonase and OTC antihistamines as directed Vicks vapor rub to open sinuses Sinus rinses for congestion Cepacol spray, cough drops, throat lozenges, warm tea with honey/lemon, gargle salt water to soothe throat BRAT diet for diarrhea Clear liquids x 24 hours then advance as tolerated for nausea/vomiting Go to the ED if you develop a worsening in your condition- high fever not controlled by Tylenol or Motrin, dehydration, weakness, lethargy, shortness of breath, or chest pain. Follow up with your PCP in 3-5 days if symptoms persist. Patient Language: Irish Prescriptions: No Action aspirin 81 mg tablet,delayed release (DR/EC) 81 mg PO HS lisinopril 20 mg tablet 20 mg PO HS levetiracetam 500 mg tablet 500 mg PO BID Qty: 180 1RF finasteride 5 mg Tablet 5 mg PO HS (DME) blood-glucose meter [ArachnoTouch Verio Flex meter] [facility] Qty: 1 0RF Rx Instructions: May substitute to in-stock meter and/or covered by insurance. Use As Directed (DME) OneTouch Verio test strips Strip Qty: 1 0RF Rx Instructions: May substitute to in-stock and/or covered by insurance strips. Use As Directed (DME) lancets [OneTouch Delica Plus Lancet] 30 gauge [facility] Qty: 1 0RF Rx Instructions: May substitute to in-stock and/or covered by insurance lancets. Use As Directed atorvastatin 40 mg tablet 40 mg PO HS acarbose 25 mg tablet 25 mg PO TID Eliquis 5 mg Tablet 5 mg PO Q12HR Qty: 60 2RF Jardiance 10 mg Tablet 10 mg PO DAILY Qty: 30 2RF metoprolol succinate [Toprol XL] 100 mg Tablet Extended Release 24 Hr 100 mg PO QAM Qty: 30 2RF metformin 500 mg tablet 250 mg PO BIDWMEAL Qty: 30 1RF spironolactone 25 mg tablet 12.5 mg PO DAILY Qty: 15 1RF Follow-up/Referrals: Sofia,SHALINI Teague [Primary Care Provider] - Time of Disposition: 16:59 Quality NIHSS Nursing Documentation ED NIHSS nursing documentation: reviewed/agree
[2025-01-29 16:26] VITALS: BP 154/68; PULSE 63; RESP 20; TEMP 36.8; O2SAT 99
[2025-01-29 16:52] LABS: EDCOVIDSCREEN Negative (Negative); EDINFLUASCREEN Negative (Negative); EDINFLUBSCREEN Negative (Negative)
== END 2025-01-29 17:09 | disposition home or self-care (01) ==
PROVIDERS: Emergency Provider Nurse Practitioner Family; PCP Registered Nurse
DX: R09.82 Postnasal drip (principal); J06.9 Acute upper respiratory infection, unspecified; Z20.822 Contact with and (suspected) exposure to COVID-19; E11.9 Type 2 diabetes mellitus without complications; Z79.84 Long term (current) use of oral hypoglycemic drugs; I25.2 Old myocardial infarction; I25.10 Atherosclerotic heart disease of native coronary artery without angina pectoris; I25.5 Ischemic cardiomyopathy; E78.5 Hyperlipidemia, unspecified; I10 Essential (primary) hypertension; Z95.5 Presence of coronary angioplasty implant and graft; Z86.73 Personal history of transient ischemic attack (TIA), and cerebral infarction without residual deficits; Z86.011 Personal history of benign neoplasm of the brain; Z79.82 Long term (current) use of aspirin
CPT/HCPCS: 87081; 87426; 87804; 99213; G0463

== ENCOUNTER 2025-04-14 07:58 | Outpatient (CLI) | payer MEDICARE, SELFPAY ==
--- NOTE | ~2025-04-14 | CT_ITS ---
Clinical Indication: Aortic root dilatation CT Scan of the Chest with Contrast: Technique: Contiguous sections were acquired throughout the chest after intravenous administration of 100 cc of Omnipaque 350. Dose reduction technique was used on this scan by utilizing automated expos ure control and iterative reconstruction technique. The dose-length product (DLP) was 369.95 mGy-cm. COMPARISON: 01/13/2025 Findings: There is no evidence of any significant mediastinal, hilar or axillary lymphadenopathy. There is no f illing defect in the pulmonary arterial tree to suggest pulmonary embolus. There is no evidence of ao rtic dissection or aneurysm. Probable mild cardiomegaly. There is no evidence of pleural or pericardial effusion. Stable right apical pulmonary nodule. Images through the upper abdomen reveal small layering gallstones. Impression: No evidence of pulmonary embolus, aortic dissection, or aortic aneurysm. Stable right apical pulmonary nodule. Reviewed, dictated and finalized at [facility]. Impression: No evidence of pulmonary embolus, aortic dissection, or aortic aneurysm. Stable right apical pulmonary nodule.
--- OUTSIDE RECORDS SUMMARY | 2025-04-14 08:06 | XMS_ITS | Encounter Summary ---
Author Organization [facility] Address [address] [place] [address] Care Team Providers Care Assistant Manager Of Operations Name Role Phone Mariangel Man MD Primary Care Provider [phone] Encounter Details Date Type Department Care Team (Late st Contact Info) Description 10/04/2023 Lab Requisition [facility] [address] [place] [id number] Marquis Buck MD [address] 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 Gender Identity Not on file Sexual Orientation Not on file documented as of this encounter Plan of Treatment Not on file documented as of this encounter Procedures Procedure Name Priority Date/Time Associated Diagnosis Comments DERMATOPATHOLOGY Routine 10/02/2023 12:0 0 AM MEDICAL OFFICE WORKER documented in this encounter Results * DERMATOPATHOLOGY (10/02/2023 12:00 AM MEDICAL OFFICE WORKER) Case Report Dermatopathology Report Case: [id number] Authorizing Provider: Marquis Buck MD Collected: 10/02/2023 12:00 AM Ordering Location: [facility]erm[facility] Lab Received: 10/04/2023 10:23 AM Pathologist: Amy Smith MD Specimen: Skin, left helix 3 2:51 PM MEDICAL OFFICE WORKER DERMATOPATHOLOGY LABORATORY Final Diagnosis Specimen A. 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 The specimen consists of a shave biopsy measuring 5x5x2 mm. Jar 0. 3 2:51 PM MEDICAL OFFICE WORKER DERMATOPATHOLOGY LABORATORY Microscopic Description Specimen A. SKIN, left helix: Within the dermis there are aggregates of basaloid cells with a high nuclear to cytoplasmic ratio and peripheral palisading. 3 2:51 PM MEDICAL OFFICE WORKER DERMATOPATHOLOGY LABORATORY Disclaimer An external and internal positive and negative controls are appropriate for the histochemical, immunohistochemical and immunofluorescence stain(s) in this case (if any), except where stated explicitly. The performance characteristics of the stain(s) cited in this report were developed and its performance characteristic determined by the Dermatopathology Laboratory at [facility], directed by Dr. Omer Mercedes. These tests need not be, and therefore are not, approved by the [place] Food and Drug Administration. The tests are used for clinical purposes. Billing Codes Specimen Charges Stain Charges 44933 1 3 2:51 PM MEDICAL OFFICE WORKER DERMATOPATHOLOGY LABORATORY Embedded Images 3 2:51 PM MEDICAL OFFICE WORKER DERMATOPATHOLOGY LABORATORY Pathology/Cytolog y TISSUE SPECIMEN FROM SKIN / Unknown 10/02/2023 10/04/2023 10:23 AM MEDICAL OFFICE WORKER us Marquis Buck MD LAB - PATHOLOGY/CYTOLOGY ORDER MIGUE Final Result DERMATOPATHOLOGY LABORATORY [facility] - Department of Dermatology [facility] [address] [place] [address], [address] [place] [address], [facility] [phone] documented in this encounter Visit Diagnoses Not on filedocumented in this encounter Care Teams Assistant Manager Of Operations Relationship Specialty Start Date End Date Mariangel Man MD [address] [place] [address] PCP - General 01/18/20 documented as of this encounter
--- OUTSIDE RECORDS SUMMARY | 2025-04-14 08:06 | XMS_ITS | Clinical Summary ---
Author Organization [facility] Address [address] [place] [address] Care Team Providers Care Senior Pharmacy Technician Name Role Phone Unavailable Primary Care Provider Unavailabl e Immunizations Immunization Administration Dates Next Due Covid-19 Vaccine, Vector-nr, Rs-ad26, Pf, 0.5 Ml ([employer]) 08/04/2021 Social History Tobacco Use Types Packs/Day [...]
--- OUTSIDE RECORDS SUMMARY | 2025-04-14 08:06 | XMS_ITS | Continuity of Care Document ---
Author Organization [facility] Address [address] [place] [address] [address] [place] [address] Phone Care Team Providers Care Transformation Manager Name Role Phone Beena FIGUEROA, Max Unavailable [...] Providers Copied on Encounter [facility], [address] [place] [address] [address], [place], [place], [id number], tel:[phone] [facility] No Information 6 Beena Santana. [address], [address], [place], [place], [id number], [place]. tel:[phone] Referring Provider: Max lorenz, [address], [place], [address] . tel:[phone] [facility], [address] [place] [address] [address], [place], [place], [id number], tel:[phone] [facility] [address] No Information 6 Beena Santana. [address], [address], [place], [place], [address], [place]. tel:[phone] Referring Provider: Max Nunez y, [address], [place], [address] . tel:[phone] [facility], [address] [place] [address], [place], [place], [id number], [place] tel:[phone] [facility] No Information 6 Nicky Lo. [address], [address], [place], [place], [address], [place]. tel:[phone] Referring Provider: Wally Saunders MD P, [address], [place], [address] . tel:[phone] [facility], [address] [place] [address], [place], [place], [id number], [place] tel:[phone] [facility] No Information 4 Nicky Lo. [address], [address], [place], [place], [address], [place]. tel:[phone] Referring Provider: Wally Saunders MD P, [address], [place], [address] . tel:[phone] [facility], [address] [place] [address], [place], [place], [id number], [place] tel:[phone] [facility] No Information 4 Nicky Lo. [address], [address], [place], [place], [address], [place]. tel:[phone] Referring Provider: Wally Saunders MD P, [address], [place], [address] . tel:[phone] OFFICE/OUTPA TIENT VISIT, NEW [facility], [address] [place] [address] [address], [place], [place], [address], [place] tel:[phone] [facility] No Information 4 Nicky Lo. [address], [address], [place], [place], [address], [place]. tel:[phone] Referring Provider: Wally Saunders MD P, [address], [place], [address] . tel:[phone] Family History Family Member Type Diagnosis Age At Onset No Information Payers Payer name Insurance type Covered constitution party ID Authorheather mcrae(s) [place] [id number] [facility] Insurance Co CI [id number] Social History Type Description Quantity Date [...]
--- OUTSIDE RECORDS SUMMARY | 2025-04-14 08:06 | XMS_ITS | Clinical Summary ---
Author Organization [facility] [address] Address [address] [place] [address] Care Team Providers Care Nurse Extern Name Role Phone Zahida Black Primary Care Provider + Allergies No known active allergies Medications finasteride (PROSCAR) 5 mg tablet take 1 tablet (5MG) by oral route every day 0 03/05/20 12 Active levETIRAcetam (KEPPRA) 500 mg tablet TAKE 1 TABLET(500 MG) BY MOUTH TWICE DAILY 180 tablet 2 02/11/20 20 Active Additional Information Patient taking differently: 500 mg oral 2 times daily, Reported on 04/08/2025 OneTouch Verio test strips strip as directed [...] total) by mouth daily 08/01/20 24 Active atorvastatin (LIPITOR) 40 mg tabletIndication s:Coronary artery disease involving choctaw coronary artery of choctaw heart without angina pectoris Take 1 tablet (40 mg total) by mouth nightly 90 tablet 3 08/07/20 24 025 Active Jardiance 10 mg tablet Take 1 tablet (10 mg total) by mouth daily 30 tablet 11 12/31/19 25 Active amiodarone (PACERONE) 200 mg tabletIndication s:Paroxysmal atrial flutter (HCC) Take 1 tablet (200 mg total) by mouth daily 90 tablet 2 02/16/20 25 Active metoprolol XL (TOPROL-XL) 50 mg extended release tablet Take 1 tablet by mouth once daily 90 tablet 3 03/12/20 25 Active metoprolol XL (TOPROL-XL) 100 mg 24 hr [...] 2 diabetes mellitus 07/17/2023 Paroxysmal atrial fibrillation 05/31/2023 Postoperative anemia 05/31/2023 S/P CABG (coronary artery bypass graft) 05/31/20 23 Atrial flutter 04/25/2023 Chronic anticoagulation 04/25/2023 History of CVA (cerebrovascular accident) 2022 Hyperlipidemia 09/13/2021 Ischemic cardiomyopathy 01/04/2021 H/O [address] elevation myocardial infarction 8 S/P coronary artery stent placement 04/22/2018 Pulmonary hypertension 10/01/2016 Overview (02/23/2017): Pulmonary HTN Coronary artery disease invo lving coronary bypass graft of choctaw heart without angina pectoris 01/31/2016 Overview (02/23/2017): Coronary artery disease involving choctaw coronary artery of choctaw heart without angina pectoris Primary hypertension 01/31/2016 Overview (02/23/2017): HTN (hypertension), benign Aortic root dilatation 01/31/2016 Overview (02/23/2017): Aortic root dilatation Meningioma 08/22/2011 Resolved Problems Problem Noted Date Diagnosed Date Resolved Date Acute heart failure with pre served ejection fraction 05/31/2023 04/08/2025 HFrEF (heart failure with re duced ejection fraction) 04/25/2023 10/01/2024 Presence of stent in coronary artery 01/31/2016 03/21/2022 Overview (02/23/2017): S/P coronary artery stent placement Dyslipidemia 01/31/2016 09/13/2021 Overview (02/23/2017): Mixed dyslipidemia Encounters Date Type Department Care Team Description 04/08/2025 9:30 AM CDT Office Visit [facility] Cardiology [address] [place] [address] Shatna Anderson MD Coronary artery disease involving coronary bypass graft of choctaw heart without angina pectoris (Primary Dx); Paroxysmal atrial fibrillation (HCC); Chronic anticoagulation; 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); Primary hypertension; Aortic root dilatation; S/P CABG (coronary artery bypass graft); Mixed hyperlipidemia 01/15/2025 Telephone [facility] Cardiology [address] [place] [address] Shanta Anderson MD from Last [...] than three times a week 05/27/2023 Attends [employer] Not on file 05/27 Active Member [...] on file Legal 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:58 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 Gender Identity Not on file Sexual Orientation Not on file Obstetrics History Last Filed Vital Signs Vital Sign Reading Time Taken Comments Blood Pressure 134/60 04/08/2025 9:06 AM CDT Pulse 50 04/08/2025 9:06 AM CDT Temperature 36.8 C (98.2 F) 07/24/2024 2:28 PM CDT Respiratory Rate 17 07/24/2024 2:41 PM CDT Oxygen Saturation 97% 04/08/2025 9:06 AM CDT Inhaled Oxygen Concentration - - Weight 76.7 kg (169 lb) 04/08/2025 9:06 AM CDT Height 165.1 cm (5' 5) 04/08/2025 9:06 AM CDT Body Mass Index 28.12 04/08/2025 9:06 AM CDT Plan of Treatment Health Maintenance Due Date [...] history exists Medical Devices Implanted Type Area Locum Tenens Psychiatrist Device Identifier Shelf Expiration Date Model / Serial / Lot Atricure Device Closure Atriclip Nitinol Titanium Polyester 45 D L45mm L6cm Flexible Shaft Plunger Sheet Sorter Left Atrial Appendage Exclusion System [id number] - [id number] Implanted:Qty: 1 on 05/24/2023 by Vaughn Li MD at [facility] N/A: Heart Atricure 01/16/2026 [id number] / [id number] / [id number] [employer] Device Vascular Closure Femoral Artery Bioabsorbable Dual Method Vascade 6-7fr Collagen [id number] - [id number] Implanted:Qty: 1 on 05/17/2023 by Martínez Larsen MD at [facility] 01/16/2025 [id number] / / [id number] Procedures Procedure Name Priority Date/Time Associated [...] N/A EXTERNAL LAB SCRIBED eGFR in NonAfrican Nepalese >60 > or = 60 EXTERNAL LAB Blood 09/03/2023 Joann Uriarte ZIPPER TRIMMER HAND LAB BLOOD ORDERABLES Alison l Result EXTERNAL [...] and children were not included. (Diabetes Care 31:7115-9865, 2008). The eAG is not equivalent to a fasting glucose. Blood 05/28/2023 3:31 AM CDT 05/28/2023 3:46 AM CDT Larissa Velazquez [employer]IP[employer] HAND LAB BLOOD ORDERABL ES Final Result Performing Organization Address City/[facility] Co de Phone Number [facility] [address] Department of Laboratories [place], [place] [id number] from Last 3 Months or Most Recently Relevant to Health Maintenance Insurance [facility] MEDICARE ADVANTAGE [employer] MEDICARE [facility]IC[facility] Address: [address] [place] [address] [facility] MEDICARE ADVANTAGE [facility] MEDICARE ADVANTAGE Advance Directives For more information, please contact: [phone] * Full Code (Latest Code Status on File) Date Activated Date Inactivated Comments 05/24/2023 2:18 PM 06/02/2023 8:07 PM Care Teams Nurse Extern Relationship Specialty Start Date End Date Zahida Black PA [address] [place] [address] PCP - General Nurse Practitioner 04/08/25
--- OUTSIDE RECORDS SUMMARY | 2025-04-14 08:06 | XMS_ITS | Data Portability ---
Author Organization [facility], Main Office Address [address] [place] [address] Care Team Providers Care Cement Truck Loader Name Role Phone LONDON PHILLIPS Primary Care Provider Assessment No assessment recorded. Plan of Treatment Reminders Order Date Submit Date Provider Last Modified By Organization Details Last Modified Time Details Appointments None recorded. Lab None recorded. Referral None recorded. Procedures cerumen removal (PROC) [phone] [email or web address] Not available 4 09:21:09 Surgeries None recorded. Imaging None recorded. Medication Orders None recorded. Patient TargetsNo targets recorded. Patient InstructionsNo instructions recorded. Reason for Referral None Reported. 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 Medical Equipment None Reported. Allergies No known drug allergies Medications Name Sig Start Date Stop Date Status Note LastModified by Organization Details LastModified Time atorvastati n 40 mg tablet TAKE 1 TABLET BY MOUTH ONCE DAILY active Not Available Not Available No t Available metformin 500 mg tablet TAKE 1/2 (ONE-HALF ) TABLET BY MOUTH TWICE DAILY WITH MEALS active Not Available Not Available No t Available azithromyci n 250 mg tablet 09/24 completed Not Available Not Available Not Available amiodarone 200 mg tablet TAKE 1 TABLET BY MOUTH TWICE DAILY FOR 7 DAYS, THEN TAKE 1 TABLET DAILY THEREAFTE R active Not Available Not Available No t Available metoprolol succinate ER 50 mg tablet,exte nded release 24 hr TAKE 1 TABLET BY MOUTH ONCE DAILY active Not Available Not Available No t Available levetiracet am 500 mg tablet TAKE 1 TABLET BY MOUTH TWICE DAILY active Not Available Not Available No t Available diltiazem CD 240 mg capsule,ext ended release 24 hr active Not Available Not Available Not Available lisinopril 20 mg tablet TAKE 1 TABLET BY MOUTH ONCE DAILY active Not Available Not Available No t Available isosorbide mononitrate ER 30 mg tablet,exte nded release 24 hr active Not Available Not Available Not Available metoprolol succinate ER 100 mg tablet,exte nded release 24 hr TAKE 1 TABLET BY MOUTH IN THE MORNING active Not Available Not Available No t Available tramadol 50 mg tablet active Not Available Not Available No t Available spironolact one 25 mg tablet TAKE 1/2 (ONE-HALF ) TABLET BY MOUTH ONCE DAILY active Not Available Not Available No t Available pantoprazol e 40 mg tablet,shira yed release active Not Available Not Available Not Available simvastatin 20 mg tablet active Not Available Not Available Not Available lisinopril 10 mg tablet active Not Available Not Available Not Available oxybutynin chloride ER 5 mg tablet,exte nded release 24 hr TAKE 1 TABLET BY MOUTH AT BEDTIME active Not Available Not Available No t Available lisinopril 5 mg tablet active Not Available Not Available Not Available metoprolol succinate ER 25 mg tablet,exte nded release 24 hr TAKE 1 TABLET BY MOUTH ONCE DAILY active Not Available Not Available No t Available levofloxaci n 500 mg tablet active Not Available Not Available Not Available lisinopril 40 mg tablet active Not Available Not Available Not Available finasteride 5 mg tablet TAKE 1 TABLET BY MOUTH AT BEDTIME active Not Available Not Available No t Available acarbose 25 mg tablet TAKE 1 TABLET BY MOUTH TWICE DAILY active Not Available Not Available No t Available Vesicare 5 mg tablet active Not Available Not Available No t Available Xarelto 10 mg tablet TAKE 1 TABLET BY MOUTH ONCE DAILY active Not Available Not Available No t Available Brilinta 90 mg tablet active Not Available Not Available No t Available OneTouch Verio test strips USE DIRECTED active Not Available Not Available No t Available Eliquis 5 mg tablet TAKE 1 TABLET BY MOUTH EVERY 12 HOURS active Not Available Not Available No t Available Invokana 100 mg tablet TAKE ONE TABLET BY MOUTH EVERY DAY AFTER A MEAL (REPLACES JARDIANCE ) active Not Available Not Available No t Available Jardiance 10 mg tablet TAKE 1 TABLET BY MOUTH ONCE DAILY active Not Available Not Available No t Available Brilinta 60 mg tablet active Not Available Not Available No t Available Vitals Date Recorded Body height Body mass index (BMI) Body weight Body temperature Provider Name and Address Organization Details Last Updated DateTime 09/24/2024 162.56 cm 28.7 kg/m2 05240.93 g 98 [degF] Rosa Puri RN [place] [facility] 09/24/2024 11:48:46 Social History None recorded. Functional Status Question Answer Note LastModified by Organization D etails LastModified Time What is your level of alcohol consumption? None [email or web address] Information not available 09/24/2024 Mental Status None recorded. Family History Relationship Description Onset Age of this Age Resolved Age Notes LastModified by Organization Details LastModified Time Father No current problems or disability [email or web address] Not available 09/24 11:47:25 Mother No current problems or disability [email or web address] Not available 09/24 11:47:25 Notes:NO ENT Medical History Condition Response HYPERTENSION Y Past Encounters Encounter ID Performer Location Encounter Start Date Encounter Closed Date Diagnosis/Indication Diagnosis SNOMED-CT Code Diagnosis ICD10 Code Diagnosis Note [id number] Osmany Clay MD [facility] [address] [place] [address] 09/24/2024 11:34:37 09/24/2024 12:11:38 Impacted cerumen of bilateral ears [id number] 902542 H61.23 bilateral cerumen impaction removed with cerumen lavage. Health Concerns Section Related Observation LastModified by Organization Detai ls LastModified Time None Recorded Concern Status LastModified by Organization Details LastModified Time None Recorded Advance Directives Directive None Recorded Payers Encounter Date Sequence Insurance Name Policy Number Policy Perez Covered Member ID Perez Member ID Guarantor Name 09/24/2024 1 [employer] - PRIME (MEDICARE REPLACEMENT/ ADVANTAGE - HMO) [id number] Johnnie Mack [id number] Johnnie Mack Notes Date Note Type Note Provider Name and Address Organization Details Recorded Time 09/24/2024 text/html This patient has a past medical history significant for hypertension. He presents to the office with a complaint of bilateral cerumen impaction. 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 He was told that he had cerumen impaction and advised to have this removed before hearing aids be placed. He denies any otalgia. Rosa Jordan, SEAT NAILER [address] [facility], [facility] [address], [place], [address], [place] [facility] 09/24/2024 12:10:44
--- OUTSIDE RECORDS SUMMARY | 2025-04-14 08:06 | XMS_ITS | Referral Summary ---
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 (Primary Dx); Paroxysmal atrial fibrillation (HCC); Chronic anticoagulation; 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); Primary hypertension; Aortic root dilatation; S/P CABG (coronary artery bypass graft); Mixed hyperlipidemia 01/15/2025 Telephone [facility] Medical [facility] [address] [facility] [address] [place] [address] Shanta Anderson MD from Last [...] 40 mg tabletIndication s:Coronary artery disease involving holy cross coronary artery of holy cross heart without angina pectoris Take 1 tablet [...] S/P CABG (coronary artery bypass graft) 05/31/20 Atrial flutter 04/25/2023 Chronic anticoagulation 04/25/2023 History of CVA (cerebrovascular accident) 2022 Hyperlipidemia 09/13/2021 Ischemic cardiomyopathy 01/04/2021 H/O ST elevation myocardial infarction 8 S/P coronary artery stent placement 04/22/2018 Pulmonary hypertension 10/01/2016 Overview (02/23/2017): Pulmonary HTN Coronary artery disease invo lving coronary bypass graft of holy cross heart without angina pectoris 01/31/2016 Overview (02/23/2017): Coronary artery disease involving holy cross coronary artery of holy cross heart without angina pectoris Primary hypertension 01/31/2016 [...] than three times a week 05/27/2023 Attends Buddhist Services Not on file 05/27 Active Member [...] place to sleep or slept in a jail (including now)? No 05/27/2023 Personal Safety Answer Date Recorded Have you ever been in or are you currently in a harmful physical or emotional relationship or is someone making you feel afraid or unsafe? 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 Gender Identity Not on file Sexual Orientation [...] 04/08/2025 9:06 AM CDT Plan of Treatment Not on file Medical Devices Implanted Type Area High Risk Case Manager Device Identifier Shelf Expiration Date Model / Serial / Lot Atricure Device Closure Atriclip Nitinol Titanium Polyester 45 D L45mm L6cm Flexible Shaft Plunger Appraiser Real Estate Left Atrial Appendage Exclusion System [id number] - [id number] - [id number] Implanted:Qty: 1 on 05/24/2023 by Vaughn Li MD at [facility] N/A: Heart Atricure 01/16/2026 [id number] / [id number] / [id number] Color Promos Device Vascular Closure Femoral Artery Bioabsorbable Dual Method Vascade 6-7fr Collagen [id number] - [id number] Implanted:Qty: 1 on 05/17/2023 by Martínez Larsen MD at [facility] [employer] 01/16/2025 [id number] / / [id number] Procedures Procedure Name Priority Date/Time Associated [...] lipid panel (02/14/2024 11:31 AM CDT) Pathologist [facility] Cholesterol, POC 103 mg/dL Comment:GLU = 174 [...] N/A EXTERNAL LAB SCRIBED eGFR in NonAfrican Jamaican >60 > or = 60 EXTERNAL LAB Blood 09/03/2023 Joann Uriarte HAND BINDER STRIPPER LAB BLOOD ORDERABLES Alison l Result EXTERNAL [...] and children were not included. (Diabetes Care 31:0452-0598, 2008). The eAG is not equivalent to a fasting glucose. Blood 05/28/2023 3:31 AM CDT 05/28/2023 3:46 AM CDT Larissa Velazquez NP LAB BLOOD ORDERABL ES Final Result ANTONY [address] [address] Department [place] [address] from Last 3 Months or Most Recently Relevant to Health Maintenance Insurance [facility] MEDICARE ADVANTAGE [facility] MEDIC[facility] Address: [address] [address] [place] [address] [employer] MEDICARE GOLD [facility] MEDICARE ADVANTAGE [facility] MEDICARE Address: [address] [address] [place] [address] [facility] MEDICARE ADVANTAGE [facility] MEDICARE Address: [facility] [address] [place] [address] Advance Directives For more information, please contact: [phone] * Full Code (Latest Code Status on File) Date Activated Date Inactivated Comments 05/24/2023 2:18 PM 06/02/2023 8:07 PM Care Teams A R Specialist Relationship Specialty Start Date End Date Zahida Black PA [address] [place] [address] PCP - General Nurse Practitioner 04/08/25
--- OUTSIDE RECORDS SUMMARY | 2025-04-14 08:06 | XMS_ITS | Encounter Summary ---
Author Organization [facility] Address [address] [facility] [address] [place] [address] Care Team Providers Care Residential Air Sealing Technician Name Role Phone Mariangel Man MD Primary Care Provider [phone] Mariangel Man MD Primary Care Provider [phone] Zahida Black Primary Care Provider + Encounter Details Date Type Department Care Team (Late st Contact Info) Description 08/25/2016 Orders Only [facility] Provider, MD Naya [address] [place] [address] Social History Tobacco Use Types Packs/Day Years Used Date Smoking Tobacco: Former Alcohol Use Standard Drinks/Week Comments No 0 (1 standard drink = 0.6 oz pur e alcohol) Sex and Gender Information Value Date Recorded Sex Assigned at Not on file 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 us Historical Provider MD [facility] CARDIAC SERVICES PROCE DURES Final Result * CARDIOLOGY REPORT (08/25/2016) Anatomical Region Laterality Modality Other Narrative 08/25/2016 Ordered by an unspecified provider. [facility] Provider MD CV CARDIAC SERVICES PROCE DURES Final Result * CARDIOLOGY REPORT (08/25/2016) Anatomical Region Laterality Modality Other Narrative 08/25/2016 Ordered by an unspecified provider. [facility] Provider MD CV CARDIAC SERVICES PROCE DURES Final Result [...] documented as of this encounter Care Teams Residential Air Sealing Technician Relationship Specialty Start Date End Date Mariangel Man MD [address] [place] [address] PCP - General 02/15/17 04/07/25 Mariangel Man MD [address] [place] [address] PCP - General 12/06/14 02/14/17 Zahida Black PA [address] [place] [address] PCP - General Nurse Practitioner 04/08/25 documented as of this encounter
--- OUTSIDE RECORDS SUMMARY | 2025-04-14 08:06 | XMS_ITS | Clinical Summary ---
Author Organization [facility] Address [address] [place] [address] Care Team Providers Care Skid Strapper Name Role Phone Mariangel Man MD Primary Care Provider [phone] [facility],non-owned Affiliates and Associated Physician Practices is amultiple site organization consisting of ambulatory clinics and hospital sitesin [place] and [place]. This disclosure is being madepursuant to the Care Everywhere program and may not contain all information available regarding this patient. 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 Gender Identity Not on file Sexual Orientation Not on file Plan of Treatment Health Maintenance Due Date Last Done Comments DTAP/TDAP/TD VACCINES (1 - Tdap) 1956 PNEUMOCOCCAL VACCINE 50+ (1 of 1 - PCV) 1987 ZOSTER VACCINE (1 of 2) 1987 Respiratory Syncytial Virus (RSV) Vaccine Pt: or over 60 yrs (1 - 1-dose 75+ series) 2012 COVID-19 VACCINE ( - 2023-2 5 season) 2024 DEPRESSION SCREENING 11/18/2024 MEDICARE AWV CALENDAR YEAR 2024 INFLUENZA VACCINE (Season Ended) 2025 HEPATITIS B VACCINE Aged Out No longe r eligible based on patient's age to complete this topic HIB VACCINE Aged Out No longer eligi ble based on patient's age to complete this topic HPV VACCINE Aged Out No longer eligi ble based on patient's age to complete this topic MENINGOCOCCAL (Group B) VACC INE SHARED DECISION-MAKING Aged Out No longer eligibl e based on patient's age to complete this topic MENINGOCOCCAL GROUPS A/C/Y/W VACCINE Aged Out No longer eligible b ased on patient's age to complete this topic Insurance [facility] MANAGED MEDICARE ADV [facility] MANAGED MEDICARE ADV Care Teams Skid Strapper Relationship Specialty Start Date End Date Mariangel Man MD [address] [place] [address] PCP - General 01/18/20
--- OUTSIDE RECORDS SUMMARY | 2025-04-14 08:06 | XMS_ITS | Encounter Summary ---
Author Organization [facility] Address [address] [place] [facility] [address] [place] [address] Care Team Providers Care Carpenter Repairer Name Role Phone Mariangel Man MD Primary Care Provider [phone] Mariangel Man MD Primary Care Provider [phone] Zahida Black Primary Care Provider + Encounter Details Date Type Department Care Team (Late st Contact Info) Description 01/15/2017 Orders Only [facility] ProviderNaya MD [address] [place] [address] Social History Tobacco Use Types Packs/Day Years Used Date Smoking Tobacco: Former Alcohol Use Standard Drinks/Week Comments No 0 (1 standard drink = 0.6 oz pur e alcohol) Sex and Gender Information Value Date Recorded Sex Assigned at Not on file 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
--- OUTSIDE RECORDS SUMMARY | 2025-04-14 08:06 | XMS_ITS | Encounter Summary ---
Author Organization [facility] Address [address] [facility] [place] [address] Care Team Providers Care Marble Coper Name Role Phone Mariangel Man MD Primary Care Provider [phone] Encounter Details Date Type Department Care Team (Late st Contact Info) Description 01/18/2020 Lab Requisition [facility] DermPath Lab [address] [place] [address] Marquis Buck MD [address] [place] [address] Social History Tobacco Use Types Packs/Day Years Used Date Smoking Tobacco: Never Assessed Sex and Gender Information Value Date Recorded Sex Assigned at Not on file Legal Sex Male 6:21 AM ATMOSPHERIC PHYSICIST Gender Identity Not on file Sexual Orientation Not on file documented as of this encounter Plan of Treatment Not on file documented as of this encounter Procedures Procedure Name Priority Date/Time Associated Diagnosis Comments DERMATOPATHOLOGY Routine 01/15/2020 12:0 0 AM ATMOSPHERIC PHYSICIST documented in this encounter Results * DERMATOPATHOLOGY (01/15/2020 12:00 AM ATMOSPHERIC PHYSICIST) Case Report Dermatopathology Report Case: [id number] Authorizing Provider: Marquis Buck MD Collected: 01/15/2020 12:00 AM Ordering Location: [facility] DermPath Lab Received: 01/18/2020 02:30 PM Pathologist: Devora Mercedes MD Specimen: Skin, right shoulder 0 11:21 AM ATMOSPHERIC PHYSICIST DERMATOPATHOLOGY LABORATORY Final Diagnosis Specimen A. SKIN, right shoulder: BASAL CELL CARCINOMA, PIGMENTED (C44.612) 0 11:21 AM ATMOSPHERIC PHYSICIST DERMATOPATHOLOGY LABORATORY at 1121 ATMOSPHERIC PHYSICIST Clinical History BCCA vs MM. Path # [id number] 0 11:21 AM [facility] DERMATOPATHOLOGY LABORATORY Gross Description Specimen A: Received is one formalin filled container labeled with the patient's name and designated right shoulder. The specimen consists of a shave biopsy measuring 5o9h7bl. Jar 0. 0 11:21 AM [facility] DERMATOPATHOLOGY LABORATORY Microscopic Description Specimen A. SKIN, right shoulder: There are aggregates of basaloid cells with a high nuclear to cytoplasmic ratio and peripheral palisading. There is abundant melanin. 0 11:21 AM [facility] DERMATOPATHOLOGY LABORATORY Disclaimer An external and internal positive and negative controls are appropriate for the histochemical, immunohistochemical and immunofluorescence stain(s) in this case (if any), except where stated explicitly. The performance characteristics of the stain(s) cited in this report were developed and its performance characteristic determined by the Dermatopathology Laboratory at [facility], directed by Dr. Omer Mercedes. These tests need not be, and therefore are not, approved by the [place] Food and Drug Administration. The tests are used for clinical purposes. Billing Codes Specimen Charges Stain Charges 40486 1 0 11:21 AM [facility] DERMATOPATHOLOGY LABORATORY Embedded Images 0 11:21 AM [facility] DERMATOPATHOLOGY LABORATORY Pathology/Cytolog y TISSUE SPECIMEN FROM SKIN / Unknown 01/15/2020 01/18/2020 2:30 PM ATMOSPHERIC PHYSICIST us Marquis Buck MD LAB - PATHOLOGY/CYTOLOGY ORDER MIGUE Final Result DERMATOPATHOLOGY LABORATORY [facility] - Department of Dermatology [address] [facility] [place] [address], [facility] [phone] documented in this encounter Visit Diagnoses Not on filedocumented in this encounter Care Teams Marble Coper Relationship Specialty Start Date End Date Mariangel Man MD [address] [place] [address] PCP - General 01/18/20 documented as of this encounter
--- OUTSIDE RECORDS SUMMARY | 2025-04-14 08:06 | XMS_ITS | Encounter Summary ---
Author Organization [facility] Address [address] [facility] [place] [address] Care Team Providers Care Housing Liaison Name Role Phone Mariangel Man MD Primary Care Provider [phone] Encounter Details Date Type Department Care Team (Late st Contact Info) Description 03/29/[address] 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 DermPath Lab Received: 03/29/2023 06:53 AM Pathologist: Amy Smith MD Specimen: Skin, left cheek 3 4:12 PM CDT DERMATOPATHOLOGY LABORATORY Final Diagnosis Specimen A. SKIN, left cheek: ACTINIC KERATOSIS (L57.0) 3 4:12 PM CDT DERMATOPATHOLOGY LABORATORY at 1612 CDT Clinical History AK vs. SCC. Path# [id number] 3 4:12 PM CDT DERMATOPATHOLOGY LABORATORY Gross Description Specimen A: Received is one formalin filled container labeled with the patient's name and designated left cheek. The specimen consists of a shave biopsy measuring [id number]. Jar 0. 3 4:12 PM CDT DERMATOPATHOLOGY [...] characteristic determined by the Dermatopathology Laboratory at [facility], directed by Dr. Omer Mercedes. These tests need not be, and therefore are not, approved by the [place] Food and Drug Administration. The tests are used for clinical purposes. Billing Codes Specimen Charges Stain Charges 85267 1 3 4:12 PM CDT DERMATOPATHOLOGY LABORATORY Embedded Images 3 4:12 PM CDT DERMATOPATHOLOGY LABORATORY Pathology/Cytolog y TISSUE SPECIMEN FROM SKIN / Unknown 03/28/2023 03/29/2023 6:53 AM CDT us Marquis Buck MD LAB - PATHOLOGY/CYTOLOGY ORDER MIGUE Final Result DERMATOPATHOLOGY LABORATORY [facility] - Department of Dermatology [facility] Medicine [address] [place] [address], [address] [place] [address], [facility] [phone] documented in this encounter Visit Diagnoses Not on filedocumented in this encounter Care Teams Housing Liaison Relationship Specialty Start Date End Date Mariangel Man MD [address] [place] [address] PCP - General 01/18/20 documented as of this encounter
--- OUTSIDE RECORDS SUMMARY | 2025-04-14 08:06 | XMS_ITS | Encounter Summary ---
Author Organization [facility] Address [address] [place] [address] Care Team Providers Care Pheresis Specialist Name Role Phone Mariangel Man MD Primary Care Provider [phone] Encounter Details Date Type Department Care Team (Late st Contact Info) Description 09/20/2021 Lab Requisition [facility] DermPath Lab [address] [place] [address] Marquis Buck MD 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 Gender Identity Not on file Sexual Orientation Not on file documented as of this encounter Plan of Treatment Not on file documented as of this encounter Procedures Procedure Name Priority Date/Time Associated Diagnosis Comments DERMATOPATHOLOGY Routine 09/19/2021 3:33 AM CDT documented in this encounter Results * DERMATOPATHOLOGY (09/19/2021 3:33 AM CDT) Case Report Dermatopathology Report Case: [id number] Authorizing Provider: Marquis Buck MD Collected: 09/19/2021 03:33 AM Ordering Location: [facility] DermPath Lab Received: 09/20/2021 06:05 AM Pathologist: Devora Mercedes MD Specimen: Skin, scalp 1:53 PM CDT DERMATOPATHOLOGY LABORATORY Final Diagnosis Specimen A. SKIN, scalp: BASAL CELL CARCINOMA, PIGMENTED (C44.41) 1:53 PM CDT DERMATOPATHOLOGY LABORATORY at 1352 CDT Clinical History SK vs BCC vs MM. Path# [id number] 1 1:53 PM CDT DERMATOPATHOLOGY LABORATORY Gross Description Specimen A: Received is one formalin filled container labeled with the patient's name and designated scalp. The specimen consists of a shave biopsy measuring [id number]. Jar 0. 1 1:53 PM CDT DERMATOPATHOLOGY LABORATORY Microscopic Description Specimen A. SKIN, scalp: There are aggregates of basaloid cells with a high nuclear to cytoplasmic ratio and peripheral palisading. There is abundant melanin. 1 1:53 PM CDT DERMATOPATHOLOGY LABORATORY Disclaimer An external and internal positive and negative controls are appropriate for the histochemical, immunohistochemical and immunofluorescence stain(s) in this case (if any), except where stated explicitly. The performance characteristics of the stain(s) cited in this report were developed and its performance characteristic determined by the Dermatopathology Laboratory at [facility], directed by Dr. Omer Mercedes. These tests need not be, and therefore are not, approved by the [place] Food and Drug Administration. The tests are used for clinical purposes. Billing Codes Specimen Charges Stain Charges [id number] 1 1 1:53 PM CDT DERMATOPATHOLOGY LABORATORY Embedded Images 1 1:53 PM CDT DERMATOPATHOLOGY LABORATORY Pathology/Cytolo gy TISSUE SPECIMEN FROM SKIN / Unknown 09/19/2021 3:33 AM CDT 09/20/2021 6:05 AM CDT us Marquis Buck MD LAB - PATHOLOGY/CYTOLOGY ORDER MIGUE Final Result DERMATOPATHOLOGY LABORATORY [facility] - Department of Dermatology [facility] Medicine [address] [place] [address], [address] [place] [address], [facility] [phone] documented in this encounter Visit Diagnoses Not on filedocumented in this encounter Care Teams Pheresis Specialist Relationship Specialty Start Date End Date Mariangel Man MD [address] [place] [address] PCP - General 01/18/20 documented as of this encounter
--- OUTSIDE RECORDS SUMMARY | 2025-04-14 08:06 | XMS_ITS | Data Portability ---
Author Organization [facility] Address [address] [place] [address] Care Team Providers Care Film Recordist Name Role Phone SIVA GANN Flooring Sales Manager HERMILO MCNAIR Urologist Assessment No assessment recorded. Plan of Treatment Reminders Order Date Submit Date Provider Last Modified By Organization Details Last Modified Time Details Appointments None recorded. Lab HbA1c (hemoglobin A1c), blood 2022 023 [facility] In-Office Order, Internal Use Only DO Not Attach Compendium DO Not Attach Compendium, Do Not Delete/merge, [id number] 14:49:43 HbA1c (hemoglobin A1c), blood 2022 023 [facility] In-Office Order, Internal Use Only DO Not Attach Compendium DO Not Attach Compendium, Do Not Delete/merge, [id number] 12:00:52 Referral None recorded. Procedures None recorded. Surgeries None recorded. Imaging None recorded. Medication Orders Invokana 100 mg tablet 2023 024 [facility], [address] [place] [address], [id number], 4 10:26:48 Xarelto 10 mg tablet 2022 023 [facility], [address] [place] [address], [id number], 4 16:28:58 Invokana 100 mg tablet 2022 023 [facility] [address] [place], [address], 3 12:25:15 Invokana 100 mg tablet 2022 023 [facility], [address] [place] [address], [id number], 4 11:52:50 Eliquis 5 mg tablet 2022 023 [facility], [address] [place] [address], [id number], 3 19:09:40 hydroxyzine HCl 10 mg tablet 2022 023 [facility] [address] [place], [address], 3 17:59:06 Patient TargetsNo targets recorded. Patient Instructions Encounter Date Encounter Id Patient Instructions Last Modified By Organization Details Last Modified Time 05/22/2023 [id number] learning about high blood pressure [facility] Not available 05/22/2023 17:58:59 08/20/2023 [id number] influenza (flu) vaccine: care instructions [facility] Not available 08/20/2023 14:49:43 epilepsy: care instructions [facility] Not available 08/20/2023 14:49:43 learning about type 2 diabetes [facility] Not available 08/20/2023 13:05:52 type 2 diabetes: care instructions [facility] Not available 08/20/2023 13:05:52 10/08/2023 [id number] learning about type 2 diabetes [facility] Not available 10/08/2023 11:11:06 type 2 diabetes: care instructions [facility] Not available 10/08/2023 11:11:06 12/31/2023 [id number] learning about type 2 diabetes [facility] Not available 12/31/2023 18:53:24 type 2 diabetes: care instructions [facility] Not available 12/31/2023 18:53:24 high cholesterol : care instructions [facility] Not available 12/31/2023 18:53:24 benign prostatic hyperplasia: care instructions [facility] Not available 12/31/2023 18:53:24 Reason for Referral None Reported. Results Created Date Observation Date Name Description Value Unit Range Abnormal Flag Note LastModifiedBy Organization Detail LastModifiedTime 06/19/2006/19/2023 HbA1c (hemo globi n A1c), blood HbA1c 6.0% Not Available In-Office Order Internal Use Only DO Not Attach Compendium DO Not Attach Compendium, Do Not Delete/merge, [id number] 06/19/2023 17:06:34 08/20/2008/20/2023 HbA1c (hemo globi n A1c), blood HbA1c 6.0% Not Available In-Office Order Internal Use Only DO Not Attach Compendium DO Not Attach Compendium, Do Not Delete/merge, [id number] 08/20/2023 14:47:14 04/22/2004/22/2023 XR, chest No observ ation record ed. [email or web address], [place], [address], 05/07/2023 15:12:15 Result Notes None recorded. Problems Name Problem SNOMED Code Status Onset Date Resolution Date Notes Provider Name and Address Organization Details Recorded Time Hypertensive disorder 54072157 Active Mariangel Man MD Attn: Makayla brooks,[address] [facility], [place], [address], [facility] 6 12:19:55 Benign prostatic hyperplasia 567592870 Active Mariangel Man MD Attn: Makayla brooks,[address] [facility], [place], [address], [facility] 6 12:19:55 Seizure [id number] Kai Man MD Attn: Makayla brooks,[address] [facility], [place], [address], [facility] 6 12:19:55 Hyperlipidemia 74198576 Kai Man MD Attn: Makayla brooks,[address] [facility], [place], [address], [facility] 6 12:19:55 Acid reflux 576826106 Active Mariangel Man MD Attn: Makayla brooks,[address] [facility], [place], [address], [facility] 6 12:19:55 Acute bronchitis 59409748 Active Mariangel Man MD Attn: Makayla brooks,[address] [facility], [place], [address], [facility] 6 12:19:55 Kidney stone 46858383 Active Mariangel Man MD Attn: Makayla brooks,[address] [facility], [place], [address], [facility] 6 12:19:55 Problem Notes None recorded. Medical Equipment None [...] Updated DateTime 4 163.83 cm 29.1 kg/m2 03359.8 9 g 68 /min 98 % 98 % 128 mm[Hg] 68 mm[Hg] Liv Escobar [place] - [facility] 4 11:48:14 Date Recorded Body height Body mass index (BMI) Body weight Heart rate Oxygen saturation Oxygen saturation in Arterial blood by Pulse oximetry Systolic blood pressure Diastolic blood pressure Provider Name and Address Organization Details Last Updated DateTime 3 163.83 cm 28.6 kg/m2 08099.5 5 g 57 /min 95 % 95 % 142 mm[Hg] 72 mm[Hg] Cherri Jolley [place] - [facility] 3 17:30:29 Date Recorded Body height Body mass index (BMI) Body weight Heart rate Oxygen saturation Oxygen saturation in Arterial blood by Pulse oximetry Systolic blood pressure Diastolic blood pressure Provider Name and Address Organization Details Last Updated DateTime 3 163.83 cm 27.4 kg/m2 81004.4 g 76 /min 99 % 99 % 123 mm[Hg] 72 mm[Hg] Cherri Jolley MA [facility] 3 11:36:08 Date Recorded Body height Body mass index (BMI) Body weight Heart rate Oxygen saturation Oxygen saturation in Arterial blood by Pulse oximetry Systolic blood pressure Diastolic blood pressure Provider Name and Address Organization Details Last Updated DateTime 3 163.83 cm 27.9 kg/m2 37323.7 4 g 67 /min 99 % 99 % 128 mm[Hg] 60 mm[Hg] Liv Escobar MA [facility] 3 12:22:07 Date Recorded Body height Body mass index (BMI) Body weight Heart rate Oxygen saturation Oxygen saturation in Arterial blood by Pulse oximetry Systolic blood pressure Diastolic blood pressure Provider Name and Address Organization Details Last Updated DateTime 3 163.83 cm 28.7 kg/m2 37193.7 g 63 /min 96 % 96 % 148 mm[Hg] 80 mm[Hg] Liv Escobar MA [facility] SI 3 10:28:11 Social History Question Answer Notes LastModified by Organizat ion Details LastModified Time Tobacco Smoking Status Never Smoker Abigail Reyes MA [facility] 05/23/2018 13:21:27 Do You Have An Advance Directive? Yes Information not available 03/15/2021 What Is Your Level Of Caffeine Consumption? [...] Your Home? Yes Information not available 03/15/2021 Sex: Unknown Functional Status Question Answer Note LastModified by Organization D etails LastModified Time What is your level of alcohol consumption? None [email or web address] Information not available 01/30/2016 Mental Status Question Answer Note LastModified by Organization D etails LastModified Time Do you feel stressed (tense, restless, nervous, or anxious, or unable to sleep at night)? [id number] Information not available 08/20/2023 Family History Nothing Reported. Medical History No medical history recorded. Immunizations Vaccine Type Date Status Note Provider Nam e and Address Organization Details Recorded Time COVID-19 vaccine, vector-nr, rS-Ad26, PF, 0.5 mL 1 completed Cherri Jol[place], [place] [facility] 05/22/2023 17:24:51 Influenza, split virus, quadrivalent, PF 1 completed Cherri Jol[place], [place] [facility] 05/22/2023 17:24:51 Influenza, split virus, quadrivalent, PF 6 completed Cherri Jol[place] [facility] 05/22/2023 17:24:51 Influenza, split virus, quadrivalent, preservative 1 completed Osmany Barton [place], [place] [facility] 11/06/2021 11:35:16 Influenza, split virus, quadrivalent, preservative 2 completed Cherri Jol[place], [place] [facility] 09/27/2022 10:30:13 Influenza, high-dose, quadrivalent, PF 3 completed Liv Escobar [place], [place] [facility] 08/22/2023 09:24:53 Past Encounters Encounter ID Performer Location Encounter Start Date Encounter Closed Date Diagnosis/Indication Diagnosis SNOMED-CT Code Diagnosis ICD10 Code Diagnosis Note [id number] MD Allie Aragon (Adult Med) [address] [place] [phone] 01/30/2016 11:51:52 01/30/2016 15:29:57 Hypertensive disorder 56584851 I10 Benign pro static hyperplasia 817940804 D29.1 Seizure 59027273 R56.9 Hyperlipidemia 09737716 E78.5 Acid reflux 984174631 K2 1.9 [id number] MD Allie Aragon (Adult Med) [address] [place] [address] 07/20/2016 11:54:40 07/20/2016 17:47:25 Acute bronchitis 39150295 J20.9 Kidney stone 73150184 N2 0.0 Benign pro static hyperplasia 446067364 D29.1 Acid reflux 983464639 K2 1.9 Hyperlipidemia 64093317 E78.5 Hypertensive disorder 38 414210 I10 Seizure 88997402 R56.9 [id number] Mariangel Man MD [facility] (Adult Med) [address] [place] [address] 09/07/2016 12:17:45 09/07/2016 14:26:13 Coronary arteriosclerosis in elem artery 4533021808 107 I25.10 Anxiety 99694197 F41.9 [id number] Mariangel Man MD Allie (Adult Med) [address] [place] [address] 01/04/2017 11:45:19 01/04/2017 12:57:20 Benign prostatic hyperplasia 553929977 D29.1 Hypertensive disorder 38 250664 I10 Hyperlipidemia 29626140 E78.5 Acid reflux 815222413 K2 1.9 Seizure 66372268 R56.9 Coronary atherosclerosis 394049194 I25.83 [id number] Mariangel Man MD [facility] (Adult Med) [address] [place] [address] 0 05/23/2018 12:11:28 05/23/2018 14:25:35 Skin lesion 95943084 L98.9 Benign pro static hyperplasia 516959928 D29.1 [id number] Mariangel Man MD [facility] (Adult Med) [address] [place] [address] 0 09/04/2018 16:54:33 09/05/2018 11:36:30 Non-cardiac chest pain 987063637 R07.89 Resolved. Coronary atherosclerosis 562505450 I25.83 With stens, stable, under the care of his cardiologi st. History of calculus of kidney 543038844 Z87.442 resolved. [id number] MD Allie Aragon (Adult Med) [address] [place] [id number] 0 01/05/2019 16:49:10 01/06/2019 09:10:08 Acid reflux 166148874 K21.9 Essential hypertension 82965718 I10 Coronary atherosclerosis 482068858 I25.83 With stens, stable, under the care of his cardiologi st. Dr. Alok Gann as he requested. [id number] MD Allie Aragon (Adult Med) [address] [place] [phone] 06/16/2019 15:14:20 06/17/2019 08:50:32 Osteoarthritis of knee 159152560 M17.11 Discussed with patient, will refer to orthopedic to be evaluated. Atrophic c ondition of skin 676863160 L90.9 [id number] MD Allie Aragon (Adult Med) [address] [place] [address] 0 10/28/2019 12:17:07 10/28/2019 13:37:17 Impacted cerumen of bilateral ears 5712730221 283128 H61.23 He agreed to buy device fr OTC to try to clean the wax,. Benign par oxysmal positional vertigo nystagmus 571344146 H81.10 Discussed with patient , willing to try meclizine. Coronary atherosclerosis 462738282 I25.83 With stens, stable, under the care of his cardiologi st. Dr. Alok Gann as he requested. Benign pro static hyperplasia 545673697 D29.1 Wanting urology referral. [id number] MD Allie Aragon (Adult Med) [address] [place] [address]114[address] 0 01/01/2020 12:11:49 01/04/2020 09:49:49 Skin lesion 63420041 L98.9 He prefers to go to DR. Cielo martinezatology . Benign pro static hyperplasia 434611334 D29.1 Wanting urology referral. [id number] MD Allie Aragon (Adult Med) [address] [place] [address]48[address] 0 01/20/2020 11:58:11 01/20/2020 15:28:57 Benign paroxysmal positional vertigo nystagmus 158020946 H81.10 Discussed with patient , willing to try meclizine. Impacted c erumen in right ear 7437671535 351338 H61.21 [id number] Mariangel Man MD [facility] (Adult Med) [address] [place] [id number] 0 04/27/2020 08:16:20 04/28/2020 08:41:27 Benign prostatic hyperplasia 294101357 D29.1 Wanting urology referral. [id number] Mariangel Man MD [facility] (Adult Med) [address] [place] [id number] 0 11/24/2020 11:38:24 11/25/2020 11:57:51 Essential hypertension 35397361 I10 Episodic hypertensi on recently, due to OTC nasal spray, it returned to normal reading after D/C nasal spray. Acid reflux 019747699 K2 1.9 Stable. Benign pro static hyperplasia 658871503 D29.1 Wanting urology referral. Hyperlipidemia 58617425 E78.5 Low saturated and low animal fat diet. Seizure 43318207 R56.9 Stable, controlled , on levetirace arroyo. [id number] Mariangel Man MD [facility] (Adult Med) [address] [place] [address] 03/15/2021 07:58:42 03/16/2021 09:37:54 Acid reflux 085796795 K21.9 Stable. Benign pro static hyperplasia 267280055 D29.1 Wanting urology referral. Under the care of his urologist. Hyperlipidemia 75113934 E78.5 Low saturated and low animal fat diet. Hypertensive disorder 38 349713 I10 Low salt diet, avoid NSAID, or OTC decongesta nt. Coronary arteriosclerosis 95452082 I25.118 insurance referral , under the care of his cardiologi st. Seizure disorder 4071399 02 G40.909 Stable, controlled . [id number] MD Allie Aragon (Adult Med) [address] [place] [address]195[address] 0 05/03/2021 11:51:37 05/05/2021 21:59:46 Cellulitis of eyelid 939828774 H00.039 Pupil reactive right, cornea is clean, no visual disturbanc e. but selling nd redness of right eye lower lid with tiny pin ple at corner , nasal side. Acid reflux 299139287 K2 1.9 Stable. [id number] MD Allie Aragon (Adult Med) [address] [place] [phone] 0 07/06/2021 15:52:08 07/13/2021 09:31:01 Low back pain 358356778 M54.5 Discussed with patient, he agreed to take x ray. Ambulating without assistance , some stiffness in turning , steady tip-toe and heel gaits, in supine SLRT is negative on both side. able to squatting down and bend over. Benign pro static hyperplasia 620177039 D29.1 Wanting urology referral. Under the care of his urologist. Hyperlipidemia 17791320 E78.5 Low saturated and low animal fat diet. Hypertensive disorder 38 441922 I10 Low salt diet, avoid NSAID, or OTC decongesta nt. Well controlled , BP reading today in this office is 130/80 mm Hg. [id number] MD Allie Aragon (Adult Med) [address] [place] [address]29[address] 0 11/06/2021 10:03:05 11/07/2021 08:19:30 Respiratory tract infection 485235479 J98.8 Exposure t o SARS-CoV-2 953044970 Z20.822 Had exposed to some one with positive covid in the social garing Administra tion of influenza vaccine 10781912 Z23 [id number] MD Allie Aragon (Adult Med) [address] [place] [address] 51250[address]436 0 11/27/2021 16:42:43 11/28/2021 11:29:27 Cellulitis 356421961 L03.90 Getting better, right face. [id number] MD Allie Aragon (Adult Med) [address] [place] [address] [phone] 0 03/30/2022 15:41:32 04/03/2022 07:40:21 Acute respiratory infections 669905069 J22 [id number] MD Allie Aragon (Adult Med) [address] [place] [address] 21069[address] 0 06/27/2022 14:23:30 06/28/2022 11:20:27 Benign prostatic hyperplasia 580976492 D29.1 Wanting urology referral. Under the care of his urologist. On finasterid e. Hyperlipidemia 48480826 E78.5 Low saturated and low animal fat diet. Kidney stone 80316738 N2 0.0 No abdomen pain, recently just being checked by his urologist . Hypertensive disorder 38 266466 I10 Low salt diet, avoid NSAID, or OTC decongesta nt. Well controlled , BP reading today in this office is 130/80 mm Hg.As 06-27-2022 , blood pressure is 148/80 . On lisinopril and metoprolol succinate. Seizure disorder 6074179 02 G40.909 Stable, controlled . on levetirace arroyo. [id number] MD Allie Aragon (Adult Med) [address] [place] [address] 48832[address] 0 09/27/2022 10:16:56 09/28/2022 13:11:20 Administration of influenza vaccine 45096549 Z23 [id number] MD Allie Aragon (Adult Med) [address] [place] [address] 06705-813 0 11/07/2022 10:28:18 11/13/2022 12:39:32 Overweight 569225339 E66.3 BMI is 30.4 , he has been advised to watch his diet, exercise and keep the weight down. Benign pro static hyperplasia 356337714 D29.1 Wanting urology referral. Under the care of his urologist. On finasterid e. Hyperlipidemia 71863376 E78.5 Low saturated and low animal fat diet. Hypertensive disorder 38 290159 I10 Low salt diet, avoid NSAID, or OTC decongesta nt. Well controlled , BP reading today in this office is 130/80 mm Hg.As 06-27-2022 , blood pressure is 148/80 . On lisinopril and metoprolol succinate. , As 11-07-2022 . his BP is 146/80. will continue med. Seizure 50924762 R56.9 Stable, controlled , on levetirace arroyo. Coronary atherosclerosis 921973235 I25.83 With stents, stable, under the care of his cardiologi st. Dr. Alok Gann as he requested. [id number] MD Allie Aragon (Adult Med) [address] [place] [address] 16343[address] 0 01/04/2023 11:28:42 01/07/2023 16:56:32 Acid reflux 624175000 K21.9 Stable.n omeprazole Hyperlipidemia 25073163 E78.5 Low saturated and low animal fat diet. On simvastati n. Seizure 54683235 R56.9 Stable, controlled , on levetirace arroyo. Hypertensive disorder 38 610382 I10 Low salt diet, avoid NSAID, or OTC decongesta nt. Well controlled , BP reading today in this office is 130/80 mm Hg.As 06-27-2022 , blood pressure is 148/80 . On lisinopril and metoprolol succinate. , As 11-07-2022 . his BP is 146/80. will continue med. As 01/04/23. BP is 142/88. On amlodipine and lisinopril and metoprolol . Benign pro static hyperplasia 289455263 D29.1 Wanting urology referral. Under the care of his urologist. On finasterid e. and oxybutynin . Coronary atherosclerosis 281787072 I25.83 With stents, stable, under the care of his cardiologi st. Dr. Alok Gann as he requested. On aspirin. clopidogre l and nitrostat and metoprolol . [id number] MD Allie Aragon (Adult Med) [address] [place] [address] 21653-324 0 05/22/2023 17:22:54 05/23/2023 12:37:59 Coronary arteriosclerosis 87838847 I25.118 insurance referral , under the care of his cardiologi st. Anxiety 64708241 F41.9 Wants some nerves pill to calm him down. Essential hypertension 54446624 I10 Episodic hypertensi on recently, due to OTC nasal spray, it returned to normal reading after D/C nasal spray. As 05-22-23, BP is 142/72. [id number] MD Allie Aragon (Adult Med) [address] [place] [address] 84014-892 0 06/18/2023 11:16:28 06/24/2023 14:56:18 Hypertensive disorder 06475234 I10 Low salt diet, avoid NSAID, or [...] . History of coronary artery bypass grafting 150799461 Z95.1 Under the care of his cardiologi st and cardiac surgeion. Prediabetes 924722616 R7 3.03 A1c is elevated, but not high enough for sugar diabetic yet. advised to watch his diet, exercise and keep the weight down. [id number] MD Allie Aragon (Adult Med) [address] [place] [address] 27859[address]669 0 08/20/2023 12:08:59 08/23/2023 11:33:44 Type 2 diabetes mellitus 54201271 E11.65 He has to pay $105 , once/day for 25 mg jardiance, Will change to invokana 100 mg /day and 340-B. under $ 10/month. History of coronary artery bypass grafting 612623639 Z95.1 Under the care of his cardiologi st and cardiac surgeon. Administra tion of influenza vaccine 50945597 Z23 He tolerated shot on the left arm well. Benign pro static hyperplasia with outflow obstruction 229694012 N40.1 Under the care of his urologist, on finasterid e, Seizure disorder 4221691 02 G40.909 Stable, controlled . on levetirace arroyo. [id number] MD Allie Aragon (Adult Med) [address] [place] [address] 66213-420 0 10/08/2023 10:18:13 10/09/2023 13:55:45 Type 2 diabetes mellitus 96967087 E11.65 He has to pay $105 , once/day for 25 mg jardiance, Will change to invokana 100 mg /day and 340-B. under $ 10/month. Coronary atherosclerosis 188734662 I25.83 With stents, stable, under the care of his cardiologi st. Dr. Alok Gann as he requested. On aspirin. clopidogre l and nitrostat and metoprolol . [id number] Mariangel Man MD [facility] (Adult Med) [address] [place] [address] 81135-252 0 12/31/2023 11:09:34 01/02/2024 14:16:54 Type 2 diabetes mellitus 40745843 E11.65 He has to pay $105 , once/day for 25 mg jardiance, Will change to invokana 100 mg /day and 340-B. under $ 10/month. He walks a mile/day. Coronary arteriosclerosis 07466325 I25.118 insurance referral , under the care of his cardiologi st. Benign pro static hyperplasia 345501686 D29.1 Wanting urology referral. Under the care of his urologist. On finasterid e. and oxybutynin . Hyperlipidemia 95412423 E78.5 Low saturated and low animal fat diet. On simvastati n. Seizure 00162379 R56.9 Stable, controlled , on levetirace arroyo. Health Concerns Section Related Observation LastModified by Organization Detai ls LastModified Time None Recorded Concern Status LastModified by Organization Details LastModified Time None Recorded Advance Directives Directive Y: Payers Encounter Date Sequence Insurance Name Policy Number Policy Perez Covered Member ID Perez Member ID Guarantor Name 05/22/2023 1 [facility] (MEDICARE REPLACEMENT/ ADVANTAGE - HMO) [id number] Johnnie Mack [id number] Johnnie Mack 06/18/2023 1 [facility] (MEDICARE REPLACEMENT/ ADVANTAGE - HMO) [id number] Johnnie Mack [id number] Johnnie Mack 08/20/2023 1 [facility] (MEDICARE REPLACEMENT/ ADVANTAGE - HMO) [id number] Johnnie Mack [id number] Johnnie Mack 10/08/2023 1 [facility] (MEDICARE REPLACEMENT/ ADVANTAGE - HMO) [id number] Johnnie Mack [id number] Johnnie Mack 12/31/2023 1 [employer] (MEDICARE REPLACEMENT/ ADVANTAGE - HMO) [id number] Johnnie Mack [id number] Johnnie Mack Notes Date Note Type Note Provider Name and Address Organization Details Recorded Time 05/22/2023 text/html Office visit.,TANVI MARTÍNEZ. history of coronary atherosclerosis. will have bypass at [facility] this week, has to put his demented at institution for the time being. His commercial construction superintendent has ok for his operation, his anxious about all theses. Wants some med to relax his nerves . Otherwise has enough med refills. Mariangel Man MD Attn: Accounting,[address] [facility], [place], [address], [place] [facility] 05/22/2023 17:59:54 06/18/2023 text/html Office vist, GARFIELD Henley. had coronary bypass at [facility] [address]. Came with his careers adviser, daughter. Mariangel Man MD Attn: [address]ing[address] [place], [address], [place] [facility] 06/24/2023 12:03:25 08/20/2023 text/html Office visit,. N KDA. 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 type 2 DM, coronary bypass, financial burden for refill of medications such as eliquis and jardiance, will find 340-B replacement if we can. Mariangel Man MD Attn: Accounting,[address] [facility], [place], [address], [place] [facility] 08/20/2023 14:50:22 10/08/2023 text/html Office visit,GARFIELD Henley. his=tory of type 2 DM. coronary atherosclerosis . med refill, Tolerated daily walking in [place]. no chest pain, NO SOB, but invokana and eliquis messer are too high in [facility]. and wants to take blood thinner once/day. ROS is notes in HPI. Mariangel Man MD Attn: Accounting,[address] [facility], [place], [address], [place] [facility] 10/08/2023 19:11:56 12/31/2023 text/html Office visit. NK DA. Check up . and med refills. Reviewed the lists of current med. No chest pain, no shortness of breath. no fever. ROS as noted in HPI. Has been checked by his commercial construction superintendent. Mariangel Man MD Attn: Accounting,[address] [place], [address], [place] [facility] 12/31/2023 18:53:46
[2025-04-14 08:52] LABS: Estimated Glomerular Filt Rate 36
== END 2025-04-14 07:59 | disposition home or self-care (01) ==
PROVIDERS: PCP Registered Nurse; Visit Provider Internal Medicine
DX: I77.810 Thoracic aortic ectasia (principal); R91.1 Solitary pulmonary nodule
CPT/HCPCS: 71275; Q9967

== ENCOUNTER 2025-08-21 06:53 | Emergency (ER) | payer MEDICARE, SELFPAY ==
--- OUTSIDE RECORDS SUMMARY | 2016-10-08 07:10 | XMS_ITS | Continuity of Care Document ---
Author Organization [facility] Address [address] [place] [address] [address] [place] [address] Phone Care Team Providers Care Canine Deputy Name Role Phone Beena FIGUEROA, Max Unavailable Unavaila ble Procedures Procedure Date AFTER CATARACT LASER SURGERY EYE EXAM & TREATMENT AFTER CATARACT LASER SURGERY CATARACT SURG W/IOL, 1 STAGE CATARACT SURG W/IOL, 1 STAGE OFFICE/OUTPATIENT VISIT, NEW OPHTHALMIC BIOMETRY OPHTHALMIC BIOMETRY SPECIAL EYE EXAM, INITIAL SPECIAL EYE EXAM, INITIAL Advance Directives Directive Yes / No Effective Date File Name No Information Encounters Encounter Description Practice Location Reason(s) For Visit Diagnoses Date Provider Providers Copied on Encounter [facility], [address] [place] [address] [address], [place], [place], [id number], tel:[phone] [facility] No Information 6 Beena Santana. [address], [address], [place], [place], [id number], [place]. tel:[phone] Referring Provider: Max lorenz, [address], [place], [address] . tel:[phone] [facility], [address] [place] [address] [address], [place], [place], [id number], tel:[phone] [facility] [address] No Information 6 Beena Santana. [address], [address], [place], [place], [address], [place]. tel:[phone] Referring Provider: Max Nunez y, [address], [place], [address] . tel:[phone] [facility], [address] [place] [address], [place], [place], [id number], [place] tel:[phone] [facility] No Information 6 Nicky Lo. [address], [address], [place], [place], [address], [place]. tel:[phone] Referring Provider: Wally Saunders MD P, [address], [place], [address] . tel:[phone] [facility], [address] [place] [address], [place], [place], [address], [place] tel:[phone] [facility] No Information 4 Nicky Lo. [address], [place], [place], [address], [place]. tel:[phone] Referring Provider: Wally Saunders MD P, [address], [place], [address] . tel:[phone] [facility], [address] [place] [address], [place], [place], [address], [place] tel:[phone] [facility] No Information 4 Nicky Lo. [address], [address], [place], [place], [address], [place]. tel:[phone] Referring Provider: Wally Saunders MD P, [address], [place], [address] . tel:[phone] OFFICE/OUTPA TIENT VISIT, NEW [facility], [address] [place] [address] [address], [place], [place], [address], [place] tel:[phone] [facility] No Information 4 Nicky Lo. [address], [address], [place], [place], [address], [place]. tel:[phone] Referring Provider: Wally Saunders MD P, [address], [place], [address] . tel:[phone] Family History Family Member Type Diagnosis Age At Onset No Information Payers Payer name Insurance type Covered republican ID Authorheather mcrae(s) MEDICARE OF [place] [id number] [facility] [employer] CI [id number] Social History Type Description Quantity Date Captured Comments Sex Male Smoking Status No Information Chief Complaint And Reason For Visit No Information Reason For Referral Reason For Referral No Information History Of Present Illness Encounter Date Complaint History Of Prese nt Illness No Information Functional Status Date Functional Assessmen t No Information Instructions Date Instruction Additional Infor mation No Information Assessments Type Assessment Date No Information Patient Care Teams Name Effective Dates (start - stop) Status Members No Information
[2025-08-21] VITALS (24 sets, daily range): BP systolic 140–200; BP diastolic 68–102; PULSE 56–65; RESP 16–19; TEMP 36.6–36.7; O2SAT 97–100
--- OUTSIDE RECORDS SUMMARY | 2025-08-21 06:55 | XMS_ITS | Clinical Summary ---
Author Organization [facility] Address [address] [place] [address] Care Team Providers Care Cloth Desizing Range Operator Chief Name Role Phone Unavailable Primary Care Provider Unavailabl e Immunizations Immunization Administration Dates Next Due Covid-19 Vaccine, Vector-nr, Rs-ad26, Pf, 0.5 Ml ([employer] FX/J&EQUISO) 08/04/2021 Social History Tobacco Use Types Packs/Day [...] 1-dose 75+ series) 2012 Influenza Immunization (#1) 07/19/202511/18, 08/28/2016 SARS-COV-2 Immunization (2 - season) 2025 08/04/2021 Hepatitis B Immunization Aged Out No longer eligible based on patient's age to complete this topic Human Papillomavirus (HPV) Immunization Aged Out No longer eligible b ased on patient's age to complete this topic Meningococcal Immunization (ACWY) Aged Out No longer eligible b ased on patient's age to complete this topic Rotavirus Immunization Aged Out No lo nger eligible based on patient's age to complete this topic
--- OUTSIDE RECORDS SUMMARY | 2025-08-21 06:55 | XMS_ITS | Encounter Summary ---
Author Organization [facility] Address [address] [facility] [address] [place] [address] Care Team Providers Care Crewman Main Battle Tank Name Role Phone Mariangel Man MD Primary Care Provider [phone] Mariangel Man MD Primary Care Provider [phone] Zahida Black Primary Care Provider + Encounter Details Date Type Department Care Team (Late st Contact Info) Description 01/15/2017 Orders Only [facility] ProviderNaya MD [address] [place] [address] Social History Tobacco Use Types Packs/Day Years Used Date Smoking Tobacco: Former Alcohol Use Standard Drinks/Week Comments No 0 (1 standard drink = 0.6 oz pur e alcohol) Sex and Gender Information Value Date Recorded Sex Assigned at Not on file Legal Sex 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
--- OUTSIDE RECORDS SUMMARY | 2025-08-21 06:55 | XMS_ITS | Data Portability ---
Author Organization [facility], Main Office Address [address] [place] [address] Care Team Providers Care Manager Of Transportation Name Role Phone LONDON PHILLIPS Primary Care Provider [phone] Assessment No assessment recorded. Plan of Treatment Reminders Order Date Submit Date Provider Last Modified By Organization Details Last Modified Time Details Appointments None recorded. Lab None recorded. Referral None recorded. Procedures cerumen removal (PROC) 024 [email or web address] Not available 4 09:21:09 Surgeries None recorded. Imaging None recorded. Medication Orders None recorded. Patient TargetsNo targets recorded. Patient InstructionsNo instructions recorded. Reason for Referral None Reported. 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 Medical [...] Updated DateTime 09/24/2024 162.56 cm 28.7 kg/m2 85980.93 g 98 [degF] Rosa Puri RN [place] - [facility] [employer] 09/24/2024 11:48:46 Social History None recorded. Functional [...] Diagnosis SNOMED-CT Code Diagnosis ICD10 Code Diagnosis IMO Codes Diagnosis Note [id number] Osmany Clay MD [facility] [place] [address] [place] [address] 09/24/2024 11:34:37 09/24/2024 12:11:38 Impacted cerumen of bilateral ears [id number] 225520 H61.23 bilateral cerumen impaction removed with cerumen lavage. Health Concerns Section Related Observation LastModified by Organization Detai ls LastModified Time None Recorded Concern Status LastModified by Organization Details LastModified Time None Recorded Advance Directives Directive None Recorded Payers Insurance Date Sequence Insurance Name Policy Number Policy Perez Covered Member ID Perez Member ID Guarantor Name 10/14/2024 1 [employer] - PRIME (MEDICARE REPLACEMENT/A DVANTAGE - HMO) [id number] Johnnie Mack [id number] Johnnie Mack 09/24/2024 1 [facility] (MEDICARE REPLACEMENT/A DVANTAGE - HMO) [id number] Johnnie Mack [id number] Johnnie Mack Notes Date Note Type Note Provider Name and Address Organization Details Recorded Time 09/24/2024 text/html This patient has a past medical history significant for hypertension. He presents to the office with a complaint of bilateral cerumen impaction. States that 1 week ago he was at his pizza driver at [facility] for a hearing evaluation requiring hearing aids. He was told that he had cerumen impaction and advised to have this removed before hearing aids be placed. He denies any otalgia. Rosa Jordan, DANCING MASTER [address] [facility], [facility] [address], [place], [address], [place] - [facility] [employer] 09/24/2024 12:10:44
--- OUTSIDE RECORDS SUMMARY | 2025-08-21 06:55 | XMS_ITS | Clinical Summary ---
Author Organization [facility] Address [address] [place] [address] Care Team Providers Care Mh Teacher Name Role Phone Zahida Black Primary Care Provider [phone] Allergies No known active allergies Medications aspirin EC (ECOTRIN) 81 MG tablet Take 1 tablet (81 mg total) by mouth daily. Active finasteride (PROSCAR) 5 MG tablet Take 1 tablet (5 mg total) by mouth nightly at bedtime. at bedtime. 03/23/20 24 Active Lancets (ONETOUCH DELICA PLUS [id number]) Misc see administration instructions. 04/22/20 23 Active spironolactone (ALDACTONE) 25 MG tabletIndication s:Primary [...] (ELIQUIS) 5 MG tabletIndication s:Paroxysmal atrial fibrillation (CMS/HCC HHS/HCC) Take 1 tablet (5 mg total) by mouth 2 (two) times daily. 180 tablet 3 09/30/20 24 Active metFORMIN (GLUCOPHAGE) 500 MG tabletIndication s:Type 2 diabetes mellitus with stage 3b chronic kidney disease, without long-term current use of insulin (CMS/HCC HHS/HCC) Take 1 tablet (500 mg total) by mouth 2 (two) times daily. 180 tablet 3 09/30/20 24 Active acarbose (PRECOSE) 25 MG TabIndications:T ype 2 diabetes mellitus with stage 3b chronic kidney disease, without long-term current use of insulin ([facility]) Take 1 tablet (25 mg total) by mouth 2 (two) times a day. 180 tablet 3 12/11/19 25 Active levETIRAcetam (KEPPRA) 500 MG tabletIndication s:Seizure ([facility]) Take 1 tablet (500 mg total) by mouth 2 (two) times daily. 180 tablet 3 02/03/20 25 Active lisinopril (PRINIVIL) 20 MG tablet Take 1 tablet (20 mg total) by mouth daily. Active atorvastatin (LIPITOR) 40 MG tablet Take 1 tablet (40 mg total) by mouth daily. 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 angina pectoris 04/02/2024 Chronic combined systolic an d diastolic congestive heart failure ([facility]) 04/02/2024 A-fib ([facility]) Encounters Date Type Department Care Team Description 08/13/2025 Telephone [facility] Medical [facility] Family & Internal Medicine [address] [address] Zahida Black APNP Nosebleeds 07/08/2025 9:20 AM CDT Allied Health/Nurse Visit [facility] Family & Internal Medicine [address] [address] Zahida Black APNP Allied Health Visit 07/08/2025 Results Follow-Up [facility] Family & Internal Medicine [address] [address] Zahida Black APNP HEMOGLOBIN, GLYCOSYLATED 07/08/2025 Travel 07/02/2025 1:20 PM CDT Office Visit [facility] Family & Internal Medicine [address] [address] Zahida Black APNP Diabetes 07/02/2025 Travel from Last 3 Months Immunizations Immunization Administration Dates Next Due Fluzone High Dose (IIV, triv alent, 0.5mL) 09/30/2024 Influenza Adult (Generic) 08/20/2023,08/2022,11/06/2021,2020,08/28/2016 Pneumococcal (Prevnar 20) 07/02/2025 Family History Medical History Relation Comments Throat [...] Sex Assigned at Male 01/05/2025 10:28 AM BOTTOM SANDER Legal Sex Male 1:00 PM CDT Gender Identity Not on file Sexual Orientation Not on file Last Filed Vital Signs Vital Sign Reading Time Taken Comments Blood Pressure 110/64 07/02/2025 1:39 PM CDT Pulse 72 07/02/2025 1:39 PM CDT Temperature 36.6 C (97.9 F) 07/02/2025 1:39 PM CDT Respiratory Rate 16 07/02/2025 1:39 PM CDT Oxygen Saturation 96% 07/02/2025 1:39 PM CDT Inhaled Oxygen Concentration - - Weight 75.7 kg (166 lb 12.8 oz) 07/02/2025 1:39 PM CDT Height 165.1 cm (5' 5) 07/02/2025 1:39 PM CDT Body Mass Index 27.76 07/02/2025 1:39 PM CDT Plan of Treatment Upcoming Encounters Date Type Department Care Team (Late st Contact Info) Description 10/27/2025 8:20 AM BOTTOM SANDER Office Visit [facility] Family & Internal Medicine - [place] [id number] [place] [address] Zahida Black, REY [address] [place] [address] Health Maintenance Due Date Last Done Comments ASCVD Statin 1937 Diabetes: Retinopathy Eye Exam 1955 DTaP, Tdap and Td Vaccines (1 - Tdap) 1956 Annual Medicare Wellness Visit 2002 RSV Immunization or 60+ Years (1 - 1-dose 75+ series) 2012 COVID-19 Vaccine (2 - season) 2025 08/04/2021 Lipid Panel 08/14/2025 08/14/2024, 02/14/2024 Influenza Adult (#1) 2025 09/30/2024, 08/20/2023, 09/27/2022, Additional history exists Hemoglobin A1C 01/08/2026 07/08/2025, 0507/2025, 01/05/2025, Additional history exists Zoster Vaccines (1 of 2) 07/08/2028 Pos tponed from 1987 (Patient Refused) PHQ-2 (Physician [place]) Completed 01/05/2025 Pneumococcal Vaccine: 50+ Years Completed 07/02/2025 Meningococcal B Vaccine Aged Out No l onger eligible based on patient's age to complete this topic Meningococcal Vaccine Aged Out No riri lynette eligible based on patient's age to complete this topic RSV Immunizations Under 20 Months Aged Out No longer eligible based on patient's age to complete this topic Procedures Procedure Name Priority Date/Time Associated Diagnosis Comments HEMOGLOBIN, GLYCOSYLATED Routine 07/08/2025 9:28 AM CDT Type 2 diabetes mellitus with stage 3b chronic kidney disease, without long-term current use of insulin ([facility]) COLLECT.CAPILLARY (FNGR,HEEL,EAR) Routine 07/08/2025 9:22 AM CDT Type 2 diabetes mellitus with stage 3b chronic kidney disease, without long-term current use of insulin ([facility]) LIPID PANEL Routine 08/14/2024 9:12 AM CDT Chronic combined systolic and diastolic congestive heart failure Coronary artery disease involving coronary bypass graft of [place] heart without angina pectoris from Last 3 Months or Most Recently Relevant to Health Maintenance Results * HEMOGLOBIN, GLYCOSYLATED (07/08/2025 9:28 AM CDT) HGB A1C 6.0 % [facility] 07/08/2025 9:28 AM CDT us Zahida LE [facility]ORAT[facility] Final Resul t [facility] [address] [place] [address], * (ABNORMAL) LIPID PANEL (08/14/2024 9:12 AM CDT) Pathologist [facility] CHOLESTEROL 82 <200 MG/DL 08/14/2024 2:11 PM CDT [facility] TRIGLYCERIDES 68 <150 MG/DL 08/14/2024 2:11 PM CDT [facility] HDL 40(L) >40 MG/DL 08/14/2024 2:11 PM CDT [facility] LDL-C 28 <100 MG/DL 08/14/2024 2:11 PM CDT [facility] VLDL CALCULATION 14 5 - 28 MG/DL 08/14/2024 2:11 PM CDT [facility] CHOL/HDL RATIO 2.1 0.0 - 4.0 08/14/2024 2:11 PM CDT [facility] LDL/HDL 0.7 0.41 - 2.13 08/14/2024 2:11 PM CDT -JOSE LIN NON HDL CHOLESTEROL 42 <140 MG/DL 08/14/2024 2:11 PM CDT [facility] 08/14/2024 9:12 AM CDT Zahida [facility] Final Resul t -[facility] [address] [place] [address], [place] [phone] from Last 3 Months or Most Recently Relevant to Health Maintenance Insurance [employer] MEDICARE Care Teams Mh Teacher Relationship Specialty Start Date End Date Zahida Black APNP [address] [place] [address] PCP - General NURSE PRACTITIONER 02/11/24
--- OUTSIDE RECORDS SUMMARY | 2025-08-21 06:55 | XMS_ITS | Encounter Summary ---
Author Organization [facility] Address [address] [facility] [address] [place] [address] Care Team Providers Care Cosmetic Sales Advisor Name Role Phone Mariangel Man MD Primary Care Provider [phone] Mariangel Man MD Primary Care Provider [phone] Zahida Black Primary Care Provider + Encounter Details Date Type Department Care Team (Late st Contact Info) Description 08/25/2016 Orders Only [facility] Provider, MD Naya [address] [place] [address] Social History Tobacco Use Types Packs/Day Years Used Date Smoking Tobacco: Former Alcohol Use Standard Drinks/Week Comments No 0 (1 standard drink = 0.6 oz pur e alcohol) Sex and Gender Information Value Date Recorded Sex Assigned at Not on file 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 [facility] Provider MD CV CARDIAC SERVICES PROCE DURES Final Result * CARDIOLOGY REPORT (08/25/2016) Anatomical Region Laterality Modality Other Narrative 08/25/2016 Ordered by an unspecified provider. [facility] Provider MD CV CARDIAC SERVICES PROCE DURES [...] documented as of this encounter Care Teams Cosmetic Sales Advisor Relationship Specialty Start Date End Date Mariangel Man MD [address] [place] [address] PCP - General 02/15/17 04/07/25 Mariangel Man MD [address] [place] [address] PCP - General 12/06/14 02/14/17 Zahida Black PA [address] [place] [address] PCP - General Nurse Practitioner 04/08/25 documented as of this encounter
--- OUTSIDE RECORDS SUMMARY | 2025-08-21 06:56 | XMS_ITS | Encounter Summary ---
Author Organization [facility] Address [address] [facility] [place] [address] Care Team Providers Care Assurance Senior Manager Name Role Phone Mariangel Man MD Primary Care Provider [phone] Encounter Details Date Type Department Care Team (Late st Contact Info) Description 09/20/2021 Lab Requisition [facility] DermPath Lab [address] [place] [address] Marquis Buck MD [address] [place] [address] Social History Tobacco Use Types Packs/Day Years Used Date Smoking Tobacco: Never Assessed Sex and Gender Information Value Date Recorded Sex Assigned at Not on file Legal Sex Male 6:21 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 Gender Identity Not on file Sexual Orientation Not on file documented as of this encounter Plan of Treatment Not on file documented as of this encounter Procedures Procedure Name Priority Date/Time Associated Diagnosis Comments DERMATOPATHOLOGY Routine 09/19/2021 3:33 AM CDT documented in this encounter Results * DERMATOPATHOLOGY (09/19/2021 3:33 AM CDT) Case Report Dermatopathology Report Case: [id number] Authorizing Provider: Marquis Buck MD Collected: 09/19/2021 03:33 AM Ordering Location: [facility] Lab Received: 09/20/2021 06:05 AM Pathologist: Devora Mercedes MD Specimen: Skin, scalp 1:53 PM CDT DERMATOPATHOLOGY LABORATORY Final Diagnosis Specimen A. SKIN, scalp: BASAL CELL CARCINOMA, PIGMENTED (C44.41) 1:53 PM CDT DERMATOPATHOLOGY LABORATORY at 1352 CDT Clinical History SK vs BCC vs MM. Path# [id number] 1:53 PM CDT DERMATOPATHOLOGY LABORATORY Gross Description Specimen A: Received is one formalin filled container labeled with the patient's name and designated scalp. The specimen consists of a shave biopsy measuring [id number]. Jar 0. 1:53 PM CDT DERMATOPATHOLOGY LABORATORY [...] characteristic determined by the Dermatopathology Laboratory at [facility], directed by Dr. Omer Mercedes. These tests need not be, and therefore are not, approved by the [place] Food and Drug Administration. The tests are used for clinical purposes. Billing Codes Specimen Charges Stain Charges 00162 1 1 1:53 PM CDT DERMATOPATHOLOGY LABORATORY Embedded Images 1:53 PM CDT DERMATOPATHOLOGY LABORATORY Pathology/Cytolo gy TISSUE SPECIMEN FROM SKIN / Unknown 09/19/2021 3:33 AM CDT 09/20/2021 6:05 AM CDT us Marquis Buck MD LAB - PATHOLOGY/CYTOLOGY ORDER MIGUE Final Result DERMATOPATHOLOGY LABORATORY [facility] - Department of Dermatology [facility] Medicine [address] [place] [address], [address] [phone] documented in this encounter Visit Diagnoses Not on filedocumented in this encounter Care Teams Assurance Senior Manager Relationship Specialty Start Date End Date Mariangel Man MD [address] [place] [address] PCP - General 01/18/20 documented as of this encounter
--- OUTSIDE RECORDS SUMMARY | 2025-08-21 06:56 | XMS_ITS | Encounter Summary ---
Author Organization [facility] Address [address] [place] [address] Care Team Providers Care Spinal Surgeon Name Role Phone Mariangel Man MD Primary Care Provider [phone] Encounter Details Date Type Department Care Team (Late st Contact Info) Description 03/29/2023 Lab Requisition [facility] DermPath Lab [address] [place] [address] Marquis Buck MD [address] [place] [address] Social History Tobacco Use Types Packs/Day Years Used Date Smoking Tobacco: Never Assessed Sex and Gender Information Value Date Recorded Sex Assigned at Not on file 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 Gender Identity Not on file Sexual Orientation Not on file documented as of this encounter Plan of Treatment Not on file documented as of this encounter Procedures Procedure Name Priority Date/Time Associated Diagnosis Comments DERMATOPATHOLOGY Routine 03/28/2023 12:0 0 AM CDT documented in this encounter Results * DERMATOPATHOLOGY (03/28/2023 12:00 AM CDT) Case Report Dermatopathology Report Case: [id number] Authorizing Provider: Marquis Buck MD Collected: 03/28/2023 12:00 AM Ordering Location: [facility] Lab Received: 03/29/2023 06:53 AM Pathologist: Amy Smith MD Specimen: Skin, left cheek 3 4:12 PM CDT DERMATOPATHOLOGY LABORATORY Final Diagnosis Specimen A. SKIN, left cheek: ACTINIC KERATOSIS (L57.0) 3 4:12 PM CDT DERMATOPATHOLOGY LABORATORY at 1612 CDT Clinical History AK vs. SCC. Path# [id number] 3 4:12 PM CDT DERMATOPATHOLOGY LABORATORY Gross Description Specimen A: Received is one formalin filled container labeled with the patient's name and designated left cheek. The specimen consists of a shave biopsy measuring 6f4z5so. Jar 0. 3 4:12 PM CDT DERMATOPATHOLOGY [...] characteristic determined by the Dermatopathology Laboratory at [facility], directed by Dr. Omer Mercedes. These tests need not be, and therefore are not, approved by the [place] Food and Drug Administration. The tests are used for clinical purposes. Billing Codes Specimen Charges Stain Charges 24815 1 3 4:12 PM CDT DERMATOPATHOLOGY LABORATORY Embedded Images 3 4:12 PM CDT DERMATOPATHOLOGY LABORATORY Pathology/Cytolog y TISSUE SPECIMEN FROM SKIN / Unknown 03/28/2023 03/29/2023 6:53 AM CDT us Marquis Buck MD LAB - PATHOLOGY/CYTOLOGY ORDER MIGUE Final Result DERMATOPATHOLOGY LABORATORY [facility] - Department of Dermatology [address], [address] [phone] documented in this encounter Visit Diagnoses Not on filedocumented in this encounter Care Teams Spinal Surgeon Relationship Specialty Start Date End Date Mariangel Man MD [address] [place] [phone] PCP - General 01/18/20 documented as of this encounter
--- OUTSIDE RECORDS SUMMARY | 2025-08-21 06:56 | XMS_ITS | Clinical Summary ---
Author Organization [facility] Address [address] [place] [address] Care Team Providers Care Force Adjustment Supervisor Name Role Phone Mariangel Man MD Primary Care Provider [phone] Source Comments [facility],non-owned Affiliates and Associated Physician Practices is amultiple site organization consisting of ambulatory clinics and hospital sitesin [place], [place], [place] and [place]. This disclosure is being madepursuant to the Care Everywhere program and may not contain all information available regarding this patient. 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 Gender Identity Not on file Sexual Orientation Not on file Plan of Treatment Health Maintenance Due Date Last Done Comments DTAP/TDAP/TD VACCINES (1 - Tdap) 1954 PNEUMOCOCCAL VACCINE 50+ (1 of 1 - PCV) 1987 ZOSTER VACCINE (1 of 2) 1987 Respiratory Syncytial Virus (RSV) Vaccine Pt: or over 60 yrs (1 - 1-dose 75+ series) 2012 DEPRESSION SCREENING 11/18/2024 MEDICARE AWV CALENDAR YEAR 2024 COVID-19 VACCINE ( - 2023-2 5 season) 2025 INFLUENZA VACCINE (#1) 2025 HEPATITIS B VACCINE Aged Out No [...] patient's age to complete this topic Insurance [facility] MANAGED MEDICARE ADV [facility] MANAGED MEDICARE ADV Care Teams Force Adjustment Supervisor Relationship Specialty Start Date End Date Mariangel Man MD [address] [place] [address] PCP - General 01/18/20
--- OUTSIDE RECORDS SUMMARY | 2025-08-21 06:56 | XMS_ITS | Encounter Summary ---
Author Organization [facility] Address [address] [place] [address] Care Team Providers Care Rn Vascular Name Role Phone Mariangel Man MD Primary Care Provider [phone] Encounter Details Date Type Department Care Team (Late st Contact Info) Description 10/04/2023 Lab Requisition [facility] - DermPath Lab [address] [place] [id number] Marquis Buck MD [address] [place], [place] [id number] Social History Tobacco Use Types Packs/Day Years Used Date Smoking Tobacco: Never Assessed Sex and Gender Information Value Date Recorded Sex Assigned at Not on file Legal Sex Male 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 Gender Identity Not on file Sexual Orientation Not on file documented as of this encounter Plan of Treatment Not on file documented as of this encounter Procedures Procedure Name Priority Date/Time Associated Diagnosis Comments DERMATOPATHOLOGY Routine 10/02/2023 12:0 0 AM SPREADING MACHINE OPERATOR documented in this encounter Results * DERMATOPATHOLOGY (10/02/2023 12:00 AM SPREADING MACHINE OPERATOR) Case Report Dermatopathology Report Case: [id number] Authorizing Provider: Marquis Buck MD Collected: 10/02/2023 12:00 AM Ordering Location: [facility] DermPath Lab Received: 10/04/2023 10:23 AM Pathologist: Amy Smith MD Specimen: Skin, left helix 3 2:51 PM SPREADING MACHINE OPERATOR DERMATOPATHOLOGY LABORATORY Final Diagnosis Specimen A. 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 The specimen consists of a shave biopsy measuring 5x5x2 mm. Jar 0. 3 2:51 PM SPREADING MACHINE OPERATOR DERMATOPATHOLOGY LABORATORY Microscopic Description Specimen A. SKIN, left helix: Within the dermis there are aggregates of basaloid cells with a high nuclear to cytoplasmic ratio and peripheral palisading. 3 2:51 PM SPREADING MACHINE OPERATOR DERMATOPATHOLOGY LABORATORY Disclaimer An external and internal positive and negative controls are appropriate for the histochemical, immunohistochemical and immunofluorescence stain(s) in this case (if any), except where stated explicitly. The performance characteristics of the stain(s) cited in this report were developed and its performance characteristic determined by the Dermatopathology Laboratory at [facility], directed by Dr. Omer Mercedes. These tests need not be, and therefore are not, approved by the [place] Food and Drug Administration. The tests are used for clinical purposes. Billing Codes Specimen Charges Stain Charges 82050 1 3 2:51 PM SPREADING MACHINE OPERATOR DERMATOPATHOLOGY LABORATORY Embedded Images 3 2:51 PM SPREADING MACHINE OPERATOR DERMATOPATHOLOGY LABORATORY Pathology/Cytolog y TISSUE SPECIMEN FROM SKIN / Unknown 10/02/2023 10/04/2023 10:23 AM SPREADING MACHINE OPERATOR us Marquis Buck MD LAB - PATHOLOGY/CYTOLOGY ORDER MIGUE Final Result DERMATOPATHOLOGY LABORATORY [facility] - Department of Dermatology Formerly [facility] Medicine [address] [place] [address], [address] [place] [address], [facility] [phone] documented in this encounter Visit Diagnoses Not on filedocumented in this encounter Care Teams Rn Vascular Relationship Specialty Start Date End Date Mariangel Man MD [address] [place] [address] PCP - General 01/18/20 documented as of this encounter
--- OUTSIDE RECORDS SUMMARY | 2025-08-21 06:56 | XMS_ITS | Encounter Summary ---
Author Organization [facility] Address [address] [place] [address] Care Team Providers Care Customer Service Correspondence Clerk Name Role Phone Mariangel Man MD Primary Care Provider Encounter Details Date Type Department Care Team (Late st Contact Info) Description 01/18/2020 Lab Requisition [facility] DermPath Lab [address] [place] [address] Marquis Buck MD [address] [place] [id number] Social History Tobacco Use Types Packs/Day Years Used Date Smoking Tobacco: Never Assessed Sex and Gender Information Value Date Recorded Sex Assigned at Not on file 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 Gender Identity Not on file Sexual Orientation Not on file documented as of this encounter Plan of Treatment Not on file documented as of this encounter Procedures Procedure Name Priority Date/Time Associated Diagnosis Comments DERMATOPATHOLOGY Routine 01/15/2020 12:0 0 AM ACCOUNTING MACHINE MECHANIC documented in this encounter Results * DERMATOPATHOLOGY (01/15/2020 12:00 AM ACCOUNTING MACHINE MECHANIC) Case Report Dermatopathology Report Case: [id number] Authorizing Provider: Marquis Buck MD Collected: 01/15/2020 12:00 AM Ordering Location: [facility] DermPath Lab Received: 01/18/2020 02:30 PM Pathologist: Devora Mercedes MD Specimen: Skin, right shoulder 0 11:21 AM ACCOUNTING MACHINE MECHANIC DERMATOPATHOLOGY LABORATORY Final Diagnosis Specimen A. SKIN, right shoulder: BASAL CELL CARCINOMA, PIGMENTED (C44.612) 0 11:21 AM ACCOUNTING MACHINE MECHANIC DERMATOPATHOLOGY LABORATORY at 1121 ACCOUNTING MACHINE MECHANIC Clinical History [facility] vs MM. Path # [id number] 0 11:21 AM [facility] DERMATOPATHOLOGY LABORATORY Gross Description Specimen A: Received is one formalin filled container labeled with the patient's name and designated right shoulder. The specimen consists of a shave biopsy measuring [id number]. Jar 0. 0 11:21 AM [facility] DERMATOPATHOLOGY LABORATORY Microscopic Description Specimen A. SKIN, right shoulder: There are aggregates of basaloid cells with a high nuclear to cytoplasmic ratio and peripheral palisading. There is abundant melanin. 0 11:21 AM [facility] DERMATOPATHOLOGY LABORATORY Disclaimer An external and internal positive and negative controls are appropriate for the histochemical, immunohistochemical and immunofluorescence stain(s) in this case (if any), except where stated explicitly. The performance characteristics of the stain(s) cited in this report were developed and its performance characteristic determined by the Dermatopathology Laboratory at [facility], directed by Dr. Omer Mercedes. These tests need not be, and therefore are not, approved by the [place] Food and Drug Administration. The tests are used for clinical purposes. Billing Codes Specimen Charges Stain Charges 62622 1 0 11:21 AM [facility] DERMATOPATHOLOGY LABORATORY Embedded Images 0 11:21 AM [facility] DERMATOPATHOLOGY LABORATORY Pathology/Cytolog y TISSUE SPECIMEN FROM SKIN / Unknown 01/15/2020 01/18/2020 2:30 PM ACCOUNTING MACHINE MECHANIC us Marquis Buck MD LAB - PATHOLOGY/CYTOLOGY ORDER MIGUE Final Result DERMATOPATHOLOGY LABORATORY [facility] - Department of Dermatology [address] [place] [address], [facility] [phone] documented in this encounter Visit Diagnoses Not on filedocumented in this encounter Care Teams Customer Service Correspondence Clerk Relationship Specialty Start Date End Date Mariangel Man MD [address] [place] [address] PCP - General 01/18/20 documented as of this encounter
--- OUTSIDE RECORDS SUMMARY | 2025-08-21 06:56 | XMS_ITS | Data Portability ---
Author Organization [facility] Estela Murcia Address [address] [place] [address] Care Team Providers Care Transportation Dispatcher Name Role Phone SIVA GANN Scheduler Maintenance HERMILO MCNAIR Urologist Assessment No assessment recorded. Plan of Treatment Reminders Order Date Submit Date Provider Last Modified By Organization Details Last Modified Time Details Appointments None recorded. Lab HbA1c (hemoglobin A1c), blood 2022 023 [facility] In-Office Order, Internal Use Only DO Not Attach Compendium DO Not Attach Compendium, Do Not Delete/merge, [id number] 14:49:43 HbA1c (hemoglobin A1c), blood 2022 023 [facility] In-Office Order, Internal Use Only DO Not Attach Compendium DO Not Attach Compendium, Do Not Delete/merge, [id number] 12:00:52 Referral None recorded. Procedures None recorded. Surgeries None recorded. Imaging None recorded. Medication Orders Invokana 100 mg tablet 2023 024 [facility], [address] [place] [address], [id number], 4 10:26:48 Xarelto 10 mg tablet 2022 023 [facility], [address] [place] [address], [id number], 4 16:28:58 Invokana 100 mg tablet 2022 023 [facility] [address] [place], [address], 3 12:25:15 Invokana 100 mg tablet 2022 023 [facility], [address] [place] [address], [id number], 4 11:52:50 Eliquis 5 mg tablet 2022 023 [facility], [address] [place] [address], [id number], 3 19:09:40 hydroxyzine HCl 10 mg tablet 2022 023 [facility] [address] [place], [address], 3 17:59:06 Patient TargetsNo targets recorded. Patient Instructions Encounter Date Encounter Id Patient Instructions Last Modified By Organization Details Last Modified Time 05/22/2023 [id number] learning about high blood pressure [facility] Not available 05/22/2023 17:58:59 08/20/2023 [id number] influenza (flu) vaccine: care instructions [facility] Not available 08/20/2023 14:49:43 epilepsy: care instructions [facility] Not available 08/20/2023 14:49:43 learning about type 2 diabetes [facility] Not available 08/20/2023 13:05:52 type 2 diabetes: care instructions [facility] Not available 08/20/2023 13:05:52 10/08/2023 [id number] learning about type 2 diabetes [facility] Not available 10/08/2023 11:11:06 type 2 diabetes: care instructions [facility] Not available 10/08/2023 11:11:06 12/31/2023 [id number] learning about type 2 diabetes [facility] Not available 12/31/2023 18:53:24 type 2 diabetes: care instructions [facility] Not available 12/31/2023 18:53:24 high cholesterol : care instructions si Not available 12/31/2023 18:53:24 benign prostatic hyperplasia: care instructions [facility] Not available 12/31/2023 18:53:24 Reason for Referral None Reported. Results Created Date Observation Date Name Description Value Unit Range Abnormal Flag Note LastModifiedBy Organization Detail LastModifiedTime 06/19/2006/19/2023 HbA1c (hemo globi n A1c), blood HbA1c 6.0% Not Available In-Office Order Internal Use Only DO Not Attach Compendium DO Not Attach Compendium, Do Not Delete/merge, [id number] 06/19/2023 17:06:34 08/20/2008/20/2023 HbA1c (hemo globi n A1c), blood HbA1c 6.0% Not Available In-Office Order Internal Use Only DO Not Attach Compendium DO Not Attach Compendium, Do Not Delete/merge, [id number] 08/20/2023 14:47:14 04/22/2004/22/2023 XR, chest No observ ation record ed. [address], [place], [address], 05/07/2023 15:12:15 Result Notes None recorded. Problems Name Problem SNOMED Code Status Onset Date Resolution Date Notes Provider Name and Address Organization Details Recorded Time Hypertensive disorder 92424703 Active Mariangel Man MD Attn: Makayla brooks,[address] [place], [address], [facility] 6 12:19:55 Benign prostatic hyperplasia 407398363 Active Mariangel Man MD Attn: Makayla brooks,[address] [place], [address], [facility] 6 12:19:55 Seizure 69394113 Kai Man MD Attn: Makayla brooks,[address] [facility], [place], [address], [facility] 6 12:19:55 Hyperlipidemia 00540190 Kai Man MD Attn: Makayla brooks,[address] [place], [address], [facility] 6 12:19:55 Acid reflux 510657480 Kai Azulh, MD Attn: Makayla brooks,[address] [facility], [place], [address], [facility] 6 12:19:55 Acute bronchitis 12318924 Active Mariangel Man MD Attn: Makayla brooks,[address], [place], [address], [facility] 6 12:19:55 Kidney stone 04812221 Active Mariangel Man MD Attn: Makayla brooks,[address] [facility], [place], [address], [facility] 6 12:19:55 Problem Notes None recorded. Medical [...] oin monohydrate /macrocryst als 100 mg capsule 10/18 /2018 completed Not Available Not Available Not Available [...] in Arterial blood by Pulse oximetry Systolic And Diastolic Provider Name and Address Organization Details Last Updated DateTime 4 163.83 cm 29.1 kg/m2 75419.8 9 g 68 /min 98 % 98 % 128/68 mm[Hg] Liv Escobar MA [place] [facility] 4 11:48:14 Date Recorded Body height Body mass index (BMI) Body weight Heart rate Oxygen saturation Oxygen saturation in Arterial blood by Pulse oximetry Systolic And Diastolic Provider Name and Address Organization Details Last Updated DateTime 3 163.83 cm 28.6 kg/m2 66780.5 5 g 57 /min 95 % 95 % 142/72 mm[Hg] Cherri Jolley MA [place] [facility] 3 17:30:29 Date Recorded Body height Body mass index (BMI) Body weight Heart rate Oxygen saturation Oxygen saturation in Arterial blood by Pulse oximetry Systolic And Diastolic Provider Name and Address Organization Details Last Updated DateTime 3 163.83 cm 27.4 kg/m2 55974.4 g 76 /min 99 % 99 % 123/72 mm[Hg] Cherricorin Jolley MA [facility] 3 11:36:08 Date Recorded Body height Body mass index (BMI) Body weight Heart rate Oxygen saturation Oxygen saturation in Arterial blood by Pulse oximetry Systolic And Diastolic Provider Name and Address Organization Details Last Updated DateTime 3 163.83 cm 27.9 kg/m2 57439.7 4 g 67 /min 99 % 99 % 128/60 mm[Hg] Liv Escobar MA [facility] 3 12:22:07 Date Recorded Body height Body mass index (BMI) Body weight Heart rate Oxygen saturation Oxygen saturation in Arterial blood by Pulse oximetry Systolic And Diastolic Provider Name and Address Organization Details Last Updated DateTime 3 163.83 cm 28.7 kg/m2 86322.7 g 63 /min 96 % 96 % 148/80 mm[Hg] Liv Escobar MA [facility] 3 10:28:11 Social History Question Answer Notes LastModified by Organizat ion Details LastModified Time Tobacco Smoking Status Never Smoker Abigail Reyes MA [facility] 05/23/2018 13:21:27 Do You Have An Advance [...] anxious, or unable to sleep at night)? [id number] Information not available 08/20/2023 Family History Nothing [...] ICD10 Code Diagnosis IMO Codes Diagnosis Note [id number] [facility] [address] [place] [address] 01/30/2016 11:51:52 01/30/2016 15:29:57 Hypertensive disorder 25997481 I10 Benign pro static hyperplasia 192604768 D29.1 Seizure 88026146 R56.9 Hyperlipidemia 32085589 E78.5 Acid reflux 989639678 K2 1.9 [id number] MD [facility] Aragon (Adult Med) [address] [place] [address] 07/20/2016 11:54:40 07/20/2016 17:47:25 Acute bronchitis 51913807 J20.9 Kidney stone 76737039 N2 0.0 Benign pro static hyperplasia 967077965 D29.1 Acid reflux 567888976 K2 1.9 Hyperlipidemia 09783034 E78.5 Hypertensive disorder 38 485450 I10 Seizure 36698555 R56.9 [id number] Mariangel Man MD [facility] (Adult Med) [address] [place] [address] 09/07/2016 12:17:45 09/07/2016 14:26:13 Coronary arteriosclerosis in [place] artery 8119434305 107 I25.10 Anxiety 99823006 F41.9 [id number] Mariangel Man MD [facility] (Adult Med) [address] [place] [address] 0 01/04/2017 11:45:19 01/04/2017 12:57:20 Benign prostatic hyperplasia 419681789 D29.1 Hypertensive disorder 38 551373 I10 Hyperlipidemia 33032192 E78.5 Acid reflux 290853206 K2 1.9 Seizure 02471539 R56.9 Coronary atherosclerosis 797036416 I25.83 [id number] Mariangel Man MD [facility] (Adult Med) [address] [place] [address] 0 05/23/2018 12:11:28 05/23/2018 14:25:35 Skin lesion 33299079 L98.9 Benign pro static hyperplasia 634348327 D29.1 [id number] Mariangel Man MD [facility] (Adult Med) [address] [place] [address] 09/04/2018 16:54:33 09/05/2018 11:36:30 Non-cardiac chest pain 195281168 R07.89 Resolved. Coronary atherosclerosis 007649616 I25.83 With stens, stable, under the care of his cardiologi st. History of calculus of kidney 402429202 Z87.442 resolved. [id number] Mariangel Man MD [facility] (Adult Med) [address] [place] [address] 01/05/2019 16:49:10 01/06/2019 09:10:08 Acid reflux 269086939 K21.9 Essential hypertension 59650691 I10 Coronary atherosclerosis 339665505 I25.83 With stens, stable, under the care of his cardiologi st. Dr. Alok Gann as he requested. [id number] MD [facility] (Adult Med) [address] [place] [address] 0 06/16/2019 15:14:20 06/17/2019 08:50:32 Osteoarthritis of knee 715244898 M17.11 Discussed with patient, will refer to orthopedic to be evaluated. Atrophic c ondition of skin 959688808 L90.9 [id number] MD [facility] (Adult Med) [address] [place] [address] 0 10/28/2019 12:17:07 10/28/2019 13:37:17 Impacted cerumen of bilateral ears 4931293382 773696 H61.23 He agreed to buy device frm OTC to try to clean the wax,. Benign par oxysmal positional vertigo nystagmus 782561030 H81.10 Discussed with patient , willing to try meclizine. Coronary atherosclerosis 724082970 I25.83 With stens, stable, under the care of his cardiologi st. Dr. Alok Gann as he requested. Benign pro static hyperplasia 231093523 D29.1 Wanting urology referral. [id number] MD [facility] (Adult Med) [address] [place] [address]658[address]165 0 01/01/2020 12:11:49 01/04/2020 09:49:49 Skin lesion 48054059 L98.9 [facility] Benign pro static hyperplasia 076849936 D29.1 Wanting urology referral. [id number] MD [facility]agon (Adult Med) [address] [place] [address] 0 01/20/2020 11:58:11 01/20/2020 15:28:57 Benign paroxysmal positional vertigo nystagmus 465573489 H81.10 Discussed with patient , willing to try meclizine. Impacted c erumen in right ear 4577595443 252118 H61.21 [id number] MD [facility]agon (Adult Med) [address] [place] [address]79[address] 0 04/27/2020 08:16:20 04/28/2020 08:41:27 Benign prostatic hyperplasia 404026411 D29.1 Wanting urology referral. [id number] Mariangel Man MD [facility] (Adult Med) [address] [place] [address] 0 11/24/2020 11:38:24 11/25/2020 11:57:51 Essential hypertension 14859817 I10 Episodic hypertensi on recently, due to OTC nasal spray, it returned to normal reading after D/C nasal spray. Acid reflux 594309711 K2 1.9 Stable. Benign pro static hyperplasia 848359606 D29.1 Wanting urology referral. Hyperlipidemia 24302691 E78.5 Low saturated and low animal fat diet. Seizure 20368593 R56.9 Stable, controlled , on levetirace arroyo. [id number] Mariangel Man MD [facility] (Adult Med) [address] [place] [address]38[address]551 0 03/15/2021 07:58:42 03/16/2021 09:37:54 Acid reflux 696480110 K21.9 Stable. Benign pro static hyperplasia 074405873 D29.1 Wanting urology referral. Under the care of his urologist. Hyperlipidemia 59848305 E78.5 Low saturated and low animal fat diet. Hypertensive disorder 38 564025 I10 Low salt diet, avoid NSAID, or OTC decongesta nt. Coronary arteriosclerosis 48545685 I25.118 insurance referral , under the care of his cardiologi st. Seizure disorder 5964242 02 G40.909 Stable, controlled . [id number] Mariangel Man MD [facility] (Adult Med) [address] [place] [address] 99436-281 0 05/03/2021 11:51:37 05/05/2021 21:59:46 Cellulitis of eyelid 094073590 H00.039 Pupil reactive right, cornea is clean, no visual disturbanc e. but selling nd redness of right eye lower lid with tiny pin ple at corner , nasal side. Acid reflux 366764594 K2 1.9 Stable. [id number] MD [facility] (Adult Med) [address] [place] [address] 73973[address] 0 07/06/2021 15:52:08 07/13/2021 09:31:01 Low back pain 798836516 M54.5 Discussed with patient, he agreed to take x ray. Ambulating without assistance , some stiffness in turning , steady tip-toe and heel gaits, in supine SLRT is negative on both side. able to squatting down and bend over. Benign pro static hyperplasia 836638366 D29.1 Wanting urology referral. Under the care of his urologist. Hyperlipidemia 22332586 E78.5 Low saturated and low animal fat diet. Hypertensive disorder 38 292245 I10 Low salt diet, avoid NSAID, or OTC decongesta nt. Well controlled , BP reading today in this office is 130/80 mm Hg. [id number] MD [facility] (Adult Med) [address] [place] [address]992[address] 0 11/06/2021 10:03:05 11/07/2021 08:19:30 Respiratory tract infection 475511998 J98.8 Exposure t o SARS-CoV-2 436378736 Z20.822 Had exposed to some one with positive covid in the social garing Administra tion of influenza vaccine 26134352 Z23 [id number] MD [facility]agon (Adult Med) [address] [place] [address] 01115-023 0 11/27/2021 16:42:43 11/28/2021 11:29:27 Cellulitis 633641967 L03.90 Getting better, right face. [id number] MD [facility]agon (Adult Med) [address] [place] [address] 53296-152 0 03/30/2022 15:41:32 04/03/2022 07:40:21 Acute respiratory infections 031975614 J22 [id number] MD [facility]agon (Adult Med) [address] [place] [address] 72862-985 0 06/27/2022 14:23:30 06/28/2022 11:20:27 Benign prostatic hyperplasia 288254884 D29.1 Wanting urology referral. Under the care of his urologist. On finasterid e. Hyperlipidemia 55499479 E78.5 Low saturated and low animal fat diet. Kidney stone 07999021 N2 0.0 No abdomen pain, recently just being checked by his urologist . Hypertensive disorder 38 945215 I10 Low salt diet, avoid NSAID, or OTC decongesta nt. Well controlled , BP reading today in this office is 130/80 mm Hg.As 06-27-2022 , blood pressure is 148/80 . On lisinopril and metoprolol succinate. Seizure disorder 9580873 02 G40.909 Stable, controlled . on levetirace arroyo. [id number] MD [facility] Aragon (Adult Med) [address] [place] [address] 04109[address]676 0 09/27/2022 10:16:56 09/28/2022 13:11:20 Administration of influenza vaccine 05957761 Z23 [id number] MD [facility]agon (Adult Med) [address] [place] [address] 85560-344 0 11/07/2022 10:28:18 11/13/2022 12:39:32 Overweight 696804459 E66.3 BMI is 30.4 , he has been advised to watch his diet, exercise and keep the weight down. Benign pro static hyperplasia 927296160 D29.1 Wanting urology referral. Under the care of his urologist. On finasterid e. Hyperlipidemia 23387262 E78.5 Low saturated and low animal fat diet. Hypertensive disorder 38 561350 I10 Low salt diet, avoid NSAID, or OTC decongesta nt. Well controlled , BP reading today in this office is 130/80 mm Hg.As 06-27-2022 , blood pressure is 148/80 . On lisinopril and metoprolol succinate. , As 11-07-2022 . his BP is 146/80. will continue med. Seizure 06138421 R56.9 Stable, controlled , on levetirace arroyo. Coronary atherosclerosis 981032699 I25.83 With stents, stable, under the care of his cardiologi st. Dr. Alok Gann as he requested. [id number] MD [facility]agon (Adult Med) [address] [place] [address] 06551[address] 0 01/04/2023 11:28:42 01/07/2023 16:56:32 Acid reflux 686664717 K21.9 Stable.n omeprazole Hyperlipidemia 35174104 E78.5 Low saturated and low animal fat diet. On simvastati n. Seizure 71298383 R56.9 Stable, controlled , on levetirace arroyo. Hypertensive disorder 38 399092 I10 Low salt diet, avoid NSAID, or OTC decongesta nt. Well controlled , BP reading today in this office is 130/80 mm Hg.As 06-27-2022 , blood pressure is 148/80 . On lisinopril and metoprolol succinate. , As 11-07-2022 . his BP is 146/80. will continue med. As 01/04/23. BP is 142/88. On amlodipine and lisinopril and metoprolol . Benign pro static hyperplasia 561820010 D29.1 Wanting urology referral. Under the care of his urologist. On finasterid e. and oxybutynin . Coronary atherosclerosis 588617129 I25.83 With stents, stable, under the care of his cardiologi st. Dr. Alok Gann as he requested. On aspirin. clopidogre l and nitrostat and metoprolol . [id number] MD [facility]agon (Adult Med) [address] [place] [address] 29660[address] 0 05/22/2023 17:22:54 05/23/2023 12:37:59 Coronary arteriosclerosis 52765392 I25.118 insurance referral , under the care of his cardiologi st. Anxiety 95145267 F41.9 Wants some nerves pill to calm him down. Essential hypertension 67641012 I10 Episodic hypertensi on recently, due to OTC nasal spray, it returned to normal reading after D/C nasal spray. As 05-22-23, BP is 142/72. [id number] MD [facility] Aragon (Adult Med) [address] [place] [address] [phone] 0 06/18/2023 11:16:28 06/24/2023 14:56:18 Hypertensive disorder 02985173 I10 Low salt diet, avoid NSAID, or [...] . History of coronary artery bypass grafting 151426419 Z95.1 Under the care of his cardiologi st and cardiac surgeion. Prediabetes 226641566 R7 3.03 A1c is elevated, but not high enough for sugar diabetic yet. advised to watch his diet, exercise and keep the weight down. [id number] Mariangel Man MD [facility] (Adult Med) [address] [place] [address] 35989-249 0 08/20/2023 12:08:59 08/23/2023 11:33:44 Type 2 diabetes mellitus 30224718 E11.65 He has to pay $105 , once/day for 25 mg jardiance, Will change to invokana 100 mg /day and 340-B. under $ 10/month. History of coronary artery bypass grafting 096624096 Z95.1 Under the care of his cardiologi st and cardiac surgeon. Administra tion of influenza vaccine 83349747 Z23 He tolerated shot on the left arm well. Benign pro static hyperplasia with outflow obstruction 722416113 N40.1 Under the care of his urologist, on finasterid e, Seizure disorder 1444212 02 G40.909 Stable, controlled . on levetirace arroyo. [id number] MD [facility]agon (Adult Med) [address] [place] [address] 89037-399 0 10/08/2023 10:18:13 10/09/2023 13:55:45 Type 2 diabetes mellitus 44443763 E11.65 He has to pay $105 , once/day for 25 mg jardiance, Will change to invokana 100 mg /day and 340-B. under $ 10/month. Coronary atherosclerosis 472175758 I25.83 With stents, stable, under the care of his cardiologi st. Dr. Alok Gann as he requested. On aspirin. clopidogre l and nitrostat and metoprolol . [id number] Mariangel Man MD [facility] (Adult Med) [address] [place] [address] 12/31/2023 11:09:34 01/02/2024 14:16:54 Type 2 diabetes mellitus 80057407 E11.65 He has to pay $105 , once/day for 25 mg jardiance, Will change to invokana 100 mg /day and 340-B. under $ 10/month. He walks a mile/day. Coronary arteriosclerosis 18988633 I25.118 insurance referral , under the care of his cardiologi st. Benign pro static hyperplasia 856700019 D29.1 Wanting urology referral. Under the care of his urologist. On finasterid e. and oxybutynin . Hyperlipidemia 98504445 E78.5 Low saturated and low animal fat diet. On simvastati n. Seizure 55634619 R56.9 Stable, controlled , on levetirace arroyo. Health Concerns Section Related Observation LastModified by Organization Detai ls LastModified Time None Recorded Concern Status LastModified by Organization Details LastModified Time None Recorded Advance Directives Directive Y: Payers Insurance Date Sequence Insurance Name Policy Number Policy Perez Covered Member ID Perez Member ID Guarantor Name 10/08/2023 [place] - FQHC Johnnie Mack [id number] Johnnie Mack 10/08/2023 1 [place] Johnnie Mack [id number] Johnnie Mack 12/06/2023 2 [employer] - PLAN J (MEDICARE SUPPLEMENT) [employer] Johnnie Mack [id number] Johnnie Mack 04/04/2024 1 [employer] - PRIME (MEDICARE REPLACEMENT/A DVANTAGE - HMO) [id number] Johnnie Mack [id number] Johnnie Mack 01/30/2024 1 [facility] (MEDICARE REPLACEMENT/A DVANTAGE - HMO) [id number] Johnnie Mack [id number] Johnnie Mack 12/27/2023 1 [employer] [place] - DOS ON OR AFTER 2020 (MEDICAID REPLACEMENT - HMO) Johnnie Mack [id number] Johnnie Mack Notes Date Note Type Note Provider Name and Address Organization Details Recorded Time 05/22/2023 text/html ROS as noted in the HPI Office visit.,NKDA. history of coronary atherosclerosis. will have bypass at [facility] this week, has to put his demented at institution for the time being. His trip follower has ok for his operation, his anxious about all theses. Wants some med to relax his nerves . Otherwise has enough med refills. Mariangel Man MD Attn: Accounting[address] [facility], [place], [address], [place] [facility] 05/22/2023 17:59:54 06/18/2023 text/html ROS as noted in the HPI Office vist, NKDA. had coronary bypass at [facility] 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 Mariangel Man MD Attn: [address] [place], [address], [place] [facility] 06/24/2023 12:03:25 08/20/2023 text/html ROS as noted in the HPI Office visit,. NKDA. 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 type 2 DM, coronary bypass, financial burden for refill of medications such as eliquis and jardiance, will find 340-B replacement if we can. Mariangel Man MD Attn: Accounting[address] [facility], [place], [address], [place] [facility] 08/20/2023 14:50:22 10/08/2023 text/html ROS as noted in the HPI Office visit,NKDA. his=tory of type 2 DM. coronary atherosclerosis . med refill, Tolerated daily walking in GYM. no chest pain, NO SOB, but invokana and eliquis messer are too high in [facility]. and wants to take blood thinner once/day. ROS is notes in HPI. Mariangel Man MD Attn: [address] [place], [address], [place] [facility] 10/08/2023 19:11:56 12/31/2023 text/html ROS as noted in the HPI Office visit. NKDA. Check up . and med refills. Reviewed the lists of current med. No chest pain, no shortness of breath. no fever. ROS as noted in HPI. Has been checked by his trip follower. Mariangel Man MD Attn: Account[address] [place], [address], [facility] 12/31/2023 18:53:46
--- NOTE | 2025-08-21 07:39 | PC.NURSE ---
Notified MD Gabriel of patient BP being 194/102. patient states he hasn't taken his BP medications this am.
[2025-08-21] MEDS: OXYMETAZOLINE HCL 0.05% NAS 15 ML BTL (*BKC) 1 SPRAY NASAL (07:45)
[2025-08-21] MEDS: METOPROLOL SUCCINATE EXT REL 100 MG TABCR PO (07:50)
--- NOTE | 2025-08-21 07:56 | ED.EPISTAXIS ---
HPI - Epistaxis General Chief complaint: Epistaxis Stated complaint: nose bleed Time Seen by Provider: 08/21/25 07:01 Source: patient Mode of arrival: ambulatory Limitations: no limitations History of Present Illness HPI Narrative: This is an 89-year-old male, with history coronary artery disease, hypertension on Eliquis who presents emergency department with a nose bleed from the left nostril. The patient denies trauma and states he has had recurrent nosebleeds for the past 2 weeks. He denies weakness, shortness of breath chest pain. Related Data Home Medications ?Medication ?Instructions ?Recorded ?Confirmed ?Last Taken ?Type finasteride 5 mg tablet 5 mg PO HS 10/01/22 07/30/24 04/20/23 19:30 History aspirin 81 mg tablet,delayed 81 mg PO HS 05/14/24 07/30/24 Unknown History release lisinopril 20 mg tablet 20 mg PO HS 05/14/24 07/30/24 Unknown History acarbose 25 mg tablet 25 mg PO TID 07/30/24 07/30/24 Unknown History atorvastatin 40 mg tablet 40 mg PO HS 07/30/24 07/30/24 Unknown History Allergies Allergy/AdvReac Type Severity Reaction Status Date / Time No Known Allergies Allergy Verified 01/29/25 16:30 Review of Systems Review of Systems: All systems reviewed & are unremarkable except as noted in HPI and below PMFSH Past Medical History Medical History (Updated 08/21/25 @ 15:10 by Kenzie Bucio MD) Deviated nasal septum Epistaxis, recurrent Diabetes mellitus Non-ST elevation [place] (NSTEMI) Acute stroke due to ischemia Benign brain tumor Status post resection in 2010. He is on prophylactic anti seizure medications. Coronary artery disease Ischemic cardiomyopathy Hyperlipidemia Hypertension Coronary stent occlusion Surgical History Surgical History S/P CABG x 5 2022 History of craniotomy (2010) Benign tumor. History of coronary artery stent placement Family History Family History Father Acute myocardial infarction father of [place] in his early 50s Social History Social History Social History: . No tobacco, drug or alcohol use. Lives alone. Surrogate medical decision maker: Katharina Renteria dtr Code status: Full code Smoking status: Never smoker Second hand tobacco smoke exposure: No Alcohol intake: former Substance use: never Substance use type: does not use Do You Feel Safe in your Home?: Yes Lack of Transportation: No Lack of Food: Never True Current Housing: I Have Housing Concerned About Future Housing: No Difficulty Paying Gas/Electric Bills: No Difficulty Paying for Meds: No Currently Unemployed: No Education: High School Diploma/GED Difficulty w/ Childcare or Family Care: No Living arrangements: with family Occupation/Education: retired Gender identity (if verbalized by the patient): Male Sexual Orientation (if Verbalized by the Patient): Straight or Heterosexual Spiritual care concerns: No Exam Narrative: GENERAL: Well-developed, well-nourished, and in no acute distress. HEAD: Normocephalic, atraumatic. EYES: PERRLA and EOMI. ENT: Nares clear, no rhinorrhea or epistaxis. There appears to be some irritation in the area of Kiesselbach's plexus without active bleeding. Mucous membranes moist. Oropharynx without tonsillar hypertrophy exudate or other lesions. No active bleeding noted in the posterior pharynx. CHEST: Clear to auscultation. No respiratory distress. No wheezes rales or rhonchi HEART: Regular rate and rhythm. No murmur heard. Normal peripheral pulses. ABDOMEN: Soft, nontender, nondistended, normal active bowel sounds. EXTREMITIES: Normal range of motion. No edema. SKIN: Warm, dry, no rash. NEURO: Alert and oriented x3. No focal deficit. Moving all 4 limbs spontaneously PSYCH: Normal mood and affect. Course Course Emergency Course: 08:52 - With clamping only, no active bleeding was noted. The patient was given Afrin. He was given his home blood pressure medications with improvement of his pressure from the 190s to 170s. Will discharge with recommendation for primary care and ENT follow-up. I discussed the findings and recommendations with the patient. Discussed return and emergency precautions including signs/symptoms of recurrent epistaxis, symptomatic anemia and ACS. The patient voiced understanding and agreement with the plan. All questions answered to his satisfaction. 15:32 - Despite placing an anterior rhino rocket, followed by a posterior rhino rocket, the patient had recurrent bleeding from the left nostril. ENT (Dr. Bucio) was consult and evaluated the patient in the emergency department. Dr. Bucio packed the patient's left nostril with surgery foam with hemostasis. Will discharge. Vital Signs Vital signs: Vital Signs Temperature 97.8 F 08/21/25 06:56 Pulse Rate 65 08/21/25 06:56 Respiratory Rate 16 08/21/25 06:56 Blood Pressure 196/85 H 08/21/25 06:56 Pulse Oximetry 99 08/21/25 06:56 Oxygen Delivery Room Air 08/21/25 06:56 Temperature 98.1 F 08/21/25 15:40 Pulse Rate 64 08/21/25 15:40 Respiratory Rate 17 08/21/25 15:40 Blood Pressure 142/74 H 08/21/25 15:40 Pulse Oximetry 98 08/21/25 15:40 Oxygen Delivery Room Air 08/21/25 06:56 Procedures Epistaxis Control left: Epistaxis Control Date: 08/21/25 Epistaxis Control Time: 10:15 Time Out Performed: Yes Nose Prepped With: oxymetazoline Direct Inspection: yes Clots Removed by: blowing nose Cautery Used: silver nitrate Device Inserted: other (Rhino rocket) Patient Tolerated Procedure: well Complications: continued epistaxis Epistaxis Control Narrative: After an anterior rhino rocket placement, the patient had persistent bleeding. A posterior rhino rocket was placed with persistent bleeding MDM - Epistaxis MDM Narrative Medical decision making narrative: Plan: Observation, antihypertensives, reassess Differential Diagnosis Differential diagnosis: Likely anterior epistaxis and other (Coagulopathy, medication side effect, other) Discharge Plan Discharge Clinical Impression: Epistaxis, Hypertension Patient Disposition: Home Condition: Stable Instructions: Antibiotic Form Additional Instructions: You were seen in the emergency department. You were given a dose of Afrin, packing was placed and ENT was consulted to help with bleeding control. I recommend holding your Eliquis for 3 days and then resuming. I recommend following up with your primary care doctor and an ear nose and throat doctor. If you develop recurrent nose bleeding, shortness of breath, chest pain, loss of consciousness, or if you have other emergent concerns for life, limb, or eyesight, return to the emergency department. Patient Language: Tajik Prescriptions: New Saline Mist 0.65 % aerosol,spray 2 spray intranasal QID PRN (Reason: dry nasal passages) Qty: 44 0RF No Action aspirin 81 mg tablet,delayed release (DR/EC) 81 mg PO HS lisinopril 20 mg tablet 20 mg PO HS levetiracetam 500 mg tablet 500 mg PO BID Qty: 180 1RF finasteride 5 mg Tablet 5 mg PO HS (DME) blood-glucose meter [OneTouch Verio Flex meter] [facility] [place] Qty: 1 0RF Rx Instructions: May substitute to in-stock meter and/or covered by insurance. Use As Directed (DME) OneTouch Verio test strips Strip Qty: 1 0RF Rx Instructions: May substitute to in-stock and/or covered by insurance strips. Use As Directed (DME) lancets [IMRSVTouch Delica Plus Lancet] 30 gauge [facility] [place] Qty: 1 0RF Rx Instructions: May substitute to in-stock and/or covered by insurance lancets. Use As Directed atorvastatin 40 mg tablet 40 mg PO HS acarbose 25 mg tablet 25 mg PO TID Eliquis 5 mg Tablet 5 mg PO Q12HR Qty: 60 2RF Jardiance 10 mg Tablet 10 mg PO DAILY Qty: 30 2RF metoprolol succinate [Toprol XL] 100 mg Tablet Extended Release 24 Hr 100 mg PO QAM Qty: 30 2RF metformin 500 mg tablet 250 mg PO BIDWMEAL Qty: 30 1RF spironolactone 25 mg tablet 12.5 mg PO DAILY Qty: 15 1RF Follow-up/Referrals: Kenzie Bucio MD [Physician, Ear, Nose, Throat] - 2 Weeks Sofia,SHALINI Teague [Primary Care Provider] Time of Disposition: 15:35
--- NOTE | 2025-08-21 09:17 | PC.NURSE ---
At time of discharge, patient stood up to leave and his nose started bleeding again. nose clamp applied, and MD Gabriel notified.
[2025-08-21] MEDS: SILVER NITRATE (*SP) STICK 1 EACH (09:30)
--- NOTE | 2025-08-21 10:50 | PC.NURSE ---
Patient is still bleeding after rhinorocket placed. MD le to bedside
--- NOTE | 2025-08-21 15:07 | WPDCN ---
Assessment and Plan Assessment and plan (1) Epistaxis, recurrent: Code(s): R04.0 - Epistaxis Status: Acute (2) Deviated nasal septum: Code(s): J34.2 - Deviated nasal septum Status: Acute Plan 89-year-old male with left anterior epistaxis. Procedure:Rigid nasal endoscopy with control of epistaxis Anesthesia lidocaine 2%,oxymetazoline 5% sprayed topically Detail:Rigid nasal endoscopy performed bilaterally.We visualized the entire septum as well as the inferior turbinate,middle turbinate,superior turbinate and the sphenoethmoid recess.We also visualized the nasopharynx. Unless mentioned below the structures were normal. Septum was deviated to the left side, multiple raw areas were seen a the left aspect of the nasal septum Bilateral nasal cavity showed block: Notes filling the left nasal fossa Control epistaxis was done using absorbable nasal packing applied to the left aspect of the nasal septum. Estimated blood loss:minimal plan: 1. Epistaxis control was done using absorbable nasal packing placed on the left aspect of the nasal septum. 2. Patient can be discharged home :Advised to stop Eliquis for 3 days unless absolutely contraindicated. 3. Advised to use saline nasal spray 2 puffs in the left nostril twice daily. 4. The nasal packing is self absorbable and it will not need removing by physician. 5. Avoid heavy lifting bending over avoid blowing the nose the left side for 1 week. 6. In case of recurrence of bleeding the patient will need to pain she has nose and bent over for 5 minutes if the bleeding is continuous he has to come to the emergency department. 7. Follow-up appointment with Dr. Bucio 2 weeks [facility] Data of Consult Date/Time: 08/21/25 15:07 Primary Care Provider: Zahida Black, [employer] Consult Narrative Narrative: Johnnie Mack is 89-year-old male, with history coronary artery disease, hypertension on Eliquis who presents emergency department with a nose bleed from the left nostril. The patient denies trauma and states he has had recurrent nosebleeds for the past 2 weeks. He denies weakness, shortness of breath chest pain. Previous nosebleeds. 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 He is on prophylactic anti seizure medications. Coronary artery disease Ischemic cardiomyopathy Hyperlipidemia Hypertension Coronary stent occlusion Surgical History Surgical History S/P CABG x 5 2022 History of craniotomy (2010) Benign tumor. History of coronary artery stent placement Family History Family History Father Acute myocardial infarction father of [place] in his early 50s Social History Social History Social History: . No tobacco, drug or alcohol use. Lives alone. Surrogate medical decision maker: Katharina Renteria dtr Code status: Full code Smoking status: Never smoker Second hand tobacco smoke exposure: No Alcohol intake: former Substance use: never Substance use type: does not use Do You Feel Safe in your Home?: Yes Lack of Transportation: No Lack of Food: Never True Current Housing: I Have Housing Concerned About Future Housing: No Difficulty Paying Gas/Electric Bills: No Difficulty Paying for Meds: No Currently Unemployed: No Education: High School Diploma/GED Difficulty w/ Childcare or Family Care: No Living arrangements: with family Occupation/Education: retired Gender identity (if verbalized by the patient): Male Sexual Orientation (if Verbalized by the Patient): Straight or Heterosexual Spiritual care concerns: No Meds Home Medications and Allergies Home Medications ?Medication ?Instructions ?Recorded ?Confirmed ?Type finasteride 5 mg tablet 5 mg PO HS 10/01/22 07/30/24 History blood sugar diagnostic (OneTouch #1 pkg 04/22/23 07/30/24 Rx Verio test strips) blood-glucose meter (OneTouch #1 pkg 04/22/23 07/30/24 Rx Verio Flex Meter) lancets 30 gauge (OneTouch Delica #1 pkg 04/22/23 07/30/24 Rx Plus Lancet) aspirin 81 mg tablet,delayed 81 mg PO HS 05/14/24 07/30/24 History release levetiracetam 500 mg tablet 500 mg PO BID #180 tabs 05/14/24 07/30/24 Rx lisinopril 20 mg tablet 20 mg PO HS 05/14/24 07/30/24 History acarbose 25 mg tablet 25 mg PO TID 07/30/24 07/30/24 History atorvastatin 40 mg tablet 40 mg PO HS 07/30/24 07/30/24 History apixaban 5 mg tablet (Eliquis) 5 mg PO Q12HR #60 tabs 08/01/24 Rx empagliflozin 10 mg tablet 10 mg PO DAILY #30 tabs 08/01/24 Rx (Jardiance) metformin 500 mg tablet 250 mg (1/2 x 500 mg) PO BIDWMEAL 08/01/24 Rx #30 tabs metoprolol succinate 100 mg 100 mg PO QAM #30 tabs 08/01/24 Rx tablet,extended release 24 hr (Toprol XL) spironolactone 25 mg tablet 12.5 mg (1/2 x 25 mg) PO DAILY #15 08/01/24 Rx tabs sodium chloride 0.65 % nasal spray 2 spray intranasal QID PRN dry 08/21/25 Rx aerosol (Saline Mist) nasal passages #44 mL Allergies Allergy/AdvReac Type Severity Reaction Status Date / Time No Known Allergies Allergy Verified 01/29/25 16:30 Vital Signs Vital Signs - 24 hr 08/21/25 06:56 08/21/25 07:15 08/21/25 07:17 Temperature 36.6 C Pulse Rate 65 60 Respiratory Rate 16 19 Blood Pressure 196/85 H 189/86 H 189/86 H Pulse Oximetry 99 99 99 Oxygen Delivery Room Air 08/21/25 07:30 08/21/25 07:31 08/21/25 07:36 Temperature Pulse Rate Respiratory Rate Blood Pressure 200/90 H 194/102 H Pulse Oximetry 98 97 98 Oxygen Delivery 08/21/25 07:45 08/21/25 07:47 08/21/25 07:50 Temperature Pulse Rate 63 Respiratory Rate Blood Pressure 154/68 H Pulse Oximetry 97 99 Oxygen Delivery 08/21/25 08:00 08/21/25 08:15 08/21/25 08:16 Temperature Pulse Rate Respiratory Rate Blood Pressure 170/81 H Pulse Oximetry 100 98 98 Oxygen Delivery 08/21/25 08:30 08/21/25 08:31 08/21/25 08:46 Temperature Pulse Rate Respiratory Rate Blood Pressure 186/83 H 175/81 H Pulse Oximetry 99 100 98 Oxygen Delivery 08/21/25 09:01 08/21/25 10:06 08/21/25 12:16 Temperature Pulse Rate 65 56 L 63 Respiratory Rate 19 19 18 Blood Pressure 176/94 H 166/81 H Pulse Oximetry 98 100 99 Oxygen Delivery 08/21/25 13:01 08/21/25 13:26 Temperature Pulse Rate 64 63 Respiratory Rate 19 16 Blood Pressure 163/83 H 140/71 Pulse Oximetry 98 100 Oxygen Delivery Exam Const: General: cooperative, healthy appearing, comfortable, no acute distress, well developed, alert, awake and Physically active Orientation/consciousness: oriented to person, oriented to place, oriented to time and patient oriented x3 HENMT: Head: normocephalic and atraumatic Ears: external ears normal and EAC's normal Face/Nose/Sinus: Normal external nose present and Normal nares present Mouth: Yes Normal oral and palatal mucosa present, Yes lip normal and Yes tongue normal Other: Septum was deviated to the left side, multiple raw areas were seen a the left aspect of the nasal septum Bilateral nasal cavity showed block: Notes filling the left nasal fossa Eyes: General: appearance normal, both eyes and all related structures Neck: Neck: normal visual inspection, full ROM and trachea midline Resp: Effort & Inspection: normal respiratory effort and able to speak in complete sentences Cardio: Rate: regular rate Neuro: General: oriented to person, oriented to place, oriented to time and patient oriented x3
== END 2025-08-21 15:44 | disposition home or self-care (01) ==
PROVIDERS: Emergency Provider Preventive Medicine Aerospace Medicine; PCP Registered Nurse
DX: R04.0 Epistaxis (principal); I10 Essential (primary) hypertension; I25.10 Atherosclerotic heart disease of native coronary artery without angina pectoris; Z79.01 Long term (current) use of anticoagulants
CPT/HCPCS: 30901; 99283; A9270

== ENCOUNTER 2025-10-25 08:15 | Outpatient (CLI) | payer MEDICARE, SELFPAY ==
--- NOTE | ~2025-10-25 | XR_ITS ---
EXAMINATION: XR abdomen/kub 1V, 10/25/2025 8:32 [employer] HISTORY: bladder stones COMPARISON: No comparisons available. Technique: 3 view. Findings: Bowel gas pattern unremarkable. No obstruction. Left kidney midpole renal calculus 2 mm. No acute osseous abnormality. Impression: 1. No definite bladder calculi identified. Fecal content obscures evaluation. Correlation with CT suggested. 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 No definite bladder calculi identified. Fecal content obscures evaluation. C orrelation with CT suggested.
== END 2025-10-25 08:16 | disposition home or self-care (01) ==
LOC: ANHLAB 08:18 → ANHIMG 08:25
PROVIDERS: PCP Registered Nurse; Visit Provider Physician Assistant
DX: N21.0 Calculus in bladder (principal)
CPT/HCPCS: 74018